=== PATIENT | female | born 1940 | race Caucasian/White ===

== ENCOUNTER 2016-10-18 06:04 | Day surgery (SDC) | payer MEDICARE ==
[~2016-10-18] VITALS: Ht 172.7 cm; Wt 90.9 kg
[~2016-10-18 06:04] MED LIST: FURO1TAB60 PO; LACTCAP8 PO; LEVO50TA4 PO; LIPI20TA PO; LORA-373 PO; MAGN1TAB14 PO; MULT400T PO; POTA-163 PO; PRIL40CA PO; TOPR50TA PO; TRAM50TA PO; VITA1000 PO; XARE20TA PO
[2016-10-18 06:41] VITALS: BP 124/86; PULSE 60; RESP 20; TEMP 97.9; O2SAT 94
[2016-10-18] MEDS ORDERED: ceFAZolin 2 GM PREMIX 50 ML - implanted port/tunneled catheter insertion IV SCH (06:45)
[2016-10-18] MEDS ORDERED: POVIDONE IODINE 5% (ANTISEPSIS KIT) 4 APPLICATIONS EACH NARE SCH (06:45)
[2016-10-18] MEDS ORDERED: CHLORHEXIDINE GLUCONATE 2 % 1 PACK (2 CLOTHS) TOPICAL SCH (06:45)
[2016-10-18] MEDS ORDERED: SODIUM CHLORIDE 0.9% 1000 ML IV SCH (06:45)
[2016-10-18] MEDS ORDERED: VANCOMYCIN 1000 MG/NS 250 ML - implanted port/tunneled catheter IV SCH ×2 (06:45)
[2016-10-18] MEDS ORDERED: LIDOCAINE 1%/EPINEPHrine 1:100,000 SOLN 20 ML VIAL ONE (07:50)
[2016-10-18] MEDS ORDERED: MIDAZOLAM HCL 5 MG/5 ML VIAL ONE (07:55)
[2016-10-18] MEDS ORDERED: fentaNYL CITRATE 250 MCG/5 ML AMP ONE (07:55)
[2016-10-18 09:00] VITALS: BP 162/67; PULSE 61; RESP 18; TEMP 97.5; O2SAT 92
[2016-10-18 09:15] VITALS: BP 163/60; PULSE 60; RESP 19; O2SAT 91
[2016-10-18 09:45] VITALS: BP 123/62; PULSE 57; RESP 18; O2SAT 92
--- NOTE | 2016-10-18 09:58 | PD.RAD ---
Post Procedure Progress Note Pre Procedure Diagnosis: (1) Adenocarcinoma Post Procedure Diagnosis: (1) Adenocarcinoma Procedure Date: Oct 18, 2016 Supervising Radiologist: Daren Castellanos Proceduralist/Assist: Sharmila Das RT(R), RT Ivanna(R)() Anesthesia: Local, Conscious Sedation Plan of Activity Patient to Unit: ROPU Patient Condition: Good See PACS Report for procedural detail/treatment Central Venous Access Device Procedure 1 Right Internal Jugular Infusaport Placement single lumen Hebrew: 8 Daren Castellanos MD Oct 18, 2016 09:58
[2016-10-18 10:15] VITALS: BP 113/6; PULSE 62; RESP 18; O2SAT 93
[2016-10-18] MEDS ORDERED: fentaNYL CITRATE 250 MCG/5 ML AMP IV PUSH ONE (10:29)
[2016-10-18] MEDS ORDERED: MIDAZOLAM HCL 5 MG/5 ML VIAL IVP ONE (10:29)
[2016-10-18 10:45] VITALS: BP 127/67; PULSE 68; RESP 19; O2SAT 96
--- NOTE | 2016-10-18 13:59 | RADRPT ---
EXAM DATE/TIME: 10/18/2016 07:52 [facility] COMPARISON: No previous studies available for comparison. 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 MEDICAL HISTORY : Papillary serous adenocarcinoma HTN Heart disease Atrial fibrillation Pacemaker Thyroid disease Osteoporosis Osteoarthritis Hx of blood clots Hx of cataracts Hx brain aneurysm Hemorrhoids Diverticulitis SURGICAL HISTORY : Laperoscopic lysis of adhesions with particial omentectomy and biopsy Appendectomy Hysterectomy Cholecystectomy Brain aneurysm coiling Right lumpectomy and biopsy Cardiac catheterization with ablation in 2011 & 2012 Pacemaker placement Colonoscopy 2015 Lt partial knee replacement RT total knee replacement Cataract removal ENCOUNTER: Initial ACUITY: 1 month PAIN SCORE: 0/10 FLUORO TIME: 0.4 minutes SEDATION TIME: 30 minutes ACCESS: Right internal jugular vein SEDATION: 1.) 2 mg midazolam (Versed) IV 2.) 150 mcg fentanyl (Sublimaze) IV Prophylactic antibiotics were administered with appropriate pre-procedure timing. Vancomycin within 2 hours of procedure, Ancef (or alternative) within 1 hour of procedure. DEVICE: 1. 8 Iraqi single lumen Vgerim-f-zmur PROCEDURE : 1. Continuous pulse oximetry and EKG monitoring. 2. Intravenous conscious sedation. 3. Ultrasound guidance for venous access. 4. Fluoroscopic guided implantable central venous port placement. The patient was placed supine. The neck was prepped in sterile fashion. Full sterile technique was u sed, including cap, mask, sterile gloves and gown, and a large sterile sheet. Hand hygiene and 2% ch lorhexidine Betadine was utilized per protocol for cutaneous antisepsis with appropriate dry time for site. The skin and subcutaneous tissues were infiltrated with local anesthetic solution. Under direct ultrasound guidance, central venous access was accomplished in the targeted vessel. The ultrasound images depicting access guidance were stored and saved to PACS for permanent record. A s ubcutaneous pocket was created using blunt dissection. The port was introduced to the pocket. The c atheter tubing was fed through a subcutaneous tunnel to the venotomy site. The catheter tubing was c ut to a suitable length and then was introduced through a valved Peel-Away sheath and positioned with catheter tubing tip at the cavo-atrial junction level. The pocket incision was closed with subcutic ular Vicryl suture. Steri-Strips were applied. The port was flushed and locked with heparin solutio n per protocol. Sterile dressing was applied to the site. The patient tolerated the procedure well. Conscious sedation was performed with the prescribed dosages and duration as above. The patient diana ated the procedure well and there were no complications. EKG and oximetry remained stable throughout the procedure. The patient was sent to post anesthesia recovery in stable condition. CONCLUSION: Uncomplicated ultrasound and fluoroscopic guided implanted central venous port catheter placement as described in detail above. An 8 Iraqi Power port was placed. Daren Castellanos MD on October 18, 2016 at 13:57 Board Certified Radiologist. This report was verified electronically.
== END 2016-10-18 11:15 | disposition home or self-care (01) ==
LOC: HRIP 06:04 → HROP 06:04
PROVIDERS: ATTEND Obstetrics & Gynecology Gynecologic Oncology
DX: C56.9 Malignant neoplasm of unspecified ovary (principal)
CPT/HCPCS: 36561; 76937; 77001; 99152; 99153; C1788; J0690; J1642; J2250; J3010; J3370; J7030; J7050

== ENCOUNTER 2016-11-23 12:37 | Inpatient (IN) | payer MEDICARE, OTHER ==
[~2016-11-23] VITALS: Ht 175.3 cm; Wt 90.0 kg
[2016-11-23 12:39] VITALS: BP 188/101; PULSE 94; RESP 16; TEMP 97.9; O2SAT 95
[2016-11-23] MEDS ORDERED: ONDANSETRON HCL 4 MG/2 ML VIAL IV PUSH ONE (17:00)
[2016-11-23] MEDS ORDERED: SODIUM CHLOR 0.9% 1000 ML INJ 1,000 ML IV ONE (17:00)
[2016-11-23] MEDS ORDERED: SODIUM CHLORIDE 0.9% FLUSH 5 ML FLUSH IVF PRN (17:00)
[2016-11-23 17:01] VITALS: BP 151/67; PULSE 88; RESP 16; O2SAT 96
[2016-11-23] MEDS ORDERED: D 50CAP PO (17:35)
[2016-11-23] MEDS ORDERED: DIPH1TAB36 PO (17:35)
--- NOTE | 2016-11-23 18:13 | PD ---
HPI Chief Complaint: Cardiac Complaint Time Seen by Provider: 16:57 Travel History International Travel<30 days: No Contact w/Intl Traveler<30days: No Traveled to known affect area: No History of Present Illness HPI 76-year-old female with history of breast cancer status post treatment, ovarian cancer currently on chemotherapy treatment with Dr. Fletcher, has not been eating and drinking very well after chemotherapy which she states occurs normally, has had some episodes of vomiting, and now is feeling lightheaded, feels like she is going to pass out, for the last few days. She denies any fevers, chest pains , diarrhea, or any other symptoms. She had called the primary care physician and oncology office and was told to come in because they think that she may be dehydrated. Modifying Factors: None Associated Signs & Symptoms: Near syncope, lightheadedness, poor by mouth intake , vomiting Risk Factors: On chemotherapy PFSH Past Medical History Hx Anticoagulant Therapy: Yes (XARELTO) Arthritis: Yes Asthma: No Atrial Fibrillation: Yes Blood Disorders: No Anxiety: No Depression: No Heart Rhythm Problems: Yes (A-FIB) Cancer: Yes (RIGHT BREAST) Cardiac Catheterization: Yes (12/19) Cardiovascular Problems: Yes (A-FIB) High Cholesterol: Yes Chemotherapy: Yes (11/16/16) Chest Pain: Yes (intermittent pain free now) Congestive Heart Failure: No COPD: No Cerebrovascular Accident: No Diabetes: No Endocrine: Yes Gastrointestinal Disorders: Yes (DIVERTICULITIS) GERD: Yes Genitourinary: No Headaches: No Hepatitis: No Hiatal Hernia: Yes Hypertension: Yes Immune Disorder: No Implanted Vascular Access Dvce: Yes Musculoskeletal: Yes Neurologic: Yes (brain aneurysm) Psychiatric: No Reproductive: No Respiratory: No Immunizations Current: Yes Migraines: No Radiation Therapy: Yes Seizures: No Sleep Apnea: No Thyroid Disease: Yes Menopausal: Yes Past Surgical History Abdominal Aneurysm Repair: Yes Abdominal Surgery: Yes (CHOLY, APPY) AICD: No Appendectomy: Yes Arteriovenous Shunt: No Body Medical Devices: PACEMAKER, R TOTAL KNEE, L PARTIAL KNEE, LEFT FOOT PIN, COIL LEFT BRAIN Cardiac Surgery: Yes (ablation in 09/2012 [facility] [place] ALSO SEP 2013, PACER) Cholecystectomy: Yes Ear Surgery: No Endocrine Surgery: No Eye Surgery: Yes (cataracts bilateral/2010 ) Genitourinary Surgery: Yes Gynecologic Surgery: Yes (partial HYST) Hysterectomy: Yes (PARTIAL) Insulin Pump: No Joint Replacement: Yes (PT STATES R & L KNEE AND L FOOT WITH PINS) Mastectomy: Yes (RIGHT) Neurologic Surgery: Yes (BRAIN SURGERY ON Nov) Oral Surgery: No Pacemaker: Yes ([employer]) Thoracic Surgery: No Other Surgery: Yes (RT. BREAST LUMPECTOMY IN 1996) Social History Alcohol Use: Yes (small glass of wine at bedtime) Tobacco Use: No Substance Use: No Allergies-Medications (Allergen,Severity, Reaction): Coded Allergies: Azithromycin (Verified Allergy, Severe, 11/23/16) Neosporin (Verified Allergy, Severe, 11/23/16) Polysporin (Verified Allergy, Mild, RASH, 11/23/16) Adhesives (Verified Adverse Reaction, Mild, 11/23/16) Reported Meds & Prescriptions Reported Meds & Active Scripts Active Reported Tylenol Pm Extra Strength (Diphenhydramine-Acetaminophen) 25-500 Mg Tab 2 Tab PO HS D 5000 (Cholecalciferol) 5,000 Unit Cap 5,000 Units PO DAILY Lorazepam 0.5 Mg Tab 0.5 Mg PO HS PRN Toprol XL (Metoprolol Succinate) 50 Mg Tab 50 Mg PO AC DINNER Lipitor (Atorvastatin Calcium) 20 Mg Tab 20 Mg PO HS Xarelto (Rivaroxaban) 20 Mg Tab 20 Mg PO AC DINNER Tramadol (Tramadol HCl) 50 Mg Tab 100 Mg PO BID Multaq (Dronedarone) 400 Mg Tab 400 Mg PO BID Potassium Chloride ER (Potassium Chloride) 20 Meq Tab 20 Meq PO DAILY Magnesium 400 Mg Tab 400 Mg PO AC DINNER Levothyroxine (Levothyroxine Sodium) 50 Mcg Tab 50 Mcg PO DAILY Lasix (Furosemide) 40 Mg Tab 40 Mg PO DAILY Review of Systems Except as stated in HPI: all other systems reviewed are Neg Physical Exam Narrative GENERAL: Well-nourished, well-developed elderly white female patient in no acute distress. Awake, alert, oriented 3. SKIN: Warm and dry. HEAD: Normocephalic. EYES: No scleral icterus. No injection or drainage. NECK: Supple, trachea midline. CARDIOVASCULAR: Regular rate and rhythm without murmurs, gallops, or rubs. RESPIRATORY: Breath sounds equal bilaterally. No accessory muscle use. GASTROINTESTINAL: Abdomen soft, non-tender, nondistended. MUSCULOSKELETAL: No cyanosis, or edema. BACK: Nontender without obvious deformity. No CVA tenderness. Data Data Last Documented VS Vital Signs Date Time Temp Pulse Resp B/P Pulse Ox O2 Delivery O2 Flow Rate FiO2 11/23/16 18:39 86 16 177/79 98 Room Air 11/23/16 12:39 97.9 Orders Electrocardiogram (11/23/16 ) Electrocardiogram (11/23/16 16:52) Complete Blood Count With Diff (11/23/16 16:52) Comprehensive Metabolic Panel (11/23/16 16:52) Magnesium (Mg) (11/23/16 16:52) Ckmb (Isoenzyme) Profile (11/23/16 16:52) Troponin I (11/23/16 16:52) Act Partial Throm Time (Ptt) (11/23/16 16:52) Prothrombin Time / Inr (Pt) (11/23/16 16:52) Urinalysis - C+S If Indicated (11/23/16 16:52) Chest, Single Ap (11/23/16 16:52) Ecg Monitoring (11/23/16 16:52) Iv Access Insert/Monitor (11/23/16 16:52) Oximetry (11/23/16 16:52) Sodium Chloride 0.9% Flush (Ns Flush) (11/23/16 17:00) Sodium Chlor 0.9% 1000 Ml Inj (Ns 1000 M (11/23/16 17:00) Ondansetron Inj (Zofran Inj) (11/23/16 17:00) Labs Laboratory Tests Test 11/23/16 11/23/16 17:45 18:30 Prothrombin Time 13.1 SEC Prothromb Time International 1.2 RATIO Ratio Activated Partial 25.4 SEC Thromboplast Time Urine Color YELLOW Urine Turbidity HAZY Urine pH 5.5 Urine Specific [place] 1.021 Urine Protein 30 mg/dL Urine Glucose (UA) NEG mg/dL Urine Ketones NEG mg/dL Urine Occult Blood SMALL Urine Nitrite NEG Urine Bilirubin NEG Urine Urobilinogen LESS THAN 2.0 MG/DL Urine Leukocyte Esterase LARGE Urine RBC 7 /hpf Urine WBC /hpf Urine Bacteria MANY /hpf Urine Mucus MANY /lpf Microscopic Urinalysis Comment CULTURE INDICATED MDM Medical Decision Making Medical Screen Exam Complete: Yes Emergency Medical Condition: Yes Medical Record Reviewed: Yes Interpretation(s) EKG shows sinus rhythm at a rate of [address] depressions in V2 and V3. No acute ST elevations. Differential Diagnosis Lightheadedness, poor by mouth intake, near syncopedehydration versus metabolic issues versus dysrhythmias Narrative Course Patient was given IV fluids and Zofran in the ER. Lab work ordered for further evaluation. EKG did not show any significant dysrhythmias. Physician Communication Physician Communication Case is signed out to Dr. Mustafa at 7 PM pending workup. Disposition based on workup. Diagnosis Primary Impression: Near syncope Condition: Stable Jasper Vallecillo MD Nov 23, 2016 18:13
--- NOTE | 2016-11-23 18:23 | RADRPT ---
EXAM DATE/TIME: 11/23/2016 17:46 [facility] COMPARISON: CT ABDOMEN & PELVIS W CONTRAST, December 13, 2015, 1:56. CHEST SINGLE AP, April 06, 2015, 14:43. INDICATIONS : General weakness after chemo treatments today MEDICAL HISTORY : A-fib, ovarian cancer SURGICAL HISTORY : Pacemaker. Kmiyk-i-eobv placement ENCOUNTER: Initial ACUITY: 1 day PAIN SCORE: 0/10 LOCATION: Bilateral chest FINDINGS: A single view of the chest demonstrates the lungs to be symmetrically aerated without evidence of mas s, infiltrate or effusion. There is a bi-lead pacemaker in place from the left subclavian approach a nd a CT compatible Lglhhh-d-Wega in place from the right internal jugular approach with the tip overl gurjit the SVC. The cardiomediastinal contours are unremarkable. Osseous structures are intact. CONCLUSION: No acute disease. Nickolas Joseph MD on November 23, 2016 at 18:20 Board Certified Radiologist. This report was verified electronically.
[2016-11-23 18:39] VITALS: BP 177/79; PULSE 86; RESP 16; O2SAT 98
[2016-11-23 18:40] LABS: AUTOMATED NEUTROPHIL # 5.1 TH/MM3 (1.8-7.7); BASOPHIL % 0.4 % (0.0-2.0); EOSINOPHIL # 0.6 TH/MM3 (0-0.4); EOSINOPHIL % 7.6 % (0.0-4.0); HEMATOCRIT 32.6 % (35.0-46.0); LYMPH % 13.3 % (9.0-44.0); MEAN CELL VOLUME 86.4 FL (80.0-100.0); MEAN CORPUSCULAR HEMOGLOBIN 27.9 PG (27.0-34.0); MEAN CORPUSCULAR HGB CONC 32.3 % (32.0-36.0); MONO % 11.3 % (0.0-8.0); NEUT % 67.4 % (16.0-70.0); PLATELET COUNT 75 TH/MM3 (150-450); RED BLOOD COUNT 3.77 MIL/MM3 (4.00-5.30); RED CELL DISTRIBUTION WIDTH 17.3 % (11.6-17.2); WHITE BLOOD COUNT 7.6 TH/MM3 (4.0-11.0)
[2016-11-23 18:47] LABS: APTT (PATIENT) 25.4 SEC (24.3-30.1); INTERNATIONAL NORMALIZED RATIO 1.2 RATIO; PROTHROMBIN TIME - PATIENT 13.1 SEC (9.8-11.6)
[2016-11-23 18:54] LABS: BACTERIA, URINE MANY /hpf; BLOOD, URINE SMALL (NEG); COMMENT (UR) CULTURE INDICATED; CULTURE IF INDICATED CULTURE INDICATED; GLUCOSE,URINE NEG (NEG); KETONE, URINE NEG (NEG); MUCUS URINE MANY /lpf (OCC); NITRITE,URINE NEG (NEG); PH, URINE 5.5 (5.0-8.5); URINE COLOR YELLOW (YELLW/STRAW)
[2016-11-23] MEDS ORDERED: PIPERACIL-TAZO 4.5 GM PREMIX 100 ML IV STA (18:57)
[2016-11-23 18:59] LABS: ALKALINE PHOSPHATASE 89 U/L (45-117); ALT (GPT) 28 U/L (10-53); ANION GAP 9 MEQ/L (5-15); AST (GOT) 36 U/L (15-37); BICARBONATE 28.5 MEQ/L (21.0-32.0); BLOOD UREA NITROGEN 24 MG/DL (7-18); CHLORIDE 100 MEQ/L (98-107); CREATINE KINASE 134 U/L (26-192); GLOMERULAR FILTRATION RATE 45 ML/MIN (>89); MAGNESIUM 1.3 MG/DL (1.5-2.5); POTASSIUM 4.5 MEQ/L (3.5-5.1); SODIUM (NA) 137 MEQ/L (136-145); TOTAL BILIRUBIN ADULT 0.8 MG/DL (0.2-1.0)
[2016-11-23 19:00] LABS: HEMO FLAGS AUTO DIFF
[2016-11-23 19:12] LABS: CKMB 0.5 NG/ML (0.5-3.6)
[2016-11-23 19:15] VITALS: BP 135/63; PULSE 80; RESP 18; O2SAT 95
[2016-11-23 19:32] LABS: BANDS 21 % (0-6); BASOPHILS 1 % (0-2); EOSINOPHILS 5 % (0-4); NEUTROPHIL # MANUAL DIFF 5.9 TH/MM3 (1.8-7.7); POLYS (SEG NEUTROPHILS) 57 % (16-70); WBC DIFF SAMPLE 100
[2016-11-23 20:06] LABS: OVALOCYTES 1+ (NORMAL); PLATELET ESTIMATE SMEAR LOW (NORMAL); PLATELET MORPHOLOGY ENLARGED (NORMAL); SCAN/DIFF FINAL DIFF MANUAL
[2016-11-23] MEDS ORDERED: traMADol HCL 50 MG TAB PO ONE (21:15)
[2016-11-23 21:38] VITALS: BP 165/74; PULSE 95; RESP 18; O2SAT 95
--- NOTE | 2016-11-23 21:49 | PD ---
Physical Exam Narrative Received sign out from previous team to follow up labs and reevaluate. Please see previous provider's note for further history. 76yo F with PMH of breast CA s/p treatment and ovarian cancer on chemotherapy ( follows with Dr. Fletcher) here with generalized weakness for about 5 days. Her last chemotherapy session was last Monday. Labs reviewed, no leukocytosis and pt is not neutropenic with WBC at 7.6. However, pt does have bandemia at 21% . H/H at baseline. BUN/creatinine elevated at 24/1.17. Pt given NS IVF. Lactic acid is elevated at 3.4. Magnesium low at 1.3. Replaced with IV magnesium sulfate 1gm. Troponin negative. UA positive for leukocyte. Pt given zosyn. I discussed the case with pt's oncologist Dr. Fletcher and he agrees with admission. Vancomycin added. Discussed with Dr. Aguillon and accepted for urosepsis. Data Data Last Documented VS Vital Signs Date Time Temp Pulse Resp B/P Pulse Ox O2 Delivery O2 Flow Rate FiO2 11/23/16 21:38 95 18 165/74 95 Room Air 11/23/16 12:39 97.9 Orders Electrocardiogram (11/23/16 ) Electrocardiogram (11/23/16 16:52) Complete Blood Count With Diff (11/23/16 16:52) Comprehensive Metabolic Panel (11/23/16 16:52) Magnesium (Mg) (11/23/16 16:52) Ckmb (Isoenzyme) Profile (11/23/16 16:52) Troponin I (11/23/16 16:52) Act Partial Throm Time (Ptt) (11/23/16 16:52) Prothrombin Time / Inr (Pt) (11/23/16 16:52) Urinalysis - C+S If Indicated (11/23/16 16:52) Chest, Single Ap (11/23/16 16:52) Ecg Monitoring (11/23/16 16:52) Iv Access Insert/Monitor (11/23/16 16:52) Oximetry (11/23/16 16:52) Sodium Chloride 0.9% Flush (Ns Flush) (11/23/16 17:00) Sodium Chlor 0.9% 1000 Ml Inj (Ns 1000 M (11/23/16 17:00) Ondansetron Inj (Zofran Inj) (11/23/16 17:00) Urine Culture (11/23/16 18:30) Lactic Acid Sepsis Protocol (11/23/16 18:57) Blood Culture (11/23/16 18:57) Piperacil-Tazo 4.5 Gm Premix (Zosyn 4.5 (11/23/16 18:57) CKMB (11/23/16 17:45) CKMB% (11/23/16 17:45) Tramadol (Ultram) (11/23/16 21:15) Magnesium Sulfate 1 Gm Premix (Magnesium (11/23/16 22:00) Vancomycin Consult Pharmacy (Vancomycin (11/23/16 22:00) Admit Order (Ed Use Only) (11/23/16 21:52) Vancomycin Inj (Vancomycin Inj) (11/23/16 22:00) Sodium Chlor 0.9% 1000 Ml Inj (Ns 1000 M (11/23/16 22:00) Lactic Acid (11/23/16 22:00) Lactic Acid (11/24/16 06:00) Labs Laboratory Tests Test 11/23/16 11/23/16 11/23/16 17:45 18:30 20:19 White Blood Count 7.6 TH/MM3 Red Blood Count 3.77 MIL/MM3 Hemoglobin 10.5 GM/DL Hematocrit 32.6 % Mean Corpuscular Volume 86.4 FL Mean Corpuscular Hemoglobin 27.9 PG Mean Corpuscular Hemoglobin 32.3 % Concent Red Cell Distribution Width 17.3 % Platelet Count 75 TH/MM3 Mean Platelet Volume 11.2 FL Neutrophils (%) (Auto) 67.4 % Lymphocytes (%) (Auto) 13.3 % Monocytes (%) (Auto) 11.3 % Eosinophils (%) (Auto) 7.6 % Basophils (%) (Auto) 0.4 % Neutrophils # (Auto) 5.1 TH/MM3 Lymphocytes # (Auto) 1.0 TH/MM3 Monocytes # (Auto) 0.9 TH/MM3 Eosinophils # (Auto) 0.6 TH/MM3 Basophils # (Auto) 0.0 TH/MM3 CBC Comment AUTO DIFF Differential Total Cells 100 Counted Neutrophils % (Manual) 57 % Band Neutrophils % 21 % Lymphocytes % 9 % Monocytes % 7 % Eosinophils % 5 % Basophils % 1 % Neutrophils # (Manual) 5.9 TH/MM3 Differential Comment FINAL DIFF MANUAL Platelet Estimate LOW Platelet Morphology Comment ENLARGED Ovalocytes 1+ Prothrombin Time 13.1 SEC Prothromb Time International 1.2 RATIO Ratio Activated Partial 25.4 SEC Thromboplast Time Sodium Level 137 MEQ/L Potassium Level 4.5 MEQ/L Chloride Level 100 MEQ/L Carbon Dioxide Level 28.5 MEQ/L Anion Gap 9 MEQ/L Blood Urea Nitrogen 24 MG/DL Creatinine 1.17 MG/DL Estimat Glomerular Filtration 45 ML/MIN Rate Random Glucose 83 MG/DL Calcium Level 9.0 MG/DL Magnesium Level 1.3 MG/DL Total Bilirubin 0.8 MG/DL Aspartate Amino Transf 36 U/L (AST/SGOT) Alanine Aminotransferase 28 U/L (ALT/SGPT) Alkaline Phosphatase 89 U/L Total Creatine Kinase 134 U/L Creatine Kinase MB 0.5 NG/ML Troponin I LESS THAN 0.02 NG/ML Total Protein 7.0 GM/DL Albumin 3.4 GM/DL Urine Color YELLOW Urine Turbidity HAZY Urine pH 5.5 Urine Specific [place] 1.021 Urine Protein 30 mg/dL Urine Glucose (UA) NEG mg/dL Urine Ketones NEG mg/dL Urine Occult Blood SMALL Urine Nitrite NEG Urine Bilirubin NEG Urine Urobilinogen LESS THAN 2.0 MG/DL Urine Leukocyte Esterase LARGE Urine RBC 7 /hpf Urine WBC /hpf Urine Bacteria MANY /hpf Urine Mucus MANY /lpf Microscopic Urinalysis Comment CULTURE INDICATED Lactic Acid Level 3.4 mmol/L MDM Supervised Visit with FELECIA: No Diagnosis Primary Impression: Sepsis Qualified Code: A41.9 - Sepsis, due to unspecified organism Admitting Information Admitting Physician Requests: Admit Condition: Stable Jolynn Mustafa DO Nov 23, 2016 21:49
[2016-11-23] MEDS: SODIUM CHLOR 0.9% 1000 ML INJ 1,000 ML IV SCH (21:53)
--- NOTE | 2016-11-23 21:57 | HHI.HP ---
[facility] Admission Diagnosis Urosepsis Diagnoses: (1) Sepsis Diagnosis: Principal (2) UTI (urinary tract infection) Diagnosis: Principal (3) JOSI (acute kidney injury) Diagnosis: Principal (4) A-fib Diagnosis: Principal (5) Ovarian ca Diagnosis: Principal Travel History International Travel<30 Days: No Contact w/Intl Traveler <30 Da: No Traveled to Known Affected Are: No History of Present Illness This is a 76-year-old female with a PMH of Breast CA, Ovarian CA on Chemotherapy , A-fib on Xarelto and HTN who presented to the ER w/ complaints of generalized weakness, dizziness and decreased PO intake x3 days w/ associated nausea/ vomiting x2. Denies fever, chills, diarrhea or sick contacts. Follows w/ Dr. Fletcher as outpatient, called office and referred to ER for further evaluation. On arrival, BP 188/101, HR 94, O2 sat 95% on RA, Afebrile. BP currently 148/61 , HR 80. Creatinine 1.17, previously 1.04 on 09/21/16. Lactic Acid 3.4. INR 1.2. U/a positive for UTI. S/p Blood Cultures in ER and IV Zosyn. Review of Systems Except as stated in HPI: all other systems reviewed are Neg ROS: 14 point review of systems otherwise negative. Past Family Social History Past Medical History PMH: Breast CA, Ovarian CA on Chemotherapy, A-fib on Xarelto and HTN Past Surgical History PAST SURGICAL HISTORY: Cholecystectomy, Appendectomy, Pacemaker, Total Knee Replacement, Cardiac Ablation, Hysterectomy, Bilateral Cataracts, Breast Lumpectomy, Right Mastectomy, Brain Surgery Allergies: Coded Allergies: Azithromycin (Verified Allergy, Severe, 11/23/16) Neosporin (Verified Allergy, Severe, 11/23/16) Polysporin (Verified Allergy, Mild, RASH, 11/23/16) Adhesives (Verified Adverse Reaction, Mild, 11/23/16) Family History PAST FAMILY HISTORY: Reviewed. No h/o DM or CAD Social History PAST SOCIAL HISTORY: Occasional alcohol. Negative for tobacco or drugs. Physical Exam Vital Signs Vital Signs Date Time Temp Pulse Resp B/P Pulse Ox O2 Delivery O2 Flow Rate FiO2 11/23/16 21:38 95 18 165/74 95 Room Air 11/23/16 19:15 80 18 135/63 95 Room Air 11/23/16 18:39 86 16 177/79 98 Room Air 11/23/16 17:01 88 16 151/67 96 Room Air 11/23/16 12:39 97.9 94 16 188/101 95 Room Air Physical Exam PE: GENERAL: Elderly white female in no acute distress. HEENT: PERRLA, EOMI. No scleral icterus or conjunctival pallor. No lid lag or facial droop. CARDIOVASCULAR: Regular rate and rhythm. No obvious murmurs to auscultation. No chest tenderness to palpation. RESPIRATORY: No obvious rhonchi or wheezing. Clear to auscultation. Breath sounds equal bilaterally. GASTROINTESTINAL: Abdomen soft, non-tender, nondistended. BS normal. MUSCULOSKELETAL: Extremities without clubbing, cyanosis, or edema. No obvious deformities. NEUROLOGICAL: Awake, alert and oriented x4. No focal neurologic deficits. Moving both upper and lower extremities spontaneously. Laboratory Laboratory Tests Test 11/23/16 11/23/16 11/23/16 17:45 18:30 20:19 White Blood Count 7.6 Red Blood Count 3.77 Hemoglobin 10.5 Hematocrit 32.6 Mean Corpuscular Volume 86.4 Mean Corpuscular Hemoglobin 27.9 Mean Corpuscular Hemoglobin 32.3 Concent Red Cell Distribution Width 17.3 Platelet Count 75 Mean Platelet Volume 11.2 Neutrophils (%) (Auto) 67.4 Lymphocytes (%) (Auto) 13.3 Monocytes (%) (Auto) 11.3 Eosinophils (%) (Auto) 7.6 Basophils (%) (Auto) 0.4 Neutrophils # (Auto) 5.1 Lymphocytes # (Auto) 1.0 Monocytes # (Auto) 0.9 Eosinophils # (Auto) 0.6 Basophils # (Auto) 0.0 CBC Comment AUTO DIFF Differential Total Cells 100 Counted Neutrophils % (Manual) 57 Band Neutrophils % 21 Lymphocytes % 9 Monocytes % 7 Eosinophils % 5 Basophils % 1 Neutrophils # (Manual) 5.9 Differential Comment FINAL DIFF MANUAL Platelet Estimate LOW Platelet Morphology Comment ENLARGED Ovalocytes 1+ Prothrombin Time 13.1 Prothromb Time International 1.2 Ratio Activated Partial 25.4 Thromboplast Time Sodium Level 137 Potassium Level 4.5 Chloride Level 100 Carbon Dioxide Level 28.5 Anion Gap 9 Blood Urea Nitrogen 24 Creatinine 1.17 Estimat Glomerular Filtration 45 Rate Random Glucose 83 Calcium Level 9.0 Magnesium Level 1.3 Total Bilirubin 0.8 Aspartate Amino Transf 36 (AST/SGOT) Alanine Aminotransferase 28 (ALT/SGPT) Alkaline Phosphatase 89 Total Creatine Kinase 134 Creatine Kinase MB 0.5 Troponin I LESS THAN 0.02 Total Protein 7.0 Albumin 3.4 Urine Color YELLOW Urine Turbidity HAZY Urine pH 5.5 Urine Specific [place] 1.021 Urine Protein 30 Urine Glucose (UA) NEG Urine Ketones NEG Urine Occult Blood SMALL Urine Nitrite NEG Urine Bilirubin NEG Urine Urobilinogen LESS THAN 2.0 Urine Leukocyte Esterase LARGE Urine RBC 7 Urine WBC Urine Bacteria MANY Urine Mucus MANY Microscopic Urinalysis Comment CULTURE INDICATED Lactic Acid Level 3.4 Date/Time Procedure Status Source Growth 11/23/16 20:19 Aerobic Blood Culture Received Blood Peripheral Pending 11/23/16 20:19 Anaerobic Blood Culture Received Blood Peripheral Pending 11/23/16 18:30 Urine Culture Worksheet Urine Clean Catch Pending Result Diagram: 11/23/16 1745 11/23/16 174 Assessment and Plan Problem List: (1) Sepsis ICD Code: A41.9 Status: Acute (2) UTI (urinary tract infection) ICD Code: N39.0 Status: Acute (3) JOSI (acute kidney injury) ICD Code: N17.9 Status: Resolved (4) Ovarian ca ICD Code: C56.9 Status: Acute (5) A-fib ICD Code: I48.91 Status: Acute Assessment and Plan A/P: 1. Sepsis: HR 95, WBC 7.6, Bands 21, Lactic Acid 3.4, Source-UTI. S/p Blood/ Urine cultures in ER, Zosyn IV. Follow up cultures, continue w/ IV Abx, add IV Vanc as pt Immunocompromised. IVF for hydration, repeat Lactic Acid. 2. UTI: U/a w/ UTI. Continue IV Abx as above, IVF, repeat labs in am. 3. JOSI: Creatinine 1.17, previously 1.04 on 09/21/16, secondary to dehydration from UTI/Sepsis. IVF, repeat labs in am. 4. A-fib: Chronic. On Xarelto. Resume home Multaq and Metoprolol. 5. Ovarian CA: on Chemotherapy, following w/ Dr. Fletcher. Will consult for further recommendations. 6. DVT Prophylaxis: On Xarelto. 7. Social work for d/c planning as needed. 8. Case discussed w/ ER physician at length. Physician Certification 2 Midnight Certification Type: Admission for Inpatient Services Order for Inpatient Services The services are ordered in accordance with Medicare regulations or non- Medicare payer requirements, as applicable. In the case of services not specified as inpatient-only, they are appropriately provided as inpatient services in accordance with the 2-midnight benchmark. Estimated LOS (days): 2 days is the estimated time the patient will need to remain in the hospital, assuming treatment plan goals are met and no additional complications. Post-Hospital Plan: Not yet determined Problem Qualifiers (1) Sepsis: Qualified Code: A41.9 - Sepsis, due to unspecified organism Gabby Saravia MD Nov 23, 2016 21:57
[2016-11-23] MEDS ORDERED: ACETAMINOPHEN/HYDROcodone 325 MG/5 MG TAB PO PRN (22:00)
[2016-11-23] MEDS ORDERED: ACETAMINOPHEN 325 MG TAB PO PRN (22:00)
[2016-11-23] MEDS: SODIUM CHLOR 0.9% 1000 ML INJ 1,000 ML IV ONE (22:00)
[2016-11-23] MEDS ORDERED: Vancomycin Consult Pharmacy 1 EA OTHER SCH (22:00)
[2016-11-23] MEDS ORDERED: VANCOMYCIN INJ 1,350 MG in SODIUM CHLORID 0.9% 500 ML INJ 500 ML IV ONE (22:00)
[2016-11-23] MEDS ORDERED: BISACODYL 10 MG SUPP PR PRN (22:00)
[2016-11-23] MEDS ORDERED: SODIUM CHLORIDE 0.9% FLUSH 5 ML FLUSH FLUSH PRN (22:00)
[2016-11-23] MEDS ORDERED: ONDANSETRON HCL 4 MG/2 ML VIAL IVP PRN (22:00)
[2016-11-23] MEDS ORDERED: MAGNESIUM SULFATE 1 GM PREMIX 100 ML IV ONE (22:00)
[2016-11-23 22:28] LABS: LACTIC ACID GHOST NOT REPORTABLE
[2016-11-23 23:56] VITALS: BP 148/61; PULSE 80; RESP 18; O2SAT 96
[2016-11-24] VITALS (8 sets, daily range): BP systolic 95–164; BP diastolic 61–87; PULSE 74–105; RESP 16–20; TEMP 95.2–97.6; O2SAT 95–98
[2016-11-24] MEDS: PIPERACIL-TAZO 3.375 GM PREMIX 50 ML IV SCH ×4 (02:25→17:45)
[2016-11-24 04:05] LABS: AUTOMATED NEUTROPHIL # 2.6 TH/MM3 (1.8-7.7); EOSINOPHIL # 0.1 TH/MM3 (0-0.4); EOSINOPHIL % 2.9 % (0.0-4.0); HEMATOCRIT 34.1 % (35.0-46.0); HEMO FLAGS DIFF FINAL; LYMPH % 31.5 % (9.0-44.0); LYMPHOCYTE # 1.6 TH/MM3 (1.0-4.8); MEAN CELL VOLUME 85.5 FL (80.0-100.0); MEAN CORPUSCULAR HEMOGLOBIN 29.4 PG (27.0-34.0); MEAN CORPUSCULAR HGB CONC 34.3 % (32.0-36.0); MONO % 12.3 % (0.0-8.0); NEUT % 52.3 % (16.0-70.0); PLATELET COUNT 233 TH/MM3 (150-450); RED BLOOD COUNT 3.99 MIL/MM3 (4.00-5.30); RED CELL DISTRIBUTION WIDTH 14.5 % (11.6-17.2)
[2016-11-24 04:32] LABS: ALKALINE PHOSPHATASE 74 U/L (45-117); ALT (GPT) 24 U/L (10-53); ANION GAP 8 MEQ/L (5-15); AST (GOT) 16 U/L (15-37); BICARBONATE 25.8 MEQ/L (21.0-32.0); BLOOD UREA NITROGEN 9 MG/DL (7-18); CHLORIDE 100 MEQ/L (98-107); GLOMERULAR FILTRATION RATE 81 ML/MIN (>89); MAGNESIUM 1.9 MG/DL (1.5-2.5); POTASSIUM 3.5 MEQ/L (3.5-5.1); SODIUM (NA) 134 MEQ/L (136-145); TOTAL BILIRUBIN ADULT 0.5 MG/DL (0.2-1.0)
--- NOTE | 2016-11-24 07:42 | HHI.PR ---
Subjective Remarks f/u; generalized weakness overall feeling better. afebrile. denies pain. d/w the RN and no acute issues over night. Objective Vitals Vital Signs Date Time Temp Pulse Resp B/P Pulse Ox O2 Delivery O2 Flow Rate FiO2 11/24/16 04:30 74 18 134/61 96 Room Air 11/24/16 01:28 74 18 164/71 95 Room Air 11/23/16 23:56 80 18 148/61 96 Room Air 11/23/16 21:38 95 18 165/74 95 Room Air 11/23/16 19:15 80 18 135/63 95 Room Air 11/23/16 18:39 86 16 177/79 98 Room Air 11/23/16 17:01 88 16 151/67 96 Room Air 11/23/16 12:39 97.9 94 16 188/101 95 Room Air Result Diagram: 11/24/16 0349 11/24/16 0349 Imaging Last Impressions Chest X-Ray 11/23/161651 Signed Impressions: Service Date/Time: Wednesday, November 23, 2016 17:46 - CONCLUSION: No acute disease. Nickolas Joseph MD Objective Remarks GENERAL: This is a well-nourished, well-developed patient, in no apparent distress. CARDIOVASCULAR: Regular rate and irregular rhythm without murmurs, gallops, or rubs. RESPIRATORY: Clear to auscultation. Breath sounds equal bilaterally. No wheezes , rales, or rhonchi. GASTROINTESTINAL: Abdomen soft, non-tender, nondistended. Normal, active bowel sounds MUSCULOSKELETAL: Extremities without clubbing, cyanosis, or edema. NEURO: Alert & Oriented x4 to person, place, time, situation. Moves all ext x4 Procedures none Medications and IVs Current Medications IV Flush 2 ml 2 ml UNSCH PRN IVF FLUSH AFTER USING IV ACCESS; Start 11/23/16 at 17:00 Sodium Chloride (NS 1000 ml Inj) 1,000 ml @ 999 mls/hr BOLUS ONCE IV Last administered on 11/23/16 17:06; Start 11/23/16 at 17:00; Stop 11/23/16 at 18:00 ; Status DC Ondansetron HCl 4 mg 4 mg ONCE ONCE IV PUSH Last administered on 11/23/16 17: 07; Start 11/23/16 at 17:00; Stop 11/23/16 at 17:01; Status DC Piperacillin Sod/ Tazobactam Sod (Zosyn 4.5 Gm Premix) 100 ml @ 200 mls/hr ONCE STAT IV Last administered on 11/23/16 20:21; Start 11/23/16 at 18:57; Stop 11/23/16 at 19:26; Status DC Tramadol HCl 100 mg 100 mg ONCE ONCE PO Last administered on 11/23/16 21:12; Start 11/23/16 at 21:15; Stop 11/23/16 at 21:16; Status DC Magnesium Sulfate/ Dextrose 100 ml @ 100 mls/hr ONCE ONCE IV Last administered on 11/23/16 22:05; Start 11/23/16 at 22:00; Stop 11/23/16 at 22:59 ; Status DC Pharmacy Profile Note 0 ml @ 0 mls/hr UNSCH OTHER ; Start 11/23/16 at 22:00 Vancomycin HCl 1350 mg/Sodium Chloride 513.5 ml @ 250 mls/hr ONCE ONCE IV Last administered on 11/23/16 22:18; Start 11/23/16 at 22:00; Stop 11/24/16 at 00:03; Status DC Sodium Chloride 1,000 ml @ 999 mls/hr BOLUS ONCE IV Last administered on 11/23 22:00; Start 11/23/16 at 22:00; Stop 11/23/16 at 23:00; Status DC Piperacillin Sod/ Tazobactam Sod 50 ml @ 100 mls/hr Q6H IV Last administered on 11/24/16 07:28; Start 11/24/16 at 01:00 Sodium Chloride (NS 1000 ml Inj) 1,000 ml @ 100 mls/hr Q10H IV Last administered on 11/23/16 21:53; Start 11/23/16 at 21:53 IV Flush (NS Flush) 2 ml UNSCH PRN FLUSH FLUSH AFTER USING IV ACCESS; Start at 22:00 IV Flush (NS Flush) 2 ml BID FLUSH ; Start 11/24/16 at 09:00 Ondansetron HCl (Zofran Inj) 4 mg Q6H PRN IVP NAUSEA OR VOMITING; Start at 22:00 Bisacodyl (Dulcolax Supp) 10 mg DAILY PRN [place] CONSTIPATION; Start 11/23/16 at 22 :00 Acetaminophen (Tylenol) 650 mg Q6H PRN PO FEVER/PAIN SCALE 1 TO 2; Start at 22:00 Acetaminophen/ Hydrocodone Bitart ([place] 5-325 Mg) 1 tab Q4H PRN PO PAIN SCALE 3 TO 5; Start 11/23/16 at 22:00 Hydromorphone HCl (Dilaudid Pf Inj) 0.5 mg Q3H PRN IV Pain 6-10; Start at 22:00 Atorvastatin Calcium (Lipitor) 20 mg HS PO ; Start 11/24/16 at 21:00 Dronedarone (Multaq) 400 mg BID PO ; Start 11/24/16 at 09:00 Furosemide (Lasix) 40 mg DAILY PO ; Start 11/24/16 at 09:00 Lorazepam (Ativan) 0.5 mg HS PRN PO ANXIETY AND/OR INSOMNIA; Start 11/23/16 at 22:00 Metoprolol Succinate (Toprol Xl) 50 mg AC DINNER PO ; Start 11/24/16 at 16:00 Rivaroxaban (Xarelto) 20 mg AC DINNER PO ; Start 11/24/16 at 16:00 A/P Assessment and Plan A/P 1. Sepsis due to UTI: continue IV antibiotics- will deescalate soon when the result of cultures available.continue IV fluid. 2. JOSI: Creatinine 1.17, previously 1.04 on 09/21/16, secondary to dehydration from UTI/Sepsis. improved on IV fluid. 3. A-fib: Chronic. On Xarelto. Resumed home Multaq and Metoprolol. 4. Ovarian CA: on Chemotherapy, following w/ Dr. Fletcher. consulted for further recommendations. 5. DVT Prophylaxis: On Xarelto. Rochelle Cassidy MD Nov 24, 2016 07:42
--- NOTE | 2016-11-24 08:53 | EKG ---
Date Performed: 11/23/2016 Time Performed: 13:56:25 PTAGE: 76 years EKG: Sinus rhythm MODERATE ST DEPRESSION ABNORMAL ECG PREVIOUS TRACING : 12/15/2015 04.04 DOCTOR: Valdemar Dodson Interpretating Date/Time 11/24/2016 08:49:25
[2016-11-24] MEDS: SODIUM CHLORIDE 0.9% FLUSH 5 ML FLUSH FLUSH SCH ×2 (09:00→21:09)
[2016-11-24] MEDS: FUROSEMIDE 40 MG TAB PO SCH (09:00)
[2016-11-24] MEDS: SODIUM CHLOR 0.9% 1000 ML INJ 1,000 ML IV SCH ×2 (09:01→21:09)
[2016-11-24] MEDS: DRONEDARONE 400 MG TAB PO SCH ×2 (09:06→21:09)
--- NOTE | 2016-11-24 11:02 | PD.CONS ---
History of Present Illness Service SUPERINTENDENT MARINE/ ONC Consult Requested By Dr. 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 She was feeling very weak and tired, she related this to the Neulasta injection. She states that after using the On Body Neulasta she had a lot of pain and fatigue. She was not able to eat or drink much and she was scheduled for IV fluids on . She came into the ER with c/o generalized weakness, dizziness and poor intake. Testing obtained in ER shown a UTI and JOSI. She was admitted for further evaluation. Review of Systems Constitutional: COMPLAINS OF: Fatigue, Dizziness, Change in appetite Except as stated in HPI: all other systems reviewed are Neg Past Family Social History Allergies: Coded Allergies: Azithromycin (Verified Allergy, Severe, 11/23/16) Neosporin (Verified Allergy, Severe, 11/23/16) Polysporin (Verified Allergy, Mild, RASH, 11/23/16) Adhesives (Verified Adverse Reaction, Mild, 11/23/16) Past Medical History breat ca papillary serous cancer of unknown origin afib HTN Past Surgical History judi appy pacemaker total knee replacement cardiac ablation hysterectomy cataracts lumpectomy right mastectomy brain surgery Reported Medications per EMR Active Ordered Medications Current Medications IV Flush 2 ml 2 ml UNSCH PRN IVF FLUSH AFTER USING IV ACCESS; Start 11/23/16 at 17:00 Sodium Chloride (NS 1000 ml Inj) 1,000 ml @ 999 mls/hr BOLUS ONCE IV Last administered on 11/23/16 17:06; Start 11/23/16 at 17:00; Stop 11/23/16 at 18:00 ; Status DC Ondansetron HCl 4 mg 4 mg ONCE ONCE IV PUSH Last administered on 11/23/16 17: 07; Start 11/23/16 at 17:00; Stop 11/23/16 at 17:01; Status DC Piperacillin Sod/ Tazobactam Sod (Zosyn 4.5 Gm Premix) 100 ml @ 200 mls/hr ONCE STAT IV Last administered on 11/23/16 20:21; Start 11/23/16 at 18:57; Stop 11/23/16 at 19:26; Status DC Tramadol HCl 100 mg 100 mg ONCE ONCE PO Last administered on 11/23/16 21:12; Start 11/23/16 at 21:15; Stop 11/23/16 at 21:16; Status DC Magnesium Sulfate/ Dextrose 100 ml @ 100 mls/hr ONCE ONCE IV Last administered on 11/23/16 22:05; Start 11/23/16 at 22:00; Stop 11/23/16 at 22:59 ; Status DC Pharmacy Profile Note 0 ml @ 0 mls/hr UNSCH OTHER ; Start 11/23/16 at 22:00 Vancomycin HCl 1350 mg/Sodium Chloride 513.5 ml @ 250 mls/hr ONCE ONCE IV Last administered on 11/23/16 22:18; Start 11/23/16 at 22:00; Stop 11/24/16 at 00:03; Status DC Sodium Chloride 1,000 ml @ 999 mls/hr BOLUS ONCE IV Last administered on 11/23 22:00; Start 11/23/16 at 22:00; Stop 11/23/16 at 23:00; Status DC Piperacillin Sod/ Tazobactam Sod 50 ml @ 100 mls/hr Q6H IV Last administered on 11/24/16 07:28; Start 11/24/16 at 01:00 Sodium Chloride (NS 1000 ml Inj) 1,000 ml @ 75 mls/hr [id number] IV Last administered on 11/24/16 09:01; Start 11/23/16 at 21:53 IV Flush (NS Flush) 2 ml UNSCH PRN FLUSH FLUSH AFTER USING IV ACCESS; Start at 22:00 IV Flush (NS Flush) 2 ml BID FLUSH ; Start 11/24/16 at 09:00 Ondansetron HCl (Zofran Inj) 4 mg Q6H PRN IVP NAUSEA OR VOMITING; Start at 22:00 Bisacodyl (Dulcolax Supp) 10 mg DAILY PRN [place] CONSTIPATION; Start 11/23/16 at 22 :00 Acetaminophen (Tylenol) 650 mg Q6H PRN PO FEVER/PAIN SCALE 1 TO 2; Start at 22:00 Acetaminophen/ Hydrocodone Bitart ([place] 5-325 Mg) 1 tab Q4H PRN PO PAIN SCALE 3 TO 5; Start 11/23/16 at 22:00 Hydromorphone HCl (Dilaudid Pf Inj) 0.5 mg Q3H PRN IV Pain 6-10; Start at 22:00 Atorvastatin Calcium (Lipitor) 20 mg HS PO ; Start 11/24/16 at 21:00 Dronedarone (Multaq) 400 mg BID PO Last administered on 11/24/16t 09:06; Start 11/24/16 at 09:00 Furosemide (Lasix) 40 mg DAILY PO ; Start 11/24/16 at 09:00 Lorazepam (Ativan) 0.5 mg HS PRN PO ANXIETY AND/OR INSOMNIA; Start 11/23/16 at 22:00 Metoprolol Succinate (Toprol Xl) 50 mg AC DINNER PO ; Start 11/24/16 at 16:00 Rivaroxaban 20 mg 20 mg AC DINNER PO ; Start 11/24/16 at 16:00 Vancomycin HCl/ Sodium Chloride (Vancomycin Inj/ NS 500 ml Inj) 515 ml @ 250 mls/hr Q12H IV ; Start 11/24/16 at 10:00 Miscellaneous Information SPECIFIC LAB TO BE DRAWN:VANCOMYCIN TROUGH DATE TO... ONCE ONCE XX ; Start 11/25/16 at 09:45; Stop 11/25/16 at 09:46 Social History denies tobacco Physical Exam Vital Signs Vital Signs Date Time Temp Pulse Resp B/P Pulse Ox O2 Delivery O2 Flow Rate FiO2 11/24/16 09:00 97.6 105 16 137/70 98 11/24/16 07:49 82 18 153/67 96 Room Air 11/24/16 04:30 74 18 134/61 96 Room Air 11/24/16 01:28 74 18 164/71 95 Room Air 11/23/16 23:56 80 18 148/61 96 Room Air 11/23/16 21:38 95 18 165/74 95 Room Air 11/23/16 19:15 80 18 135/63 95 Room Air 11/23/16 18:39 86 16 177/79 98 Room Air 11/23/16 17:01 88 16 151/67 96 Room Air 11/23/16 12:39 97.9 94 16 188/101 95 Room Air Physical Exam GENERAL: This is a well-nourished, well-developed patient, in no apparent distress. SKIN: No rashes. HEAD: Atraumatic. Normocephalic. EYES: Pupils equal round and reactive. Extraocular motions intact. CARDIOVASCULAR: Regular rate and rhythm without murmurs, gallops, or rubs. RESPIRATORY: Clear to auscultation. Breath sounds equal bilaterally. MUSCULOSKELETAL: Extremities without clubbing, cyanosis, or edema. NEUROLOGICAL: Awake and alert. Laboratory Laboratory Tests Test 11/23/16 11/23/16 11/23/16 11/23/16 17:45 18:30 20:19 22:05 White Blood Count 7.6 Red Blood Count 3.77 Hemoglobin 10.5 Hematocrit 32.6 Mean Corpuscular Volume 86.4 Mean Corpuscular Hemoglobin 27.9 Mean Corpuscular Hemoglobin 32.3 Concent Red Cell Distribution Width 17.3 Platelet Count 75 Mean Platelet Volume 11.2 Neutrophils (%) (Auto) 67.4 Lymphocytes (%) (Auto) 13.3 Monocytes (%) (Auto) 11.3 Eosinophils (%) (Auto) 7.6 Basophils (%) (Auto) 0.4 Neutrophils # (Auto) 5.1 Lymphocytes # (Auto) 1.0 Monocytes # (Auto) 0.9 Eosinophils # (Auto) 0.6 Basophils # (Auto) 0.0 CBC Comment AUTO DIFF Differential Total Cells 100 Counted Neutrophils % (Manual) 57 Band Neutrophils % 21 Lymphocytes % 9 Monocytes % 7 Eosinophils % 5 Basophils % 1 Neutrophils # (Manual) 5.9 Differential Comment FINAL DIFF MANUAL Platelet Estimate LOW Platelet Morphology Comment ENLARGED Ovalocytes 1+ Prothrombin Time 13.1 Prothromb Time International 1.2 Ratio Activated Partial 25.4 Thromboplast Time Sodium Level 137 Potassium Level 4.5 Chloride Level 100 Carbon Dioxide Level 28.5 Anion Gap 9 Blood Urea Nitrogen 24 Creatinine 1.17 Estimat Glomerular Filtration 45 Rate Random Glucose 83 Calcium Level 9.0 Magnesium Level 1.3 Total Bilirubin 0.8 Aspartate Amino Transf 36 (AST/SGOT) Alanine Aminotransferase 28 (ALT/SGPT) Alkaline Phosphatase 89 Total Creatine Kinase 134 Creatine Kinase MB 0.5 Troponin I LESS THAN 0.02 Total Protein 7.0 Albumin 3.4 Urine Color YELLOW Urine Turbidity HAZY Urine pH 5.5 Urine Specific [place] 1.021 Urine Protein 30 Urine Glucose (UA) NEG Urine Ketones NEG Urine Occult Blood SMALL Urine Nitrite NEG Urine Bilirubin NEG Urine Urobilinogen LESS THAN 2.0 Urine Leukocyte Esterase LARGE Urine RBC 7 Urine WBC Urine Bacteria MANY Urine Mucus MANY Microscopic Urinalysis Comment CULTURE INDICATED Lactic Acid Level 3.4 4.0 Test 11/24/16 03:49 White Blood Count 5.0 Red Blood Count 3.99 Hemoglobin 11.7 Hematocrit 34.1 Mean Corpuscular Volume 85.5 Mean Corpuscular Hemoglobin 29.4 Mean Corpuscular Hemoglobin 34.3 Concent Red Cell Distribution Width 14.5 Platelet Count 233 Mean Platelet Volume 7.4 Neutrophils (%) (Auto) 52.3 Lymphocytes (%) (Auto) 31.5 Monocytes (%) (Auto) 12.3 Eosinophils (%) (Auto) 2.9 Basophils (%) (Auto) 1.0 Neutrophils # (Auto) 2.6 Lymphocytes # (Auto) 1.6 Monocytes # (Auto) 0.6 Eosinophils # (Auto) 0.1 Basophils # (Auto) 0.0 CBC Comment DIFF FINAL Differential Comment Sodium Level 134 Potassium Level 3.5 Chloride Level 100 Carbon Dioxide Level 25.8 Anion Gap 8 Blood Urea Nitrogen 9 Creatinine 0.70 Estimat Glomerular Filtration 81 Rate Random Glucose 102 Lactic Acid Level 0.8 Calcium Level 8.4 Magnesium Level 1.9 Total Bilirubin 0.5 Aspartate Amino Transf 16 (AST/SGOT) Alanine Aminotransferase 24 (ALT/SGPT) Alkaline Phosphatase 74 Total Protein 6.5 Albumin 3.1 Date/Time Procedure Status Source Growth 11/23/16 20:19 Aerobic Blood Culture Received Blood Peripheral Pending 11/23/16 20:19 Anaerobic Blood Culture Received Blood Peripheral Pending 11/23/16 18:30 Urine Culture Worksheet Urine Clean Catch Pending Result Diagram: 11/24/16 0349 11/24/16 0349 Imaging Last Impressions Chest X-Ray 11/23/16 1652 Signed Impressions: Service Date/Time: Wednesday, November 23, 2016 17:46 - CONCLUSION: No acute disease. Nickolas Joseph MD Assessment and Plan Problem List: (1) JOSI (acute kidney injury) Status: Resolved Plan: IVF creat is now normal (2) Ovarian ca Status: Acute Plan: pt will continue with IV chemo as scheduled as out patient, I discussed with her that after her next IV chemo that she would scheduled for IV fluids as outpt and we will try to have that scheduled on same day as Neulasta inj. no further recommendations per tower equipment repairer/onc (3) UTI (urinary tract infection) Status: Acute Plan: IV ABX per EMR, cultures both urine and blood pending IVF and supportive care Hospitalist following and we appreciate their assistance. Discussed Condition With RN Dr. Fletcher and he is in agreement with plan of care any further orders will follow. Problem Qualifiers (1) UTI (urinary tract infection): Lino Miller Nov 24, 2016 11:02
[2016-11-24] MEDS: VANCOMYCIN INJ 1,500 MG in SODIUM CHLORID 0.9% 500 ML INJ 500 ML IV SCH ×2 (11:47→21:09)
[2016-11-24] MEDS: POTASSIUM CHLORIDE 20 MEQ CONTROLLED RELEASE TAB PO SCH (13:41)
[2016-11-24] MEDS: METOPROLOL SUCCINATE 50 MG EXTENDED RELEASE TAB PO SCH (16:57)
[2016-11-24] MEDS: MAGNESIUM OXIDE 400 MG TAB PO SCH (16:57)
[2016-11-24] MEDS: RIVAROXABAN 20 MG TAB PO SCH (17:45)
[2016-11-24] MEDS: ATORVASTATIN 20 MG TAB PO SCH (21:08)
[2016-11-24] MEDS: HYDROmorphone HCL PF 1 MG/ML VIAL IV PRN (21:08)
[2016-11-24] MEDS: LORazepam 0.5 MG TAB PO PRN (23:14)
[2016-11-25] VITALS (7 sets, daily range): BP systolic 110–152; BP diastolic 58–89; PULSE 74–108; RESP 16–20; TEMP 95.6–97.4; O2SAT 95–98
[2016-11-25] MEDS: PIPERACIL-TAZO 3.375 GM PREMIX 50 ML IV SCH ×5 (01:20→22:50)
[2016-11-25] MEDS: LEVOTHYROXINE SODIUM 50 MCG TAB PO SCH (05:35)
[2016-11-25] MEDS: FUROSEMIDE 40 MG TAB PO SCH (07:37)
[2016-11-25] MEDS: DRONEDARONE 400 MG TAB PO SCH ×2 (07:37→20:21)
[2016-11-25] MEDS: POTASSIUM CHLORIDE 20 MEQ CONTROLLED RELEASE TAB PO SCH (07:37)
[2016-11-25] MEDS: SODIUM CHLORIDE 0.9% FLUSH 5 ML FLUSH FLUSH SCH ×2 (07:38→20:21)
--- NOTE | 2016-11-25 07:49 | MB ---
cc: BENITO CROCKETT LARS S. MD MOLPUS,MARY SPENCE MD, M.D. DATE OF CONSULTATION 11/25/[address] Cassidy REASON FOR CONSULTATION Patient known to us with a history of ovarian cancer. REASON FOR ADMISSION Urinary tract infection, dehydration, failure to thrive. HISTORY This patient is seen and findings are reviewed. She is evaluated by me in conjunction with our nurse practitioner (Lino Miller). I agree with her findings, assessment, plan of care. 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 She was counseled, seen by us and initiated and started on her first line of Taxol, carboplatin chemotherapy. She was has been feeling poorly with some muscle aches, fatigue, weakness, presented to the emergency room where signs and symptoms of urinary tract infection, dehydration and just generalized feeling poorly were observed. She is admitted now for management of these findings. OBJECTIVE White count yesterday 5, absolute neutrophil count of 2.5, so she is not neutropenic. She had a platelet elaina of 75 on the improved to 233 by the following day. H&H 11.7 and 34.1. Electrolytes, initially her creatinine was slightly elevated at 1.17 normalized to 0.7 with IV fluids and oral fluids. Chest x-ray showed no acute disease. Urine culture positive for gram-negative rods. PAST MEDICAL HISTORY, PAST SURGICAL HISTORY, FAMILY HISTORY, MEDICATIONS, REVIEW OF SYSTEMS All reviewed and are as documented in the chart. I have nothing additional to add in this regard. Given recent exam and office followup, exam was not repeated today. DISCUSSION In discussion with her, I am pleased to see that she is feeling better. I suspect an underlying urinary tract infection was the main culprit for her feeling acutely poorly with some underlying effects from chemotherapy and the Neulasta injection that has contributed to her feeling poorly over a number of days. Again reviewed are the expected and anticipated potential side effects from chemotherapy and Neulasta injection. I am pleased that she did not have a profound ELAINA from her chemotherapy. She is not neutropenic and I expect she will recover with the ongoing treatment, IV fluid, oral fluid intake and antibiotics. From a oncology standpoint, we have no additional recommendations. We would not change any recommendations regarding her treatment dose or Neulasta stem cell support. It is to early in the course of therapy to determine efficacy and in the absence of recurrent significant problems that would preclude treatment, we would have continue as an outpatient for ongoing oncology treatment as previously outlined with Taxol and carboplatin. The overall plan is to consider at least three or four cycles of Taxol, carboplatin and then consider reevaluation from a surgical standpoint for cytoreductive surgery followed by additional chemotherapy and this is discussed and again reviewed with her. Thank for the consultation. Thank you for the care. MD DAISY Samayoa/TERRENCE /7:16 AM /7:33 AM
--- NOTE | 2016-11-25 08:29 | HHI.PR ---
Subjective Remarks in no acute distress. but she says that ' she's not feeling good today'. she's complaining of on and off palpitations. afebrile. d/w the RN. Objective Vitals Vital Signs Date Time Temp Pulse Resp B/P Pulse Ox O2 Delivery O2 Flow Rate FiO2 11/25/16 04:00 97.4 98 18 136/89 96 11/25/16 00:00 97.3 100 18 120/63 97 11/24/16 23:13 16 11/24/16 21:19 97 11/24/16 20:00 96.9 86 18 143/87 97 11/24/16 16:00 97.4 104 20 125/67 95 11/24/16 12:00 97.0 94 20 128/69 98 11/24/16 09:00 97.6 105 16 137/70 98 I/O 11/24/16 11/24/16 11/24/16 11/25/16 11/25/16 11/25/16 07:00 15:00 23:00 07:00 15:00 23:00 Intake Total 1080 ml 3487 ml 480 ml Balance 1080 ml 3487 ml 480 ml Intake Oral 1080 ml 960 ml 480 ml IV Total 2527 ml # Voids 3 2 2 # Bowel Movements 2 0 0 Result Diagram: 11/24/16 0349 11/24/16348 Imaging Last Impressions Chest X-Ray 11/23/161651 Signed Impressions: Service Date/Time: Wednesday, November 23, 2016 17:46 - CONCLUSION: No acute disease. Nickolas Joseph MD Objective Remarks GENERAL: This is a well-nourished, well-developed patient, in no apparent distress. CARDIOVASCULAR: Regular rate and irregular rhythm without murmurs, gallops, or rubs. RESPIRATORY: Clear to auscultation. Breath sounds equal bilaterally. No wheezes , rales, or rhonchi. GASTROINTESTINAL: Abdomen soft, non-tender, nondistended. Normal, active bowel sounds MUSCULOSKELETAL: Extremities without clubbing, cyanosis, or edema. NEURO: Alert & Oriented x4 to person, place, time, situation. Moves all ext x4 Procedures none Medications and IVs Current Medications IV Flush 2 ml 2 ml UNSCH PRN IVF FLUSH AFTER USING IV ACCESS; Start 11/23/16 at 17:00 Sodium Chloride (NS 1000 ml Inj) 1,000 ml @ 999 mls/hr BOLUS ONCE IV Last administered on 11/23/16 17:06; Start 11/23/16 at 17:00; Stop 11/23/16 at 18:00 ; Status DC Ondansetron HCl 4 mg 4 mg ONCE ONCE IV PUSH Last administered on 11/23/16 17: 07; Start 11/23/16 at 17:00; Stop 11/23/16 at 17:01; Status DC Piperacillin Sod/ Tazobactam Sod (Zosyn 4.5 Gm Premix) 100 ml @ 200 mls/hr ONCE STAT IV Last administered on 11/23/16 20:21; Start 11/23/16 at 18:57; Stop 11/23/16 at 19:26; Status DC Tramadol HCl 100 mg 100 mg ONCE ONCE PO Last administered on 11/23/16 21:12; Start 11/23/16 at 21:15; Stop 11/23/16 at 21:16; Status DC Magnesium Sulfate/ Dextrose 100 ml @ 100 mls/hr ONCE ONCE IV Last administered on 11/23/16 22:05; Start 11/23/16 at 22:00; Stop 11/23/16 at 22:59 ; Status DC Pharmacy Profile Note 0 ml @ 0 mls/hr UNSCH OTHER ; Start 11/23/16 at 22:00 Vancomycin HCl 1350 mg/Sodium Chloride 513.5 ml @ 250 mls/hr ONCE ONCE IV Last administered on 11/23/16 22:18; Start 11/23/16 at 22:00; Stop 11/24/16 at 00:03; Status DC Sodium Chloride 1,000 ml @ 999 mls/hr BOLUS ONCE IV Last administered on 11/23 22:00; Start 11/23/16 at 22:00; Stop 11/23/16 at 23:00; Status DC Piperacillin Sod/ Tazobactam Sod 50 ml @ 100 mls/hr Q6H IV Last administered on 11/24/16 07:28; Start 11/24/16 at 01:00; Stop 11/24/16 at 10:34; Status DC Sodium Chloride (NS 1000 ml Inj) 1,000 ml @ 75 mls/hr [id number] IV Last administered on 11/24/16 09:01; Start 11/23/16 at 21:53 IV Flush (NS Flush) 2 ml UNSCH PRN FLUSH FLUSH AFTER USING IV ACCESS; Start at 22:00 IV Flush (NS Flush) 2 ml BID FLUSH Last administered on 11/24/16 21:09; Start 11/24/16 at 09:00 Ondansetron HCl (Zofran Inj) 4 mg Q6H PRN IVP NAUSEA OR VOMITING; Start at 22:00 Bisacodyl (Dulcolax Supp) 10 mg DAILY PRN [place] CONSTIPATION; Start 11/23/16 at 22 :00 Acetaminophen (Tylenol) 650 mg Q6H PRN PO FEVER/PAIN SCALE 1 TO 2; Start at 22:00 Acetaminophen/ Hydrocodone Bitart ([place] 5-325 Mg) 1 tab Q4H PRN PO PAIN SCALE 3 TO 5; Start 11/23/16 at 22:00 Hydromorphone HCl (Dilaudid Pf Inj) 0.5 mg Q3H PRN IV Pain 6-10 Last administered on 11/24/16 21:08; Start 11/23/16 at 22:00 Atorvastatin Calcium (Lipitor) 20 mg HS PO Last administered on 11/24/16 21:08 ; Start 11/24/16 at 21:00 Dronedarone (Multaq) 400 mg BID PO Last administered on 11/25/16 07:37; Start 11/24/16 at 09:00 Furosemide (Lasix) 40 mg DAILY PO Last administered on 11/25/16 07:37; Start 11/24/16 at 09:00 Lorazepam (Ativan) 0.5 mg HS PRN PO ANXIETY AND/OR INSOMNIA Last administered on 11/24/16 23:14; Start 11/23/16 at 22:00 Metoprolol Succinate (Toprol Xl) 50 mg AC DINNER PO Last administered on 16:57; Start 11/24/16 at 16:00 Rivaroxaban 20 mg 20 mg AC DINNER PO Last administered on 11/24/16 17:45; Start 11/24/16 at 16:00 Vancomycin HCl/ Sodium Chloride (Vancomycin Inj/ NS 500 ml Inj) 515 ml @ 250 mls/hr Q12H IV Last administered on 11/24/16 21:09; Start 11/24/16 at 10:00 Miscellaneous Information SPECIFIC LAB TO BE DRAWN:VANCOMYCIN TROUGH DATE TO... ONCE ONCE XX ; Start 11/25/16 at 09:45; Stop 11/25/16 at 09:46 Piperacillin Sod/ Tazobactam Sod (Zosyn 3.375 Gm Premix) 50 ml @ 100 mls/hr Q6H IV Last administered on 11/25/16 05:36; Start 11/24/16 at 12:00 Levothyroxine Sodium (Synthroid) 50 mcg DAILY@06 PO Last administered on 05:35; Start 11/25/16 at 06:00 Potassium Chloride (KCl) 20 meq DAILY PO Last administered on 11/25/16 07:37; Start 11/24/16 at 13:00 Magnesium Oxide (Mag-Ox) 400 mg AC DINNER PO Last administered on 11/24/16 16 :57; Start 11/24/16 at 16:00 A/P Assessment and Plan A/P 1. Sepsis due to UTI: continue IV antibiotics; will dc Vanco and continue Zosyn; will adjust the antibiotics soon when when the result of cultures available. 2. JOSI: improved on IV fluid. 3. A-fib - mildly tachycardic with palpitations: On Xarelto. Resumed home Multaq and Metoprolol. will consult cardiology ( ) per patient's request. 4. Ovarian CA: on Chemotherapy Dr. Fletcher. consult appreciated- f/u as outpatient. 5. DVT Prophylaxis: On Xarelto. Discharge Planning possible dc home in am if stable. Rochelle Cassidy MD Nov 25, 2016 08:29
[2016-11-25] MEDS ORDERED: PHARMACY ORDERED LAB XX ONE (09:45)
[2016-11-25] MEDS: METOPROLOL SUCCINATE 50 MG EXTENDED RELEASE TAB PO SCH (16:25)
[2016-11-25] MEDS: RIVAROXABAN 20 MG TAB PO SCH (16:25)
[2016-11-25] MEDS: MAGNESIUM OXIDE 400 MG TAB PO SCH (16:25)
--- NOTE | 2016-11-25 19:06 | MB ---
cc: TRENT RUBIO MD DATE OF CONSULTATION 11/25/16 HISTORY OF PRESENT ILLNESS Ms. Mccurdy is a 76 year old white female who was admitted with urosepsis on 11/23. She has history of atrial fibrillation and has had episodes of paroxysmal atrial fibrillation with increased ventricular response. She also was hypertensive. She has not had any chest pain or shortness of breath. She has had generalized weakness, also nausea and vomiting. She was treated for urinary tract infection and is now improving. She still has occasional episodes of atrial fibrillation. PAST MEDICAL HISTORY 1. Paroxysmal atrial fibrillation 2. Breast cancer, ovarian cancer on chemotherapy 3. Cholecystectomy 4. Appendectomy 5. Pacemaker placement. 6. Atrial fibrillation ablation 7. Total knee replacement 8. Hysterectomy 9. Bilateral cataract surgery. 10. Left lumpectomy 12. Brain surgery ALLERGIES ERYTHROMYCIN NEOSPORIN POLYSPORIN ADHESIVES MEDICATIONS 1. Levothyroxine 2. Atorvastatin 3. Metoprolol succinate 50 mg a day 4. Xarelto 20 mg a day 5. Losartan 6. Potassium chloride 7. Piperacillin 8. Multaq 400 mg twice a day 9. Furosemide SOCIAL HISTORY She does not smoke. She is . FAMILY HISTORY Negative for heart disease. REVIEW OF SYSTEMS Otherwise negative. PHYSICAL EXAMINATION VITAL SIGNS: Blood pressure 126/66, pulse 89 and regular. HEENT: Negative 2+ carotid upstrokes, no bruits. LUNGS: Clear. HEART: Regular with no murmurs, rubs or gallops ABDOMEN: Soft, no bruits. EXTREMITIES: Without edema, 2+ distal pulses. NEUROLOGIC: Grossly nonfocal. CARDIOLOGY STUDIES EKG was reviewed and showed normal sinus rhythm with normal intervals, nonspecific ST changes. Telemetry shows atrial fibrillation with increased ventricular response and intermittent ventricular pacing. LABORATORY DATA Hemoglobin 11.7, potassium 3.5, creatinine 0.7, AST and ALT normal. Troponin less than 0.02. DIAGNOSES 1. Paroxysmal atrial fibrillation with increased ventricular response 2. Urosepsis. 3. Ovarian cancer DISPOSITION Ms. Mccurdy will continue her current medical program including antiarrhythmic therapy with Multaq and also therapy with metoprolol. She will continue anticoagulation with Xarelto. She has had occasional episodes of atrial fibrillation with increased ventricular response, but her vitals have been relatively stable. At this time, she can be discharged home from cardiac standpoint. I will schedule her for outpatient followup in our office shortly after discharge. MD PRABHAKAR Chow /6:35 PM /6:45 PM [email or web address]
[2016-11-25] MEDS: ATORVASTATIN 20 MG TAB PO SCH (20:21)
[2016-11-25] MEDS: HYDROmorphone HCL PF 1 MG/ML VIAL IV PRN (20:23)
[2016-11-25] MEDS: LORazepam 0.5 MG TAB PO PRN (22:50)
[2016-11-26] VITALS: BP 115/57; PULSE 68; RESP 18; TEMP 97.2; O2SAT 96
[2016-11-26 04:00] VITALS: BP 118/63; PULSE 62; RESP 15; TEMP 96; O2SAT 95
[2016-11-26] MEDS: PIPERACIL-TAZO 3.375 GM PREMIX 50 ML IV SCH ×2 (05:42→11:37)
[2016-11-26] MEDS: LEVOTHYROXINE SODIUM 50 MCG TAB PO SCH (05:42)
[2016-11-26 08:00] VITALS: BP 142/75; PULSE 82; RESP 16; TEMP 97.4; O2SAT 96
[2016-11-26] MEDS: POTASSIUM CHLORIDE 20 MEQ CONTROLLED RELEASE TAB PO SCH (08:57)
[2016-11-26] MEDS: DRONEDARONE 400 MG TAB PO SCH (08:57)
[2016-11-26] MEDS: SODIUM CHLORIDE 0.9% FLUSH 5 ML FLUSH FLUSH SCH (08:57)
[2016-11-26] MEDS: FUROSEMIDE 40 MG TAB PO SCH (08:57)
--- NOTE | 2016-11-26 09:58 | HHI.PR ---
Subjective Remarks overall doing fine. no new complaints. wants to go home today. Objective Vitals Vital Signs Date Time Temp Pulse Resp B/P Pulse Ox O2 Delivery O2 Flow Rate FiO2 11/26/16 08:00 97.4 82 16 142/75 96 11/26/16 04:00 96.0 62 15 118/63 95 11/26/16 00:00 97.2 68 18 115/57 96 11/25/16 20:00 96.8 82 19 142/60 98 11/25/16 20:00 74 11/25/16 16:00 97.0 89 16 126/66 96 11/25/16 12:00 96.4 98 20 110/58 95 I/O 11/25/16 11/25/16 11/25/16 11/26/16 11/26/16 11/26/16 07:00 15:00 23:00 07:00 15:00 23:00 Intake Total 480 ml 240 ml 480 ml 480 ml Balance 480 ml 240 ml 480 ml 480 ml Intake Oral 480 ml 240 ml 480 ml 480 ml # Voids 2 7 2 1 1 # Bowel Movements 0 1 Result Diagram: 11/24/16 0349 11/24/16 0349 Imaging Last Impressions Chest X-Ray 11/23/16 165 Signed Impressions: Service Date/Time: Wednesday, November 23, 2016 17:46 - CONCLUSION: No acute disease. Nickolas Joseph MD Objective Remarks GENERAL: This is a well-nourished, well-developed patient, in no apparent distress. CARDIOVASCULAR: Regular rate and irregular rhythm without murmurs, gallops, or rubs. RESPIRATORY: Clear to auscultation. Breath sounds equal bilaterally. No wheezes , rales, or rhonchi. GASTROINTESTINAL: Abdomen soft, non-tender, nondistended. Normal, active bowel sounds MUSCULOSKELETAL: Extremities without clubbing, cyanosis, or edema. NEURO: Alert & Oriented x4 to person, place, time, situation. Moves all ext x4 Procedures none Medications and IVs Current Medications IV Flush 2 ml 2 ml UNSCH PRN IVF FLUSH AFTER USING IV ACCESS; Start 11/23/16 at 17:00 Sodium Chloride (NS 1000 ml Inj) 1,000 ml @ 999 mls/hr BOLUS ONCE IV Last administered on 11/23/16t 17:06; Start 11/23/16 at 17:00; Stop 11/23/16 at 18:00 ; Status DC Ondansetron HCl 4 mg 4 mg ONCE ONCE IV PUSH Last administered on 11/23/16 17: 07; Start 11/23/16 at 17:00; Stop 11/23/16 at 17:01; Status DC Piperacillin Sod/ Tazobactam Sod (Zosyn 4.5 Gm Premix) 100 ml @ 200 mls/hr ONCE STAT IV Last administered on 11/23/16 20:21; Start 11/23/16 at 18:57; Stop 11/23/16 at 19:26; Status DC Tramadol HCl 100 mg 100 mg ONCE ONCE PO Last administered on 11/23/16 21:12; Start 11/23/16 at 21:15; Stop 11/23/16 at 21:16; Status DC Magnesium Sulfate/ Dextrose 100 ml @ 100 mls/hr ONCE ONCE IV Last administered on 11/23/16 22:05; Start 11/23/16 at 22:00; Stop 11/23/16 at 22:59 ; Status DC Pharmacy Profile Note 0 ml @ 0 mls/hr UNSCH OTHER ; Start 11/23/16 at 22:00; Stop 11/25/16 at 08:30; Status DC Vancomycin HCl 1350 mg/Sodium Chloride 513.5 ml @ 250 mls/hr ONCE ONCE IV Last administered on 11/23/16 22:18; Start 11/23/16 at 22:00; Stop 11/24/16 at 00:03; Status DC Sodium Chloride 1,000 ml @ 999 mls/hr BOLUS ONCE IV Last administered on 11/23 22:00; Start 11/23/16 at 22:00; Stop 11/23/16 at 23:00; Status DC Piperacillin Sod/ Tazobactam Sod 50 ml @ 100 mls/hr Q6H IV Last administered on 11/24/16 07:28; Start 11/24/16 at 01:00; Stop 11/24/16 at 10:34; Status DC Sodium Chloride (NS 1000 ml Inj) 1,000 ml @ 75 mls/hr [id number] IV Last administered on 11/24/16 09:01; Start 11/23/16 at 21:53; Status Hold IV Flush (NS Flush) 2 ml UNSCH PRN FLUSH FLUSH AFTER USING IV ACCESS; Start at 22:00 IV Flush (NS Flush) 2 ml BID FLUSH Last administered on 11/26/16 08:57; Start 11/24/16 at 09:00 Ondansetron HCl (Zofran Inj) 4 mg Q6H PRN IVP NAUSEA OR VOMITING Last administered on 11/25/16 14:03; Start 11/23/16 at 22:00 Bisacodyl (Dulcolax Supp) 10 mg DAILY PRN [place] CONSTIPATION; Start 11/23/16 at 22 :00 Acetaminophen (Tylenol) 650 mg Q6H PRN PO FEVER/PAIN SCALE 1 TO 2; Start at 22:00 Acetaminophen/ Hydrocodone Bitart (Gordon 5-325 Mg) 1 tab Q4H PRN PO PAIN SCALE 3 TO 5; Start 11/23/16 at 22:00 Hydromorphone HCl (Dilaudid Pf Inj) 0.5 mg Q3H PRN IV Pain 6-10 Last administered on 11/25/16 20:23; Start 11/23/16 at 22:00 Atorvastatin Calcium (Lipitor) 20 mg HS PO Last administered on 11/25/16 20:21 ; Start 11/24/16 at 21:00 Dronedarone (Multaq) 400 mg BID PO Last administered on 11/26/16 08:57; Start 11/24/16 at 09:00 Furosemide (Lasix) 40 mg DAILY PO Last administered on 11/26/16 08:57; Start 11/24/16 at 09:00 Lorazepam (Ativan) 0.5 mg HS PRN PO ANXIETY AND/OR INSOMNIA Last administered on 11/25/16 22:50; Start 11/23/16 at 22:00 Metoprolol Succinate (Toprol Xl) 50 mg AC DINNER PO Last administered on 16:25; Start 11/24/16 at 16:00 Rivaroxaban 20 mg 20 mg AC DINNER PO Last administered on 11/25/16 16:25; Start 11/24/16 at 16:00 Vancomycin HCl/ Sodium Chloride (Vancomycin Inj/ NS 500 ml Inj) 515 ml @ 250 mls/hr Q12H IV Last administered on 11/24/16 21:09; Start 11/24/16 at 10:00; Stop 11/25/16 at 08:30; Status DC Miscellaneous Information SPECIFIC LAB TO BE DRAWN:VANCOMYCIN TROUGH DATE TO... ONCE ONCE XX ; Start 11/25/16 at 09:45; Stop 11/25/16 at 09:46; Status DC Piperacillin Sod/ Tazobactam Sod (Zosyn 3.375 Gm Premix) 50 ml @ 100 mls/hr Q6H IV Last administered on 11/26/16 05:42; Start 11/24/16 at 12:00 Levothyroxine Sodium (Synthroid) 50 mcg DAILY@06 PO Last administered on 05:42; Start 11/25/16 at 06:00 Potassium Chloride (KCl) 20 meq DAILY PO Last administered on 11/26/16 08:57; Start 11/24/16 at 13:00 Magnesium Oxide (Mag-Ox) 400 mg AC DINNER PO Last administered on 11/25/16 16 :25; Start 11/24/16 at 16:00 A/P Assessment and Plan A/P 1. Sepsis due to UTI with klebsiella: switch to po Abx. 2. JOSI: improved on IV fluid. 3. A-fib - mildly tachycardic with palpitations: On Xarelto. Resumed home Multaq and Metoprolol. cardiology consult appreciated and cleared for discharge with outpatient f/u. 4. Ovarian CA: on Chemotherapy Dr. Fletcher. consult appreciated- f/u as outpatient. 5. DVT Prophylaxis: On Xarelto. Discharge Planning dc home today with f/u by pcp, [facility] oncology and cardiology. see med list. d/w the patient. Rochelle Cassidy MD Nov 26, 2016 09:58
[2016-11-26] MEDS ORDERED: CIPR250T52 PO (10:00)
--- NOTE | 2016-11-26 10:01 | HHI.DCPOC ---
Discharge Care Plan Diagnosis: (1) Sepsis Additional Problems urine infection. Goals to Promote Your Health * To prevent worsening of your condition and complications * To maintain your health at the optimal level Directions to Meet Your Goals Take your medications as prescribed Follow your dietary instruction Follow activity as directed Keep your appointments as scheduled Take your immunizations and boosters as scheduled If your symptoms worsen call your PCP, if no PCP go to Urgent Care Center or Emergency Room Smoking is Dangerous to Your Health. Avoid second hand smoke Call the 24-hour hour crisis hotline for domestic abuse at Rochelle Cassidy MD Nov 26, 2016 10:01
--- NOTE | 2016-11-26 10:02 | HHI.DS ---
Discharge Summary Admission Date Nov 23, 2016 at 21:54 Discharge Date: Nov 26, 2016 Admitting Diagnosis Urosepsis (1) Sepsis ICD Code: A41.9 Diagnosis: Principal (2) UTI (urinary tract infection) ICD Code: N39.0 Diagnosis: Principal (3) JOSI (acute kidney injury) ICD Code: N17.9 Diagnosis: Principal (4) Ovarian ca ICD Code: C56.9 Diagnosis: Secondary (5) A-fib ICD Code: I48.91 Diagnosis: Secondary Procedures none Brief History - From Admission This is a 76-year-old female with a PMH of Breast CA, Ovarian CA on Chemotherapy , A-fib on Xarelto and HTN who presented to the ER w/ complaints of generalized weakness, dizziness and decreased PO intake x3 days w/ associated nausea/ vomiting x2. Denies fever, chills, diarrhea or sick contacts. Follows w/ Dr. Fltecher as outpatient, called office and referred to ER for further evaluation. On arrival, BP 188/101, HR 94, O2 sat 95% on RA, Afebrile. BP currently 148/61 , HR 80. Creatinine 1.17, previously 1.04 on 09/21/16. Lactic Acid 3.4. INR 1.2. U/a positive for UTI. S/p Blood Cultures in ER and IV Zosyn. CBC/BMP: 11/24/16 0349 11/24/16 0349 Significant Findings Laboratory Tests Test 11/23/16 11/23/16 11/23/16 11/23/16 17:45 18:30 20:19 22:05 Prothrombin Time 13.1 SEC (9.8-11.6) Blood Urea Nitrogen 24 MG/DL (7-18) Creatinine 1.17 MG/DL (0.50-1.00) Estimat Glomerular Filtration 45 ML/MIN (>89) Rate Magnesium Level 1.3 MG/DL (1.5-2.5) Troponin I LESS THAN 0.02 NG/ML (0.02-0.05) Red Blood Count 3.77 MIL/MM3 (4.00-5.30) Hemoglobin 10.5 GM/DL (11.6-15.3) Hematocrit 32.6 % (35.0-46.0) Red Cell Distribution Width 17.3 % (11.6-17.2) Platelet Count 75 TH/MM3 (150-450) Mean Platelet Volume 11.2 FL (7.0-11.0) Monocytes (%) (Auto) 11.3 % (0.0-8.0) Eosinophils (%) (Auto) 7.6 % (0.0-4.0) Eosinophils # (Auto) 0.6 TH/MM3 (0-0.4) Band Neutrophils % 21 % (0-6) Eosinophils % 5 % (0-4) Platelet Estimate LOW (NORMAL) Platelet Morphology Comment ENLARGED (NORMAL) Ovalocytes 1+ (NORMAL) Urine Turbidity HAZY (CLEAR) Urine Protein 30 mg/dL (NEG-TRACE) Urine Occult Blood SMALL (NEG) Urine Leukocyte Esterase LARGE (NEG) Urine RBC 7 /hpf (0-3) Urine Bacteria MANY /hpf (NONE) Urine Mucus MANY /lpf (OCC) Lactic Acid Level 3.4 mmol/L 4.0 mmol/L (0.4-2.0) (0.4-2.0) Test 11/24/16 03:49 Red Blood Count 3.99 MIL/MM3 (4.00-5.30) Hematocrit 34.1 % (35.0-46.0) Monocytes (%) (Auto) 12.3 % (0.0-8.0) Sodium Level 134 MEQ/L (136-145) Estimat Glomerular Filtration 81 ML/MIN (>89) Rate Calcium Level 8.4 MG/DL (8.5-10.1) Albumin 3.1 GM/DL (3.4-5.0) Imaging Last Impressions Chest X-Ray 11/23/16 1652 Signed Impressions: Service Date/Time: Wednesday, November 23, 2016 17:46 - CONCLUSION: No acute disease. Nickolas Joseph MD PE at Discharge GENERAL: This is a well-nourished, well-developed patient, in no apparent distress. CARDIOVASCULAR: Regular rate and irregular rhythm without murmurs, gallops, or rubs. RESPIRATORY: Clear to auscultation. Breath sounds equal bilaterally. No wheezes , rales, or rhonchi. GASTROINTESTINAL: Abdomen soft, non-tender, nondistended. Normal, active bowel sounds MUSCULOSKELETAL: Extremities without clubbing, cyanosis, or edema. NEURO: Alert & Oriented x4 to person, place, time, situation. Moves all ext x4 Hospital Course 1. Sepsis due to UTI with klebsiella: switch to po Abx. 2. JOSI: improved on IV fluid. 3. A-fib - mildly tachycardic with palpitations: On Xarelto. Resumed home Multaq and Metoprolol. cardiology consult appreciated and cleared for discharge with outpatient f/u. 4. Ovarian CA: on Chemotherapy Dr. Fletcher. consult appreciated- f/u as outpatient. 5. DVT Prophylaxis: On Xarelto. Pt Condition on Discharge: Good Discharge Disposition: Discharge Home Discharge Time: <= 30 minutes Discharge Instructions DIET: Follow Instructions for: Heart Healthy Diet Activities you can perform: Regular-No Restrictions Follow up Referrals: Cardiology Oncology PCP Follow-up New Medications: Ciprofloxacin (Cipro) 250 Mg Tab 250 MG PO BID Infection Days 5 Ref 0 TAB Continued Medications: Atorvastatin (Lipitor) 20 Mg Tab 20 MG PO HS Cholesterol Management #30 Ref 0 TAB Cholecalciferol (D 5000) 5,000 Unit Cap 5000 UNITS PO DAILY Diphenhydramine-Acetaminophen (Tylenol Pm Extra Strength) 25-500 Mg Tab 2 TAB PO HS Dronedarone (Multaq) 400 Mg Tab 400 MG PO BID Regulate Heart Beat Ref 0 TAB Furosemide (Lasix) 40 Mg Tab 40 MG PO DAILY #30 Ref 0 TAB Levothyroxine (Levothyroxine) 50 Mcg Tab 50 MCG PO DAILY Thyroid #30 Ref 0 TAB Lorazepam (Lorazepam) 0.5 Mg Tab 0.5 MG PO HS PRN ANXIETY AND/OR INSOMNIA Ref 0 TAB Magnesium (Magnesium) 400 Mg Tab 400 MG PO AC DINNER Nutritional Supplement Ref 0 TAB Metoprolol Succinate ER 24 HR (Toprol XL) 50 Mg Tab 50 MG PO AC DINNER #30 Ref 0 TAB Potassium Chloride ER (Potassium Chloride ER) 20 Meq Tab 20 MEQ PO DAILY Electrolyte Replacement #30 Ref 0 TAB Rivaroxaban (Xarelto) 20 Mg Tab 20 MG PO AC DINNER Blood Clot Prevention Ref 0 TAB Tramadol (Tramadol) 50 Mg Tab 100 MG PO BID Pain Management Ref 0 TAB Rochelle Cassidy MD Nov 26, 2016 10:02
[2016-11-26] MEDS: HYDROmorphone HCL PF 1 MG/ML VIAL IV PRN (11:32)
[2016-11-26 12:00] VITALS: BP 138/68; PULSE 80; RESP 16; TEMP 98.3; O2SAT 97
== END 2016-11-26 14:22 | disposition home or self-care (01) | DRG 872 ==
LOC: NEPC 12:37 → NEDA 21:54 → NEDH 11-24 04:03 → HOCA 11-24 08:26
PROVIDERS: ADMIT Internal Medicine; ATTEND Internal Medicine
DX: A41.9 Sepsis, unspecified organism (principal); N39.0 Urinary tract infection, site not specified; N17.9 Acute kidney failure, unspecified; C80.0 Disseminated malignant neoplasm, unspecified; I48.0 Paroxysmal atrial fibrillation; R55 Syncope and collapse; C56.9 Malignant neoplasm of unspecified ovary; R62.7 Adult failure to thrive; I10 Essential (primary) hypertension; E86.0 Dehydration; I48.2 Chronic atrial fibrillation; E78.00 Pure hypercholesterolemia, unspecified; Z85.3 Personal history of malignant neoplasm of breast; M19.90 Unspecified osteoarthritis, unspecified site; Z79.02 Long term (current) use of antithrombotics/antiplatelets; K21.9 Gastro-esophageal reflux disease without esophagitis; K44.9 Diaphragmatic hernia without obstruction or gangrene; Z95.0 Presence of cardiac pacemaker; Z96.652 Presence of left artificial knee joint; Z88.1 Allergy status to other antibiotic agents; Z88.3 Allergy status to other anti-infective agents; B96.1 Klebsiella pneumoniae [K. pneumoniae] as the cause of diseases classified elsewhere
CPT/HCPCS: 71010; 80053; 81001; 82550; 82552; 83605; 83735; 84484; 85007; 85025; 85027; 85610; 85730; 87040; 87077; 87086; 87186; 93005; 96361; 96365; 96375; J1170; J2405; J2543; J3370; J3475; J7030; J7040

== ENCOUNTER 2017-01-09 11:44 | Observation (INO) | payer MEDICARE, OTHER ==
[~2017-01-09] VITALS: Ht 175.3 cm; Wt 88.0 kg
[~2017-01-09 11:44] MED LIST changes: +CIPR250T52 PO; +D 50CAP PO; +DIPH1TAB36 PO; -LACTCAP8 PO; -PRIL40CA PO; -VITA1000 PO
[2017-01-09 11:46] VITALS: BP 124/65; PULSE 75; RESP 24; TEMP 97.3; O2SAT 97
--- NOTE | 2017-01-09 12:02 | PD ---
Physical Exam Date Seen by Provider: Jan 09, 2017 Time Seen by Provider: 11:56 Narrative 76 YO WF CHEMO LAST WED [place].H/O OVARIAN CA WITH METS TO THE OMENTUM. CP DIZZY LIKE PASSING OUT. EXTREMELY WEAK AND FATIGUED. FEELING DEHYDRATED. NO F/C. NO SOB. NO ABD PAIN. PT OF DR PETERSON VSS PT AWAITING BED PLACEMENT. Data Data Last Documented VS Vital Signs Date Time Temp Pulse Resp B/P Pulse Ox O2 Delivery O2 Flow Rate FiO2 01/09/17 11:46 97.3 75 24 124/65 97 Room Air [facility] Medical Record Reviewed: Yes Supervised Visit with FELECIA: Yes Trever Bañuelos Jan 09, 2017 12:02
[2017-01-09] MEDS ORDERED: SPIR25TA PO (13:53)
[2017-01-09 14:03] VITALS: BP 132/69; PULSE 62; RESP 20; O2SAT 95
--- NOTE | 2017-01-09 14:12 | PD ---
HPI Chief Complaint: Chest Pain Time Seen by Provider: 13:42 Travel History International Travel<30 days: No Contact w/Intl Traveler<30days: No Traveled to known affect area: No History of Present Illness HPI The patient was seen and examined in the presence of the nurse. This patient complains of feeling dizzy and lightheaded. Been progressive for the last 5 days. No true syncope but she had a presyncopal episode. She is worried about being dehydrated. Last Monday she received chemotherapy and has worsened since then. 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 She denies significant headache. She is on Xarelto. She did have chest pain today. She had center and right sided chest heaviness and pain. Has history of cardiac stent. Not short of breath. No fever. No alleviating factors. Symptoms severity is moderate. PFSH Past Medical History Hx Anticoagulant Therapy: Yes (XARELTO) Arthritis: Yes Asthma: No Atrial Fibrillation: Yes Blood Disorders: No Anxiety: No Depression: No Heart Rhythm Problems: Yes (A-FIB) Cancer: Yes (RIGHT BREAST/ovarian) Cardiac Catheterization: Yes (12/19) Cardiovascular Problems: Yes (A-FIB) High Cholesterol: Yes Chemotherapy: Yes (11/16/16) Chest Pain: Yes (intermittent pain free now) Congestive Heart Failure: No COPD: No Cerebrovascular Accident: No Diabetes: No Endocrine: Yes Gastrointestinal Disorders: Yes (DIVERTICULITIS) GERD: Yes Genitourinary: No Headaches: No Hepatitis: No Hiatal Hernia: Yes Hypertension: Yes Immune Disorder: No Implanted Vascular Access Dvce: Yes Musculoskeletal: Yes Neurologic: Yes (brain aneurysm) Psychiatric: No Reproductive: No Respiratory: No Immunizations Current: Yes Migraines: No Radiation Therapy: Yes Seizures: No Sleep Apnea: No Thyroid Disease: Yes Menopausal: Yes Past Surgical History Abdominal Aneurysm Repair: Yes Abdominal Surgery: Yes (CHOLY, APPY) AICD: No Appendectomy: Yes Arteriovenous Shunt: No Body Medical Devices: PACEMAKER, R TOTAL KNEE, L PARTIAL KNEE, LEFT FOOT PIN, COIL LEFT BRAIN Cardiac Surgery: Yes (ablation in 09/2012 [facility] [place] [place]SO SEP 2013, PACER) Cholecystectomy: Yes Ear Surgery: No Endocrine Surgery: No Eye Surgery: Yes (cataracts bilateral/2010 ) Genitourinary Surgery: Yes Gynecologic Surgery: Yes (partial HYST) Hysterectomy: Yes (PARTIAL) Insulin Pump: No Joint Replacement: Yes (PT STATES R & L KNEE AND L FOOT WITH PINS) Mastectomy: Yes (RIGHT) Neurologic Surgery: Yes (BRAIN SURGERY ON Nov) Oral Surgery: No Pacemaker: Yes ([employer]) Thoracic Surgery: No Other Surgery: Yes (RT. BREAST LUMPECTOMY IN 1996) Social History Alcohol Use: Yes (small glass of wine at bedtime) Tobacco Use: No Substance Use: No Allergies-Medications (Allergen,Severity, Reaction): Coded Allergies: Azithromycin (Verified Allergy, Severe, 01/09/17) Neosporin (Verified Allergy, Severe, 01/09/17) Polysporin (Verified Allergy, Mild, RASH, 01/09/17) Adhesives (Verified Adverse Reaction, Mild, 01/09/17) Reported Meds & Prescriptions Reported Meds & Active Scripts Active Reported Spironolactone 25 Mg Tab 12.5 Mg PO DAILY Tylenol Pm Extra Strength (Diphenhydramine-Acetaminophen) 25-500 Mg Tab 2 Tab PO HS D 5000 (Cholecalciferol) 5,000 Unit Cap 5,000 Units PO DAILY Lorazepam 0.5 Mg Tab 0.5 Mg PO HS PRN Toprol XL (Metoprolol Succinate) 50 Mg Tab 50 Mg PO AC DINNER Lipitor (Atorvastatin Calcium) 20 Mg Tab 20 Mg PO HS Xarelto (Rivaroxaban) 20 Mg Tab 20 Mg PO AC DINNER Tramadol (Tramadol HCl) 50 Mg Tab 100 Mg PO BID Multaq (Dronedarone) 400 Mg Tab 400 Mg PO BID Potassium Chloride ER (Potassium Chloride) 20 Meq Tab 20 Meq PO DAILY Magnesium 400 Mg Tab 400 Mg PO AC DINNER Levothyroxine (Levothyroxine Sodium) 50 Mcg Tab 50 Mcg PO DAILY Lasix (Furosemide) 40 Mg Tab 40 Mg PO DAILY Review of Systems General / Constitutional: No: Fever Eyes: No: Visual changes HENT: Positive: Lightheadedness, No: Headaches Cardiovascular: Positive: Chest Pain or Discomfort Respiratory: No: Shortness of Breath Gastrointestinal: Positive: Nausea, Vomiting, Constipation, No: Abdominal Pain Genitourinary: No: Dysuria Musculoskeletal: No: Pain Skin: No Rash Neurologic: Positive: Dizziness, No: Weakness Psychiatric: No: Depression Endocrine: No: Polydipsia Hematologic/Lymphatic: No: Easy Bruising Physical Exam Narrative GENERAL: Well-nourished, well-developed patient who is dizzy and lightheaded. SKIN: Focused skin assessment reveals no rash and nodules. Skin is Warm and dry. HEAD: Atraumatic. Normocephalic. EYES: Pupils equal and round. No scleral icterus. No injection or drainage. ENT: No nasal bleeding or discharge. Mucous membranes pink and moist. NECK: Trachea midline. No JVD. CARDIOVASCULAR: Regular rate and rhythm. No murmur appreciated. RESPIRATORY: No accessory muscle use. Clear to auscultation. Breath sounds equal bilaterally. GASTROINTESTINAL: Abdomen soft, non-tender, nondistended. Hepatic and splenic margins not palpable. MUSCULOSKELETAL: No obvious deformities. No clubbing. No cyanosis. No edema. NEUROLOGICAL: Awake and alert. No obvious cranial nerve deficits. Motor grossly within normal limits. Normal speech. PSYCHIATRIC: Appropriate mood and affect; insight and judgment normal. Data Data Last Documented VS Vital Signs Date Time Temp Pulse Resp B/P Pulse Ox O2 Delivery O2 Flow Rate FiO2 01/09/17 14:03 62 20 132/69 95 Room Air 01/09/17 11:46 97.3 Orders Electrocardiogram (01/09/17 14:05) Basic Metabolic Panel (Bmp) (01/09/17 14:05) Ckmb (Isoenzyme) Profile (01/09/17 14:05) Complete Blood Count With Diff (01/09/17 14:05) Magnesium (Mg) (01/09/17 14:05) Prothrombin Time / Inr (Pt) (01/09/17 14:05) Act Partial Throm Time (Ptt) (01/09/17 14:05) Troponin I (01/09/17 14:05) Chest, Single Ap (01/09/17 14:05) Ecg Monitoring (01/09/17 14:05) Iv Access Insert/Monitor (01/09/17 14:05) Oximetry (01/09/17 14:05) Sodium Chloride 0.9% Flush (Ns Flush) (01/09/17 14:15) Sodium Chlor 0.9% 1000 Ml Inj (Ns 1000 M (01/09/17 14:15) Ondansetron Inj (Zofran Inj) (01/09/17 14:15) Labs Laboratory Tests Test 01/09/17 14:30 White Blood Count 6.8 TH/MM3 Red Blood Count 4.06 MIL/MM3 Hemoglobin 12.4 GM/DL Hematocrit 37.2 % Mean Corpuscular Volume 91.5 FL Mean Corpuscular Hemoglobin 30.6 PG Mean Corpuscular Hemoglobin 33.5 % Concent Red Cell Distribution Width 18.4 % Platelet Count 185 TH/MM3 Mean Platelet Volume 8.8 FL Neutrophils (%) (Auto) 75.5 % Lymphocytes (%) (Auto) 14.4 % Monocytes (%) (Auto) 8.2 % Eosinophils (%) (Auto) 1.3 % Basophils (%) (Auto) 0.6 % Neutrophils # (Auto) 5.1 TH/MM3 Lymphocytes # (Auto) 1.0 TH/MM3 Monocytes # (Auto) 0.6 TH/MM3 Eosinophils # (Auto) 0.1 TH/MM3 Basophils # (Auto) 0.0 TH/MM3 CBC Comment DIFF FINAL Differential Comment Sodium Level 135 MEQ/L Potassium Level 3.6 MEQ/L Chloride Level 96 MEQ/L Carbon Dioxide Level 28.7 MEQ/L Anion Gap 10 MEQ/L Blood Urea Nitrogen 28 MG/DL Creatinine 1.18 MG/DL Estimat Glomerular Filtration 44 ML/MIN Rate Random Glucose 108 MG/DL Calcium Level 9.3 MG/DL Magnesium Level 1.6 MG/DL Total Creatine Kinase 34 U/L Troponin I 0.02 NG/ML MDM Medical Decision Making Medical Screen Exam Complete: Yes Emergency Medical Condition: Yes Medical Record Reviewed: Yes Differential Diagnosis Differential diagnosis includes [place], angina, pericarditis, pleurisy, GERD, anxiety. Also dehydration, chemotherapy side effect Narrative Course I have reviewed the patient's electronic medical record. IV placed I reviewed the EKG shows paced rhythm at [address] elevation I reviewed the chest x-ray shows compensated cardiomegaly Extended cardiac monitoring shows paced rhythm without ectopy CBC is normal Metabolic profile shows minor azotemia CK is normal Troponin is normal Coagulation studies are pending but will be reviewed. She is anticoagulated I gave her IV Zofran 1 L normal saline IV bolus This patient with history of coronary artery disease and a stent who has not had stress testing for at least 2 years presents with some chest pain complaints. She also is dizzy and lightheaded and worried about dehydration and vomiting after chemotherapy. I placed a call to the hospitalist for 23 hour observation on telemetry to rule out cardiac cause of her symptoms. I have hydrated her here. Diagnosis Primary Impression: Chest pain in adult Additional Impressions: Coronary artery disease due to calcified coronary lesion Chemotherapy adverse reaction Qualified Code: T45.1X5A - Chemotherapy adverse reaction, initial encounter Dizziness Admitting Information Admitting Physician Requests: Observation Ambrosio Ramon MD Jan 09, 2017 14:12
[2017-01-09] MEDS ORDERED: SODIUM CHLORIDE 0.9% FLUSH 10 ML FLUSH IVF PRN (14:15)
[2017-01-09] MEDS ORDERED: ONDANSETRON HCL 4 MG/2 ML VIAL IV ONE (14:15)
[2017-01-09] MEDS ORDERED: SODIUM CHLOR 0.9% 1000 ML INJ 1,000 ML IV ONE (14:15)
[2017-01-09 15:03] LABS: AUTOMATED NEUTROPHIL # 5.1 TH/MM3 (1.8-7.7); BASOPHIL % 0.6 % (0.0-2.0); EOSINOPHIL # 0.1 TH/MM3 (0-0.4); EOSINOPHIL % 1.3 % (0.0-4.0); HEMATOCRIT 37.2 % (35.0-46.0); HEMO FLAGS DIFF FINAL; LYMPH % 14.4 % (9.0-44.0); MEAN CELL VOLUME 91.5 FL (80.0-100.0); MEAN CORPUSCULAR HEMOGLOBIN 30.6 PG (27.0-34.0); MEAN CORPUSCULAR HGB CONC 33.5 % (32.0-36.0); MONO % 8.2 % (0.0-8.0); NEUT % 75.5 % (16.0-70.0); PLATELET COUNT 185 TH/MM3 (150-450); RED BLOOD COUNT 4.06 MIL/MM3 (4.00-5.30); RED CELL DISTRIBUTION WIDTH 18.4 % (11.6-17.2); WHITE BLOOD COUNT 6.8 TH/MM3 (4.0-11.0)
[2017-01-09 15:21] LABS: BICARBONATE 28.7 MEQ/L (21.0-32.0); MAGNESIUM 1.6 MG/DL (1.5-2.5); POTASSIUM 3.6 MEQ/L (3.5-5.1)
--- NOTE | 2017-01-09 15:52 | RADRPT ---
EXAM DATE/TIME: 01/09/2017 14:30 [facility] COMPARISON: CHEST SINGLE AP, November 23, 2016, 17:46. INDICATIONS : Patient states shortness of breath. MEDICAL HISTORY : Ovarian cancer SURGICAL HISTORY : Pacemaker. ENCOUNTER: Initial ACUITY: 1 day PAIN SCORE: 0/10 LOCATION: Bilateral chest FINDINGS: [id number] is in good position. Pacer is implanted in the left chest. The heart is enlarged. Pulmonary vascularity is normal. There is no alveolar consolidation, pleural effusion or pneumothorax. CONCLUSION: Mild compensated cardiomegaly. Franck June MD FACR on January 09, 2017 at 15:38 Board Certified Radiologist. This report was verified electronically.
[2017-01-09] MEDS ORDERED: ASPIRIN 325 MG TAB PO ONE (17:15)
[2017-01-09 17:17] LABS: APTT (PATIENT) 24.4 SEC (24.3-30.1); INTERNATIONAL NORMALIZED RATIO 1.1 RATIO; PROTHROMBIN TIME - PATIENT 11.7 SEC (9.8-11.6)
[2017-01-09] MEDS ORDERED: ACETAMINOPHEN 325 MG TAB PO PRN (17:45)
[2017-01-09] MEDS ORDERED: ONDANSETRON HCL 4 MG/2 ML VIAL IVP PRN (17:45)
[2017-01-09] MEDS ORDERED: SODIUM CHLORIDE 0.9% FLUSH 10 ML FLUSH IV FLUSH PRN (17:45)
[2017-01-09] MEDS ORDERED: NALOXONE HCL 0.4 MG/ML AMP IV PRN (17:45)
--- NOTE | 2017-01-09 17:58 | HHI.HP ---
HPI [facility] Primary Care Physician Cesario Barriga Admission Diagnosis chest pain,CAD,dizzy,chemo adverse effect Diagnoses: Travel History International Travel<30 Days: No Contact w/Intl Traveler <30 Da: No Traveled to Known Affected Are: No Past Family Social History Allergies: Coded Allergies: Azithromycin (Verified Allergy, Severe, 01/09/17) Neosporin (Verified Allergy, Severe, 01/09/17) Polysporin (Verified Allergy, Mild, RASH, 01/09/17) Adhesives (Verified Adverse Reaction, Mild, 01/09/17) Physical Exam Vital Signs Vital Signs Date Time Temp Pulse Resp B/P Pulse Ox O2 Delivery O2 Flow Rate FiO2 01/09/17 14:03 62 20 132/69 95 Room Air 01/09/17 11:46 97.3 75 24 124/65 97 Room Air Laboratory Laboratory Tests Test 01/09/17 01/09/17 14:30 16:20 White Blood Count 6.8 Red Blood Count 4.06 Hemoglobin 12.4 Hematocrit 37.2 Mean Corpuscular Volume 91.5 Mean Corpuscular Hemoglobin 30.6 Mean Corpuscular Hemoglobin 33.5 Concent Red Cell Distribution Width 18.4 Platelet Count 185 Mean Platelet Volume 8.8 Neutrophils (%) (Auto) 75.5 Lymphocytes (%) (Auto) 14.4 Monocytes (%) (Auto) 8.2 Eosinophils (%) (Auto) 1.3 Basophils (%) (Auto) 0.6 Neutrophils # (Auto) 5.1 Lymphocytes # (Auto) 1.0 Monocytes # (Auto) 0.6 Eosinophils # (Auto) 0.1 Basophils # (Auto) 0.0 CBC Comment DIFF FINAL Differential Comment Sodium Level 135 Potassium Level 3.6 Chloride Level 96 Carbon Dioxide Level 28.7 Anion Gap 10 Blood Urea Nitrogen 28 Creatinine 1.18 Estimat Glomerular Filtration 44 Rate Random Glucose 108 Calcium Level 9.3 Magnesium Level 1.6 Total Creatine Kinase 34 Troponin I 0.02 Prothrombin Time 11.7 Prothromb Time International 1.1 Ratio Activated Partial 24.4 Thromboplast Time Result Diagram: 01/09/17 1430 01/09/17 1430 Assessment and Plan Assessment and Plan dictated, [id number] Faith Martinez Jan 09, 2017 17:58
[2017-01-09 18:24] VITALS: BP 164/70; PULSE 61; RESP 16; TEMP 98.1; O2SAT 95
[2017-01-09] MEDS ORDERED: ENOXAPARIN SODIUM 40 MG/0.4 ML SYRINGE SQ SCH (20:00)
[2017-01-09 20:06] VITALS: BP 117/59; PULSE 65; RESP 20; TEMP 98; O2SAT 96
[2017-01-09] MEDS ORDERED: SODIUM CHLORIDE 0.9% FLUSH 10 ML FLUSH IV FLUSH SCH (21:00)
--- NOTE | 2017-01-10 08:22 | MH ---
cc: ROSEMARIE SULTANA MD DATE OF ADMISSION 01/09/2017 DATE OF 1940 CHIEF COMPLAINT Chest pain, dizziness, constipation. HISTORY OF PRESENT ILLNESS This is a very pleasant 76-year-old white female who is suffering from metastatic ovarian cancer. She had her chemo treatment last Monday and has been dealing with symptoms of dizziness which is non syncopal and non vertigo type in nature, decreased appetite, decreased p.o. intake and constipation. The patient has been struggling to take [id number] medications for her constipation. Currently she is four days without a bowel movement and approximately 4 days before that without one. She has taken multiple doses of Milk of Magnesia, prune juice, Dulcolax in which she had a very minimal amount of BM this a.m. but otherwise not responding. The patient is a known heart disease patient. Noted a right-sided chest pain that radiated into the left side this a.m. approximately at 10:30. She stated that the pain was moderate intensity but only lasted for a few minutes. The patient has seen her track welder every three months religiously and has had at least two stress tests within the past couple years. She also has a pacemaker and is evaluated very thoroughly from track welder standpoint. The patient states that she is not that concerned with chest pain. She is concerned with the symptoms of dizziness and constipation because of her quality of life and how this makes her feel. The patient denies any shortness of breath. Denies any nausea except for what is related to the chemotherapy since last Monday which was 5 days ago. She denies any headaches. The patient is on Xarelto. Takes all of her medications as she is supposed to. The patient describes the dizziness when she stands as fairly intense but has had no near-syncopal episodes. PAST MEDICAL HISTORY Medical history includes: 1. Arthritis. 2. Atrial fibrillation. 3. Right breast and ovarian cancer, currently being treated for the ovarian cancer. 4. Diverticulitis. 5. Gastroesophageal reflux disease. 6. Hiatal hernia. 7. Hypertension. 8. Brain aneurysm. 9. Thyroid disease. PAST SURGICAL HISTORY 1. Cholecystectomy. 2. Appendectomy. 3. Right total knee. 4. Right partial knee surgery. 5. Left foot pin. 6. Brain surgery. 7. Pacemaker with AICD. 8. Ablation in September 2012. 9. Cataracts bilateral. 10. Mastectomy on the right. 11. Right breast lumpectomy in 1996. ALLERGIES ADHESIVES, AZITHROMYCIN, NEOMYCIN, POLYSPORIN. SOCIAL HISTORY The patient is , currently lives at home with her . No tobacco. No illicit drugs. Does drink a small glass of wine at bedtime. MEDICATIONS 1. Spironolactone. The most recent medication that has been put on her by her track welder for blood pressure control. 2. Tylenol PM. 3. Lorazepam. 4. Toprol. 5. Lipitor. 6. Xarelto. 7. Tramadol. 8. Multaq. 9. Potassium. 10. Magnesium. 11. Levothyroxine. 12. Lasix. FAMILY HISTORY Not applicable. REVIEW OF SYSTEMS A 12-point review was done. Positives include was has been mentioned in the HPI such as her dizziness, chest pain x1, constipation. She does note some seasonal allergies with sinus drainage. Otherwise no problems with voiding or dysuria. Other systems negative or unremarkable for now. PHYSICAL EXAMINATION VITAL SIGNS: Temperature is 97.3, pulse 75, respirations 20-24, blood pressure 124/65 and 132/69, O2 sat 95-97% on room air. GENERAL: This is a well-nourished white female looks to be her stated age resting in the bed. She does have a mask on for her protection status post her chemo last Monday. She is alert, oriented, and a fairly good historian. HEENT: Atraumatic, normocephalic. Mucous membranes are slightly dry but pink. No scleral icterus. XAVI. NECK: Supple. CARDIOVASCULAR: Heart sounds S1-S2. No murmurs, rubs or gallops. She has no edema. Pulses are intact. LUNGS: Essentially clear anteriorly and posteriorly with no wheezes, rales or rhonchi. Her volumes are appropriate. Mild exertional dyspnea but none noted at rest. ABDOMEN: Flat, soft, nontender, nondistended. MUSCULOSKELETAL: She moves her extremities with purpose. She can overcome resistance and follows commands. NEUROLOGIC: Awake, alert, oriented. A good historian. Speech is clear. PSYCHOLOGIC: Mild anxiety. Normal and appropriate mood and judgment. LABORATORY DATA Diagnostic data, WBC count 6.8, RBC 4.06, hemoglobin 12.4, hematocrit 37.2, platelet count 185. Abnormals noted are neutrophils auto is 75.5, monocyte auto at 8.2. PT/INR 1.1. Chemistry sodium 135, potassium 3.6, chloride 96, carbon dioxide 28.7, anion gap 10, BUN 28, creatinine 1.18, GFR 44, random glucose 108. Calcium normal at 9.3. Magnesium 1.6. Troponin 0.02. IMAGING Chest x-ray mild compensated cardiomegaly. ASSESSMENT 1. Chest pain, atypical. History of cardiovascular disease. We will rule out myocardial infarction. 2. Metastatic ovarian cancer. The patient currently receiving chemotherapy treatments. 3. Dizziness with near syncopal episodes. No loss of consciousness. 4. Acute kidney injury. 5. Hyponatremia. PLAN The plan is to place the patient in the hospital for observation. Vital signs will be q.4h and more often as warranted. The patient will be on a home decorator. Be placed on a heart healthy diet. Gentle hydration with monitoring of any signs or symptoms of shortness of breath or congestive heart failure. DVT prophylaxis with Lovenox. Aspirin has been given x1 in the ER. The patient has IV access. She has received Zofran x1 in the emergency room. We will reconcile her medications. Will also check orthostatic vital signs for her dizziness. To my knowledge the patient is full code, full aggressive care and we will follow. Dictated by: GARCÍA Peoples MD YURY Martin/MAURI /5:49 PM /8:20 AM
--- NOTE | 2017-01-10 10:41 | EKG ---
Date Performed: 01/09/2017 Time Performed: 14:16:23 PTAGE: 76 years EKG: ELECTRONIC ATRIAL PACEMAKER MINIMAL ST DEPRESSION ABNORMAL RHYTHM ECG Compared to prior tra cing no significant change PREVIOUS TRACING : 11/23/2016 13.56 DOCTOR: Rosalinda Arteaga Interpretating Date/Time 01/10/2017 10:35:16
== END 2017-01-10 00:51 | disposition left against medical advice (07) ==
LOC: NEPA 11:44 → NEDA 16:37 → NEPGCP 18:31 → NEDA 22:35
PROVIDERS: ADMIT Specialist; ATTEND Specialist
DX: R07.89 Other chest pain (principal); C56.9 Malignant neoplasm of unspecified ovary; C78.6 Secondary malignant neoplasm of retroperitoneum and peritoneum; I48.91 Unspecified atrial fibrillation; I25.84 Coronary atherosclerosis due to calcified coronary lesion; E78.00 Pure hypercholesterolemia, unspecified; K59.00 Constipation, unspecified; K21.9 Gastro-esophageal reflux disease without esophagitis; I10 Essential (primary) hypertension; N17.9 Acute kidney failure, unspecified; E87.1 Hypo-osmolality and hyponatremia; E07.9 Disorder of thyroid, unspecified; Z85.3 Personal history of malignant neoplasm of breast; Z90.11 Acquired absence of right breast and nipple; Z95.0 Presence of cardiac pacemaker; Z96.653 Presence of artificial knee joint, bilateral; Z88.1 Allergy status to other antibiotic agents; Z88.8 Allergy status to other drugs, medicaments and biological substances; Z79.01 Long term (current) use of anticoagulants; Z95.5 Presence of coronary angioplasty implant and graft
CPT/HCPCS: 71010; 80048; 82550; 83735; 84484; 85025; 85610; 85730; 93005; 96361; 96374; 99285; G0378; J1642; J2405; J7030

== ENCOUNTER 2017-07-11 08:59 | Day surgery (SDC) | payer MEDICARE ==
[~2017-07-11] VITALS: Ht 175.3 cm; Wt 90.9 kg
[~2017-07-11 08:59] MED LIST changes: -CIPR250T52 PO; +SPIR25TA PO
[2017-07-11 09:16] VITALS: BP 129/52; PULSE 60; RESP 20; TEMP 98.1; O2SAT 94
[2017-07-11] MEDS ORDERED: SODIUM CHLOR 0.9% 1000 ML IV SCH (10:00)
[2017-07-11 10:16] LABS: AUTOMATED NEUTROPHIL # 2.8 TH/MM3 (1.8-7.7); BASOPHIL % 0.7 % (0.0-2.0); EOSINOPHIL # 0.1 TH/MM3 (0-0.4); EOSINOPHIL % 2.8 % (0.0-4.0); HEMATOCRIT 32.7 % (35.0-46.0); HEMO FLAGS DIFF FINAL; LYMPH % 23.5 % (9.0-44.0); LYMPHOCYTE # 1.1 TH/MM3 (1.0-4.8); MEAN CORPUSCULAR HEMOGLOBIN 31.7 PG (27.0-34.0); MEAN CORPUSCULAR HGB CONC 33.7 % (32.0-36.0); MONO % 11.4 % (0.0-8.0); NEUT % 61.6 % (16.0-70.0); PLATELET COUNT 228 TH/MM3 (150-450); RED BLOOD COUNT 3.48 MIL/MM3 (4.00-5.30); RED CELL DISTRIBUTION WIDTH 13.1 % (11.6-17.2); WHITE BLOOD COUNT 4.5 TH/MM3 (4.0-11.0)
[2017-07-11 10:22] LABS: APTT (PATIENT) 21.9 SEC (24.3-30.1); PROTHROMBIN TIME - PATIENT 10.9 SEC (9.8-11.6)
[2017-07-11] MEDS ORDERED: LIDOCAINE HCL 1% 20 ML VIAL ONE (10:40)
[2017-07-11] MEDS ORDERED: MIDAZOLAM HCL 2 MG/2 ML VIAL ONE (11:00)
[2017-07-11 11:30] VITALS: BP 121/62; PULSE 60; RESP 20; TEMP 97.5; O2SAT 96
--- NOTE | 2017-07-11 11:38 | PD.RAD ---
Post CT Procedure Prog Note Pre Procedure Diagnosis: (1) Ovarian ca Post Procedure Diagnosis: (1) Ovarian ca Procedure Date: Jul 11, 2017 Supervising Radiologist: Alan Washington Anesthesia: Conscious Sedation Plan of Activity Patient to Unit: ROPU Patient Condition: Good See PACS Report for procedural detail/treatment Biopsy Imaging Guidance: CT Biopsy Procedure: Abdominal Mass Specimen: Core Biopsy Alan Washington MD Jul 11, 2017 11:38
[2017-07-11 11:45] VITALS: BP 120/66; PULSE 58; RESP 20; O2SAT 92
[2017-07-11 12:15] VITALS: BP 113/55; PULSE 83; RESP 20; O2SAT 96
[2017-07-11 12:45] VITALS: BP 128/59; PULSE 62; RESP 20; O2SAT 94
--- NOTE | 2017-07-11 13:28 | RADRPT ---
EXAM DATE/TIME: 07/11/2017 11:02 [facility] COMPARISON: CT NEEDLE BIOPSY ABDOMEN, August 26, 2016, 10:11. INDICATIONS : Omental mass. SEDATION TIME: 15 minutes BIOPSY SITE: Left MEDICATION(S): 1.) 2 mg midazolam (Versed) IV 2.) 100 mcg fentanyl (Sublimaze) DEVICE(S): 1.) 18 gauge Temno core biopsy needle MEDICAL HISTORY : Carcinoma, breast. Carcinoma, ovarian. SURGICAL HISTORY : Appendectomy. Cholecystectomy. Hysterectomy. ENCOUNTER: Initial ACUITY: 1 day PAIN SCORE: 0/10 LOCATION: Left lower quadrant A total of three core specimen(s) were obtained and sent to the laboratory for pathologic evaluation. PROCEDURE: 1. CT guided soft tissue, left biopsy. 2. Conscious sedation with continuous EKG and oximetry monitoring. 3. EKG and oximetry remained stable throughout the procedure. Prior to the procedure informed consent was obtained. Any appropriate prior imaging studies were rev iewed. Using automated exposure control and adjustment of the mA and/or kV according to patient size, radiat ion dose was kept as low as reasonably achievable to obtain optimal diagnostic quality images. DICOM format image data is available electronically for review and comparison. The site was prepped in a sterile fashion. Full sterile technique was used, including cap, mask, hayde rile gloves and gown and a large sterile sheet. Hand hygiene and 2% chlorhexidine and/or betadine/al cohol prep was utilized per protocol for cutaneous antisepsis. The skin and subcutaneous tissues wer e infiltrated with local anesthetic solution. With CT guidance the previously identified target was localized. Biopsy was performed using the presc ribed needle as above. Adequate hemostasis was obtained with compression at the puncture site. Follow-up CT scan reveals no hemorrhage. The patient tolerated the procedure well and there were no complications. The patient was returned to the Radiology Outpatient Unit in stable condition. CONCLUSION: Uncomplicated CT guided biopsy. Alan Washington MD on July 11, 2017 at 13:27 Board Certified Radiologist. This report was verified electronically.
[2017-07-11 13:30] VITALS: BP 122/56; PULSE 65; RESP 20; O2SAT 96
== END 2017-07-11 13:30 | disposition home or self-care (01) ==
LOC: HRAD 08:59 → HRIP 09:02 → HRAD 13:30
PROVIDERS: ATTEND Obstetrics & Gynecology Gynecologic Oncology
DX: R19.09 Other intra-abdominal and pelvic swelling, mass and lump (principal); C56.9 Malignant neoplasm of unspecified ovary; Z85.3 Personal history of malignant neoplasm of breast; Z01.812 Encounter for preprocedural laboratory examination
CPT/HCPCS: 49180; 77012; 85025; 85610; 85730; 88305; 99152; J1642; J2250; J3010

== ENCOUNTER 2017-09-07 13:27 | Emergency (ER) | payer MEDICARE ==
[~2017-09-07 13:27] MED LIST changes: -DIPH1TAB36 PO; -LORA-373 PO; +LORA0.5T PO; -MAGN1TAB14 PO; +MAGN400T3 PO; -SPIR25TA PO
[2017-09-07 13:29] VITALS: BP 143/75; PULSE 60; RESP 14; TEMP 98.7; O2SAT 98
--- NOTE | 2017-09-07 13:59 | PD ---
HPI Chief Complaint: Injury Time Seen by Provider: 13:44 Travel History International Travel<30 days: No Contact w/Intl Traveler<30days: No Traveled to known affect area: No History of Present Illness HPI 77 year old patient presenting with a chief complaint of fall. She states that earlier today she was entering her kitchen while carrying a platter and she caught her foot on a step and fell forward. She did hit her head but did not lose consciousness. She believes that she caught the brunt of her fall with her hands on the ulnar aspect. She is complaining of pain in her right hand, nose and anterior chest wall. She states that the chest and nose are just a little sore but her right hand is quite painful. She had no chest pain, palpitations, blackouts. No history of diabetes or hypoglycemia. PFSH Past Medical History Hx Anticoagulant Therapy: Yes (XARELTO) Arthritis: Yes Asthma: No Atrial Fibrillation: Yes Blood Disorders: No Anxiety: No Depression: No Heart Rhythm Problems: Yes (A-fib) Cancer: Yes (Ovarian cancer) Cardiac Catheterization: Yes (12/19) Cardiovascular Problems: Yes (A-fib, pacemaker) High Cholesterol: Yes (Currently takes medication for cholesterol) Chemotherapy: Yes Chest Pain: Yes (patient experienced chest pain on admission, denies pain now) Congestive Heart Failure: No COPD: No Cerebrovascular Accident: No Diabetes: No Endocrine: Yes Gastrointestinal Disorders: Yes (DIVERTICULITIS) GERD: Yes Genitourinary: No Headaches: No Hepatitis: No Hiatal Hernia: Yes Hypertension: Yes Immune Disorder: No Implanted Vascular Access Dvce: Yes Musculoskeletal: No Neurologic: Yes (Brain aneurysm, that didnt erupt) Psychiatric: No Reproductive: No Respiratory: No Immunizations Current: Yes Migraines: No Radiation Therapy: Yes (previously for breast cancer but not currently) Seizures: No Sleep Apnea: No Thyroid Disease: Yes (Take medication for thyroid) Menopausal: Yes Past Surgical History Abdominal Aneurysm Repair: Yes Abdominal Surgery: Yes (CHOLY, APPY) AICD: No Appendectomy: Yes Arteriovenous Shunt: No Body Medical Devices: PACEMAKER, R TOTAL KNEE, L PARTIAL KNEE, LEFT FOOT PIN, COIL LEFT BRAIN Cardiac Surgery: Yes (ablation in 09/2012 [facility] [place] ALSO SEP 2013, PACER) Cholecystectomy: Yes Ear Surgery: No Endocrine Surgery: No Eye Surgery: Yes (cataracts bilateral/2010 ) Genitourinary Surgery: Yes Gynecologic Surgery: Yes (partial HYST) Hysterectomy: Yes (PARTIAL) Insulin Pump: No Joint Replacement: Yes (PT STATES R & L KNEE AND L FOOT WITH PINS) Mastectomy: Yes (RIGHT) Neurologic Surgery: Yes (BRAIN SURGERY ON Nov) Oral Surgery: No Pacemaker: Yes ([employer]) Thoracic Surgery: No Other Surgery: Yes (RT. BREAST LUMPECTOMY IN 1996) Social History Alcohol Use: Yes (small glass of wine at bedtime) Tobacco Use: No Substance Use: No Allergies-Medications (Allergen,Severity, Reaction): Coded Allergies: azithromycin (Unverified Allergy, Severe, 09/08/17) gramicidin D (Unverified Allergy, Severe, 09/08/17) neomycin (Unverified Allergy, Severe, 09/08/17) bacitracin (Unverified Allergy, Mild, RASH, 09/08/17) polymyxin B (Unverified Allergy, Mild, RASH, 09/08/17) adhesive (Unverified Adverse Reaction, Mild, 09/08/17) Reported Meds & Prescriptions Reported Meds & Active Scripts Active Reported Prevacid (Lansoprazole) 30 Mg Capdr 30 Mg PO DAILY D 5000 (Cholecalciferol) 5,000 Unit Cap 5,000 Units PO DAILY Lorazepam 0.5 Mg Tab 0.5 Mg PO HS PRN Toprol XL (Metoprolol Succinate) 50 Mg Tab 50 Mg PO AC DINNER Lipitor (Atorvastatin Calcium) 20 Mg Tab 20 Mg PO HS Xarelto (Rivaroxaban) 20 Mg Tab 20 Mg PO AC DINNER Tramadol (Tramadol HCl) 50 Mg Tab 100 Mg PO BID Multaq (Dronedarone) 400 Mg Tab 400 Mg PO BID Potassium Chloride ER (Potassium Chloride) 20 Meq Tab 20 Meq PO DAILY Magnesium 400 Mg Tab 400 Mg PO AC DINNER Levothyroxine (Levothyroxine Sodium) 50 Mcg Tab 50 Mcg PO DAILY Lasix (Furosemide) 40 Mg Tab 40 Mg PO DAILY Review of Systems Except as stated in HPI: all other systems reviewed are Neg Eyes: No: Diploplia, Blurred Vision HENT: No: Headaches, Vertigo, Lightheadedness Cardiovascular: Positive: Irregular Rhythm, No: Chest Pain or Discomfort, Palpitations Respiratory: No: Shortness of Breath Gastrointestinal: No: Nausea, Vomiting, Diarrhea Musculoskeletal: Positive: Pain (chest wall, R hand, Nose) Skin: Positive Other (5mm laceration on the bridge of the nose) Neurologic: No: Weakness, Dizziness, Syncope, Focal Abnormalities Physical Exam Narrative GENERAL: patient is sitting in bed, no acute distress SKIN: Warm and dry. HEAD: Atraumatic. Normocephalic. EYES: Pupils equal and round. No scleral icterus. No injection or drainage. ENT: No nasal bleeding or discharge. Mucous membranes pink and moist. NECK: Trachea midline. No JVD. CARDIOVASCULAR: irregularly irregular, no murmurs RESPIRATORY: No accessory muscle use. Clear to auscultation. Breath sounds equal bilaterally. GASTROINTESTINAL: Abdomen soft, non-tender, nondistended. Hepatic and splenic margins not palpable. MUSCULOSKELETAL: Extremities without clubbing, cyanosis, or edema. ecchymosis over the right 4th and 5th metacarpals. ROM is full with some pain at end ranges. Bruising and 5mm laceration over the bridge of the nose. NEUROLOGICAL: Awake and alert. No obvious cranial nerve deficits. Motor grossly within normal limits. Five out of 5 muscle strength in the arms and legs. Normal speech. PSYCHIATRIC: Appropriate mood and affect; insight and judgment normal. Data Data Last Documented VS Vital Signs Date Time Temp Pulse Resp B/P (MAP) Pulse Ox O2 Delivery O2 Flow Rate FiO2 09/07/17 16:57 09/07/17 13:29 98.7 [address] Brain W/O Iv Contrast(Rout) (09/07/17 ) Ct Facial Bones W/O Iv Cont (09/07/17 ) Ct Cerv Spine W/O Contrast (09/07/17 ) Hand, Complete ([id number]) (09/07/17 ) Ed Discharge Order (09/07/17 15:36) Splinting (09/07/17 ) Sling Cradle Arm (09/07/17 ) Fiberglass Splint Forearm Adul (09/07/17 ) [facility] Medical Decision Making Medical Screen Exam Complete: Yes Emergency Medical Condition: Yes Differential Diagnosis Ground level fall, Right hand fracture, Right distal radius fracture unlikely, Facial abrasions Narrative Course CT head, R hand X-Ray Last [address] 09/07/17 0000 Signed Impressions: Service Date/Time: , September 07, 2017 14:23 - CONCLUSION: 1. Soft tissue swelling over the nasal bone region no acute fracture or malalignment. 2. Chronic sinusitis in the right maxillary sinus. Saji Velazquez MD Head CT 09/07/17 Signed Impressions: Service Date/Time: August 14:20 - CONCLUSION: 1. No acute hemorrhage or mass effect. 2. Post surgical changes with aneurysm clip in left suprasellar region. 3. Chronic sinusitis in the right maxillary sinus. Saji Velazquez MD Hand X-Ray 09/07/17 Signed Impressions: Service Date/Time: August 14:06 - CONCLUSION: 1. Minimally distracted fracture through the base of the fifth metacarpal. 2. Osteopenia and osteoarthritic change. Saji Velazquez MD Cervical Spine CT 09/07/17 Signed Impressions: Service Date/Time: August 14:22 - CONCLUSION: 1. No fracture or dislocation. 2. Degenerative changes. 3. Carotid artery calcifications. Joe Pop Jr., MD Patient roomed emergency department, x-ray findings as above, placed in the ulnar gutter splint, discussed follow-up discussed symptomatic management and discussed return to ED criteria. She stable for discharge. Diagnosis Primary Impression: Fracture of fifth metacarpal bone Qualified Codes: S62.346A - Nondisplaced fracture of base of fifth metacarpal bone, right hand, initial encounter for closed fracture Additional Impressions: Facial contusion Fall Referrals: Tad Costello Jr., MD Disposition: 01 DISCHARGE HOME Condition: Stable Sean Coburn MD Sep 07, 2017 13:59
--- NOTE | 2017-09-07 14:16 | RADRPT ---
EXAM DATE/TIME: 09/07/2017 14:06 [facility] COMPARISON: No previous studies available for comparison. INDICATIONS : Right hand pain, fell MEDICAL HISTORY : Ovarian cancer SURGICAL HISTORY : Pacemaker. ENCOUNTER: Initial ACUITY: 1 day PAIN SCORE: 9/10 LOCATION: Right Hand FINDINGS: AP, lateral and oblique views of the right hand were obtained and demonstrate a transverse fracture t hrough the base of the fifth metatarsal with slight distraction of several millimeters. There is diff use osteopenia with no malalignment. Degenerative joint changes are noted greatest involving the firs t metacarpal carpal joint with joint space loss, sclerosis and hypertrophic change. Chondrocalcinosis is noted in the triangular fibrocartilage region. CONCLUSION: 1. Minimally distracted fracture through the base of the fifth metacarpal. 2. Osteopenia and osteoarthritic change. Saji Velazquez MD on September 07, 2017 at 14:11 Board Certified Radiologist. This report was verified electronically.
--- NOTE | 2017-09-07 14:41 | RADRPT ---
EXAM DATE/TIME: 09/07/2017 14:20 [facility] COMPARISON: CT BRAIN W/O CONTRAST, April 06, 2015, 14:50. INDICATIONS : Head pain due to fall today. RADIATION DOSE: 56.35 CTDIvol (mGy) MEDICAL HISTORY : Hypertension. Cardiovascular disease SURGICAL HISTORY : Appendectomy. Cholecystectomy. Pacemaker. Brain sx for aneurysm. ENCOUNTER: Initial ACUITY: 1 day PAIN SCALE: 10/10 LOCATION: Bilateral cranial TECHNIQUE: Multiple contiguous axial images were obtained of the head. Using automated exposure control and adj ustment of the mA and/or kV according to patient size, radiation dose was kept as low as reasonably a chievable to obtain optimal diagnostic quality images. DICOM format image data is available electro nically for review and comparison. FINDINGS: CEREBRUM: The ventricles are normal for age. No evidence of midline shift, mass lesion, hemorrhage or acute in farction. There is an aneurysm clip in left suprasellar region. No extra-axial fluid collections are seen. POSTERIOR FOSSA: The cerebellum and brainstem are intact. The 4th ventricle is midline. The cerebellopontine angle i s unremarkable. EXTRACRANIAL: The visualized portion of the orbits is intact. The right maxillary sinus is nearly completely opacif ied with sclerotic margins consistent with chronic sinusitis. SKULL: The calvaria is intact. No evidence of skull fracture. CONCLUSION: 1. No acute hemorrhage or mass effect. 2. Post surgical changes with aneurysm clip in left suprasellar region. 3. Chronic sinusitis in the right maxillary sinus. Saji Velazquez MD on September 07, 2017 at 14:38 Board Certified Radiologist. This report was verified electronically.
--- NOTE | 2017-09-07 14:51 | RADRPT ---
EXAM DATE/TIME: 09/07/2017 14:23 [facility] COMPARISON: No previous studies available for comparison. INDICATIONS : Facial bruising and swelling due to fall. RADIATION DOSE: 26.35 CTDIvol (mGy) MEDICAL HISTORY : Cardiovascular disease. Hypertension. Ovarian cancer. SURGICAL HISTORY : Appendectomy. Cholecystectomy.Pacemaker.Brain sx for aneurysm. ENCOUNTER: Initial ACUITY: 1 day PAIN SCORE: 10/10 LOCATION: Bilateral nasel bridge. TECHNIQUE: Volumetric scanning of the facial bones was performed. Using automated exposure control and adjustme nt of the mA and/or kV according to patient size, radiation dose was kept as low as reasonably achiev able to obtain optimal diagnostic quality images. DICOM format image data is available electronicPlaytika y for review and comparison. FINDINGS: ORBITS: The orbital and infraorbital osseous structures are intact. The retroconal structures have a normal configuration. No radiopaque foreign bodies are seen. NASAL BONE: The nasal bone and maxillary spine are intact ZYGOMATIC ARCHES: Symmetric without evidence of fracture. SINUSES: The maxillary, ethmoid and frontal sinuses are intact. There is evidence of chronic sinusitis in the right maxillary sinus with near-complete opacification and sclerosis. No air-fluid levels seen. NASAL CAVITY: The nasal septum is intact and midline. The lacrimal ducts are intact. SOFT TISSUES: No radiopaque foreign bodies seen. No soft-tissue swelling is seen. INTRACRANIAL: No intracranial air seen. CRIBIFORM PLATE: Grossly intact. CONCLUSION: 1. Soft tissue swelling over the nasal bone region no acute fracture or malalignment. 2. Chronic sinusitis in the right maxillary sinus. Saji Velazquez MD on September 07, 2017 at 14:47 Board Certified Radiologist. This report was verified electronically.
--- NOTE | 2017-09-07 15:20 | RADRPT ---
EXAM DATE/TIME: 09/07/2017 14:22 [facility] COMPARISON: No previous studies available for comparison. INDICATIONS : Neck pain due to fall. RADIATION DOSE: 20.44 CTDIvol (mGy) MEDICAL HISTORY : Hypertension. Cardiovascular disease Ovarian cancer. SURGICAL HISTORY : Appendectomy. Cholecystectomy.Pacemaker.Brain sx for aneurysm. ENCOUNTER: Initial ACUITY: 1 day PAIN SCALE: 10/10 LOCATION: Bilateral neck region. TECHNIQUE: Volumetric scanning of the cervical spine was performed. Multiplanar reconstructions in the sagittal, coronal and oblique axial planes were performed. Using automated exposure control and adjustment o f the mA and/or kV according to patient size, radiation dose was kept as low as reasonably achievable to obtain optimal diagnostic quality images. DICOM format image data is available electronically f or review and comparison. FINDINGS: VERTEBRAE: Normal vertebral body height. ALIGNMENT: No evidence of subluxation. Artifact from prior intracranial coil embolization. Left-sided pacing device noted. Calcified plaque throughout the carotid arteries bilaterally. Bilateral apical pleural/parenchymal scarring. C2-C3: The bony spinal canal is normal in size. No evidence of disc bulge or herniation. The neural forami na are bilaterally patent. C3-C4: There is a mild broad-based disc bulge eccentric to the left. No abutment of the cord or central chuck l stenosis. Lateral recesses and neural foramen are patent. C4-C5: There is a broad-based disc osteophyte complex slightly eccentric to the left. No abutment of the cor d or central canal stenosis. Bony uncovertebral hypertrophy more pronounced on the left. There is mil d narrowing of the left lateral recess and neural foramen. The right lateral recess and neural forame n are patent. C5-C6: There is a broad-based disc osteophyte complex. This flattens the ventral portion of the cord. Bilate ral neural foraminal narrowing and lateral recess narrowing due to a combination of bony uncovertebra l hypertrophy and the disc osteophyte. C6-C7: Broad-based disc osteophyte complex. No abutment of the cord or central canal stenosis. Neural forami na are patent bilaterally. C7-T1: The bony spinal canal is normal in size. No evidence of disc bulge or herniation. The neural forami na are bilaterally patent. CONCLUSION: 1. No fracture or dislocation. 2. Degenerative changes. 3. Carotid artery calcifications. Joe Pop Jr., MD on September 07, 2017 at 15:13 Board Certified Radiologist. This report was verified electronically.
[2017-09-08] MEDS ORDERED: PREV30CA36 PO (14:33)
== END 2017-09-07 17:06 | disposition home or self-care (01) ==
LOC: NEPC 13:27
DX: S62.346A Nondisplaced fracture of base of fifth metacarpal bone, right hand, initial encounter for closed fracture (principal); S00.33XA Contusion of nose, initial encounter; R07.9 Chest pain, unspecified; J32.0 Chronic maxillary sinusitis; I10 Essential (primary) hypertension; E07.9 Disorder of thyroid, unspecified; E78.00 Pure hypercholesterolemia, unspecified; W01.0XXA Fall on same level from slipping, tripping and stumbling without subsequent striking against object, initial encounter; Y92.000 Kitchen of unspecified non-institutional (private) residence as the place of occurrence of the external cause; Z79.01 Long term (current) use of anticoagulants; Z87.39 Personal history of other diseases of the musculoskeletal system and connective tissue; Z86.79 Personal history of other diseases of the circulatory system; Z85.43 Personal history of malignant neoplasm of ovary; Z87.19 Personal history of other diseases of the digestive system; Z86.69 Personal history of other diseases of the nervous system and sense organs
CPT/HCPCS: 70450; 70486; 72125; 73130; 99285

== ENCOUNTER 2017-09-08 12:31 | Emergency (ER) | payer MEDICARE ==
[~2017-09-08] VITALS: Ht 175.3 cm; Wt 90.5 kg
[2017-09-08 12:32] VITALS: BP 155/69; PULSE 61; RESP 16; TEMP 98.6; O2SAT 98
--- NOTE | 2017-09-08 14:15 | RADRPT ---
EXAM DATE/TIME: 09/08/2017 13:26 [facility] COMPARISON: HAND RIGHT COMPLETE ([id number]), September 07, 2017, 14:06. INDICATIONS : Pain from fall 09/07/17. MEDICAL HISTORY : None. SURGICAL HISTORY : None. ENCOUNTER: Initial ACUITY: 2 days PAIN SCORE: 5/10 LOCATION: Right lateral foot. FINDINGS: Examination of the foot demonstrates a severe fracture of the talus. There is near rocker-bottom defo rmity of the foot. There is compression of the superior surface of the calcaneus as well. There are d egenerative changes within the ankle. CONCLUSION: Fracture of the talus with erosion into the calcaneus which appears chronic. 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 This should be correlated with patient's clinical history. There are degenerative changes within the ankle as well Jules June MD on September 08, 2017 at 14:10 Board Certified Radiologist. This report was verified electronically.
[2017-09-08] MEDS ORDERED: PREV30CA36 PO (14:33)
--- NOTE | 2017-09-08 14:37 | PD ---
HPI Chief Complaint: Injury Time Seen by Provider: 14:29 Travel History International Travel<30 days: No Contact w/Intl Traveler<30days: No Traveled to known affect area: No History of Present Illness HPI Patient comes in complaining of continued right foot and sternal chest pain after trip and fall yesterday. Patient states she tripped over a dog gate falling forward landing face down. Patient describes pain as achy like in nature is worse with palpation and walking. Patient been taking her tramadol for pain that helped some. Denies any radiation of pain. Patient reports she was seen here yesterday for the fall was evaluated, but did not have referred her chest x-ray. Patient denies any shortness of breath, nausea, vomiting, fevers, numbness tingling anywhere, abdominal pain, or other concerns. PFSH Past Medical History Hx Anticoagulant Therapy: Yes (XARELTO) Arthritis: Yes Asthma: No Atrial Fibrillation: Yes Blood Disorders: No Anxiety: No Depression: No Heart Rhythm Problems: Yes (A-fib) Cancer: Yes (Ovarian cancer) Cardiac Catheterization: Yes Cardiovascular Problems: Yes (A-fib, pacemaker) High Cholesterol: Yes (Currently takes medication for cholesterol) Chemotherapy: Yes Chest Pain: Yes (patient experienced chest pain on admission, denies pain now) Congestive Heart Failure: No COPD: No Cerebrovascular Accident: No Diabetes: No Diminished Hearing: No Endocrine: Yes Gastrointestinal Disorders: Yes (Frequent constipation) GERD: Yes Genitourinary: No Headaches: No Hepatitis: No Hiatal Hernia: Yes Hypertension: Yes Immune Disorder: No Implanted Vascular Access Dvce: Yes Musculoskeletal: No Neurologic: Yes (Brain aneurysm, that didnt erupt) Psychiatric: No Reproductive: No Respiratory: No Immunizations Current: Yes Migraines: No Radiation Therapy: Yes (previously for breast cancer but not currently) Seizures: No Sleep Apnea: No Thyroid Disease: Yes (Take medication for thyroid) Menopausal: Yes Past Surgical History Abdominal Aneurysm Repair: Yes Abdominal Surgery: Yes (CHOLY, APPY) AICD: No Appendectomy: Yes Arteriovenous Shunt: No Body Medical Devices: PACEMAKER, R TOTAL KNEE, L PARTIAL KNEE, LEFT FOOT PIN, COIL LEFT BRAIN Cardiac Surgery: Yes (ablation in 09/2012 [facility]SO SEP 2013, PACER) Cholecystectomy: Yes Ear Surgery: No Endocrine Surgery: No Eye Surgery: Yes (cataracts bilateral/2010 ) Genitourinary Surgery: Yes Gynecologic Surgery: Yes (partial HYST) Hysterectomy: Yes (PARTIAL) Insulin Pump: No Joint Replacement: Yes (PT STATES R & L KNEE AND L FOOT WITH PINS) Mastectomy: Yes (RIGHT) Neurologic Surgery: Yes (BRAIN SURGERY ON Nov- STENT AND COILS) Oral Surgery: No Pacemaker: Yes ([employer]) Thoracic Surgery: No Social History Alcohol Use: Yes (small glass of wine at bedtime) Tobacco Use: No Substance Use: No Allergies-Medications (Allergen,Severity, Reaction): Coded Allergies: azithromycin (Unverified Allergy, Severe, 09/08/17) gramicidin D (Unverified Allergy, Severe, 09/08/17) neomycin (Unverified Allergy, Severe, 09/08/17) bacitracin (Unverified Allergy, Mild, RASH, 09/08/17) polymyxin B (Unverified Allergy, Mild, RASH, 09/08/17) adhesive (Unverified Adverse Reaction, Mild, 09/08/17) Reported Meds & Prescriptions Reported Meds & Active Scripts Active Reported Prevacid (Lansoprazole) 30 Mg Capdr 30 Mg PO DAILY D 5000 (Cholecalciferol) 5,000 Unit Cap 5,000 Units PO DAILY Lorazepam 0.5 Mg Tab 0.5 Mg PO HS PRN Toprol XL (Metoprolol Succinate) 50 Mg Tab 50 Mg PO AC DINNER Lipitor (Atorvastatin Calcium) 20 Mg Tab 20 Mg PO HS Xarelto (Rivaroxaban) 20 Mg Tab 20 Mg PO AC DINNER Tramadol (Tramadol HCl) 50 Mg Tab 100 Mg PO BID Multaq (Dronedarone) 400 Mg Tab 400 Mg PO BID Potassium Chloride ER (Potassium Chloride) 20 Meq Tab 20 Meq PO DAILY Magnesium 400 Mg Tab 400 Mg PO AC DINNER Levothyroxine (Levothyroxine Sodium) 50 Mcg Tab 50 Mcg PO DAILY Lasix (Furosemide) 40 Mg Tab 40 Mg PO DAILY Review of Systems Except as stated in HPI: all other systems reviewed are Neg Physical Exam Narrative GENERAL: Well-developed, overly nourished, in no acute distress, and non-ill appearing. SKIN: Contusion noted dorsal aspect right foot over the first metatarsal distally is tender to palpation. There is no crepitus. HEAD: Atraumatic. Normocephalic. EYES: Pupils equal and round. EOMI. No scleral icterus. No injection or drainage. ENT: No nasal bleeding or discharge. Mucous membranes pink and moist. NECK: Trachea midline. Supple. No nuclear rigidity. CARDIOVASCULAR: Regular rate and rhythm. No murmur appreciated. RESPIRATORY: No accessory muscle use. No respiratory distress. Clear to auscultation. Breath sounds equal bilaterally. Patient reports tenderness palpation over sternum there is no crepitus. MUSCULOSKELETAL: No obvious deformities. No clubbing. No cyanosis. No edema. Full range of motion with the exception right upper extremity has a splint in place. NEUROLOGICAL: Awake and alert. No obvious cranial nerve deficits. Motor grossly within normal limits. Normal speech. PSYCHIATRIC: Appropriate mood and affect; insight and judgment normal. Data Data Last Documented VS Vital Signs Date Time Temp Pulse Resp B/P (MAP) Pulse Ox O2 Delivery O2 Flow Rate FiO2 09/08/17 16:10 09/08/17 12:32 98.6 61 16 98 Room Air Orders Orders Foot, Complete ([id number]) (09/08/17 ) Chest, Pa & Lat (09/08/17 ) Resp Incentive Spirometry (09/08/17 ) Ed Discharge Order (09/08/17 15:37) MDM Medical Decision Making Medical Screen Exam Complete: Yes Emergency Medical Condition: Yes Differential Diagnosis Fracture, strain, contusion, dislocation, pneumothorax, other Narrative Course Patient in no obvious distress upon re-evaluation. All pertinent Radiology result(s) discussed with patient/family. Discussed patient with Dr. Israel prior to discharge, who is in agreement with plan of care and disposition. Any questions/concerns in reference to patient diagnosis/condition discussed and clarified prior to patient's discharge. Reinforced sheer importance of close follow up with patient's primary physician or primary care clinic and school crossing guard. Instructed patient to return to ED immediately, if symptoms return/ worsen. Patient showed understanding of above instructions. Further instructions and recommendations were detailed in discharge paperwork. Patient ambulated without difficulty out of ED at discharge. Diagnosis Primary Impression: Contusion of right foot, initial encounter Additional Impressions: Chest wall contusion Qualified Codes: S20.219A - Contusion of unspecified front wall of thorax, initial encounter Charcot's joint of left foot Referrals: Luis Felipe Luna DPM Patient Instructions: Contusion in Adults (ED), General Instructions Additional Instructions: Follow-up with your primary care physician and/or school crossing guard next week for reevaluation. Take all medication as previously prescribed. Apply ice to affected area 20 minutes per hour as needed for pain. Use incentive spirometer 10 times per hour as instructed to decrease chances of pneumonia. Elevate affected areas to decrease pain and swelling. Return to the emergency department if symptoms get worse. Disposition: 01 DISCHARGE HOME Condition: Stable Perfecto Huber Sep 08, 2017 14:37
--- NOTE | 2017-09-08 15:21 | RADRPT ---
EXAM DATE/TIME: 09/08/2017 14:42 [facility] COMPARISON: CHEST PA & LAT, October 05, 2014, 11:25. INDICATIONS : Midline chest pain. MEDICAL HISTORY : None. SURGICAL HISTORY : Pacemaker. ENCOUNTER: Initial ACUITY: 2 days PAIN SCORE: 4/10 LOCATION: Chest, midline. FINDINGS: PA and lateral views of the chest demonstrate the lungs to be symmetrically aerated without evidence of mass, infiltrate or effusion. The heart is mildly enlarged. No pulmonary vascular engorgement. Pow er port overlies the right chest. Pacing device overlies the left chest. Osseous structures are intac t. CONCLUSION: Mild cardiomegaly without acute cardiopulmonary disease. Joe Pop Jr., MD on September 08, 2017 at 15:18 Board Certified Radiologist. This report was verified electronically.
== END 2017-09-08 16:11 | disposition home or self-care (01) ==
LOC: NEPD 12:31
DX: S90.31XA Contusion of right foot, initial encounter (principal); S20.219A Contusion of unspecified front wall of thorax, initial encounter; I48.91 Unspecified atrial fibrillation; E78.00 Pure hypercholesterolemia, unspecified; K21.9 Gastro-esophageal reflux disease without esophagitis; I10 Essential (primary) hypertension; E07.9 Disorder of thyroid, unspecified; W01.0XXA Fall on same level from slipping, tripping and stumbling without subsequent striking against object, initial encounter; Z79.899 Other long term (current) drug therapy
CPT/HCPCS: 71020; 73630; 94150; 99284

== ENCOUNTER 2017-09-14 15:04 | Emergency (ER) | payer MEDICARE ==
[~2017-09-14] VITALS: Ht 175.3 cm; Wt 89.0 kg
[~2017-09-14 15:04] MED LIST changes: +PREV30CA36 PO
[2017-09-14 15:07] VITALS: BP 129/60; PULSE 60; RESP 16; TEMP 97.6; O2SAT 96
--- NOTE | 2017-09-14 15:29 | PD ---
HPI Chief Complaint: Respiratory Distress Time Seen by Provider: 15:17 Travel History International Travel<30 days: No Contact w/Intl Traveler<30days: No Traveled to known affect area: No History of Present Illness HPI 77-year-old female presents to the ED for evaluation of 10/10 sternal and right- sided chest pain. Onset 4 days ago after the patient fell, striking her chest in the process. She was evaluated here in the ED, chest x-ray revealed no bony injury. She states that she's been taking tramadol, last dose around 10 AM with some improvement of the pain. However, she states today the pain has been uncontrollable. She states that she feels short of breath, secondary to expansion of the chest wall when trying to inhale deeply. She denies palpitations of the heart, cough. She states that this pain is the same in quality, only changed in intensity from her previous pain. She is seeking pain management. PFSH Past Medical History Hx Anticoagulant Therapy: Yes (XARELTO) Arthritis: Yes Asthma: No Atrial Fibrillation: Yes Blood Disorders: No Anxiety: No Depression: No Heart Rhythm Problems: Yes (A-fib) Cancer: Yes (Ovarian cancer) Cardiac Catheterization: Yes Cardiovascular Problems: Yes (A-fib, pacemaker) High Cholesterol: Yes (Currently takes medication for cholesterol) Chemotherapy: Yes Chest Pain: Yes (patient experienced chest pain on admission, denies pain now) Congestive Heart Failure: No COPD: No Cerebrovascular Accident: No Diabetes: No Diminished Hearing: No Endocrine: Yes Gastrointestinal Disorders: Yes (Frequent constipation) GERD: Yes Genitourinary: No Headaches: No Hepatitis: No Hiatal Hernia: Yes Hypertension: Yes Immune Disorder: No Implanted Vascular Access Dvce: Yes Musculoskeletal: No Neurologic: Yes (Brain aneurysm, that didnt erupt) Psychiatric: No Reproductive: No Respiratory: No Immunizations Current: Yes Migraines: No Radiation Therapy: Yes (previously for breast cancer but not currently) Seizures: No Sleep Apnea: No Thyroid Disease: Yes (Take medication for thyroid) Menopausal: Yes Past Surgical History Abdominal Aneurysm Repair: Yes Abdominal Surgery: Yes (CHOLY, APPY) AICD: No Appendectomy: Yes Arteriovenous Shunt: No Body Medical Devices: PACEMAKER, R TOTAL KNEE, L PARTIAL KNEE, LEFT FOOT PIN, COIL LEFT BRAIN Cardiac Surgery: Yes (ablation in 09/2012 [facility] [place] ALSO SEP 2013, PACER) Cholecystectomy: Yes Ear Surgery: No Endocrine Surgery: No Eye Surgery: Yes (cataracts bilateral/2010 ) Genitourinary Surgery: Yes Gynecologic Surgery: Yes (partial HYST) Hysterectomy: Yes (PARTIAL) Insulin Pump: No Joint Replacement: Yes (PT STATES R & L KNEE AND L FOOT WITH PINS) Mastectomy: Yes (RIGHT) Neurologic Surgery: Yes (BRAIN SURGERY ON Nov- STENT AND COILS) Oral Surgery: No Pacemaker: Yes ([employer]) Thoracic Surgery: No Social History Alcohol Use: Yes (small glass of wine at bedtime) Tobacco Use: No Substance Use: No Allergies-Medications (Allergen,Severity, Reaction): Coded Allergies: azithromycin (Verified Allergy, Severe, 09/14/17) gramicidin D (Verified Allergy, Severe, 09/14/17) neomycin (Verified Allergy, Severe, 09/14/17) bacitracin (Verified Allergy, Mild, RASH, 09/14/17) polymyxin B (Verified Allergy, Mild, RASH, 09/14/17) adhesive (Verified Adverse Reaction, Mild, 09/14/17) Reported Meds & Prescriptions Reported Meds & Active Scripts Active Hydrocodone-Acetaminophen 5-325 mg Tab 1-2 Tab PO Q4-6H PRN Reported Prevacid (Lansoprazole) 30 Mg Capdr 30 Mg PO DAILY D 5000 (Cholecalciferol) 5,000 Unit Cap 5,000 Units PO DAILY Lorazepam 0.5 Mg Tab 0.5 Mg PO HS PRN Toprol XL (Metoprolol Succinate) 50 Mg Tab 50 Mg PO AC DINNER Lipitor (Atorvastatin Calcium) 20 Mg Tab 20 Mg PO HS Xarelto (Rivaroxaban) 20 Mg Tab 20 Mg PO AC DINNER Tramadol (Tramadol HCl) 50 Mg Tab 100 Mg PO BID Multaq (Dronedarone) 400 Mg Tab 400 Mg PO BID Potassium Chloride ER (Potassium Chloride) 20 Meq Tab 20 Meq PO DAILY Magnesium 400 Mg Tab 400 Mg PO AC DINNER Levothyroxine (Levothyroxine Sodium) 50 Mcg Tab 50 Mcg PO DAILY Lasix (Furosemide) 40 Mg Tab 40 Mg PO DAILY Review of Systems Except as stated in HPI: all other systems reviewed are Neg Physical Exam Narrative GENERAL: Thin, chronically ill-appearing white female in no acute distress. SKIN: Focused skin assessment warm/dry. Ecchymosis below both eyes. HEAD: Normocephalic. EYES: No scleral icterus. No injection or drainage. NECK: Supple, trachea midline. No JVD or lymphadenopathy. CARDIOVASCULAR: Regular rate and rhythm without murmurs, gallops, or rubs. CHEST: Tender edema and deformity over the mid sternum. No ecchymosis noted. No crepitus noted. RESPIRATORY: Breath sounds clear and equal bilaterally. No accessory muscle use. GASTROINTESTINAL: Abdomen soft, non-tender, nondistended. MUSCULOSKELETAL: No cyanosis, or edema. BACK: Nontender without obvious deformity. No CVA tenderness. Data Data Last Documented VS Vital Signs Date Time Temp Pulse Resp B/P (MAP) Pulse Ox O2 Delivery O2 Flow Rate FiO2 09/14/17 17:32 62 18 135/67 (89) 98 Room Air 09/14/17 15:07 97.6 Orders Orders Morphine Inj (Morphine Inj) (09/14/17 15:30) Sodium Chloride 0.9% Flush (Ns Flush) (09/14/17 15:30) Morphine Inj (Morphine Inj) (09/14/17 16:45) Chest, Pa & Lat (09/14/17 16:38) Ct Thorax/ Chest Wo Iv Contras (09/14/17 17:02) Morphine Inj (Morphine Inj) (09/14/17 19:15) Heparin Central Flush (Heparin Central F (09/14/17 19:15) Ed Discharge Order (09/14/17 19:11) MDM Medical Decision Making Medical Screen Exam Complete: Yes Emergency Medical Condition: Yes Differential Diagnosis Chest wall contusion versus costochondritis versus chest pain versus sternal fracture versus other Narrative Course 77-year-old female presents to the ED for evaluation of 07/18 sternal and right- sided chest pain. Onset 4 days ago after the patient fell, striking her chest in the process. She was evaluated here in the ED, chest x-ray revealed no bony injury. She states that she's been taking tramadol, last dose around 10 AM with some improvement of the pain. However, she states today the pain has been uncontrollable. She states that she feels short of breath, secondary to expansion of the chest wall when trying to inhale deeply. She denies palpitations of the heart, cough. She states that this pain is the same in quality, only changed in intensity from her previous pain. She is seeking pain management. Vitals reviewed. On exam she does have edema, tenderness and deformity in the mid sternal area. Breath sounds are clear and equal bilaterally. She was administered 4 mg IV through her [id number]. Chest x- ray reveals fracture of the sternum. I discussed this finding with the patient and recommended a CT to rule out further injury. She was administered a second dose of [address] of the chest reveals no acute intrathoracic trauma. This is sternal fracture. Patient was administered a final dose of 4 mg morphine through her port and heparin flush was administered. She is prescribed Lortab 5 mg when necessary every 4-6 hours. She was provided a copy of her chest x-ray result. She was provided with detailed sternal precautions. She is instructed to follow-up with her primary care provider. She indicated understanding of the instructions. She is stable and discharged home. Diagnosis Primary Impression: Sternal fracture Qualified Codes: S22.22XA - Fracture of body of sternum, initial encounter for closed fracture Referrals: Primary Care Physician Patient Instructions: General Instructions, Sternal Precautions (GEN) Additional Instructions: Rest, hydrate. Return to normal, gentle activities as tolerated. Follow-up with the primary care provider this week as discussed. Return to the ED for any urgent or emergent medical condition. Med/Other Pt SpecificInfo: Prescription(s) given Scripts Hydrocodone-Acetaminophen (Hydrocodone-Acetaminophen) 5-325 mg Tab 1-2 TAB PO Q4-6H Y for PAIN, #15 TAB 0 Refills Prov: Jasper Vallecillo MD 09/14/17 Disposition: 01 DISCHARGE HOME Condition: Stable Sivan Mackenzie Sep 14, 2017 15:29
[2017-09-14] MEDS ORDERED: MORPHINE SULFATE 4 MG/ML INJ IV PUSH ONE ×3 (15:30→19:15)
[2017-09-14] MEDS ORDERED: SODIUM CHLORIDE 0.9% FLUSH 10 ML FLUSH IV FLUSH ONE (15:30)
--- NOTE | 2017-09-14 17:06 | RADRPT ---
EXAM DATE/TIME: 09/14/2017 16:52 This report includes an Addendum and supersedes previous reports for this exam. [facility] COMPARISON: CHEST PA & LAT, September 08, 2017, 14:42. INDICATIONS : Chest pain and shortness of breath after fall last week. MEDICAL HISTORY : Carcinoma, breast. Carcinoma, ovarian. SURGICAL HISTORY : Pacemaker. Infusaport. ENCOUNTER: Initial ACUITY: 1 week PAIN SCORE: 10/10 LOCATION: Right chest FINDINGS: Underinflated AP and lateral views of the chest demonstrate cardiac silhouette size at the upper limi ts for normal, stable from the prior study. Right chest wall [id number] and left chest wall cardia c pacing device remain present. Lungs are underinflated with atelectasis at the lung bases. No effusi on, consolidation, or pneumothorax is identified. Bones demonstrate no acute finding. CONCLUSION: Underinflated examination. No acute finding is identified. Nickolas Jerome MD on September 14, 2017 at 17:04 Board Certified Radiologist. This report was verified electronically. ADDENDUM: I was telephoned by the clinician caring for this patient. She has recently fallen and reports focal sternal pain with deformity in this region. Upon further view of the lateral projection, best seen on image 2/3, there is a sternal fracture with approximately 3 mm of displacement. Nickolas Jerome MD on September 14, 2017 at 17:28 Board Certified Radiologist. This report was verified electronically.
[2017-09-14 17:32] VITALS: BP 135/67; PULSE 62; RESP 18; O2SAT 98
--- NOTE | 2017-09-14 18:25 | RADRPT ---
EXAM DATE/TIME: 09/14/2017 17:56 [facility] COMPARISON: CHEST PA & LAT, September 14, 2017, 16:52. INDICATIONS : Trauma, patient fell, short of breath. RADIATION DOSE: 5.98 CTDIvol (mGy) MEDICAL HISTORY : Cardiovascular disease. Carcinoma, breast. ovarian cancer SURGICAL HISTORY : Hysterectomy. Pacemaker. ENCOUNTER: Initial ACUITY: 1 week PAIN SCALE: 8/10 LOCATION: Bilateral chest TECHNIQUE: Volumetric scanning of the chest was performed. Using automated exposure control and adjustment of t he mA and/or kV according to patient size, radiation dose was kept as low as reasonably achievable to obtain optimal diagnostic quality images. DICOM format image data is available electronically for r eview and comparison. Follow-up recommendations for detected pulmonary nodules are based at a minimum on nodule size and pa tient risk factors according to Fleischner Society Guidelines. FINDINGS: Bibasilar bronchiectasis is noted. Scarring is noted within the right apex. There is no pneumothorax. The heart is enlarged. Coronary artery calcifications are noted. Pretracheal mediastinal calcified g ranulomas lymph nodes are noted. No mediastinal hematoma is noted. No pulmonary infiltrate or vascula r congestion is noted. Right-sided Dcnlam-r-Jezu has its tip in the superior vena cava. Left subclavi an dual lead pacemaker has its tips in the right atrium and right ventricle. Degenerative changes and scoliosis of the thoracic spine are noted. CONCLUSION: 1. No acute intrathoracic trauma. 2. Bibasilar bronchiectasis. 3. Scarring within the right apex. 4. Cardiomegaly and coronary artery calcifications. 5. Degenerative changes and scoliosis of the thoracic spine. Sean Mckeon MD on September 14, 2017 at 18:18 Board Certified Radiologist. This report was verified electronically.
[2017-09-14] MEDS ORDERED: HYDR-3516 PO (19:08)
[2017-09-14 21:00] VITALS: BP 126/58
== END 2017-09-14 21:02 | disposition home or self-care (01) ==
LOC: NEPC 15:04
DX: S22.22XA Fracture of body of sternum, initial encounter for closed fracture (principal); R06.02 Shortness of breath; K21.9 Gastro-esophageal reflux disease without esophagitis; I10 Essential (primary) hypertension; E07.9 Disorder of thyroid, unspecified; I48.91 Unspecified atrial fibrillation; E78.00 Pure hypercholesterolemia, unspecified; M19.90 Unspecified osteoarthritis, unspecified site; W19.XXXA Unspecified fall, initial encounter; W22.8XXA Striking against or struck by other objects, initial encounter; Z79.01 Long term (current) use of anticoagulants; Z72.89 Other problems related to lifestyle
CPT/HCPCS: 71020; 71250; 96374; 96376; 99284; J1642; J2270

== ENCOUNTER 2017-11-21 15:41 | Emergency (ER) | payer MEDICARE, OTHER ==
[~2017-11-21] VITALS: Ht 175.3 cm; Wt 90.0 kg
[~2017-11-21 15:41] MED LIST changes: +HYDR-3516 PO
[2017-11-21 15:43] VITALS: BP 123/62; PULSE 66; RESP 16; TEMP 98.1; O2SAT 95
--- NOTE | 2017-11-21 16:25 | PD ---
HPI . Constipation Chief Complaint: Abdominal Pain Time Seen by Provider: 16:01 Travel History International Travel<30 days: No Contact w/Intl Traveler<30days: No Traveled to known affect area: No History of Present Illness HPI This patient presents with a chief complaint of constipation. Onset 4 days ago. She states that she has tried several different thab-[id number] medications without relief of her constipation. She is on chemotherapy. She states that her oncologist sent her here for evaluation of possible obstruction. She reports minimal abdominal pain. She does report poor appetite. No bloating. No vomiting. PFSH Past Medical History Hx Anticoagulant Therapy: Yes (XARELTO) Arthritis: Yes Asthma: No Atrial Fibrillation: Yes Blood Disorders: No Anxiety: No Depression: No Heart Rhythm Problems: Yes (A-fib) Cancer: Yes (Ovarian cancer) Cardiac Catheterization: Yes Cardiovascular Problems: Yes High Cholesterol: Yes (Currently takes medication for cholesterol) Chemotherapy: Yes Chest Pain: Yes (patient experienced chest pain on admission, denies pain now) Congestive Heart Failure: No COPD: No Cerebrovascular Accident: No Diabetes: No Diminished Hearing: No Endocrine: Yes Gastrointestinal Disorders: Yes (Frequent constipation) GERD: Yes Genitourinary: No Headaches: No Hepatitis: No Hiatal Hernia: Yes Hypertension: Yes Immune Disorder: No Implanted Vascular Access Dvce: Yes Musculoskeletal: No Neurologic: Yes (Brain aneurysm, that didnt erupt) Psychiatric: No Reproductive: No Respiratory: No Immunizations Current: Yes Migraines: No Radiation Therapy: Yes (previously for breast cancer but not currently) Seizures: No Sleep Apnea: No Thyroid Disease: Yes (Take medication for thyroid) Menopausal: Yes Past Surgical History Abdominal Aneurysm Repair: Yes Abdominal Surgery: Yes (CHOLKuldeep, APPKuldeep) AICD: No Appendectomy: Yes Arteriovenous Shunt: No Body Medical Devices: PACEMAKER, R TOTAL KNEE, L PARTIAL KNEE, LEFT FOOT PIN, COIL LEFT BRAIN Cardiac Surgery: Yes (ablation in 09/2012 [facility] [place] [place] SEP 2013, [facility]) Cholecystectomy: Yes Ear Surgery: No Endocrine Surgery: No Eye Surgery: Yes (cataracts bilateral/2010 ) Genitourinary Surgery: Yes Gynecologic Surgery: Yes (partial HYST) Hysterectomy: Yes (PARTIAL) Insulin Pump: No Joint Replacement: Yes (PT STATES R & L KNEE AND L FOOT WITH PINS) Mastectomy: Yes (RIGHT) Neurologic Surgery: Yes (BRAIN SURGERY ON Nov- STENT AND COILS) Oral Surgery: No Pacemaker: Yes ([employer]) Thoracic Surgery: No Social History Alcohol Use: Yes (small glass of wine at bedtime) Tobacco Use: No Substance Use: No Allergies-Medications (Allergen,Severity, Reaction): Coded Allergies: azithromycin (Verified Allergy, Severe, 09/14/17) gramicidin D (Verified Allergy, Severe, 09/14/17) neomycin (Verified Allergy, Severe, 09/14/17) bacitracin (Verified Allergy, Mild, RASH, 09/14/17) polymyxin B (Verified Allergy, Mild, RASH, 09/14/17) adhesive (Verified Adverse Reaction, Mild, 09/14/17) Reported Meds & Prescriptions Reported Meds & Active Scripts Active Hydrocodone-Acetaminophen 5-325 mg Tab 1-2 Tab PO Q4-6H PRN Reported Prevacid (Lansoprazole) 30 Mg Capdr 30 Mg PO DAILY D 5000 (Cholecalciferol) 5,000 Unit Cap 5,000 Units PO DAILY Lorazepam 0.5 Mg Tab 0.5 Mg PO HS PRN Toprol XL (Metoprolol Succinate) 50 Mg Tab 50 Mg PO AC DINNER Lipitor (Atorvastatin Calcium) 20 Mg Tab 20 Mg PO HS Xarelto (Rivaroxaban) 20 Mg Tab 20 Mg PO AC DINNER Tramadol (Tramadol HCl) 50 Mg Tab 100 Mg PO BID Multaq (Dronedarone) 400 Mg Tab 400 Mg PO BID Potassium Chloride ER (Potassium Chloride) 20 Meq Tab 20 Meq PO DAILY Magnesium 400 Mg Tab 400 Mg PO AC DINNER Levothyroxine (Levothyroxine Sodium) 50 Mcg Tab 50 Mcg PO DAILY Lasix (Furosemide) 40 Mg Tab 40 Mg PO DAILY Review of Systems Except as stated in HPI: all other systems reviewed are Neg General / Constitutional: No: Fever, Chills Gastrointestinal: Positive: Abdominal Pain, Constipation, No: Nausea, Vomiting , Diarrhea Genitourinary: No: Urgency, Frequency, Dysuria Physical Exam Narrative GENERAL: This patient ambulates to the room with no apparent distress. SKIN: warm/dry. Normal color and turgor. HEAD: Normocephalic. Atraumatic. EYES: Pupils equal and round. No scleral icterus. No injection or drainage. ENT: No nasal bleeding or discharge. Mucous membranes pink and moist. NECK: Trachea midline. Full range of motion without pain.. CARDIOVASCULAR: Regular rate and rhythm. RESPIRATORY: No accessory muscle use. Clear to auscultation. Breath sounds equal bilaterally. GASTROINTESTINAL: Abdomen soft. Nontender. Bowel sounds present. Nondistended. RECTAL: No impacted stool in the rectal vault. MUSCULOSKELETAL: No obvious deformities. NEUROLOGICAL: Awake and alert. No obvious cranial nerve deficits. Motor grossly within normal limits. Normal speech. PSYCHIATRIC: Appropriate mood and affect; insight and judgment normal. Data Data Last Documented VS Vital Signs Date Time Temp Pulse Resp B/P (MAP) Pulse Ox O2 Delivery O2 Flow Rate FiO2 11/21/17 15:43 98.1 66 16 123/62 (82) 95 Room Air Orders Orders Abdomen, Flat & Upright (11/21/17 16:20) Complete Blood Count With Diff (11/21/17 16:56) Comprehensive Metabolic Panel (11/21/17 16:56) Lactic Acid (11/21/17 16:56) Urinalysis - C+S If Indicated (11/21/17 16:56) Ct Abd/Pel W Iv Contrast(Rout) (11/21/17 16:56) Iv Access Insert/Monitor (11/21/17 16:56) Ecg Monitoring (11/21/17 16:56) Oximetry (11/21/17 16:56) Morphine Inj (Morphine Inj) (11/21/17 17:00) Ondansetron Inj (Zofran Inj) (11/21/17 17:00) Sodium Chloride 0.9% Flush (Ns Flush) (11/21/17 17:00) MDM Medical Decision Making Medical Screen Exam Complete: Yes Emergency Medical Condition: Yes Differential Diagnosis Differential diagnosis of constipation includes medication effect, irritable bowel syndrome, inadequate fiber, bowel obstruction Narrative Course This patient presents with a chief complaint of constipation. Flat and upright of the abdomen have been ordered to look for obstruction. She really has a benign exam and I do not suspect obstruction. AAS>>. Gas-distended loops of small bowel in a nonspecific pattern but could relate to an early obstruction. No free air. I have subsequently ordered a CT of her abdomen well as routine abdominal labs. Her care is being turned over to Dr. Woodruff pending these results. Condition: Stable Reshma Dean MD Nov 21, 2017 16:25
--- NOTE | 2017-11-21 16:50 | RADRPT ---
EXAM DATE/TIME: 11/21/2017 16:31 [facility] COMPARISON: No previous studies available for comparison. INDICATIONS : Possible obstruction. Last bowel movement five days ago. MEDICAL HISTORY : Cardiovascular disease. Carcinoma, breast. Ovarian cancer. SURGICAL HISTORY : Hysterectomy. Pacemaker. ENCOUNTER: Initial ACUITY: 4 - 6 days PAIN SCORE: 5/10 LOCATION: abdomen. FINDINGS: Supine and upright views of the abdomen show gas distended loops of small bowel within the left abdom en. Gas filled loops of nondilated colon noted. Gas is stool seen to the level of the rectal vault. T iny colonic air-fluid levels noted on the upright view. No pneumoperitoneum. No organomegaly. No abno rmal calcifications. Old trauma involving the left pelvis. Lung bases are clear. CONCLUSION: 1. Gas-distended loops of small bowel in a nonspecific pattern but could relate to an early obstructi on. No free air. Joe Pop Jr., MD on November 21, 2017 at 16:47 Board Certified Radiologist. This report was verified electronically.
[2017-11-21] MEDS ORDERED: SODIUM CHLORIDE 0.9% FLUSH 10 ML FLUSH IV FLUSH PRN (17:00)
[2017-11-21] MEDS ORDERED: ONDANSETRON HCL 4 MG/2 ML VIAL IVP ONE (17:00)
[2017-11-21] MEDS ORDERED: MORPHINE SULFATE 4 MG/ML INJ IV PUSH ONE (17:00)
[2017-11-21 17:15] VITALS: PULSE 65; RESP 14
[2017-11-21 18:20] LABS: AUTOMATED NEUTROPHIL # 1.6 TH/MM3 (1.8-7.7); BASOPHIL % 0.5 % (0.0-2.0); EOSINOPHIL # 0.1 TH/MM3 (0-0.4); EOSINOPHIL % 3.5 % (0.0-4.0); HEMOGLOBIN 9.5 GM/DL (11.6-15.3); LYMPH % 20.6 % (9.0-44.0); LYMPHOCYTE # 0.4 TH/MM3 (1.0-4.8); MEAN CELL VOLUME 92.1 FL (80.0-100.0); MEAN CORPUSCULAR HEMOGLOBIN 32.3 PG (27.0-34.0); MEAN CORPUSCULAR HGB CONC 35.1 % (32.0-36.0); MEAN PLATELET VOLUME 8.4 FL (7.0-11.0); MONO % 1.5 % (0.0-8.0); NEUT % 73.9 % (16.0-70.0); PLATELET COUNT 297 TH/MM3 (150-450); RED BLOOD COUNT 2.93 MIL/MM3 (4.00-5.30); RED CELL DISTRIBUTION WIDTH 15.7 % (11.6-17.2); WHITE BLOOD COUNT 2.1 TH/MM3 (4.0-11.0)
[2017-11-21 18:25] LABS: BACTERIA, URINE MANY /hpf; BILIRUBIN, URINE NEG (NEG); BLOOD, URINE NEG (NEG); GLUCOSE,URINE NEG (NEG); KETONE, URINE NEG (NEG); MUCUS URINE FEW /lpf (OCC); NITRITE,URINE POS (NEG); PH, URINE 5.5 (5.0-8.5); SQUAMOUS EPITHELIAL CELL URINE 3 /hpf (0-5); URINE COLOR YELLOW (YELLW/STRAW); URINE LEUKOCYTE ESTERASE SMALL (NEG)
[2017-11-21 18:36] LABS: ALT (GPT) 35 U/L (10-53)
[2017-11-21 18:38] LABS: ALKALINE PHOSPHATASE 100 U/L (45-117); TOTAL BILIRUBIN ADULT 0.9 MG/DL (0.2-1.0); TOTAL PROTEIN 6.7 GM/DL (6.4-8.2)
[2017-11-21 18:49] LABS: ALBUMIN 2.9 GM/DL (3.4-5.0); AST (GOT) 44 U/L (15-37); BICARBONATE 30.8 MEQ/L (21.0-32.0); BLOOD UREA NITROGEN 25 MG/DL (7-18); CALCIUM 8.6 MG/DL (8.5-10.1); CHLORIDE 96 MEQ/L (98-107); CREATININE 1.21 MG/DL (0.50-1.00); GLOMERULAR FILTRATION RATE 43 ML/MIN (>89); GLUCOSE,RANDOM 78 MG/DL (74-106); SODIUM (NA) 133 MEQ/L (136-145)
[2017-11-21] MEDS ORDERED: SODIUM CHLOR 0.9% 1000 ML INJ 1,000 ML IV SCH (18:57)
[2017-11-21] MEDS ORDERED: cefTRIAXone INJ 1,000 MG in SODIUM CHLORIDE 0.9% INJ 100 ML IV ONE (19:00)
[2017-11-21] MEDS ORDERED: MORPHINE SULFATE 2 MG/ML INJ IV PUSH ONE (19:00)
[2017-11-21] MEDS ORDERED: LOSA25TA PO (19:21)
[2017-11-21] MEDS ORDERED: IOHEXOL 350 MG/ML 10 ML VIAL (for RAD DIAG) IVCONTRAST ONE (19:57)
--- NOTE | 2017-11-21 20:14 | RADRPT ---
EXAM DATE/TIME: 11/21/2017 19:49 [facility] COMPARISON: No previous studies available for comparison. INDICATIONS : Abdominal pain, constipation. Evaluate for obstruction. IV CONTRAST: 100 cc Omnipaque 350 (iohexol) IV ORAL CONTRAST: No oral contrast ingested. RADIATION DOSE: 7.70 CTDIvol (mGy) MEDICAL HISTORY : Cardiovascular disease. Ovarian cancer. SURGICAL HISTORY : Hysterectomy. Cholecystectomy.Mastectomy, right. ENCOUNTER: Initial ACUITY: 4 - 6 days PAIN SCALE: 4/10 LOCATION: Abdomen. TECHNIQUE: Volumetric scanning of the abdomen and pelvis was performed. Using automated exposure control and ad justment of the mA and/or kV according to patient size, radiation dose was kept as low as reasonably achievable to obtain optimal diagnostic quality images. DICOM format image data is available electro nically for review and comparison. FINDINGS: There is reportedly a history of ovarian cancer. There is a 5.8 cm left-sided adnexal mass. There is extensive soft tissue thickening of the omentum measuring up to 3 cm in diameter suspicious for intra peritoneal metastatic disease. Lung bases demonstrate bronchiectasis bilaterally similar to 2016. There is also some distal airway d isease without consolidation. Pacer leads in right atrium and right ventricle. Mild fatty liver. Spleen, adrenals and pancreas unremarkable. No acute renal abnormalities. CONCLUSION: 1. 5.8 cm left-sided adnexal mass with extensive omental soft tissue disease likely represent periton eal spread of tumor in patient with reported ovarian cancer. Other small nodules are identified withi n the peritoneal cavity at scattered locations. 2. No evidence for metastatic disease to the liver. 3. Bronchiectasis at the lung bases. Trever El MD on November 21, 2017 at 20:04 Board Certified Radiologist. This report was verified electronically.
[2017-11-21] MEDS ORDERED: MACR100C2 PO (20:36)
[2017-11-21] MEDS ORDERED: LACT10SO PO (20:36)
--- NOTE | 2017-11-21 20:37 | PD ---
Data Data Last Documented VS Vital Signs Date Time Temp Pulse Resp B/P (MAP) Pulse Ox O2 Delivery O2 Flow Rate FiO2 11/21/17 17:15 65 14 Room Air 11/21/17 15:43 98.1 95 Orders Orders Abdomen, Flat & Upright (11/21/17 16:20) Complete Blood Count With Diff (11/21/17 16:56) Comprehensive Metabolic Panel (11/21/17 16:56) Lactic Acid (11/21/17 16:56) Urinalysis - C+S If Indicated (11/21/17 16:56) Ct Abd/Pel W Iv Contrast(Rout) (11/21/17 16:56) Iv Access Insert/Monitor (11/21/17 16:56) Ecg Monitoring (11/21/17 16:56) Oximetry (11/21/17 16:56) Morphine Inj (Morphine Inj) (11/21/17 17:00) Ondansetron Inj (Zofran Inj) (11/21/17 17:00) Sodium Chloride 0.9% Flush (Ns Flush) (11/21/17 17:00) Urine Culture (11/21/17 17:45) Morphine Inj (Morphine Inj) (11/21/17 19:00) Ceftriaxone Inj (Rocephin Inj) (11/21/17 19:00) Sodium Chlor 0.9% 1000 Ml Inj (Ns 1000 M (11/21/17 18:57) Iohexol 350 Inj (Omnipaque 350 Inj) (11/21/17 19:57) Labs Laboratory Tests Test 11/21/17 17:45 White Blood Count 2.1 TH/MM3 Red Blood Count 2.93 MIL/MM3 Hemoglobin 9.5 GM/DL Hematocrit 27.0 % Mean Corpuscular Volume 92.1 FL Mean Corpuscular Hemoglobin 32.3 PG Mean Corpuscular Hemoglobin Concent 35.1 % Red Cell Distribution Width 15.7 % Platelet Count 297 TH/MM3 Mean Platelet Volume 8.4 FL Neutrophils (%) (Auto) 73.9 % Lymphocytes (%) (Auto) 20.6 % Monocytes (%) (Auto) 1.5 % Eosinophils (%) (Auto) 3.5 % Basophils (%) (Auto) 0.5 % Neutrophils # (Auto) 1.6 TH/MM3 Lymphocytes # (Auto) 0.4 TH/MM3 Monocytes # (Auto) 0.0 TH/MM3 Eosinophils # (Auto) 0.1 TH/MM3 Basophils # (Auto) 0.0 TH/MM3 CBC Comment DIFF FINAL Differential Comment Urine Color YELLOW Urine Turbidity CLEAR Urine pH 5.5 Urine Specific [place] 1.011 Urine Protein NEG mg/dL Urine Glucose (UA) NEG mg/dL Urine Ketones NEG mg/dL Urine Occult Blood NEG Urine Nitrite POS Urine Bilirubin NEG Urine Urobilinogen LESS THAN 2.0 MG/DL Urine Leukocyte Esterase SMALL Urine RBC 1 /hpf Urine WBC 4 /hpf Urine Squamous Epithelial Cells 3 /hpf Urine Bacteria MANY /hpf Urine Mucus FEW /lpf Microscopic Urinalysis Comment CULTURE INDICATED Blood Urea Nitrogen 25 MG/DL Creatinine 1.21 MG/DL Random Glucose 78 MG/DL Total Protein 6.7 GM/DL Albumin 2.9 GM/DL Calcium Level 8.6 MG/DL Alkaline Phosphatase 100 U/L Aspartate Amino Transf (AST/SGOT) 44 U/L Alanine Aminotransferase (ALT/SGPT) 35 U/L Total Bilirubin 0.9 MG/DL Sodium Level 133 MEQ/L Potassium Level 3.8 MEQ/L Chloride Level 96 MEQ/L Carbon Dioxide Level 30.8 MEQ/L Anion Gap 6 MEQ/L Estimat Glomerular Filtration Rate 43 ML/MIN Lactic Acid Level 1.0 mmol/L MDM Supervised Visit with FELECIA: No Narrative Course The patient was initially evaluated by the previous provider and signed out to me at the beginning of my shift pending labs, CT abdomen pelvis, and disposition. See her note for further details. Briefly this is a 77-year-old female with history of an ovarian mass that is being treated by [facility]/ON[facility] Dr. Fletcher. Patient last received a dose of chemotherapy 1 week ago. She presents today because she has not had a bowel movement in 3 days. She states that she had a tiny bowel movement this morning. She was complaining of abdominal discomfort. Abdominal x-ray shows gas distended loops of small bowel in a nonspecific pattern but could be related to an early obstruction. No free air. CBC: WBC 2.1, hemoglobin 9.5, hematocrit 27, platelets 297, neutrophils 73.9%. CMP is remarkable for sodium 133, chloride 96, BUN 25, creatinine 1.21, GFR 43. Lactic acid is 1.0. UA is suggestive of UTI. CT abdomen pelvis: CONCLUSION: 1. 5.8 cm left-sided adnexal mass with extensive omental soft tissue disease likely represent peritoneal spread of tumor in patient with reported ovarian cancer. Other small nodules are identified within the peritoneal cavity at scattered locations. 2. No evidence for metastatic disease to the liver. 3. Bronchiectasis at the lung bases. Patient was made aware of all findings. She was provided pain medication and antiemetics and feels comfortable and improved. She is already aware that there is localized spread of her adnexal mass, and states that she is aware of bronchiectasis seen on CT. She has been passing flatus in the emergency department. She has not been vomiting at all. Clinically she is not obstructed , and there are no signs of obstruction seen on the CT abdomen pelvis. She does have a UTI and was provided a dose of IV Rocephin and will be discharged home with a prescription for Macrobid. She states that she has tried several different laxatives and stool softeners. I will give her a prescription for lactulose to see if this would help her to have a bowel movement. Patient states that she feels well enough to be discharged home and will follow up with her physicians this week. She was advised when to return to the emergency department. She verbalizes understanding and agreement with plan. Diagnosis Primary Impression: UTI (urinary tract infection) Qualified Codes: N39.0 - Urinary tract infection, site not specified; R31.9 - Hematuria, unspecified Additional Impression: Abdominal pain Qualified Codes: R10.30 - Lower abdominal pain, unspecified Referrals: Yamileth Fletchre MD 3 days Primary Care Physician 3 days Additional Instruction: Follow-up with your physicians this week. Return to the emergency department for worsening symptoms or any other concerns. Scripts Lactulose Liq (Lactulose Liq) 10 Gm/15 Ml Soln 30 ML PO Q6H Y for CONSTIPATION for 5 Days, #600 ML 0 Refills Prov: Jacob Woodruff MD 11/21/17 Nitrofurantoin Monohydrate Macrocrystals (Macrobid) 100 Mg Cap 100 MG PO BID for Infection for 7 Days, #14 CAP 0 Refills Prov: Jacob Woodruff MD 11/21/17 Disposition: 01 DISCHARGE HOME Condition: Stable Jacob Woodruff MD Nov 21, 2017 20:36
== END 2017-11-21 21:17 | disposition home or self-care (01) ==
LOC: NEPD 15:41
DX: N39.0 Urinary tract infection, site not specified (principal); B96.89 Other specified bacterial agents as the cause of diseases classified elsewhere; R31.9 Hematuria, unspecified; R10.30 Lower abdominal pain, unspecified; I48.91 Unspecified atrial fibrillation; E78.00 Pure hypercholesterolemia, unspecified; I10 Essential (primary) hypertension; Z85.43 Personal history of malignant neoplasm of ovary; Z95.0 Presence of cardiac pacemaker; Z79.01 Long term (current) use of anticoagulants; Z88.1 Allergy status to other antibiotic agents; Z88.8 Allergy status to other drugs, medicaments and biological substances; Z91.048 Other nonmedicinal substance allergy status
CPT/HCPCS: 74019; 74177; 80053; 81001; 83605; 85025; 87077; 87086; 87186; 96365; 96375; 96376; 99285; J0696; J2270; J2405; J7030; Q9967

== ENCOUNTER 2017-12-19 15:18 | Emergency (ER) | payer MEDICARE, OTHER ==
[~2017-12-19 15:18] MED LIST changes: -HYDR-3516 PO; +LACT10SO PO; +LOSA25TA PO; +MACR100C2 PO
[2017-12-19 15:38] VITALS: BP 128/57; PULSE 74; RESP 18; TEMP 97.7; O2SAT 96
[2017-12-19] MEDS ORDERED: XARE15TA PO (15:59)
[2017-12-19] MEDS ORDERED: LACTCAP8 PO (15:59)
--- NOTE | 2017-12-19 16:16 | PD ---
HPI Chief Complaint: Medical Clearance Time Seen by Provider: 15:58 Travel History International Travel<30 days: No Contact w/Intl Traveler<30days: No Traveled to known affect area: No History of Present Illness HPI 77-year-old female with a history of ovarian cancer presents emergency department the request of her atmospheric chemist-oncologist for evaluation of abdominal pain and since last . Says her abdominal pain feels like hunger pangs located in the mid abdomen, not resolved with food. Nothing worsens her pain. Pain is mild-moderate and diffuse but concentrated in the upper abdomen. In addition, she has felt nauseous without vomiting since then. Says she has Zofran at home but this has not controlled her nausea. Says that she has had a couple of loose stools and occasional "stool pellets" but feels that she is not completely evacuated her stool. Denies fever, chills, chest pain, shortness of breath. She has also had a 'film' on her tongue for which she is being treat with 2 mouth rinses. Says this may be causing her nausea. Patient says that she was here approximately 1 month ago very similar symptoms and had a follow up CT Abd/pelvis after discharge. Since then she says her CA125 level has increased and this concerned Dr. Fletcher. Her surgical history is significant for a cholecystectomy and appendectomy. PFSH Past Medical History Hx Anticoagulant Therapy: Yes (XARELTO) Arthritis: Yes Asthma: No Atrial Fibrillation: Yes Blood Disorders: No Anxiety: No Depression: No Heart Rhythm Problems: Yes (A-fib) Cancer: Yes (Ovarian cancer;breast cancer) Cardiac Catheterization: Yes Cardiovascular Problems: Yes High Cholesterol: Yes (Currently takes medication for cholesterol) Chemotherapy: Yes Chest Pain: Yes (patient experienced chest pain on admission, denies pain now) Congestive Heart Failure: No COPD: No Cerebrovascular Accident: No Diabetes: No Diminished Hearing: No Endocrine: Yes Gastrointestinal Disorders: Yes (Frequent constipation) GERD: Yes Genitourinary: No Headaches: No Hepatitis: No Hiatal Hernia: Yes Hypertension: Yes Immune Disorder: No Implanted Vascular Access Dvce: Yes Musculoskeletal: No Neurologic: Yes (Brain aneurysm, that didnt erupt) Psychiatric: No Reproductive: No Respiratory: No Immunizations Current: Yes Migraines: No Radiation Therapy: Yes (previously for breast cancer but not currently) Seizures: No Sleep Apnea: No Thyroid Disease: Yes (Take medication for thyroid) Tetanus Vaccination: < 5 Years Influenza Vaccination: Yes Menopausal: Yes Past Surgical History Abdominal Aneurysm Repair: Yes Abdominal Surgery: Yes (CHOLY, APPY) AICD: No Appendectomy: Yes Arteriovenous Shunt: No Body Medical Devices: PACEMAKER, R TOTAL KNEE, L PARTIAL KNEE, LEFT FOOT PIN, COIL LEFT BRAIN Cardiac Surgery: Yes (ablation in 09/2012 [facility] [place] ALSO SEP 2013, PACER) Cholecystectomy: Yes Ear Surgery: No Endocrine Surgery: No Eye Surgery: Yes (cataracts bilateral/2010 ) Genitourinary Surgery: Yes Gynecologic Surgery: Yes (partial HYST) Hysterectomy: Yes (PARTIAL) Insulin Pump: No Joint Replacement: Yes (PT STATES R & L KNEE AND L FOOT WITH PINS) Mastectomy: Yes (RIGHT) Neurologic Surgery: Yes (BRAIN SURGERY ON Nov- STENT AND COILS) Oral Surgery: No Pacemaker: Yes ([employer]) Thoracic Surgery: No Social History Alcohol Use: Yes (small glass of wine at bedtime) Tobacco Use: No Substance Use: No Allergies-Medications (Allergen,Severity, Reaction): Coded Allergies: azithromycin (Verified Allergy, Severe, 12/19/17) gramicidin D (Verified Allergy, Severe, 12/19/17) neomycin (Verified Allergy, Severe, 12/19/17) bacitracin (Verified Allergy, Mild, RASH, 12/19/17) polymyxin B (Verified Allergy, Mild, RASH, 12/19/17) adhesive (Verified Adverse Reaction, Mild, 12/19/17) Reported Meds & Prescriptions Reported Meds & Active Scripts Active Magnesium Citrate Liq (Magnesium Citrate) 300 Ml Liq 300 Ml PO DIRECTED 1 Days Reglan (Metoclopramide HCl) 10 Mg Tab 10 Mg PO QID 10 Days Lactulose Liq (Lactulose) 10 Gm/15 Ml Soln 30 Ml PO Q6H PRN 5 Days Reported Xarelto (Rivaroxaban) 15 Mg Tab 15 Mg PO DAILY Probiotic (Lactobacillus Acidophilus) Unknown Strength Cap Unknown Dose PO DAILY Losartan (Losartan Potassium) 25 Mg Tab 25 Mg PO DAILY Prevacid (Lansoprazole) 30 Mg Capdr 30 Mg PO DAILY D 5000 (Cholecalciferol) 5,000 Unit Cap 5,000 Units PO DAILY Lorazepam 0.5 Mg Tab 0.5 Mg PO HS PRN Toprol XL (Metoprolol Succinate) 50 Mg Tab 50 Mg PO AC DINNER Lipitor (Atorvastatin Calcium) 20 Mg Tab 20 Mg PO HS Tramadol (Tramadol HCl) 50 Mg Tab 100 Mg PO BID Multaq (Dronedarone) 400 Mg Tab 400 Mg PO BID Potassium Chloride ER (Potassium Chloride) 20 Meq Tab 20 Meq PO DAILY Magnesium 400 Mg Tab 400 Mg PO AC DINNER Levothyroxine (Levothyroxine Sodium) 50 Mcg Tab 50 Mcg PO DAILY Lasix (Furosemide) 40 Mg Tab 40 Mg PO DAILY Review of Systems Except as stated in HPI: all other systems reviewed are Neg Physical Exam Narrative GENERAL: Developed, well-nourished in no apparent distress SKIN: Focused skin assessment warm/dry. HEAD: Atraumatic. Normocephalic. EYES: Pupils equal and round. No scleral icterus. No injection or drainage. ENT: No nasal bleeding or discharge. Mucous membranes pink and moist. NECK: Trachea midline. No JVD. CARDIOVASCULAR: Regular rate and rhythm. No murmur appreciated. RESPIRATORY: No accessory muscle use. Clear to auscultation. Breath sounds equal bilaterally. GASTROINTESTINAL: Abdomen soft, nondistended. Tender palpation of her abdomen without organomegaly. higher pitched bowel sounds in RUQ, tympany throughout. No CVA tenderness MUSCULOSKELETAL: No obvious deformities. No clubbing. No cyanosis. No edema. NEUROLOGICAL: Awake and alert. No obvious cranial nerve deficits. Motor grossly within normal limits. Normal speech. PSYCHIATRIC: Appropriate mood and affect; insight and judgment normal. Data Data Last Documented VS Vital Signs Date Time Temp Pulse Resp B/P (MAP) Pulse Ox O2 Delivery O2 Flow Rate FiO2 12/19/17 15:38 97.7 74 18 128/57 (80) 96 Orders Orders Complete Blood Count With Diff (12/19/17 16:09) Comprehensive Metabolic Panel (12/19/17 16:09) Lipase (12/19/17 16:09) Prothrombin Time / Inr (Pt) (12/19/17 16:09) Act Partial Throm Time (Ptt) (12/19/17 16:09) Ct Abd/Pel W Iv Contrast(Rout) (12/19/17 16:09) Ondansetron Inj (Zofran Inj) (12/19/17 16:30) Urinalysis - C+S If Indicated (12/19/17 16:25) Iodixanol 320 Inj (Eps) (Visipaque 320 I (12/19/17 17:25) Heparin Central Flush (Heparin Central F (12/19/17 17:25) Metoclopramide Inj (Reglan Inj) (12/19/17 18:00) Ed Discharge Order (12/19/17 18:13) Labs Laboratory Tests Test 12/19/17 16:10 12/19/17 16:32 White Blood Count 4.2 TH/MM3 Red Blood Count 3.01 MIL/MM3 Hemoglobin 10.2 GM/DL Hematocrit 28.9 % Mean Corpuscular Volume 96.2 FL Mean Corpuscular Hemoglobin 34.0 PG Mean Corpuscular Hemoglobin Concent 35.4 % Red Cell Distribution Width 17.4 % Platelet Count 330 TH/MM3 Mean Platelet Volume 8.3 FL Neutrophils (%) (Auto) 81.2 % Lymphocytes (%) (Auto) 14.5 % Monocytes (%) (Auto) 1.1 % Eosinophils (%) (Auto) 2.6 % Basophils (%) (Auto) 0.6 % Neutrophils # (Auto) 3.4 TH/MM3 Lymphocytes # (Auto) 0.6 TH/MM3 Monocytes # (Auto) 0.0 TH/MM3 Eosinophils # (Auto) 0.1 TH/MM3 Basophils # (Auto) 0.0 TH/MM3 CBC Comment DIFF FINAL Differential Comment Prothrombin Time 11.2 SEC Prothromb Time International Ratio 1.1 RATIO Activated Partial Thromboplast Time 23.1 SEC Blood Urea Nitrogen 23 MG/DL Creatinine 1.30 MG/DL Random Glucose 93 MG/DL Total Protein 7.1 GM/DL Albumin 3.3 GM/DL Calcium Level 8.6 MG/DL Alkaline Phosphatase 118 U/L Aspartate Amino Transf (AST/SGOT) 58 U/L Alanine Aminotransferase (ALT/SGPT) 84 U/L Total Bilirubin 0.8 MG/DL Sodium Level 136 MEQ/L Potassium Level 3.9 MEQ/L Chloride Level 98 MEQ/L Carbon Dioxide Level 29.9 MEQ/L Anion Gap 8 MEQ/L Estimat Glomerular Filtration Rate 40 ML/MIN Lipase 227 U/L Urine Color YELLOW Urine Turbidity CLEAR Urine pH 6.0 Urine Specific [place] 1.011 Urine Protein NEG mg/dL Urine Glucose (UA) NEG mg/dL Urine Ketones NEG mg/dL Urine Occult Blood NEG Urine Nitrite NEG Urine Bilirubin NEG Urine Urobilinogen LESS THAN 2.0 MG/DL Urine Leukocyte Esterase NEG Urine WBC 1 /hpf Urine Squamous Epithelial Cells 1 /hpf Urine Transitional Epithelial Cells <1 /hpf Urine Bacteria RARE /hpf Urine Hyaline Casts 7 /lpf Microscopic Urinalysis Comment CULT NOT INDICATED MDM Medical Decision Making Medical Screen Exam Complete: Yes Emergency Medical Condition: Yes Differential Diagnosis Small bowel obstruction, ileus, gastritis, carcinomatosis, ovarian cancer Narrative Course 77-year-old female with a history of ovarian cancer presents emergency department the request of her atmospheric chemist-oncologist for evaluation of abdominal pain and since last . Says her abdominal pain feels like hunger pangs located in the mid abdomen, not resolved with food. Nothing worsens her pain. Pain is mild-moderate and diffuse but concentrated in the upper abdomen. In addition, she has felt nauseous without vomiting since then. Says she has Zofran at home but this has not controlled her nausea. Says that she has had a couple of loose stools and occasional "stool pellets" but feels that she is not completely evacuated her stool. Denies fever, chills, chest pain, shortness of breath. She has also had a 'film' on her tongue for which she is being treat with 2 mouth rinses. Says this may be causing her nausea. Patient says that she was here approximately 1 month ago very similar symptoms and had a follow up CT Abd/pelvis after discharge. Since then she says her CA125 level has increased and this concerned Dr. Fletcher. Her surgical history is significant for a cholecystectomy and appendectomy. Vital signs stable. Physical exam findings demonstrate 89 female well-developed and well-nourished no apparent distress, resting comfortably in bed. Abdominal exam normoactive bowel sounds with some tingling of the right upper quadrant area, diffusely TTP. No CVA tenderness. No stool in rectal vault for disimpaction. Zofran 4 mg administered with good relief of nausea. Reglan 10mg administered for abdominal pain and nausea. 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 I explained the possible diagnosis and causes of her abdominal tenderness and fullness and states that she would follow-up with Dr. Fletcher as we discussed. Pt will go home with reglan and mag citrate for her constipation. Encouraged to continue using medications at home. Return to the emergency department worsening or persistent symptoms. Diagnosis Primary Impression: Constipation Qualified Codes: K59.00 - Constipation, unspecified Additional Impression: Abdominal pain Qualified Codes: R10.84 - Generalized abdominal pain Referrals: Primary Care Physician Additional Instructions: Follow up with Dr. John as discussed. Take all medications as prescribed. Scripts Magnesium Citrate Liq (Magnesium Citrate Liq) 300 Ml Liq 300 ML PO DIRECTED for 1 Day, #1 BOTTLE 0 Refills Prov: Miriam Preston 12/19/17 Metoclopramide (Reglan) 10 Mg Tab 10 MG PO QID for Pain Management for 10 Days, #120 TAB 0 Refills Prov: Miriam Preston 12/19/17 Disposition: 01 DISCHARGE HOME Condition: Stable Miriam Preston Dec 19, 2017 16:16
[2017-12-19 16:28] LABS: AUTOMATED NEUTROPHIL # 3.4 TH/MM3 (1.8-7.7); BASOPHIL % 0.6 % (0.0-2.0); EOSINOPHIL # 0.1 TH/MM3 (0-0.4); EOSINOPHIL % 2.6 % (0.0-4.0); HEMATOCRIT 28.9 % (35.0-46.0); HEMOGLOBIN 10.2 GM/DL (11.6-15.3); LYMPH % 14.5 % (9.0-44.0); LYMPHOCYTE # 0.6 TH/MM3 (1.0-4.8); MEAN CELL VOLUME 96.2 FL (80.0-100.0); MEAN CORPUSCULAR HGB CONC 35.4 % (32.0-36.0); MEAN PLATELET VOLUME 8.3 FL (7.0-11.0); MONO % 1.1 % (0.0-8.0); NEUT % 81.2 % (16.0-70.0); PLATELET COUNT 330 TH/MM3 (150-450); RED BLOOD COUNT 3.01 MIL/MM3 (4.00-5.30); RED CELL DISTRIBUTION WIDTH 17.4 % (11.6-17.2); WHITE BLOOD COUNT 4.2 TH/MM3 (4.0-11.0)
[2017-12-19] MEDS ORDERED: ONDANSETRON HCL 4 MG/2 ML VIAL IV PUSH ONE (16:30)
[2017-12-19 16:39] LABS: INTERNATIONAL NORMALIZED RATIO 1.1 RATIO; PROTHROMBIN TIME - PATIENT 11.2 SEC (9.8-11.6)
[2017-12-19 16:44] LABS: ALBUMIN 3.3 GM/DL (3.4-5.0); ALT (GPT) 84 U/L (10-53); AST (GOT) 58 U/L (15-37); BICARBONATE 29.9 MEQ/L (21.0-32.0); BLOOD UREA NITROGEN 23 MG/DL (7-18); CALCIUM 8.6 MG/DL (8.5-10.1); CHLORIDE 98 MEQ/L (98-107); GLOMERULAR FILTRATION RATE 40 ML/MIN (>89); GLUCOSE,RANDOM 93 MG/DL (74-106); SODIUM (NA) 136 MEQ/L (136-145)
[2017-12-19 16:46] LABS: ALKALINE PHOSPHATASE 118 U/L (45-117); TOTAL BILIRUBIN ADULT 0.8 MG/DL (0.2-1.0); TOTAL PROTEIN 7.1 GM/DL (6.4-8.2)
[2017-12-19 17:21] LABS: BACTERIA, URINE RARE /hpf; BILIRUBIN, URINE NEG (NEG); BLOOD, URINE NEG (NEG); GLUCOSE,URINE NEG (NEG); HYALINE CAST, URINE 7 /lpf (RARE); KETONE, URINE NEG (NEG); NITRITE,URINE NEG (NEG); SQUAMOUS EPITHELIAL CELL URINE 1 /hpf (0-5); TRANSITIONAL EPI CELLS, URINE <1 /hpf; URINE COLOR YELLOW (YELLW/STRAW); URINE LEUKOCYTE ESTERASE NEG (NEG)
[2017-12-19] MEDS ORDERED: IODIXANOL 320 MG/ML 50 ML VIAL (for EPS) IVCONTRAST ONE (17:25)
--- NOTE | 2017-12-19 17:42 | RADRPT ---
EXAM DATE/TIME: 12/19/2017 17:11 [facility] COMPARISON: CT ABDOMEN & PELVIS W CONTRAST, November 21, 2017, 19:49. INDICATIONS : Diffuse abdominal pain. Evaluate for small bowel obstruction vs ileus. IV CONTRAST: 50 cc Visipaque (iodixanol) IV ORAL CONTRAST: No oral contrast ingested. RADIATION DOSE: 11.47 CTDIvol (mGy) MEDICAL HISTORY : Carcinoma, breast. Aneurysm, intracranial. Cardiovascular diseaseHypertension. Ovarian cancer. SURGICAL HISTORY : Abdominal aortic aneurysm repair. Mastectomy, right.Pacemaker.Cholecystectomy. Hysterectomy. ENCOUNTER: Initial ACUITY: 4 - 6 days PAIN SCALE: 5/10 LOCATION: Diffuse abdomen. TECHNIQUE: Volumetric scanning of the abdomen and pelvis was performed. Using automated exposure control and ad justment of the mA and/or kV according to patient size, radiation dose was kept as low as reasonably achievable to obtain optimal diagnostic quality images. DICOM format image data is available electro nically for review and comparison. FINDINGS: Imaging through the lung bases demonstrate COPD change and tubular bronchiectasis. There is a 6 mm no dule in the medial aspect of the left lower lobe. The appearance of the liver, spleen, pancreas, adrenal glands and kidneys is within normal limits. The abdominal aorta is normal in caliber. There is no retroperitoneal lymphadenopathy. Imaging through the abdomen demonstrates diffuse omental caking suggesting peritoneal carcinomatosis. Imaging through the pelvis demonstrates a 4.6 x 5.1 cm solid mass in the left adnexa. There is no henrique e fluid within the pelvis. No iliac or inguinal adenopathy is present. The visualized bony structures demonstrate degenerative changes but are otherwise intact. CONCLUSION: 1. No findings to indicate bowel obstruction identified. 2. A 6 mm nodule in the left lower lobe concerning for malignancy. 3. 5.1 x 4.7 cm mass in the left adnexal region. 4. Diffuse omental caking most consistent with peritoneal carcinomatosis. 5. Changes appear similar when compared to previous dated 11/21/17. Jules June MD on December 19, 2017 at 17:37 Board Certified Radiologist. This report was verified electronically.
[2017-12-19] MEDS ORDERED: METOCLOPRAMIDE HCL 10 MG/2 ML VIAL IV PUSH ONE (18:00)
[2017-12-19] MEDS ORDERED: REGL10TA5 PO (18:01)
[2017-12-19] MEDS ORDERED: MAGNSOL2 PO (18:01)
== END 2017-12-19 19:33 | disposition home or self-care (01) ==
LOC: NEPC 15:18
DX: K59.00 Constipation, unspecified (principal); R10.84 Generalized abdominal pain; E07.9 Disorder of thyroid, unspecified; E78.00 Pure hypercholesterolemia, unspecified; I10 Essential (primary) hypertension; I48.91 Unspecified atrial fibrillation; Z85.43 Personal history of malignant neoplasm of ovary; Z79.01 Long term (current) use of anticoagulants
CPT/HCPCS: 74177; 80053; 81001; 83690; 85025; 85610; 85730; 96374; 96375; 99284; J1642; J2405; J2765; Q9967

== ENCOUNTER 2018-01-04 10:59 | Emergency (ER) | payer MEDICARE, OTHER ==
[~2018-01-04] VITALS: Ht 175.3 cm; Wt 87.0 kg
[~2018-01-04 10:59] MED LIST changes: +LACTCAP8 PO; -MACR100C2 PO; +MAGNSOL2 PO; +REGL10TA5 PO; +XARE15TA PO; -XARE20TA PO
[2018-01-04 11:09] VITALS: BP 98/50; PULSE 61; RESP 19; TEMP 97.6; O2SAT 97
[2018-01-04 11:29] VITALS: BP 125/58; PULSE 88; RESP 22; O2SAT 98
[2018-01-04] MEDS ORDERED: SODIUM CHLOR 0.9% 1000 ML INJ 1,000 ML IV ONE ×2 (11:45→14:30)
[2018-01-04] MEDS ORDERED: MORPHINE SULFATE 2 MG/ML INJ IV PUSH ONE (11:45)
[2018-01-04] MEDS ORDERED: ONDANSETRON HCL 4 MG/2 ML VIAL IV PUSH ONE (11:45)
[2018-01-04] MEDS ORDERED: SIME1CAP14 PO (11:49)
[2018-01-04] MEDS ORDERED: GAS-CAP3 PO (11:49)
[2018-01-04] MEDS ORDERED: OMEP40CA2 PO (11:49)
[2018-01-04] MEDS ORDERED: TYLENOL PM PO (11:49)
[2018-01-04] MEDS ORDERED: ZOLO25TA PO (11:49)
--- NOTE | 2018-01-04 11:49 | PD ---
HPI Chief Complaint: Abdominal Pain Time Seen by Provider: 11:23 Travel History International Travel<30 days: No Contact w/Intl Traveler<30days: No Traveled to known affect area: No History of Present Illness HPI 77-year-old female that presents to the ED for evaluation of abdominal pain and likely blockage. Per patient she has a history of significant tumor to her abdomen. Per patient she has an ovarian mass that is possibly growing. Per patient she follows with Dr. Fletcher as well as a colorectal surgeon. Per patient she is getting chemo every other week and she does have chemo last week. Per patient since the past 2 days she has been having no gas or bowel movement. Per patient she usually has difficulty with bowels and gets constipated secondary to the mass putting pressure on her intestines but this is the first time she has not been able to do anything even gas. Per patient she feels very bloated and she has tried to even keep fluids down but she cannot keep them down because he does not seem to calm down. Per patient her oncologist want her to come here to get evaluated for further eval. Per patient her colorectal surgeon wanted to have her to have surgery but Dr. Fletcher wanted her to wait until she got some chemo to reduce the size of the tumor. She states that currently her pain is 7 out of 10 at its bloating. She denies any bleeding of any kind. She does take blood thinners. History of A. fib. No other medical issues. PFSH Past Medical History Hx Anticoagulant Therapy: Yes (XARELTO) Arthritis: Yes Asthma: No Atrial Fibrillation: Yes Blood Disorders: No Anxiety: No Depression: No Heart Rhythm Problems: Yes (A-fib) Cancer: Yes (Ovarian cancer;breast cancer) Cardiac Catheterization: Yes Cardiovascular Problems: Yes High Cholesterol: Yes (Currently takes medication for cholesterol) Chemotherapy: Yes Chest Pain: Yes (patient experienced chest pain on admission, denies pain now) Congestive Heart Failure: No COPD: No Cerebrovascular Accident: No Diabetes: No Diminished Hearing: No Endocrine: Yes Gastrointestinal Disorders: Yes (Frequent constipation) GERD: Yes Genitourinary: No Headaches: No Hepatitis: No Hiatal Hernia: Yes Hypertension: Yes Immune Disorder: No Implanted Vascular Access Dvce: Yes Musculoskeletal: No Neurologic: Yes (Brain aneurysm, that didnt erupt) Psychiatric: No Reproductive: No Respiratory: No Immunizations Current: Yes Migraines: No Radiation Therapy: Yes (previously for breast cancer but not currently) Seizures: No Sleep Apnea: No Thyroid Disease: Yes (Take medication for thyroid) ?: Not Menopausal: Yes Past Surgical History Abdominal Aneurysm Repair: Yes Abdominal Surgery: Yes (CHOLY, APPY) AICD: No Appendectomy: Yes Arteriovenous Shunt: No Body Medical Devices: PACEMAKER, R TOTAL KNEE, L PARTIAL KNEE, LEFT FOOT PIN, COIL LEFT BRAIN Cardiac Surgery: Yes (ablation in 09/2012 [facility] [place] [place] SEP 2013, PACER) Cholecystectomy: Yes Ear Surgery: No Endocrine Surgery: No Eye Surgery: Yes (cataracts bilateral/2010 ) Genitourinary Surgery: Yes Gynecologic Surgery: Yes (partial HYST) Hysterectomy: Yes (PARTIAL) Insulin Pump: No Joint Replacement: Yes (PT STATES R & L KNEE AND L FOOT WITH PINS) Mastectomy: Yes (RIGHT) Neurologic Surgery: Yes (BRAIN SURGERY ON Nov- STENT AND COILS) Oral Surgery: No Pacemaker: Yes ([employer]) Thoracic Surgery: No Social History Alcohol Use: No (QUIT) Tobacco Use: No (QUIT) Substance Use: No Allergies-Medications (Allergen,Severity, Reaction): Coded Allergies: azithromycin (Verified Allergy, Severe, 01/04/18) gramicidin D (Verified Allergy, Severe, 01/04/18) neomycin (Verified Allergy, Severe, 01/04/18) bacitracin (Verified Allergy, Mild, RASH, 01/04/18) polymyxin B (Verified Allergy, Mild, RASH, 01/04/18) adhesive (Verified Adverse Reaction, Mild, 01/04/18) Reported Meds & Prescriptions Reported Meds & Active Scripts Active Colace (Docusate Sodium) 100 Mg Capsule 100 Mg PO BID Magnesium Citrate Liq (Magnesium Citrate) 300 Ml Liq 300 Ml PO DIRECTED 1 Days Reglan (Metoclopramide HCl) 10 Mg Tab 10 Mg PO QID 10 Days Reported [Tylenol Pm] 2 Tab PO HS Zoloft (Sertraline HCl) 25 Mg Tab Unknown Dose PO DAILY Gas-X Ultra Strength (Simethicone) 180 Mg Cap 180 Mg PO TID PRN Phazyme Maximum Strength (Simethicone) 250 Mg Cap 250 Mg PO BID PRN Omeprazole 40 Mg Cap 40 Mg PO DAILY Xarelto (Rivaroxaban) 15 Mg Tab 15 Mg PO DAILY Probiotic (Lactobacillus Acidophilus) Unknown Strength Cap Unknown Dose PO DAILY Losartan (Losartan Potassium) 25 Mg Tab 25 Mg PO DAILY D 5000 (Cholecalciferol) 5,000 Unit Cap 5,000 Units PO DAILY Lorazepam 0.5 Mg Tab 0.5 Mg PO HS PRN Toprol XL (Metoprolol Succinate) 50 Mg Tab 50 Mg PO AC DINNER Lipitor (Atorvastatin Calcium) 20 Mg Tab 20 Mg PO HS Tramadol (Tramadol HCl) 50 Mg Tab 100 Mg PO TID Multaq (Dronedarone) 400 Mg Tab 400 Mg PO BID Potassium Chloride ER (Potassium Chloride) 20 Meq Tab 20 Meq PO DAILY Magnesium 400 Mg Tab 400 Mg PO AC DINNER Levothyroxine (Levothyroxine Sodium) 50 Mcg Tab 50 Mcg PO DAILY Lasix (Furosemide) 40 Mg Tab 40 Mg PO DAILY Review of Systems Except as stated in HPI: all other systems reviewed are Neg Physical Exam Narrative GENERAL: SKIN: Warm and dry. HEAD: Atraumatic. Normocephalic. EYES: Pupils equal and round. No scleral icterus. No injection or drainage. ENT: No nasal bleeding or discharge. Mucous membranes pink and moist. Tongue is midline. No Uvula deviation. NECK: Trachea midline. No JVD. CARDIOVASCULAR: Regular rate and rhythm. No murmurs, S3, S4. RESPIRATORY: No accessory muscle use. Clear to auscultation. Breath sounds equal bilaterally. GASTROINTESTINAL: Abdomen soft, tender with touch especially on the lower and upper abdomen, distended. Hepatic and splenic margins not palpable. MUSCULOSKELETAL: Extremities without clubbing, cyanosis, or edema. No obvious deformities. Full range of motion of the upper and lower extremities bilaterally. 2+ pulses bilaterally. NEUROLOGICAL: Awake and alert. No obvious cranial nerve deficits. Motor grossly within normal limits. Five out of 5 muscle strength in the arms and legs. Normal speech. PSYCHIATRIC: Appropriate mood and affect; insight and judgment normal. Data Data Last Documented VS Vital Signs Date Time Temp Pulse Resp B/P (MAP) Pulse Ox O2 Delivery O2 Flow Rate FiO2 01/04/18 11:29 88 22 125/58 (80) 98 01/04/18 11:09 97.6 Orders Orders Complete Blood Count With Diff (01/04/18 11:23) Comprehensive Metabolic Panel (01/04/18 11:23) Prothrombin Time / Inr (Pt) (01/04/18 11:23) Act Partial Throm Time (Ptt) (01/04/18 11:23) Lipase (01/04/18 11:23) Urinalysis - C+S If Indicated (01/04/18 11:23) Magnesium (Mg) (01/04/18 11:23) Thyroid Stimulating Hormone (01/04/18 11:23) Iv Access Insert/Monitor (01/04/18 11:23) Ecg Monitoring (01/04/18 11:23) Oximetry (01/04/18 11:23) Electrocardiogram (01/04/18 ) Morphine Inj (Morphine Inj) (01/04/18 11:45) Ondansetron Inj (Zofran Inj) (01/04/18 11:45) Sodium Chlor 0.9% 1000 Ml Inj (Ns 1000 M (01/04/18 11:45) Abdomen, Flat & Upright (01/04/18 ) Ct Abd/Pel W/O Iv Contrast (01/04/18 ) Palonosetron Inj (Aloxi Inj) (01/04/18 14:30) Sodium Chlor 0.9% 1000 Ml Inj (Ns 1000 M (01/04/18 14:30) Ed Discharge Order (01/04/18 14:41) Labs Laboratory Tests Test 01/04/18 11:38 01/04/18 12:45 White Blood Count 5.1 TH/MM3 Red Blood Count 3.54 MIL/MM3 Hemoglobin 11.4 GM/DL Hematocrit 33.9 % Mean Corpuscular Volume 95.8 FL Mean Corpuscular Hemoglobin 32.2 PG Mean Corpuscular Hemoglobin Concent 33.6 % Red Cell Distribution Width 17.4 % Platelet Count 165 TH/MM3 Mean Platelet Volume 8.4 FL Neutrophils (%) (Auto) 74.2 % Lymphocytes (%) (Auto) 11.1 % Monocytes (%) (Auto) 11.8 % Eosinophils (%) (Auto) 2.6 % Basophils (%) (Auto) 0.3 % Neutrophils # (Auto) 3.8 TH/MM3 Lymphocytes # (Auto) 0.6 TH/MM3 Monocytes # (Auto) 0.6 TH/MM3 Eosinophils # (Auto) 0.1 TH/MM3 Basophils # (Auto) 0.0 TH/MM3 CBC Comment DIFF FINAL Differential Comment Prothrombin Time 11.4 SEC Prothromb Time International Ratio 1.1 RATIO Activated Partial Thromboplast Time 22.4 SEC Blood Urea Nitrogen 23 MG/DL Creatinine 1.44 MG/DL Random Glucose 102 MG/DL Total Protein 7.0 GM/DL Albumin 3.2 GM/DL Calcium Level 8.8 MG/DL Magnesium Level 2.2 MG/DL Alkaline Phosphatase 110 U/L Aspartate Amino Transf (AST/SGOT) 41 U/L Alanine Aminotransferase (ALT/SGPT) 79 U/L Total Bilirubin 0.7 MG/DL Sodium Level 136 MEQ/L Potassium Level 3.9 MEQ/L Chloride Level 96 MEQ/L Carbon Dioxide Level 30.4 MEQ/L Anion Gap 10 MEQ/L Estimat Glomerular Filtration Rate 35 ML/MIN Lipase 224 U/L Thyroid Stimulating Hormone 3rd Gen 0.905 uIU/ML Urine Color LIGHT-YELLOW Urine Turbidity CLEAR Urine pH 7.5 Urine Specific [place] 1.005 Urine Protein NEG mg/dL Urine Glucose (UA) NEG mg/dL Urine Ketones NEG mg/dL Urine Occult Blood NEG Urine Nitrite NEG Urine Bilirubin NEG Urine Urobilinogen LESS THAN 2.0 MG/DL Urine Leukocyte Esterase NEG Microscopic Urinalysis Comment CULT NOT INDICATED MDM Medical Decision Making Medical Screen Exam Complete: Yes Emergency Medical Condition: Yes Medical Record Reviewed: Yes Interpretation(s) CBC & BMP Diagram 01/04/18 11:38 Total Protein 7.0, Albumin 3.2 L, Calcium Level 8.8, Magnesium Level 2.2, Alkaline Phosphatase 110, Aspartate Amino Transf (AST/SGOT) 41 H, Alanine Aminotransferase (ALT/SGPT) 79 H, Total Bilirubin 0.7 Last Impressions Abdomen/Pelvis CT 01/04/18 0000 Signed Impressions: Service Date/Time: December 13:28 - CONCLUSION: 1. Stable CT scan of the abdomen and pelvis compared to the prior study. 2. No evidence of any GI obstruction. 3. 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 4. Large left adnexal mass no significant change. Marquise Alberto MD Abdomen X-Ray 01/04/18 0000 Signed Impressions: Service Date/Time: December 12:18 - CONCLUSION: 1. No acute bowel obstruction, ileus or perforation. 2. Mild degenerative changes and scoliosis of the thoracolumbar spine. Sean Mckeon MD lipase WNL UA negative Differential Diagnosis Bowel obstruction versus dehydration versus cancer pain versus perforation versus sepsis versus UTI versus perforation Narrative Course 77-year-old female that presents to the ED for evaluation of bowel obstruction. Patient was properly examined and was found to have signs and symptoms very concerning and consistent with what appears to be bowel obstruction. Labs and imaging were ordered. Patient will start IV fluids and pain medications. Labs and imaging showed no sign of acute disease. More specifically no sign of obstruction. I perform a digital exam on her and found no sign of impaction. She does have some loose stools but I was able to get out but other than that no signs of bleeding. No signs of masses. Case was discussed with my attending who evaluated the patient with me and agrees with plan. Dr. Fletcher was contacted who recommended that the patient be started on palonosetron IV 0.25 mg as well as 1 more dose of fluids and for the patient to start Colace in addition to all the other medications patient already takes. This was discussed with the patient and family for an agreement with plan. Patient understands reasons to come back. Follow-up with PCP. See ED worsening symptoms. Diagnosis Primary Impression: Constipation Qualified Codes: K59.01 - Slow transit constipation Additional Impression: Nausea Patient Instructions: General Instructions Additional Instructions: Take medications as prescribed. Follow-up with Dr. Fletcher. See ED if worsening symptoms. Med/Other Pt SpecificInfo: Prescription(s) given Scripts Docusate Sodium (Colace) 100 Mg Capsule 100 MG PO BID for Prevent Constipation, #60 CAP 0 Refills Prov: Jasper Vallecillo MD 01/04/18 Disposition: 01 DISCHARGE HOME Condition: Stable Humza Garcia Jan 04, 2018 11:49
[2018-01-04 12:08] LABS: AUTOMATED NEUTROPHIL # 3.8 TH/MM3 (1.8-7.7); BASOPHIL % 0.3 % (0.0-2.0); EOSINOPHIL # 0.1 TH/MM3 (0-0.4); EOSINOPHIL % 2.6 % (0.0-4.0); HEMATOCRIT 33.9 % (35.0-46.0); HEMOGLOBIN 11.4 GM/DL (11.6-15.3); LYMPH % 11.1 % (9.0-44.0); LYMPHOCYTE # 0.6 TH/MM3 (1.0-4.8); MEAN CELL VOLUME 95.8 FL (80.0-100.0); MEAN CORPUSCULAR HEMOGLOBIN 32.2 PG (27.0-34.0); MEAN CORPUSCULAR HGB CONC 33.6 % (32.0-36.0); MEAN PLATELET VOLUME 8.4 FL (7.0-11.0); MONO % 11.8 % (0.0-8.0); MONOCYTE # 0.6 TH/MM3 (0-0.9); NEUT % 74.2 % (16.0-70.0); PLATELET COUNT 165 TH/MM3 (150-450); RED BLOOD COUNT 3.54 MIL/MM3 (4.00-5.30); RED CELL DISTRIBUTION WIDTH 17.4 % (11.6-17.2); WHITE BLOOD COUNT 5.1 TH/MM3 (4.0-11.0)
[2018-01-04 12:11] LABS: INTERNATIONAL NORMALIZED RATIO 1.1 RATIO; PROTHROMBIN TIME - PATIENT 11.4 SEC (9.8-11.6)
--- NOTE | 2018-01-04 12:43 | RADRPT ---
EXAM DATE/TIME: 01/04/2018 12:18 [facility] COMPARISON: ABDOMEN FLAT & UPRIGHT, November 21, 2017, 16:31. INDICATIONS : Evaluate for obstruction MEDICAL HISTORY : Hypertension. Carcinoma, breast. Aneurysm, intracranial. Cardiovascular diseaseHypertension. [place]v [place] cancer SURGICAL HISTORY : Abdominal aortic aneurysm repair. Mastectomy, right.Pacemaker.Cholecystectomy, Hysterectomy. ENCOUNTER: Initial ACUITY: 1 day PAIN SCORE: 4/10 LOCATION: Abdomen FINDINGS: Supine and upright views of the abdomen were performed. The abdominal bowel gas pattern is normal. No air fluid levels are seen. No abnormal masses, calcifications, or organomegaly is seen. The visu alized lower lungs are clear. No evidence of free intraperitoneal gas. Mild degenerative changes and scoliosis of the thoracolumbar spine are noted. CONCLUSION: 1. No acute bowel obstruction, ileus or perforation. 2. Mild degenerative changes and scoliosis of the thoracolumbar spine. Sean Mckeon MD on January 04, 2018 at 12:40 Board Certified Radiologist. This report was verified electronically.
[2018-01-04 12:45] LABS: ALBUMIN 3.2 GM/DL (3.4-5.0); ALKALINE PHOSPHATASE 110 U/L (45-117); ALT (GPT) 79 U/L (10-53); AST (GOT) 41 U/L (15-37); BICARBONATE 30.4 MEQ/L (21.0-32.0); BLOOD UREA NITROGEN 23 MG/DL (7-18); CALCIUM 8.8 MG/DL (8.5-10.1); CHLORIDE 96 MEQ/L (98-107); CREATININE 1.44 MG/DL (0.50-1.00); GLOMERULAR FILTRATION RATE 35 ML/MIN (>89); GLUCOSE,RANDOM 102 MG/DL (74-106); MAGNESIUM 2.2 MG/DL (1.5-2.5); SODIUM (NA) 136 MEQ/L (136-145); TOTAL BILIRUBIN ADULT 0.7 MG/DL (0.2-1.0)
[2018-01-04 13:26] LABS: BILIRUBIN, URINE NEG (NEG); BLOOD, URINE NEG (NEG); GLUCOSE,URINE NEG (NEG); KETONE, URINE NEG (NEG); NITRITE,URINE NEG (NEG); PH, URINE 7.5 (5.0-8.5); URINE COLOR LIGHT-YELLOW (YELLW/STRAW); URINE LEUKOCYTE ESTERASE NEG (NEG)
--- NOTE | 2018-01-04 13:53 | RADRPT ---
EXAM DATE/TIME: 01/04/2018 13:28 [facility] COMPARISON: CT ABDOMEN & PELVIS W CONTRAST, December 19, 2017, 17:11. INDICATIONS : Abdomen pain,obstruction ORAL CONTRAST: No oral contrast ingested. RADIATION DOSE: 1045 CTDIvol (mGy) MEDICAL HISTORY : Cardiovascular disease. Hypertension. Carcinoma, breast.Carcinoma ovarian SURGICAL HISTORY : Appendectomy. Cholecystectomy.Hysterectomy. ENCOUNTER: Initial ACUITY: 2 days PAIN SCALE: 7/10 LOCATION: Abdomen TECHNIQUE: Volumetric scanning of the abdomen and pelvis was performed. Using automated exposure control and ad justment of the mA and/or kV according to patient size, radiation dose was kept as low as reasonably achievable to obtain optimal diagnostic quality images. DICOM format image data is available electro nically for review and comparison. The lack of IV contrast limits the diagnosis for certain organ pa thology. FINDINGS: LOWER LUNGS: Stable 6 mm pulmonary nodule left lung base. Stable chronic changes in the right middle lobe. LIVER: Homogeneous density without lesion. There is no dilation of the biliary tree. No gallbladder.. SPLEEN: Normal size without lesion. PANCREAS: Within normal limits. KIDNEYS: Normal in size and shape. There is no mass, stone, or hydronephrosis. ADRENAL GLANDS: Within normal limits. VASCULAR: There is no aortic aneurysm. BOWEL/MESENTERY: The stomach, small bowel, and colon demonstrate no acute abnormality. There is no free intraperitone al air or fluid. No evidence of bowel obstruction. However there continues to be evidence of diffuse omental caking along the anterior peritoneal wall characteristic of carcinomatosis. This is unchanged compared to the prior study. No free fluid is seen. ABDOMINAL WALL: Within normal limits. RETROPERITONEUM: There is no lymphadenopathy. BLADDER: No wall thickening or mass. REPRODUCTIVE: Stable large left adnexal mass measuring 4.8 x 5.2 cm. INGUINAL: There is no lymphadenopathy or hernia. MUSCULOSKELETAL: Within normal limits for patient age. No significant changes compared to the prior examination. CONCLUSION: 1. Stable CT scan of the abdomen and pelvis compared to the prior study. 2. No evidence of any GI obstruction. 3. 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 4. Large left adnexal mass no significant change. Marquise Alberto MD on January 04, 2018 at 13:47 Board Certified Radiologist. This report was verified electronically.
--- NOTE | 2018-01-04 14:27 | PD ---
Physical Exam Date Seen by Provider: Jan 04, 2018 Time Seen by Provider: 12:30 Narrative I, Dr. Vallecillo, have reviewed the advance practice practitioner's documentation and am in agreement, met with the patient face to face, made the diagnosis, and the medical decision making was done by me. *My assessment and Findings: Patient seen and evaluated with PA, please see PA note for further details. Patient is here with nausea, vomiting, poor p.o. intake, abdominal bloating, and constipation. Abdomen is soft, mildly distended , but fairly nontender to palpation. Laboratory Tests Test 01/04/18 11:38 01/04/18 12:45 Red Blood Count 3.54 MIL/MM3 (4.00-5.30) Hemoglobin 11.4 GM/DL (11.6-15.3) Hematocrit 33.9 % (35.0-46.0) Red Cell Distribution Width 17.4 % (11.6-17.2) Neutrophils (%) (Auto) 74.2 % (16.0-70.0) Monocytes (%) (Auto) 11.8 % (0.0-8.0) Lymphocytes # (Auto) 0.6 TH/MM3 (1.0-4.8) Activated Partial Thromboplast Time 22.4 SEC (24.3-30.1) Blood Urea Nitrogen 23 MG/DL (7-18) Creatinine 1.44 MG/DL (0.50-1.00) Albumin 3.2 GM/DL (3.4-5.0) Aspartate Amino Transf (AST/SGOT) 41 U/L (15-37) Alanine Aminotransferase (ALT/SGPT) 79 U/L (10-53) Chloride Level 96 MEQ/L (98-107) Estimat Glomerular Filtration Rate 35 ML/MIN (>89) Last 24 hours Impressions Abdomen/Pelvis CT 01/04/18 0000 Signed Impressions: Service Date/Time: December 13:28 - CONCLUSION: 1. Stable CT scan of the abdomen and pelvis compared to the prior study. 2. No evidence of any GI obstruction. 3. 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 4. Large left adnexal mass no significant change. Marquise Alberto MD Abdomen X-Ray 01/04/18 0000 Signed Impressions: Service Date/Time: December 12:18 - CONCLUSION: 1. No acute bowel obstruction, ileus or perforation. 2. Mild degenerative changes and scoliosis of the thoracolumbar spine. Sean Mckeon MD Patient did not have any further vomiting episodes in the ER. Rectal exam reveals brown stool with no large stool bolus. CAT scan and x-ray did not show any signs of acute obstruction. At this point, case was discussed with Dr. Fletcher who had additional suggestions for nausea medication. She was given IV fluids in the ER as well. She has an appointment with him tomorrow and my plan would be to release her with follow-up. Return for worsening in symptoms as necessary. The plan has been discussed with her and she states understanding. Data Data Last Documented VS Vital Signs Date Time Temp Pulse Resp B/P (MAP) Pulse Ox O2 Delivery O2 Flow Rate FiO2 01/04/18 11:29 88 22 125/58 (80) 98 01/04/18 11:09 97.6 Orders Orders Complete Blood Count With Diff (01/04/18 11:23) Comprehensive Metabolic Panel (01/04/18 11:23) Prothrombin Time / Inr (Pt) (01/04/18 11:23) Act Partial Throm Time (Ptt) (01/04/18 11:23) Lipase (01/04/18 11:23) Urinalysis - C+S If Indicated (01/04/18 11:23) Magnesium (Mg) (01/04/18 11:23) Thyroid Stimulating Hormone (01/04/18 11:23) Iv Access Insert/Monitor (01/04/18 11:23) Ecg Monitoring (01/04/18 11:23) Oximetry (01/04/18 11:23) Electrocardiogram (01/04/18 ) Morphine Inj (Morphine Inj) (01/04/18 11:45) Ondansetron Inj (Zofran Inj) (01/04/18 11:45) Sodium Chlor 0.9% 1000 Ml Inj (Ns 1000 M (01/04/18 11:45) Abdomen, Flat & Upright (01/04/18 ) Ct Abd/Pel W/O Iv Contrast (01/04/18 ) Palonosetron Inj (Aloxi Inj) (01/04/18 14:30) Ns (Bolus) Inj (01/04/18 14:30) Labs Laboratory Tests Test 01/04/18 11:38 01/04/18 12:45 White Blood Count 5.1 TH/MM3 Red Blood Count 3.54 MIL/MM3 Hemoglobin 11.4 GM/DL Hematocrit 33.9 % Mean Corpuscular Volume 95.8 FL Mean Corpuscular Hemoglobin 32.2 PG Mean Corpuscular Hemoglobin Concent 33.6 % Red Cell Distribution Width 17.4 % Platelet Count 165 TH/MM3 Mean Platelet Volume 8.4 FL Neutrophils (%) (Auto) 74.2 % Lymphocytes (%) (Auto) 11.1 % Monocytes (%) (Auto) 11.8 % Eosinophils (%) (Auto) 2.6 % Basophils (%) (Auto) 0.3 % Neutrophils # (Auto) 3.8 TH/MM3 Lymphocytes # (Auto) 0.6 TH/MM3 Monocytes # (Auto) 0.6 TH/MM3 Eosinophils # (Auto) 0.1 TH/MM3 Basophils # (Auto) 0.0 TH/MM3 CBC Comment DIFF FINAL Differential Comment Prothrombin Time 11.4 SEC Prothromb Time International Ratio 1.1 RATIO Activated Partial Thromboplast Time 22.4 SEC Blood Urea Nitrogen 23 MG/DL Creatinine 1.44 MG/DL Random Glucose 102 MG/DL Total Protein 7.0 GM/DL Albumin 3.2 GM/DL Calcium Level 8.8 MG/DL Magnesium Level 2.2 MG/DL Alkaline Phosphatase 110 U/L Aspartate Amino Transf (AST/SGOT) 41 U/L Alanine Aminotransferase (ALT/SGPT) 79 U/L Total Bilirubin 0.7 MG/DL Sodium Level 136 MEQ/L Potassium Level 3.9 MEQ/L Chloride Level 96 MEQ/L Carbon Dioxide Level 30.4 MEQ/L Anion Gap 10 MEQ/L Estimat Glomerular Filtration Rate 35 ML/MIN Lipase 224 U/L Thyroid Stimulating Hormone 3rd Gen 0.905 uIU/ML Urine Color LIGHT-YELLOW Urine Turbidity CLEAR Urine pH 7.5 Urine Specific [place] 1.005 Urine Protein NEG mg/dL Urine Glucose (UA) NEG mg/dL Urine Ketones NEG mg/dL Urine Occult Blood NEG Urine Nitrite NEG Urine Bilirubin NEG Urine Urobilinogen LESS THAN 2.0 MG/DL Urine Leukocyte Esterase NEG Microscopic Urinalysis Comment CULT NOT INDICATED MDM Medical Record Reviewed: Yes Supervised Visit with FELECIA: Yes Diagnosis Primary Impression: Constipation Disposition: DISCHARGE HOME Condition: Stable Jasper Vallecillo MD Jan 04, 2018 14:27
[2018-01-04] MEDS ORDERED: PALONOSETRON 0.25 MG/5 ML IV PUSH ONE (14:30)
[2018-01-04] MEDS ORDERED: COLA100C5 PO (14:44)
--- NOTE | 2018-01-05 11:27 | EKG ---
Date Performed: 01/04/2018 Time Performed: 11:29:13 PTAGE: 77 years EKG: ELECTRONIC ATRIAL PACEMAKER ST DEVIATION AND MODERATE T-WAVE ABNORMALITY, CONSIDER ANTERIOR ISCHEMIA ABNORMAL ECG PREVIOUS TRACING : 01/09/2017 14.16 Since the previous tracing, no significant change noted DOCTOR: Alan Euceda Interpretating Date/Time 01/05/2018 11:25:24
[2018-01-05] MEDS ORDERED: DIPH25TA31 PO (13:04)
== END 2018-01-04 16:10 | disposition home or self-care (01) ==
LOC: NEPC 10:59
DX: K59.01 Slow transit constipation (principal); C78.6 Secondary malignant neoplasm of retroperitoneum and peritoneum; R94.31 Abnormal electrocardiogram [ECG] [EKG]; I48.91 Unspecified atrial fibrillation; I10 Essential (primary) hypertension; K21.9 Gastro-esophageal reflux disease without esophagitis; E07.9 Disorder of thyroid, unspecified; Z85.3 Personal history of malignant neoplasm of breast; Z87.891 Personal history of nicotine dependence
CPT/HCPCS: 74019; 74176; 80053; 81001; 83690; 83735; 84443; 85025; 85610; 85730; 93005; 96361; 96374; 96375; 99285; J2270; J2405; J2469; J7030

== ENCOUNTER 2018-01-22 05:43 | Inpatient (IN) | payer MEDICARE ==
[~2018-01-22] VITALS: Ht 175.3 cm; Wt 85.2 kg
[~2018-01-22 05:43] MED LIST changes: +COLA100C5 PO; +DIPH25TA31 PO; -FURO1TAB60 PO; +FURO20TA PO; +GAS-CAP3 PO; -LACT10SO PO; +OMEP40CA2 PO; -PREV30CA36 PO; +SIME1CAP14 PO; +ZOLO25TA PO
[2018-01-22] MEDS ORDERED: LACTATED RINGER'S 1000 ML IV PRN (06:15)
[2018-01-22] MEDS ORDERED: ceFAZolin 2 GM/NS PREMIX 100 ML IV SCH (06:15)
[2018-01-22] MEDS ORDERED: HEPARIN SODIUM - SQ 10,000 UNITS/ML VIAL SQ PRN (06:15)
[2018-01-22] MEDS ORDERED: METOPROLOL TARTRATE 25 MG TAB PO PRN (06:15)
[2018-01-22] MEDS ORDERED: CHLORHEXIDINE GLUCONATE 2 % 1 PACK (2 CLOTHS) TOPICAL PRN (06:15)
[2018-01-22] MEDS ORDERED: POVIDONE IODINE 5% (ANTISEPSIS KIT) 4 APPLICATIONS EACH NARE PRN (06:15)
[2018-01-22] MEDS ORDERED: SODIUM CHLORIDE FLUSH PRN IV FLUSH (06:15)
[2018-01-22] MEDS ORDERED: SODIUM CHLORID 0.9% 500 ML IV PRN (06:15)
[2018-01-22] MEDS ORDERED: SODIUM CHLORIDE FLUSH BID IV FLUSH SCH (09:00)
[2018-01-22] MEDS ORDERED: DO NOT ADM ANY ANTICOAGULANT DRUGS PRN (09:36)
[2018-01-22] MEDS ORDERED: MORPHINE SULFATE 4 MG/ML INJ ONE (09:42)
[2018-01-22] MEDS ORDERED: SODIUM CHLORIDE 0.9% FLUSH 10 ML FLUSH IV FLUSH PRN (09:45)
[2018-01-22] MEDS ORDERED: NALOXONE HCL 0.4 MG/ML AMP IV PUSH PRN (09:45)
[2018-01-22] MEDS ORDERED: oxyCODONE/ACETAMINOPHEN 5 MG/325 MG TAB PO PRN ×2 (09:45)
[2018-01-22] MEDS ORDERED: *ONDANSETRON 4 MG VIAL PERIprocedural Use ONLY ONE (09:46)
[2018-01-22] MEDS: D5-1/2 NS + KCL 20 MEQ INJ 1,000 ML IV SCH ×2 (09:50→19:58)
[2018-01-22] MEDS ORDERED: *morphine SULFATE 4 MG/ML PERIprocedure ONLY ONE (10:11)
[2018-01-22] MEDS ORDERED: *PROMETHAZINE 25 MG/ML VIAL PERIprocedural use ONLY ONE (10:30)
[2018-01-22] MEDS: MORPHINE SULFATE 30 MG/30 ML PCA IV SCH (10:46)
[2018-01-22] MEDS ORDERED: SODIUM CHLORID 0.9% 500 ML INJ 500 ML IV ONE (12:00)
[2018-01-22] MEDS ORDERED: DEXAMETHASONE SOD PHOS 4 MG/ML VIAL IV ONE (12:00)
[2018-01-22] MEDS ORDERED: ePHEDrine/NS 25 MG/5 ML SYRINGE IV ONE (12:00)
[2018-01-22] MEDS ORDERED: ROCURONIUM INJ 50 MG/5 ML SYRINGE IV PUSH ONE (12:00)
[2018-01-22] MEDS ORDERED: NORMOSOL R INJ 1,000 ML IV ONE (12:00)
[2018-01-22] MEDS ORDERED: NEOSTIGMINE 5 MG/5 ML SYRINGE IV PUSH ONE (12:00)
[2018-01-22] MEDS ORDERED: GLYCOPYRROLATE 1 MG/5 ML SYRINGE IV PUSH ONE (12:00)
[2018-01-22] MEDS ORDERED: LIDOCAINE HCL 1% PF 5 ML SYRINGE OTHER ONE (12:00)
[2018-01-22] MEDS ORDERED: PROPOFOL 200 MG/20 ML AMP IV ONE (12:00)
[2018-01-22] MEDS ORDERED: ONDANSETRON HCL 4 MG/2 ML VIAL IV ONE (12:00)
[2018-01-22] MEDS ORDERED: KETOROLAC TROMETHAMINE 30 MG/ML (IVP) VIAL IV PUSH ONE (12:00)
[2018-01-22] MEDS ORDERED: PILL SPLITTER OTHER PRN (12:30)
[2018-01-22] MEDS: METOCLOPRAMIDE HCL 10 MG TAB PO SCH ×3 (13:00→20:33)
[2018-01-22 13:39] VITALS: BP 115/60; PULSE 59; RESP 18; TEMP 98.4; O2SAT 100
[2018-01-22] MEDS: PCA - TOTAL MG MORPHINE DELIVERED PER SHIFT SCH ×2 (14:00→22:00)
[2018-01-22] MEDS ORDERED: POTASSIUM CHLOR 20 MEQ PREMIX 100 ML IV PRN ×2 (14:30)
[2018-01-22] MEDS ORDERED: POTASSIUM PHOSPHATE INJ 30 MMOL in SODIUM CHLOR 0.9% 250 ML INJ 250 ML IV PRN (14:30)
[2018-01-22] MEDS ORDERED: POTASSIUM PHOSPHATE MONOBASIC 500 MG TAB PO/TUBE PRN (14:30)
[2018-01-22] MEDS ORDERED: POTASSIUM CHLOR 40 MEQ PREMIX 100 ML IV PRN ×2 (14:30)
[2018-01-22] MEDS ORDERED: POTASSIUM PHOSPHATE MONOBASIC 500 MG TAB PO PRN (14:30)
[2018-01-22] MEDS ORDERED: MAGNESIUM SULFATE INJ 4 GM in SODIUM CHLORIDE 0.9% INJ 92 ML IV PRN (14:30)
[2018-01-22] MEDS ORDERED: SODIUM PHOSPHATE INJ 30 MMOL in SODIUM CHLOR 0.9% 250 ML INJ 240 ML IV PRN (14:30)
[2018-01-22] MEDS ORDERED: MAGNESIUM SULFATE INJ 2 GM in SODIUM CHLORIDE 0.9% INJ 96 ML IV PRN (14:30)
[2018-01-22] MEDS ORDERED: MAGNESIUM OXIDE 400 MG TAB PO PRN (14:30)
[2018-01-22] MEDS ORDERED: POTASSIUM CHLORIDE 25 MEQ EFFERVESCENT TAB PO PRN (14:30)
--- NOTE | 2018-01-22 15:01 | PD.CONS ---
[facility] Service Critical Care Medicine Consult Requested By Dr. Fletcher Reason for Consult Management of medical comorbidities Primary Care Physician Cesario Smith History of Present Illness This is a 77-year-old female with a history of stage III ovarian cancer who today underwent laparotomy with planned staging and possible debulking. She was found to have widely metastatic disease as well as carcinomatosis and the operation was aborted. She was extubated in the case and brought to PACU in stable condition. She arrives to the intensive care unit for close monitoring. She denies pain, nausea, vomiting, headache. states she "feels pretty good." ROS otherwise negative. Review of Systems Eyes: DENIES: Blurred vision, Eye pain Respiratory: DENIES: Cough, Shortness of breath Cardiovascular: DENIES: Chest pain Gastrointestinal: DENIES: Abdominal pain, Nausea, Vomiting Neurologic: DENIES: Headache Past Family Social History Allergies: Coded Allergies: azithromycin (Verified Allergy, Severe, 01/22/18) gramicidin D (Verified Allergy, Severe, 01/22/18) neomycin (Verified Allergy, Severe, 01/22/18) bacitracin (Verified Allergy, Mild, RASH, 01/22/18) polymyxin B (Verified Allergy, Mild, RASH, 01/22/18) adhesive (Verified Adverse Reaction, Mild, 01/22/18) Past Medical History Arthritis Recent history of DVTs Cataracts Heart disease Hemorrhoids Hypertension Irregular heartbeat Osteoarthritis Osteoporosis Pacemaker Pneumonia Thyroid disease Past Surgical History Appendectomy Bilateral knee surgeries Cerebral aneurysm securement Breast biopsy Cataract removal Cholecystectomy Hysterectomy Left knee surgery Lumpectomy Pacemaker placement Total right knee arthroplasty Screen left foot Colonoscopy 2016 Diagnostic laparoscopy and lysis of adhesions in 2016 Reported Medications Colace (Docusate Sodium) 100 Mg Capsule 100 Mg PO BID Magnesium Citrate Liq (Magnesium Citrate) 300 Ml Liq 300 Ml PO DIRECTED 1 Days Reglan (Metoclopramide HCl) 10 Mg Tab 10 Mg PO QID 10 Days Furosemide 20 Mg Tab 20 Mg PO DAILY Acetaminophen Pm Caplet (Acetaminophen/Diphenhydramine) 500 Mg-25 Mg Tablet 2 Tab PO HS Zoloft (Sertraline HCl) 25 Mg Tab Unknown Dose PO DAILY Phazyme Maximum Strength (Simethicone) 250 Mg Cap 250 Mg PO BID PRN Omeprazole 40 Mg Cap 40 Mg PO DAILY Xarelto (Rivaroxaban) 15 Mg Tab 15 Mg PO DAILY Probiotic (Lactobacillus Acidophilus) Unknown Strength Cap Unknown Dose PO DAILY Losartan (Losartan Potassium) 25 Mg Tab 25 Mg PO HS D 5000 (Cholecalciferol) 5,000 Unit Cap 5,000 Units PO DAILY Lorazepam 0.5 Mg Tab 0.5 Mg PO HS PRN Toprol XL (Metoprolol Succinate) 50 Mg Tab 50 Mg PO AC DINNER Lipitor (Atorvastatin Calcium) 20 Mg Tab 20 Mg PO HS Tramadol (Tramadol HCl) 50 Mg Tab 100 Mg PO TID Multaq (Dronedarone) 400 Mg Tab 400 Mg PO BID Potassium Chloride ER (Potassium Chloride) 20 Meq Tab 20 Meq PO DAILY Magnesium 400 Mg Tab 400 Mg PO AC DINNER Levothyroxine (Levothyroxine Sodium) 50 Mcg Tab 50 Mcg PO DAILY Active Ordered Medications See MAR Family History Reviewed the chart and found to be noncontributory to her acute illness Social History Never smoker. Positive EtOH. Physical Exam Vital Signs Vital Signs Date Time Temp Pulse Resp B/P (MAP) Pulse Ox O2 Delivery O2 Flow Rate FiO2 01/22/18 13:50 16 01/22/18 13:39 98.4 59 18 115/60 (78) 100 01/22/18 13:30 97.6 59 14 113/55 (74) 99 Nasal Cannula 2 01/22/18 13:00 59 13 109/54 (72) 98 Nasal Cannula 2 01/22/18 12:00 59 13 121/57 (78) 99 Nasal Cannula 2 01/22/18 11:00 60 16 135/63 (87) 100 Nasal Cannula 2 01/22/18 10:46 15 01/22/18 10:45 59 13 140/63 (88) 100 Nasal Cannula 2 01/22/18 10:30 59 14 148/70 (96) 100 Nasal Cannula 2 01/22/18 10:15 59 15 129/62 (84) 100 Nasal Cannula 2 01/22/18 10:00 59 18 124/59 (80) 100 Nasal Cannula 2 01/22/18 09:45 61 21 126/57 (80) 100 Nasal Cannula 2 01/22/18 09:35 97.5 60 20 129/62 (84) 99 Nasal Cannula 4 01/22/18 06:55 97.7 59 16 105/55 (72) 93 Physical Exam GENERAL: elderly female, lying in bed, no acute distress. HEENT: Normocephalic. Atraumatic. Pupils equal, round, reactive, conjugate. Mucous membranes are moist NECK: Trachea is midline. There is no JVD. CHEST: nc o2. unlabored. equal chest rise. no accessory muscle use CARDIOVASCULAR: normal rate, irregularly irregular rhythm. afib by tele. ABDOMEN: Soft, nontender, nondistended. No guarding. lower midline abdominal incision with a dressing which is clean, dry and intact. MUSCULOSKELETAL: Pulses 2+. No peripheral edema. NEUROLOGICAL: RASS 0. CAM -. moves all extremities. follows commands. no focal deficits. Assessment and Plan Assessment and Plan Assessment: 77-year-old female postop day 0 status post laparotomy with diagnostic biopsy, aborted for widespread disease and perineal carcinomatosis. Remain in ICU. Pain control per surgery team. High risk for decompensation given age and multiple comorbidities. Plan: Metastatic Ovarian Cancer - management per Dr. Fletcher. Coronary artery disease - continue home beta aga - continue home statin Hypertension - continue home Losartan - continue home Lasix Atrial fibrillation - hold home dronedarone: would have low threshold to restart this tomorrow. - management of anticoagulation per Dr. Fletcher - currently rate controlled. - continue home beta aga Hyperlipidemia - restart home statin Insomnia - continue prn home ativan - continue home zoloft, at the patient's request. GERD - continue home ppi Hypothyroidism - continue home synthroid Dispo: admit to ICU for close monitoring. Critical care medicine will follow along with you while patient remains in ICU. Jae Reddy MD Jan 22, 2018 15:01
[2018-01-22] MEDS: KETOROLAC TROMETHAMINE 30 MG/ML (IVP) VIAL IVP SCH ×2 (15:19→20:34)
--- NOTE | 2018-01-22 15:52 | PD.ONC.PN ---
Subjective Subjective Remarks post op note: patient is resting without pain states she feels well without complaints Objective Data Date Time Temp Pulse Resp B/P (MAP) Pulse Ox O2 Delivery O2 Flow Rate FiO2 01/22/18 14:00 24 01/22/18 13:50 16 01/22/18 13:39 98.4 59 18 115/60 (78) 100 01/22/18 13:30 97.6 59 14 113/55 (74) 99 Nasal Cannula 2 01/22/18 13:00 59 13 109/54 (72) 98 Nasal Cannula 2 01/22/18 12:00 59 13 121/57 (78) 99 Nasal Cannula 2 01/22/18 11:00 60 16 135/63 (87) 100 Nasal Cannula 2 01/22/18 10:46 15 01/22/18 10:45 59 13 140/63 (88) 100 Nasal Cannula 2 01/22/18 10:30 59 14 148/70 (96) 100 Nasal Cannula 2 01/22/18 10:15 59 15 129/62 (84) 100 Nasal Cannula 2 01/22/18 10:00 59 18 124/59 (80) 100 Nasal Cannula 2 01/22/18 09:45 61 21 126/57 (80) 100 Nasal Cannula 2 01/22/18 09:35 97.5 60 20 129/62 (84) 99 Nasal Cannula 4 01/22/18 06:55 97.7 59 16 105/55 (72) 93 01/22/18 01/22/18 01/22/18 07:00 15:00 23:00 Intake Total 1330 ml Output Total 275 ml Balance 1055 ml Administered Medications Medications (Trade) Dose Ordered Sig/Eveline Route PRN Reason Start Time Stop Time Status Last Admin Dose Admin Heparin Sodium (Porcine) (Heparin Inj) 5,000 units LEAD SOFTWARE QA ENGINEER PRN SQ GIVE PRE-OP LEAD SOFTWARE QA ENGINEER TO OR 01/22/18 06:15 01/22/18 22:00 01/22/18 06:55 Cefazolin/Sodium Chloride 100 ml @ 200 mls/hr LEAD SOFTWARE QA ENGINEER IV 01/22/18 06:15 01/25/18 06:14 01/22/18 07:15 Lactated Ringer's 1,000 ml @ 30 mls/hr Q24H PRN IV SEE LABEL COMMENTS 01/22/18 06:15 01/25/18 06:14 01/22/18 06:50 Povidone Iodine (Betadine 5% Antisepsis Kit) 1 applic LEAD SOFTWARE QA ENGINEER PRN EACH NARE SEE LABEL COMMENTS 01/22/18 06:15 01/25/18 06:14 01/22/18 07:00 Chlorhexidine Gluconate (Chlorhexidine 2% Cloth) 3 pack LEAD SOFTWARE QA ENGINEER PRN TOPICAL SEE LABEL COMMENTS 01/22/18 06:15 01/25/18 06:14 01/22/18 06:30 Potassium Chloride/Dextrose/ Sod Cl 1,000 ml @ 100 mls/hr Q10H IV 01/22/18 12:30 01/22/18 09:50 Ketorolac Tromethamine (Toradol Inj) 15 mg Q6H IVP 01/22/18 15:00 01/25/18 09:01 01/22/18 15:19 Morphine Sulfate (Morphine 1 Mg/ ml COLLAR STITCHER) 30 mg UNSCH IV 01/22/18 09:45 01/22/18 10:46 COLLAR STITCHER Dosage Infused (Pha) 1 Q8HR .XX 01/22/18 14:00 01/22/18 14:00 Objective Remarks GENERAL: Well-nourished, well-developed patient. SKIN: Warm and dry. HEAD: Normocephalic. EYES: No scleral icterus. No injection or drainage. CARDIOVASCULAR: Regular rate and rhythm without murmurs. RESPIRATORY: Breath sounds equal bilaterally. No accessory muscle use. GASTROINTESTINAL: dressing is clean, dry and intact EXTREMITIES: teds and scds MUSCULOSKELETAL: Adequate muscle tone. NEUROLOGICAL: No obvious focal deficit. Awake, alert, and oriented x3. PSYCHIATRIC: Appropriate mood and affect; insight and judgment normal. Assessment/Plan Problem List: (1) Ovarian ca ICD Codes: C56.9 - Malignant neoplasm of unspecified ovary Status: Acute Plan: post op orders in EMR COLLAR STITCHER for pain full liquid diet OOB to chair PRN D/C uyko on POD #2 anticipate discharge in the next 48 hours Lino Miller Jan 22, 2018 15:52
[2018-01-22 16:02] VITALS: O2SAT 99
[2018-01-22 16:31] LABS: HEMATOCRIT 31.8 % (35.0-46.0); HEMOGLOBIN 10.6 GM/DL (11.6-15.3); MEAN CELL VOLUME 96.3 FL (80.0-100.0); MEAN CORPUSCULAR HGB CONC 33.2 % (32.0-36.0); MEAN PLATELET VOLUME 8.6 FL (7.0-11.0); PLATELET COUNT 233 TH/MM3 (150-450); RED BLOOD COUNT 3.31 MIL/MM3 (4.00-5.30); RED CELL DISTRIBUTION WIDTH 16.7 % (11.6-17.2); WHITE BLOOD COUNT 7.7 TH/MM3 (4.0-11.0)
[2018-01-22 16:54] LABS: CALCIUM 8.5 MG/DL (8.5-10.1); CREATININE 1.13 MG/DL (0.50-1.00)
[2018-01-22 17:39] VITALS: BP 108/53; PULSE 60; RESP 24; TEMP 98; O2SAT 97
[2018-01-22] MEDS: ONDANSETRON HCL 4 MG/2 ML VIAL IVP PRN (19:58)
[2018-01-22 20:00] VITALS: BP 99/48; PULSE 60; RESP 19; TEMP 98; O2SAT 97
[2018-01-22] MEDS: SERTRALINE HCL 50 MG TAB PO SCH (20:32)
[2018-01-22] MEDS: LOSARTAN 25 MG TAB PO SCH (20:32)
[2018-01-22] MEDS: ATORVASTATIN 20 MG TAB PO SCH (20:33)
[2018-01-22] MEDS: DOCUSATE SODIUM 100 MG CAP PO SCH (20:33)
[2018-01-22] MEDS: SODIUM CHLORIDE 0.9% FLUSH 10 ML FLUSH IV FLUSH SCH (20:34)
[2018-01-22 22:00] VITALS: PULSE 58
[2018-01-22 22:03] VITALS: O2SAT 96
[2018-01-23] VITALS (12 sets, daily range): BP systolic 102–133; BP diastolic 53–61; PULSE 59–68; RESP 9–22; TEMP 98.1–98.9; O2SAT 93–99
[2018-01-23] MEDS: LORazepam 0.5 MG TAB PO PRN ×2 (00:39→22:07)
[2018-01-23] MEDS: KETOROLAC TROMETHAMINE 30 MG/ML (IVP) VIAL IVP SCH ×4 (03:00→22:07)
[2018-01-23 05:34] LABS: AUTOMATED NEUTROPHIL # 7.2 TH/MM3 (1.8-7.7); BASOPHIL % 0.3 % (0.0-2.0); EOSINOPHIL % 0.2 % (0.0-4.0); HEMATOCRIT 29.9 % (35.0-46.0); HEMOGLOBIN 9.8 GM/DL (11.6-15.3); LYMPH % 8.9 % (9.0-44.0); LYMPHOCYTE # 0.8 TH/MM3 (1.0-4.8); MEAN CELL VOLUME 94.7 FL (80.0-100.0); MEAN CORPUSCULAR HEMOGLOBIN 31.1 PG (27.0-34.0); MEAN CORPUSCULAR HGB CONC 32.8 % (32.0-36.0); MEAN PLATELET VOLUME 8.4 FL (7.0-11.0); MONO % 12.9 % (0.0-8.0); MONOCYTE # 1.2 TH/MM3 (0-0.9); NEUT % 77.7 % (16.0-70.0); PLATELET COUNT 216 TH/MM3 (150-450); RED BLOOD COUNT 3.16 MIL/MM3 (4.00-5.30); RED CELL DISTRIBUTION WIDTH 16.8 % (11.6-17.2); WHITE BLOOD COUNT 9.2 TH/MM3 (4.0-11.0)
[2018-01-23 05:55] LABS: BICARBONATE 26.2 MEQ/L (21.0-32.0); CALCIUM 8.3 MG/DL (8.5-10.1); CREATININE 1.11 MG/DL (0.50-1.00)
[2018-01-23] MEDS: PCA - TOTAL MG MORPHINE DELIVERED PER SHIFT SCH ×3 (06:00→22:00)
[2018-01-23] MEDS: LEVOTHYROXINE SODIUM 50 MCG TAB PO SCH (06:03)
[2018-01-23] MEDS: D5-1/2 NS + KCL 20 MEQ INJ 1,000 ML IV SCH (06:03)
[2018-01-23] MEDS: DOCUSATE SODIUM 100 MG CAP PO SCH ×2 (08:04→22:07)
[2018-01-23] MEDS: FUROSEMIDE 20 MG TAB PO SCH (08:04)
[2018-01-23] MEDS: PANTOPRAZOLE SOD 40 MG DELAYED RELEASE TAB PO SCH (08:04)
[2018-01-23] MEDS: METOCLOPRAMIDE HCL 10 MG TAB PO SCH ×4 (08:04→22:08)
[2018-01-23] MEDS: SODIUM CHLORIDE 0.9% FLUSH 10 ML FLUSH IV FLUSH SCH ×2 (08:04→21:00)
--- NOTE | 2018-01-23 08:34 | HHI.PR ---
Subjective . no new c/o except didnt sleep well. Adequate pain control Objective . afeb, 60, 102-121/ 60, 96 % i/0 4200/ 1400 hgb 9.8 lungs cta with basilar rales, rrr soft, clean dry Assessment/Plan . pod # 1 stable d/w Nemani oob, spirometry, consider restart of anticoagulation in 24 hours sub-Q heparin in the interim is reasonable. Findings at surgery discussed. Q&A. She understands Yamileth Fletcher MD Jan 23, 2018 08:34
[2018-01-23] MEDS ORDERED: SERTRALINE HCL 50 MG TAB PO SCH (09:00)
--- NOTE | 2018-01-23 10:27 | HHI.CCPN ---
Subjective Remarks/Hospital Course 01/22: This is a 77-year-old female with a history of stage III ovarian cancer who today underwent laparotomy with planned staging and possible debulking. She was found to have widely metastatic disease as well as carcinomatosis and the operation was aborted. She was extubated in the case and brought to PACU in stable condition. She arrives to the intensive care unit for close monitoring. She denies pain, nausea, vomiting, headache. states she "feels pretty good." ROS otherwise negative. 01/23: Resting comfortably in bed. Denies any shortness of breath. Has some soreness in her abdomen. Objective Vital Signs Date Time Temp Pulse Resp B/P (MAP) Pulse Ox O2 Delivery O2 Flow Rate FiO2 01/23/18 08:00 98.5 59 16 121/57 (78) 93 01/23/18 07:00 Room Air 01/22/18 22:03 2.00 Intake and Output 01/23/18 01/23/18 01/23/18 07:59 15:59 23:59 Intake Total 1491 ml Output Total 800 ml Balance 691 ml Result Diagram: 01/23/18 0503 01/23/18 0503 Objective Remarks GENERAL: elderly female, lying in bed, no acute distress. HEENT: Normocephalic. Atraumatic. Pupils equal, round, reactive, conjugate. Mucous membranes are moist NECK: Trachea is midline. There is no JVD. CHEST: nc o2. unlabored. equal chest rise. no accessory muscle use CARDIOVASCULAR: normal rate, irregularly irregular rhythm. afib by tele. ABDOMEN: Soft, nontender, nondistended. No guarding. lower midline abdominal incision with a dressing which is clean, dry and intact. MUSCULOSKELETAL: Pulses 2+. No peripheral edema. NEUROLOGICAL: RASS 0. CAM -. moves all extremities. follows commands. no focal deficits. A/P Assessment and Plan Assessment: 77-year-old female postop day 1 status post laparotomy with diagnostic biopsy, aborted for widespread disease and peritoneal carcinomatosis. Pain control per surgery team. Plan: Metastatic Ovarian Cancer - management per Dr. Fletcher. Coronary artery disease - continue home beta aga - continue home statin Hypertension - continue home Losartan - continue home Lasix Atrial fibrillation -Restart dronedarone. - management of anticoagulation per Dr. Molpus-okay with starting DVT prophylaxis today with possible full anticoagulation starting tomorrow. On Xarelto at home. - currently rate controlled. - continue home beta aga Hyperlipidemia - restart home statin Insomnia - continue prn home ativan - continue home zoloft, at the patient's request. GERD - continue home ppi Hypothyroidism - continue home synthroid DVT prophylaxis with Lovenox 40 mg subcutaneous daily ordered for 01/23. Possible transfer out of ICU tomorrow. Will consult hospitalist service for continuing medical management. Critical care will be signing off tomorrow. Discussed with Dr. Fletcher. Kev Keyes MD Jan 23, 2018 10:27
[2018-01-23] MEDS: ENOXAPARIN SODIUM 40 MG/0.4 ML SYRINGE SQ SCH (12:26)
[2018-01-23] MEDS: ONDANSETRON HCL 4 MG/2 ML VIAL IVP PRN ×2 (12:26→18:58)
[2018-01-23] MEDS: SIMETHICONE 125 MG CHEWABLE TAB PO PRN (14:44)
[2018-01-23] MEDS: METOPROLOL SUCCINATE 50 MG EXTENDED RELEASE TAB PO SCH (16:00)
[2018-01-23] MEDS: MORPHINE SULFATE 30 MG/30 ML PCA IV SCH (16:19)
[2018-01-23] MEDS: DRONEDARONE 400 MG TAB PO SCH (18:05)
[2018-01-23] MEDS: LOSARTAN 25 MG TAB PO SCH (21:00)
[2018-01-23] MEDS: SERTRALINE HCL 50 MG TAB PO SCH (22:07)
[2018-01-23] MEDS: ATORVASTATIN 20 MG TAB PO SCH (22:07)
[2018-01-24] VITALS (15 sets, daily range): BP systolic 89–140; BP diastolic 47–64; PULSE 61–87; RESP 14–22; TEMP 96–99.1; O2SAT 92–98
[2018-01-24] MEDS: KETOROLAC TROMETHAMINE 30 MG/ML (IVP) VIAL IVP SCH ×4 (03:38→21:26)
[2018-01-24] MEDS: PCA - TOTAL MG MORPHINE DELIVERED PER SHIFT SCH ×3 (06:00→22:00)
[2018-01-24] MEDS: LEVOTHYROXINE SODIUM 50 MCG TAB PO SCH (06:06)
--- NOTE | 2018-01-24 08:18 | PD.ONC.PN ---
Subjective Subjective Remarks firer locomotive/onc progress note POD #2 patient states having more back pain abdominal pain controlled using TITLE VEHICLE SERVICE ATTENDANT a couple times an hour was OOB to chair yesterday IS at bedside and using heart healthy diet denies nausea and vomiting Hospitalist consulted and pt will be transferred to floor today D/C yuko today Objective Data Date Time Temp Pulse Resp B/P (MAP) Pulse Ox O2 Delivery O2 Flow Rate FiO2 01/24/18 06:00 61 01/24/18 06:00 18 01/24/18 04:00 61 01/24/18 04:00 98.9 73 18 92/49 (63) 94 01/24/18 02:00 62 01/24/18 00:00 98.6 62 14 89/47 (61) 98 01/24/18 00:00 62 01/23/18 22:00 64 01/23/18 20:00 68 01/23/18 20:00 100 Room Air 01/23/18 20:00 98.9 68 20 119/58 (78) 97 01/23/18 18:00 61 01/23/18 16:40 21 01/23/18 16:19 9 01/23/18 16:00 98.2 68 22 107/53 (71) 97 01/23/18 16:00 64 01/23/18 14:00 63 01/23/18 14:00 17 01/23/18 12:00 98.1 64 20 133/61 (85) 96 01/23/18 12:00 64 01/23/18 10:00 60 01/24/18 01/24/18 01/24/18 07:00 15:00 23:00 Intake Total 475 ml Output Total 500 ml Balance -25 ml Result Diagram: 01/23/18 0503 01/23/18 0503 Administered Medications Medications (Trade) Dose Ordered Sig/Eveline Route PRN Reason Start Time Stop Time Status Last Admin Dose Admin Cefazolin/Sodium Chloride 100 ml @ 200 mls/hr UPSETTING MACHINE OPERATOR IV 01/22/18 06:15 01/25/18 06:14 01/22/18 07:15 Povidone Iodine (Betadine 5% Antisepsis Kit) 1 applic UPSETTING MACHINE OPERATOR PRN EACH NARE SEE LABEL COMMENTS 01/22/18 06:15 01/25/18 06:14 01/22/18 07:00 Chlorhexidine Gluconate (Chlorhexidine 2% Cloth) 3 pack UPSETTING MACHINE OPERATOR PRN TOPICAL SEE LABEL COMMENTS 01/22/18 06:15 01/25/18 06:14 01/22/18 06:30 Atorvastatin Calcium (Lipitor) 20 mg HS PO 01/22/18 21:00 01/23/18 22:07 Docusate Sodium (Colace) 100 mg BID PO 01/22/18 21:00 01/23/18 22:07 Furosemide (Lasix) 20 mg DAILY PO 01/23/18 09:00 01/23/18 08:04 Levothyroxine Sodium (Synthroid) 50 mcg DAILY@0600 PO 01/23/18 06:00 01/24/18 06:06 Lorazepam (Ativan) 0.5 mg HS PRN PO ANXIETY AND/OR INSOMNIA 01/22/18 09:30 01/23/18 22:07 Losartan Potassium (Cozaar) 25 mg HS PO 01/22/18 21:00 01/22/18 20:32 Metoclopramide HCl (Reglan) 10 mg QID PO 01/22/18 13:00 01/23/18 22:08 Pantoprazole Sodium (Protonix) 40 mg DAILY PO 01/23/18 09:00 01/23/18 08:04 Simethicone (Phazyme Chew) 250 mg BID PRN PO GAS RETENTION 01/22/18 12:45 01/23/18 14:44 Sodium Chloride (NS Flush) 2 ml BID IV FLUSH 01/22/18 21:00 01/23/18 21:00 Ketorolac Tromethamine (Toradol Inj) 15 mg Q6H IVP 01/22/18 15:00 01/25/18 09:01 01/24/18 03:38 Ondansetron HCl (Zofran Inj) 4 mg Q6H PRN IVP NAUSEA OR VOMITING 01/22/18 09:45 01/23/18 18:58 Morphine Sulfate (Morphine 1 Mg/ ml TITLE VEHICLE SERVICE ATTENDANT) 30 mg UNSCH IV 01/22/18 09:45 01/23/18 16:19 TITLE VEHICLE SERVICE ATTENDANT Dosage Infused (Pha) 1 Q8HR .XX 01/22/18 14:00 01/24/18 06:00 Sertraline HCl (Zoloft) 25 mg HS PO 4/16/18 21:00 01/23/18 22:07 Dronedarone (Multaq) 400 mg BIDPC PO 01/23/18 18:00 01/23/18 18:05 Enoxaparin Sodium (Lovenox Inj) 40 mg Q24H SQ 01/23/18 12:00 01/23/18 12:26 Objective Remarks GENERAL: Well-nourished, well-developed patient. SKIN: Warm and dry. HEAD: Normocephalic. EYES: No scleral icterus. No injection or drainage. CARDIOVASCULAR: Regular rate and rhythm without murmurs. RESPIRATORY: Breath sounds equal bilaterally. No accessory muscle use. GASTROINTESTINAL: Abdomen dressing c/d/i EXTREMITIES: teds MUSCULOSKELETAL: Adequate muscle tone. NEUROLOGICAL: No obvious focal deficit. Awake, alert, and oriented x3. PSYCHIATRIC: Appropriate mood and affect; insight and judgment normal. Assessment/Plan Problem List: (1) Ovarian ca ICD Codes: C56.9 - Malignant neoplasm of unspecified ovary Status: Acute Plan: post op orders in EMR TITLE VEHICLE SERVICE ATTENDANT for pain full liquid diet OOB to chair PRN D/C huntley on POD #2 anticipate discharge in the next 48 hours 01/24/18 POD #2 patient to transfer to floor today, hospitalist consulted will continue TITLE VEHICLE SERVICE ATTENDANT for another day orders to D/C huntley today OOB to chair continue heart healthy diet continue IS Protonix Attending Statement Discussed with Dr. Fletcher and he is in agreement with plan. Lino Miller Jan 24, 2018 08:18
[2018-01-24] MEDS: FUROSEMIDE 20 MG TAB PO SCH (08:52)
[2018-01-24] MEDS: DOCUSATE SODIUM 100 MG CAP PO SCH ×2 (08:52→21:26)
[2018-01-24] MEDS: METOCLOPRAMIDE HCL 10 MG TAB PO SCH ×4 (08:52→21:26)
[2018-01-24] MEDS: PANTOPRAZOLE SOD 40 MG DELAYED RELEASE TAB PO SCH (08:52)
[2018-01-24] MEDS: SODIUM CHLORIDE 0.9% FLUSH 10 ML FLUSH IV FLUSH SCH ×2 (08:53→21:00)
[2018-01-24] MEDS: DRONEDARONE 400 MG TAB PO SCH ×2 (08:59→18:48)
--- NOTE | 2018-01-24 09:34 | MP ---
cc: Yamileth Fletcher MD, D. W MD Quadrat,Blaise Pantoja,Sam APODACA DATE OF OPERATION: 01/22/2018 DATE OF PROCEDURE: 01/22/2018 PREOPERATIVE DIAGNOSIS: Recurrent ovarian cancer. POSTOPERATIVE DIAGNOSIS: Recurrent ovarian cancer. PROCEDURE PERFORMED: 1. Exploratory laparotomy. 2. Lysis of adhesions. 3. Biopsies. SURGEON: Yamileth Fletcher MD RETAIL ANALYTICS MANAGER: [place] nurse first aid. ANESTHESIA: General endotracheal anesthesia. ESTIMATED BLOOD LOSS: 100 mL. INDICATIONS FOR PROCEDURE: This is a 77-year-old female who was diagnosed with intraperitoneal carcinomatosis during laparoscopic surgery a couple of years ago. 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 There was also pelvic mass thought to be of ovarian origin. She was treated with Taxol and carboplatin chemotherapy, had a complete response to therapy, and therefore did not undergo surgical resection at that time, taking into consideration also her underlying medical and cardiac history. She had recurrence of disease that initially was stabilized with chemotherapy and at best is stabilized with current chemotherapy clinically and her CA-125 suggesting that the cancer is no longer fully stabilized on current regimen. She is symptomatic. She and her have been counseled on numerous occasions extensively regarding pros and cons, risks and benefits of surgical evaluation. She understands the pertinent aspects of our discussion. She is seen in the preop holding area where she is with these findings are again discussed and she is anxious to move forward with surgical evaluation to see if any progress can be made from a surgical standpoint. SURGICAL FINDINGS: Upon exploration of the peritoneal cavity, there is some bloody ascites fluid, perhaps 200 or 300 mL. There were carcinomatous implants throughout all visceral and parietal surfaces in the pelvis. There is a shelf of a fixed tumor. The rectosigmoid colon has infiltrative tumor in the mesentery and seems to be infiltrative tumor on the bowel wall and the distal rectosigmoid is fixed in this shelf of pelvic tumor. In the abdominal wall just above the umbilicus, the omentum is replaced with tumor. This appears to be growing into the abdominal wall. It is certainly very densely adherent. There were several loops of small bowel that are adherent to the omentum and the anterior abdominal wall. The wall of the transverse colon seems retracted with the omental tumor suggesting tumor may well be invading into the wall of the transverse colon. Access proximal to this level was not gained due to fairly dense adhesions. There was no overt intestinal obstruction, but there are 2 main areas in the colon, the rectosigmoid as well as transverse colon, that are compromised and there are loops of small bowel that are compromised. In summary, it was felt that significant improvement from a tumor burden standpoint could not be made without a rectosigmoid resection and without a transverse colon resection. If she has not helped enough, I would be concerned about her ability to heal from anastomosis, especially multifocal anastomosis, it would likely result in diverting ostomy and there was still concern about subsequent proximal small-bowel obstruction multifocal tumor implants such that overall it was felt that attempted resection would result in morbidity that exceeded benefit and that response to systemic therapy would be required for any clinical improvement. Biopsies were taken, apart from the omentum and some peritoneal implants, to be sent for chemotherapy assay to try to get some clinical guidance regarding what treatments may be considered based on assay response of the tumor to treatment. Inspection confirmed that there were no remaining foreign objects in the peritoneal cavity, sites were hemostatic, Surgicel SNoW was placed across the omentum where the biopsies were taken. Preliminary counts were correct and attention was directed toward closing. The abdominal wall was closed with looped PDS in a running continuous modified Smead-Carvalho fashion starting at the apices and meeting in the midpoint where the sutures were tied. Subcutaneous tissue was irrigated, Lincoln fascia reapproximated with 2-0 Vicryl sutures, and the skin edges closed with 3-0 Vicryl running subcuticular closure. Steri-Strips and dry sterile dressing were placed over the incision. Final counts were correct. She was returned to dorsal supine position and was pending reversal of anesthesia when I left the operating room to precede her to the Postanesthesia Care Unit. MD MARK Waters/MIKAYLA , 09:01 AM , 09:33 AM
[2018-01-24 10:04] LABS: HEMATOCRIT 26.7 % (35.0-46.0); HEMOGLOBIN 9.1 GM/DL (11.6-15.3); MEAN CELL VOLUME 94.5 FL (80.0-100.0); MEAN CORPUSCULAR HEMOGLOBIN 32.2 PG (27.0-34.0); MEAN CORPUSCULAR HGB CONC 34.1 % (32.0-36.0); MEAN PLATELET VOLUME 8.3 FL (7.0-11.0); PLATELET COUNT 217 TH/MM3 (150-450); RED BLOOD COUNT 2.82 MIL/MM3 (4.00-5.30); RED CELL DISTRIBUTION WIDTH 17.4 % (11.6-17.2); WHITE BLOOD COUNT 9.3 TH/MM3 (4.0-11.0)
[2018-01-24] MEDS: ENOXAPARIN SODIUM 40 MG/0.4 ML SYRINGE SQ SCH (12:27)
[2018-01-24] MEDS: fentaNYL 25 MCG/HR PATCH T-DERMAL SCH (12:27)
[2018-01-24] MEDS: SIMETHICONE 125 MG CHEWABLE TAB PO SCH ×2 (14:55→22:00)
--- NOTE | 2018-01-24 15:05 | HHI.PR ---
Subjective Remarks Pain under control today. Patient appears to be doing well. She says she has some gas but less pain than when she was admitted. Objective Vital Signs Date Time Temp Pulse Resp B/P (MAP) Pulse Ox O2 Delivery O2 Flow Rate FiO2 01/24/18 12:00 98.7 66 19 97/55 (69) 92 01/24/18 12:00 66 01/24/18 10:00 73 01/24/18 08:00 61 01/24/18 08:00 99.1 61 17 118/58 (78) 96 01/24/18 07:15 96 Nasal Cannula 2.00 01/24/18 06:00 61 01/24/18 06:00 18 01/24/18 04:00 61 01/24/18 04:00 98.9 73 18 92/49 (63) 94 01/24/18 02:00 62 01/24/18 00:00 98.6 62 14 89/47 (61) 98 01/24/18 00:00 62 01/23/18 22:00 64 01/23/18 20:00 68 01/23/18 20:00 100 Room Air 01/23/18 20:00 98.9 68 20 119/58 (78) 97 01/23/18 18:00 61 01/23/18 16:40 21 01/23/18 16:19 9 01/23/18 16:00 98.2 68 22 107/53 (71) 97 01/23/18 16:00 64 I/O 01/23/18 01/23/18 01/23/18 01/24/18 01/24/18 01/24/18 07:00 15:00 23:00 07:00 15:00 23:00 Intake Total 1491 ml 790 ml 475 ml Output Total 800 ml 725 ml 500 ml Balance 691 ml 65 ml -25 ml Intake Oral 480 ml 540 ml 475 ml IV Total 1011 ml 250 ml Output Urine Total 800 ml 725 ml 500 ml # Bowel Movements 0 0 0 Result Diagram: 01/24/18 0950 01/23/18 0503 Objective Remarks GENERAL: NAD, A&Ox3 HEAD: Normocephalic. NECK: Supple, trachea midline. No lymphadenopathy. EYES: No scleral icterus. No injection or drainage. CARDIOVASCULAR: Regular rate and rhythm without murmurs, gallops, or rubs. RESPIRATORY: Breath sounds equal bilaterally. No accessory muscle use. GASTROINTESTINAL: Abdomen soft, non-tender, nondistended. MUSCULOSKELETAL: No cyanosis, or edema. SKIN: Warm and dry. NEURO: No focal neurological deficitis. A/P Assessment and Plan 77-year-old female admitted for laparotomy with discovery of diffuse metastatic disease related to ovarian cancer. Metastatic Ovarian Cancer Status post laparoscopic biopsy Dr. Fletcher following Continue pain control as needed Coronary artery disease Continue home beta aga Continue home statin Hypertension Continue home Losartan Continue home Lasix Atrial fibrillation Continue dronedarone. Xarelto Rate controlled Continue home beta aga Hyperlipidemia Continue home statin Insomnia Continue prn home ativan Continue home zoloft, at the patient's request. GERD Continue ppi Hypothyroidism Continue synthroid Discharge planning Out of ICU today Oncology and Surgical clearance needed Jules Ambrosio MD Jan 24, 2018 15:05
[2018-01-24] MEDS: METOPROLOL SUCCINATE 50 MG EXTENDED RELEASE TAB PO SCH (16:00)
[2018-01-24 16:50] LABS: BICARBONATE 28.6 MEQ/L (21.0-32.0); CALCIUM 8.3 MG/DL (8.5-10.1); CREATININE 1.12 MG/DL (0.50-1.00)
[2018-01-24] MEDS: LOSARTAN 25 MG TAB PO SCH (21:00)
[2018-01-24] MEDS: ONDANSETRON HCL 4 MG/2 ML VIAL IVP PRN (21:25)
[2018-01-24] MEDS: LORazepam 0.5 MG TAB PO PRN (21:25)
[2018-01-24] MEDS: SERTRALINE HCL 50 MG TAB PO SCH (21:26)
[2018-01-24] MEDS: ATORVASTATIN 20 MG TAB PO SCH (21:26)
[2018-01-25] VITALS (23 sets, daily range): BP systolic 140–159; BP diastolic 65–80; PULSE 58–100; RESP 18–20; TEMP 97.7–98.5; O2SAT 95–98
[2018-01-25] MEDS: KETOROLAC TROMETHAMINE 30 MG/ML (IVP) VIAL IVP SCH ×2 (02:42→09:32)
[2018-01-25] MEDS: ONDANSETRON HCL 4 MG/2 ML VIAL IVP PRN ×2 (02:42→11:49)
[2018-01-25] MEDS: LEVOTHYROXINE SODIUM 50 MCG TAB PO SCH (05:00)
[2018-01-25] MEDS: SIMETHICONE 125 MG CHEWABLE TAB PO SCH (05:00)
[2018-01-25] MEDS: PCA - TOTAL MG MORPHINE DELIVERED PER SHIFT SCH (05:28)
[2018-01-25 05:42] LABS: AUTOMATED NEUTROPHIL # 4.8 TH/MM3 (1.8-7.7); BASOPHIL % 0.3 % (0.0-2.0); EOSINOPHIL # 0.2 TH/MM3 (0-0.4); EOSINOPHIL % 2.9 % (0.0-4.0); HEMATOCRIT 26.7 % (35.0-46.0); HEMOGLOBIN 8.9 GM/DL (11.6-15.3); LYMPH % 10.9 % (9.0-44.0); LYMPHOCYTE # 0.7 TH/MM3 (1.0-4.8); MEAN CELL VOLUME 95.1 FL (80.0-100.0); MEAN CORPUSCULAR HEMOGLOBIN 31.7 PG (27.0-34.0); MEAN CORPUSCULAR HGB CONC 33.3 % (32.0-36.0); MEAN PLATELET VOLUME 8.3 FL (7.0-11.0); MONO % 13.5 % (0.0-8.0); MONOCYTE # 0.9 TH/MM3 (0-0.9); NEUT % 72.4 % (16.0-70.0); PLATELET COUNT 192 TH/MM3 (150-450); RED CELL DISTRIBUTION WIDTH 17.1 % (11.6-17.2); WHITE BLOOD COUNT 6.6 TH/MM3 (4.0-11.0)
[2018-01-25 06:16] LABS: ALBUMIN 2.2 GM/DL (3.4-5.0); AST (GOT) 28 U/L (15-37); BICARBONATE 27.8 MEQ/L (21.0-32.0); BLOOD UREA NITROGEN 19 MG/DL (7-18); CALCIUM 8.5 MG/DL (8.5-10.1); CHLORIDE 103 MEQ/L (98-107); CREATININE 1.32 MG/DL (0.50-1.00); GLOMERULAR FILTRATION RATE 39 ML/MIN (>89); GLUCOSE,RANDOM 108 MG/DL (74-106); SODIUM (NA) 139 MEQ/L (136-145)
[2018-01-25 06:17] LABS: ALT (GPT) 17 U/L (10-53)
[2018-01-25 06:19] LABS: ALKALINE PHOSPHATASE 101 U/L (45-117); TOTAL BILIRUBIN ADULT 0.6 MG/DL (0.2-1.0); TOTAL PROTEIN 5.7 GM/DL (6.4-8.2)
--- NOTE | 2018-01-25 08:33 | PD.ONC.PN ---
Subjective Subjective Remarks POD #3 patient states she had a bad night had + vomiting states she is starting to feel the constipated and bloated states the Gas X is not really helping normally using MOM at home, I reminded her that she has not had much to eat and she had a bowel prep prior to surgery..it may take several days to have a BM once she is eating regularly again. Will D/C CARCASS SPLITTER today not sure why huntley was not discontinued on POD #2 as orders written. will order D/C huntley today and clarify with her RN pt will get OOB to chair TID today Mrs. Mccurdy is interested in rehab so I will consult case management. Objective Data Date Time Temp Pulse Resp B/P (MAP) Pulse Ox O2 Delivery O2 Flow Rate FiO2 01/25/18 06:00 58 01/25/18 05:28 20 01/25/18 05:00 66 01/25/18 04:00 60 01/25/18 04:00 98.0 67 20 146/75 (98) 97 01/25/18 03:00 58 01/25/18 02:00 70 01/25/18 01:00 60 01/25/18 00:00 97.7 69 20 140/65 (90) 98 01/25/18 00:00 68 01/24/18 23:00 62 01/24/18 22:00 68 01/24/18 22:00 21 01/24/18 21:00 76 01/24/18 20:00 Nasal Cannula 2.00 01/24/18 20:00 79 01/24/18 20:00 98.0 87 22 140/64 (89) 97 01/24/18 17:30 96.0 66 18 125/60 (81) 93 01/24/18 16:20 67 01/24/18 16:00 98.5 67 19 98/51 (67) 98 01/24/18 14:00 66 01/24/18 14:00 21 01/24/18 12:00 98.7 66 19 97/55 (69) 92 01/24/18 12:00 66 01/24/18 10:00 73 Result Diagram: 01/25/18 0510 01/25/18 0510 Laboratory Results Laboratory Tests Test 01/24/18 09:50 01/24/18 15:50 01/25/18 05:10 White Blood Count 9.3 TH/MM3 6.6 TH/MM3 Red Blood Count 2.82 MIL/MM3 2.80 MIL/MM3 Hemoglobin 9.1 GM/DL 8.9 GM/DL Hematocrit 26.7 % 26.7 % Mean Corpuscular Volume 94.5 FL 95.1 FL Mean Corpuscular Hemoglobin 32.2 PG 31.7 PG Mean Corpuscular Hemoglobin Concent 34.1 % 33.3 % Red Cell Distribution Width 17.4 % 17.1 % Platelet Count 217 TH/MM3 192 TH/MM3 Mean Platelet Volume 8.3 FL 8.3 FL Blood Urea Nitrogen 18 MG/DL 19 MG/DL Creatinine 1.12 MG/DL 1.32 MG/DL Random Glucose 120 MG/DL 108 MG/DL Calcium Level 8.3 MG/DL 8.5 MG/DL Sodium Level 139 MEQ/L 139 MEQ/L Potassium Level 3.8 MEQ/L 4.1 MEQ/L Chloride Level 103 MEQ/L 103 MEQ/L Carbon Dioxide Level 28.6 MEQ/L 27.8 MEQ/L Anion Gap 7 MEQ/L 8 MEQ/L Estimat Glomerular Filtration Rate 47 ML/MIN 39 ML/MIN Neutrophils (%) (Auto) 72.4 % Lymphocytes (%) (Auto) 10.9 % Monocytes (%) (Auto) 13.5 % Eosinophils (%) (Auto) 2.9 % Basophils (%) (Auto) 0.3 % Neutrophils # (Auto) 4.8 TH/MM3 Lymphocytes # (Auto) 0.7 TH/MM3 Monocytes # (Auto) 0.9 TH/MM3 Eosinophils # (Auto) 0.2 TH/MM3 Basophils # (Auto) 0.0 TH/MM3 CBC Comment DIFF FINAL Differential Comment Total Protein 5.7 GM/DL Albumin 2.2 GM/DL Alkaline Phosphatase 101 U/L Aspartate Amino Transf (AST/SGOT) 28 U/L Alanine Aminotransferase (ALT/SGPT) 17 U/L Total Bilirubin 0.6 MG/DL Administered Medications Medications (Trade) Dose Ordered Sig/Eveline Route PRN Reason Start Time Stop Time Status Last Admin Dose Admin Atorvastatin Calcium (Lipitor) 20 mg HS PO 01/22/18 21:00 01/24/18 21:26 Docusate Sodium (Colace) 100 mg BID PO 01/22/18 21:00 01/24/18 21:26 Furosemide (Lasix) 20 mg DAILY PO 01/23/18 09:00 01/24/18 08:52 Levothyroxine Sodium (Synthroid) 50 mcg DAILY@0600 PO 01/23/18 06:00 01/25/18 05:00 Lorazepam (Ativan) 0.5 mg HS PRN PO ANXIETY AND/OR INSOMNIA 01/22/18 09:30 01/24/18 21:25 Losartan Potassium (Cozaar) 25 mg HS PO 01/22/18 21:00 01/24/18 21:00 Metoclopramide HCl (Reglan) 10 mg QID PO 01/22/18 13:00 01/24/18 21:26 Pantoprazole Sodium (Protonix) 40 mg DAILY PO 01/23/18 09:00 01/24/18 08:52 Simethicone (Phazyme Chew) 250 mg BID PRN PO GAS RETENTION 01/22/18 12:45 01/23/18 14:44 Sodium Chloride (NS Flush) 2 ml BID IV FLUSH 01/22/18 21:00 01/24/18 21:00 Ketorolac Tromethamine (Toradol Inj) 15 mg Q6H IVP 01/22/18 15:00 01/25/18 09:01 01/25/18 02:42 Ondansetron HCl (Zofran Inj) 4 mg Q6H PRN IVP NAUSEA OR VOMITING 01/22/18 09:45 01/25/18 02:42 Morphine Sulfate (Morphine 1 Mg/ ml [facility]) 30 mg UNSCH IV 01/22/18 09:45 01/23/18 16:19 [facility] Dosage Infused (Pha) 1 Q8HR .XX 01/22/18 14:00 01/25/18 05:28 Sertraline HCl (Zoloft) 25 mg HS PO 01/22/18 21:00 01/24/18 21:26 Dronedarone (Multaq) 400 mg BIDPC PO 01/23/18 18:00 01/24/18 18:48 Simethicone (Phazyme Chew) 125 mg Q8HR PO 01/24/18 14:00 01/24/18 14:55 Fentanyl (Duragesic 25 Mcg Patch.72 Hr) 1 patch Q3D T-DERMAL 01/24/18 10:00 01/24/18 12:27 Objective Remarks GENERAL: frail in NAD SKIN: Warm and dry. HEAD: Normocephalic. EYES: No scleral icterus. No injection or drainage. CARDIOVASCULAR: Regular rate and rhythm without murmurs. RESPIRATORY: Breath sounds equal bilaterally. No accessory muscle use. GASTROINTESTINAL: dressing C/D/I EXTREMITIES: teds and scds MUSCULOSKELETAL: Adequate muscle tone. NEUROLOGICAL: No obvious focal deficit. Awake, alert, and oriented x3. PSYCHIATRIC: Appropriate mood and affect; insight and judgment normal. Assessment/Plan Problem List: (1) Ovarian ca ICD Codes: C56.9 - Malignant neoplasm of unspecified ovary Status: Acute Plan: post op orders in EMR [facility]PLITTER for pain full liquid diet OOB to chair PRN D/C huntley on POD #2 anticipate discharge in the next 48 hours 01/24/18 POD #2 patient to transfer to floor today, hospitalist consulted will continue [facility]PL[facility] for another day orders to D/C huntley today OOB to chair continue heart healthy diet continue IS Protonix 01/25/18 POD #3 +vomiting last night consult case management for rehab placement D/C Huntley and [facility] SPLITTER today OOB to chair TID antiemetics for nausea/vomiting Pt's Xarelto has been restarted started Duragesic patch 25mcg (01/24/18) to help with pain control Lino Miller Jan 25, 2018 08:33
[2018-01-25] MEDS: DRONEDARONE 400 MG TAB PO SCH (09:00)
[2018-01-25] MEDS: FUROSEMIDE 20 MG TAB PO SCH (09:00)
[2018-01-25] MEDS: RIVAROXABAN 15 MG TAB PO SCH (09:00)
[2018-01-25] MEDS: SODIUM CHLORIDE 0.9% FLUSH 10 ML FLUSH IV FLUSH SCH ×2 (09:00→21:00)
[2018-01-25] MEDS: PANTOPRAZOLE SOD 40 MG DELAYED RELEASE TAB PO SCH (09:31)
[2018-01-25] MEDS: METOCLOPRAMIDE HCL 10 MG TAB PO SCH ×3 (09:40→21:00)
[2018-01-25] MEDS ORDERED: MAGNESIUM HYDROXIDE SUSP 30 ML CUP PO PRN (13:00)
[2018-01-25] MEDS: DEXT 5%-NACL 0.45% 1000 ML INJ 1,000 ML IV SCH (15:19)
[2018-01-25] MEDS: METOPROLOL SUCCINATE 50 MG EXTENDED RELEASE TAB PO SCH (16:00)
--- NOTE | 2018-01-25 17:16 | HHI.PR ---
Subjective Remarks Patient complains of nausea, vomiting and postop pain. She says any flatulence has been minimal. She has had no bowel movements. Objective Vitals Vital Signs Date Time Temp Pulse Resp B/P (MAP) Pulse Ox O2 Delivery O2 Flow Rate FiO2 01/25/18 12:28 97.8 79 18 153/70 (97) 97 01/25/18 12:15 73 01/25/18 08:30 73 01/25/18 08:30 97.7 75 18 159/71 (100) 98 01/25/18 07:15 Nasal Cannula 2.00 01/25/18 06:00 58 01/25/18 05:28 20 01/25/18 05:00 66 01/25/18 04:00 60 01/25/18 04:00 98.0 67 20 146/75 (98) 97 01/25/18 03:00 58 01/25/18 02:00 70 01/25/18 01:00 60 01/25/18 00:00 97.7 69 20 140/65 (90) 98 01/25/18 00:00 68 01/24/18 23:00 62 01/24/18 22:00 68 01/24/18 22:00 21 01/24/18 21:00 76 01/24/18 20:00 Nasal Cannula 2.00 01/24/18 20:00 79 01/24/18 20:00 98.0 87 22 140/64 (89) 97 01/24/18 17:30 96.0 66 18 125/60 (81) 93 I/O 01/24/18 01/24/18 01/24/18 01/25/18 01/25/18 01/25/18 06:59 14:59 22:59 06:59 14:59 22:59 Intake Total 475 ml 480 ml Output Total 500 ml 1050 ml Balance -25 ml -570 ml Intake Oral 475 ml 480 ml Output Urine Total 500 ml 750 ml Emesis 300 ml # Bowel Movements 0 0 Result Diagram: 01/25/18 0510 01/25/18 0510 Objective Remarks GENERAL: Weak, well-developed patient. SKIN: Warm and dry. HEAD: Normocephalic. EYES: No scleral icterus. No injection or drainage. NECK: Supple, trachea midline. No JVD or lymphadenopathy. CARDIOVASCULAR: Regular rate and rhythm without murmurs, gallops, or rubs. RESPIRATORY: Breath sounds equal bilaterally. No accessory muscle use. GASTROINTESTINAL: Abdomen gas-filled, bloated, post-op tender, nondistended. EXTREMITIES: No cyanosis, or edema. NEUROLOGICAL: Awake, alert, and oriented x 3. Non-focal. A/P Problem List: (1) Ovarian ca ICD Code: C56.9 - Malignant neoplasm of unspecified ovary Status: Acute Assessment and Plan Metastatic Ovarian Cancer s/p Omentectomy Continue pain control as needed Extensive metastasis of cancer found on bowel clarke Omentum removed Dr. Fletcher attending Nausea/Vomiting, Illeus Hypoactive bowel sounds, postop tenderness, minimal passage of gas Nausea not well controlled on Zofran, will change to IV Compazine as needed Continue gentle IVF hydration Coronary artery disease, Hyperlipidemia Continue home beta aga, statin Hypertension Continue home Losartan, lasix Atrial fibrillation Continue dronedarone., Xarelto, beta aga Rate controlled Insomnia Continue prn home ativan Continue home zoloft, at the patient's request. GERD Continue ppi Hypothyroidism Continue synthroid Discharge planning Not near to discharge yet Gene Ambrosio MD Jan 25, 2018 17:16
[2018-01-25] MEDS: PROCHLORPERAZINE INJ 10 MG/2 ML VIAL IV PUSH PRN (17:50)
[2018-01-25] MEDS: METOCLOPRAMIDE HCL 10 MG/2 ML VIAL IV PUSH PRN (19:48)
[2018-01-25] MEDS: LOSARTAN 25 MG TAB PO SCH (21:00)
[2018-01-25] MEDS: DOCUSATE SODIUM 100 MG CAP PO SCH (21:00)
[2018-01-25] MEDS: ATORVASTATIN 20 MG TAB PO SCH (21:00)
[2018-01-25] MEDS: SERTRALINE HCL 50 MG TAB PO SCH (21:00)
[2018-01-25] MEDS: PANTOPRAZOLE SODIUM 40 MG VIAL IV PUSH SCH (22:00)
[2018-01-26] VITALS (14 sets, daily range): BP systolic 149–165; BP diastolic 72–84; PULSE 66–106; RESP 18–22; TEMP 97.5–98.6; O2SAT 94–98
[2018-01-26] MEDS: DEXT 5%-NACL 0.45% 1000 ML INJ 1,000 ML IV SCH ×3 (02:28→23:12)
[2018-01-26] MEDS: LEVOTHYROXINE SODIUM 50 MCG TAB PO SCH (06:00)
[2018-01-26 06:51] LABS: MEAN CELL VOLUME 94.2 FL (80.0-100.0); MEAN CORPUSCULAR HEMOGLOBIN 31.6 PG (27.0-34.0); MEAN CORPUSCULAR HGB CONC 33.5 % (32.0-36.0); MEAN PLATELET VOLUME 8.3 FL (7.0-11.0); PLATELET COUNT 258 TH/MM3 (150-450); RED BLOOD COUNT 3.18 MIL/MM3 (4.00-5.30); RED CELL DISTRIBUTION WIDTH 16.8 % (11.6-17.2); WHITE BLOOD COUNT 7.8 TH/MM3 (4.0-11.0)
[2018-01-26 07:01] LABS: BICARBONATE 29.1 MEQ/L (21.0-32.0); CALCIUM 8.8 MG/DL (8.5-10.1); CREATININE 0.88 MG/DL (0.50-1.00)
[2018-01-26] MEDS: METOCLOPRAMIDE HCL 10 MG TAB PO SCH ×4 (07:59→21:36)
[2018-01-26] MEDS: PROCHLORPERAZINE INJ 10 MG/2 ML VIAL IV PUSH PRN ×3 (07:59→21:19)
[2018-01-26] MEDS: SODIUM CHLORIDE 0.9% FLUSH 10 ML FLUSH IV FLUSH SCH ×2 (07:59→21:00)
[2018-01-26] MEDS: METOCLOPRAMIDE HCL 10 MG/2 ML VIAL IV PUSH PRN ×2 (07:59→13:51)
--- NOTE | 2018-01-26 08:45 | HHI.PR ---
Subjective . She reports nausea with emesis, abdominal distention +/- flatus, poor tolerance of oral intake despite hob > 45 degrees, anti-emetics, ivfs, protonix she felt poorly enough to consider ngt Objective . afeb, vss gastic output 300 h/h 1030, bun/creat 15/0.88 nad, uncomfortable lungs cta, rales at bases, rrr abdomen distended, scant bs, incision clean and dry Assessment/Plan . pod# 4, she was seen yesterday afternoon and again today, also spoke with ileus with underlying carcinomatosis and compromised peristalsis cpm, supportive care, bowel rest, ivf, antiemetics, h2 blockers Q&A, difficult nature of overall situation again discussed grateful for care by intensivists and hospitalists teams Yamileth Fletcher MD Jan 26, 2018 08:45
[2018-01-26] MEDS: DRONEDARONE 400 MG TAB PO SCH ×2 (09:00→16:54)
[2018-01-26] MEDS: DOCUSATE SODIUM 100 MG CAP PO SCH ×2 (09:00→21:00)
[2018-01-26] MEDS: FUROSEMIDE 20 MG TAB PO SCH (09:00)
[2018-01-26] MEDS: RIVAROXABAN 15 MG TAB PO SCH (09:00)
[2018-01-26] MEDS: LORazepam 2 MG/ML VIAL IV PUSH PRN ×2 (13:51→21:20)
[2018-01-26] MEDS: METOPROLOL SUCCINATE 50 MG EXTENDED RELEASE TAB PO SCH (14:43)
--- NOTE | 2018-01-26 15:26 | HHI.PR ---
Addendum to Inpatient Note Addendum Reason: Additional Documentation Additional Information I spoke with Dr. Bryn Ambrosio at 3:15 pm today. As I am not personnel adviser this weekend for product manager/onc, and I am tentatively to be out of town, I asked for his continued assistance. Dr. Ambrosio is personnel adviser this weekend, and graciously agreed to cover in overseeing the care of Aster Mccurdy this weekend, along with his [facility] colleagues. I am most grateful, and I am always reachable by cell phone. I will try to get to the hospital at some point this weekend to check on her. Yamileth Fletcher MD Jan 26, 2018 15:26
--- NOTE | 2018-01-26 17:32 | HHI.PR ---
Subjective Remarks Patient states her pain is slightly better today. She had an episode of small scant diarrhea. Her abdomen is less bloated following NG tube placement. Her new complaint is that she has minimal urine output. Objective Vitals Vital Signs Date Time Temp Pulse Resp B/P (MAP) Pulse Ox O2 Delivery O2 Flow Rate FiO2 01/26/18 16:49 Room Air 01/26/18 16:00 97.5 76 18 152/80 (104) 94 01/26/18 15:00 105 01/26/18 13:55 95 Room Air 01/26/18 12:00 98.2 88 18 149/72 (97) 94 01/26/18 11:00 100 01/26/18 09:00 Nasal Cannula 2.00 01/26/18 08:00 97.5 98 18 165/84 (111) 96 01/26/18 07:00 66 01/26/18 04:00 97.5 95 20 153/79 (103) 97 01/26/18 04:00 89 01/26/18 00:00 98.6 89 22 160/80 (106) 98 01/26/18 00:00 94 01/25/18 20:00 98.5 90 20 143/80 (101) 95 01/25/18 20:00 Nasal Cannula 2.00 01/25/18 20:00 100 01/25/18 19:00 96 01/25/18 18:00 96 I/O 01/25/18 01/25/18 01/25/18 01/26/18 01/26/18 01/26/18 07:00 15:00 23:00 07:00 15:00 23:00 Intake Total 600 ml 250 ml Output Total 350 ml 300 ml 200 ml Balance 250 ml -50 ml -200 ml Intake Oral 600 ml 250 ml Output Urine Total 350 ml Gastric Drainage Total 300 ml Emesis 200 ml Bladder Scan Volume Amount 89 ml 75 ml 41 ml # Bowel Movements 0 Result Diagram: 01/26/1859901/26/18 06 Objective Remarks GENERAL: Weak, well-developed patient. SKIN: Warm and dry. HEAD: Normocephalic. EYES: No scleral icterus. No injection or drainage. NECK: Supple, trachea midline. No JVD or lymphadenopathy. CARDIOVASCULAR: Regular rate and rhythm without murmurs, gallops, or rubs. RESPIRATORY: Breath sounds equal bilaterally. No accessory muscle use. GASTROINTESTINAL: Abdomen gas-filled, bloated, post-op tender, nondistended. EXTREMITIES: No cyanosis, or edema. NEUROLOGICAL: Awake, alert, and oriented x 3. Non-focal. A/P Problem List: (1) Ovarian ca ICD Code: C56.9 - Malignant neoplasm of unspecified ovary Status: Acute Assessment and Plan Metastatic Ovarian Cancer s/p Omentectomy Extensive metastasis of cancer found on bowel clarke Omentum surgically removed Continue IV pain management Dr. Fletcher attending Nausea/Vomiting, Illeus Hypoactive bowel sounds, postop tenderness Abdomen is slightly softer today, small bowel movement Continue IV Compazine as needed Continue IV fluid hydration Low urine output Bladder scan ordered, will treat accordingly based on findings Consider losses involvement and NG tube Increase IV fluid rate Coronary artery disease, Hyperlipidemia Continue home beta aga, statin Hypertension Continue home Losartan, lasix Atrial fibrillation Continue dronedarone., Xarelto, beta aga Rate controlled Insomnia Continue prn home ativan Continue home zoloft, at the patient's request. GERD Continue ppi Hypothyroidism Continue synthroid DVT prophylaxis SCDs Discharge planning Not near to discharge yet Gene Ambrosio MD Jan 26, 2018 17:32
[2018-01-26] MEDS: MORPHINE SULFATE 2 MG/ML SYRINGE SQ PRN (21:19)
[2018-01-26] MEDS: PANTOPRAZOLE SODIUM 40 MG VIAL IV PUSH SCH (21:20)
[2018-01-26] MEDS: LOSARTAN 25 MG TAB PO SCH (21:40)
[2018-01-26] MEDS: ATORVASTATIN 20 MG TAB PO SCH (21:40)
[2018-01-26] MEDS: SERTRALINE HCL 50 MG TAB PO SCH (21:41)
[2018-01-27] VITALS (22 sets, daily range): BP systolic 113–154; BP diastolic 57–79; PULSE 70–132; RESP 16–18; TEMP 97.6–99.1; O2SAT 92–96
[2018-01-27] MEDS: MORPHINE SULFATE 2 MG/ML SYRINGE SQ PRN ×2 (03:25→09:43)
[2018-01-27] MEDS: PROCHLORPERAZINE INJ 10 MG/2 ML VIAL IV PUSH PRN ×4 (03:28→20:57)
[2018-01-27 06:01] LABS: HEMATOCRIT 27.2 % (35.0-46.0); HEMOGLOBIN 9.1 GM/DL (11.6-15.3); MEAN CELL VOLUME 93.2 FL (80.0-100.0); MEAN CORPUSCULAR HEMOGLOBIN 31.3 PG (27.0-34.0); MEAN CORPUSCULAR HGB CONC 33.6 % (32.0-36.0); MEAN PLATELET VOLUME 8.3 FL (7.0-11.0); PLATELET COUNT 238 TH/MM3 (150-450); RED BLOOD COUNT 2.92 MIL/MM3 (4.00-5.30); RED CELL DISTRIBUTION WIDTH 16.2 % (11.6-17.2); WHITE BLOOD COUNT 6.6 TH/MM3 (4.0-11.0)
[2018-01-27] MEDS: LEVOTHYROXINE SODIUM 50 MCG TAB PO SCH (06:04)
[2018-01-27 06:24] LABS: BICARBONATE 27.6 MEQ/L (21.0-32.0); CALCIUM 8.4 MG/DL (8.5-10.1); CREATININE 0.76 MG/DL (0.50-1.00)
[2018-01-27] MEDS: METOCLOPRAMIDE HCL 10 MG TAB PO SCH ×4 (09:43→21:01)
[2018-01-27] MEDS: DOCUSATE SODIUM 100 MG CAP PO SCH ×2 (09:43→21:01)
[2018-01-27] MEDS: fentaNYL 25 MCG/HR PATCH T-DERMAL SCH (09:44)
[2018-01-27] MEDS: RIVAROXABAN 15 MG TAB PO SCH (09:44)
[2018-01-27] MEDS: FUROSEMIDE 20 MG TAB PO SCH (09:44)
[2018-01-27] MEDS: DRONEDARONE 400 MG TAB PO SCH ×2 (09:44→17:39)
[2018-01-27] MEDS: REMOVE OLD DURAGESIC (FENTANYL) PATCH T-DERMAL SCH (09:45)
[2018-01-27] MEDS: SODIUM CHLORIDE 0.9% FLUSH 10 ML FLUSH IV FLUSH SCH ×2 (09:45→21:02)
[2018-01-27] MEDS: DEXT 5%-NACL 0.45% 1000 ML INJ 1,000 ML IV SCH ×3 (09:46→21:03)
[2018-01-27] MEDS: LORazepam 2 MG/ML VIAL IV PUSH PRN ×2 (11:48→21:08)
[2018-01-27] MEDS: METOPROLOL TARTRATE 5 MG/5 ML VIAL IV PUSH SCH ×3 (11:48→23:59)
--- NOTE | 2018-01-27 15:03 | HHI.PR ---
Subjective Remarks 77-year-old female with uterine cancer status post attempted omentectomy. She is recovering slowly postop with hypoactive bowel, potential ileus. She states it stays she feels a little better, notes that she has passed a little more gas this morning. Objective Vitals Vital Signs Date Time Temp Pulse Resp B/P (MAP) Pulse Ox O2 Delivery O2 Flow Rate FiO2 01/27/18 12:30 84 01/27/18 11:45 98.0 100 18 152/78 (102) 95 01/27/18 08:30 95 Room Air 01/27/18 08:30 97.6 96 18 144/67 (92) 93 01/27/18 08:17 118 01/27/18 06:54 90 01/27/18 05:00 82 01/27/18 04:06 86 01/27/18 04:00 98.5 95 18 130/62 (84) 95 01/27/18 03:30 16 01/27/18 03:00 88 01/27/18 02:00 90 01/27/18 01:00 92 01/27/18 00:11 98 01/27/18 00:00 99.1 97 16 151/71 (97) 96 01/26/18 23:00 98 01/26/18 22:00 100 01/26/18 21:12 98.1 106 19 152/80 (104) 97 01/26/18 21:12 Room Air 01/26/18 21:00 100 01/26/18 20:07 104 01/26/18 19:00 104 01/26/18 16:49 Room Air 01/26/18 16:00 97.5 76 18 152/80 (104) 94 01/26/18 15:00 105 I/O 01/26/18 01/26/18 01/26/18 01/27/18 01/27/18 01/27/18 07:00 15:00 23:00 07:00 15:00 23:00 Intake Total 250 ml 1000 ml 120 ml Output Total 300 ml 200 ml 525 ml 150 ml Balance -50 ml 800 ml -405 ml -150 ml Intake Oral 250 ml 120 ml IV Total 1000 ml Gastric Drainage Total 300 ml 525 ml 150 ml Emesis 200 ml Bladder Scan Volume Amount 75 ml 41 ml # Voids 3 1 # Bowel Movements 2 Result Diagram: 01/27/18 0544 01/27/18 0544 Objective Remarks GENERAL: Weak, well-developed patient. SKIN: Warm and dry. HEAD: Normocephalic. EYES: No scleral icterus. No injection or drainage. NECK: Supple, trachea midline. No JVD or lymphadenopathy. CARDIOVASCULAR: Regular rate and rhythm without murmurs, gallops, or rubs. RESPIRATORY: Breath sounds equal bilaterally. No accessory muscle use. GASTROINTESTINAL: Abdomen less bloated, hypoactive bowel sounds, post-op tenderness, nondistended. EXTREMITIES: No cyanosis, or edema. NEUROLOGICAL: Awake, alert, and oriented x 3. Non-focal. A/P Problem List: (1) Ovarian ca ICD Code: C56.9 - Malignant neoplasm of unspecified ovary Status: Acute Assessment and Plan Metastatic Ovarian Cancer s/p Omentectomy Extensive metastasis of cancer found on bowel clarke Omentum surgically removed Continue IV pain management Dr. Fletcher attending Recurrent asymptomatic ventricular tachycardia 3 runs of V. tach in the last 24 hours Patient is currently still n.p.o. and unable to take her amiodarone Lopressor added 1.25 mg every 6 hours Nausea/Vomiting, Illeus Hypoactive bowel sounds, postop tenderness Abdomen is slightly softer today, small bowel movement Continue IV Compazine as needed IV fluid hydration Low urine output Bladder scan ordered, will treat accordingly based on findings Consider losses involvement and NG tube Coronary artery disease, Hyperlipidemia Continue home beta aga, statin Hypertension Continue home Losartan, lasix Atrial fibrillation Continue dronedarone., Xarelto, beta aga Rate controlled Insomnia Continue prn home ativan Continue home zoloft, at the patient's request. GERD Continue ppi Hypothyroidism Continue synthroid DVT prophylaxis SCDs Discharge planning Not near to discharge yet Gene Ambrosio MD Jan 27, 2018 15:03
[2018-01-27] MEDS: MORPHINE SULFATE 2 MG/ML SYRINGE IV PRN ×2 (15:37→21:08)
[2018-01-27] MEDS: METOPROLOL SUCCINATE 50 MG EXTENDED RELEASE TAB PO SCH (17:39)
[2018-01-27] MEDS: PANTOPRAZOLE SODIUM 40 MG VIAL IV PUSH SCH (21:00)
[2018-01-27] MEDS: SERTRALINE HCL 50 MG TAB PO SCH (21:01)
[2018-01-27] MEDS: ATORVASTATIN 20 MG TAB PO SCH (21:02)
[2018-01-27] MEDS: LOSARTAN 25 MG TAB PO SCH (21:02)
[2018-01-28] VITALS (19 sets, daily range): BP systolic 96–142; BP diastolic 42–70; PULSE 60–115; RESP 12–18; TEMP 97.8–98.7; O2SAT 92–96
[2018-01-28] MEDS: PROCHLORPERAZINE INJ 10 MG/2 ML VIAL IV PUSH PRN ×3 (03:30→22:00)
[2018-01-28] MEDS: METOPROLOL TARTRATE 5 MG/5 ML VIAL IV PUSH SCH ×4 (04:00→22:02)
[2018-01-28 05:27] LABS: HEMATOCRIT 25.4 % (35.0-46.0); HEMOGLOBIN 8.7 GM/DL (11.6-15.3); MEAN CELL VOLUME 93.7 FL (80.0-100.0); MEAN CORPUSCULAR HEMOGLOBIN 31.9 PG (27.0-34.0); MEAN CORPUSCULAR HGB CONC 34.1 % (32.0-36.0); MEAN PLATELET VOLUME 8.5 FL (7.0-11.0); PLATELET COUNT 222 TH/MM3 (150-450); RED BLOOD COUNT 2.72 MIL/MM3 (4.00-5.30); RED CELL DISTRIBUTION WIDTH 16.8 % (11.6-17.2); WHITE BLOOD COUNT 7.5 TH/MM3 (4.0-11.0)
[2018-01-28] MEDS: LEVOTHYROXINE SODIUM 50 MCG TAB PO SCH (05:29)
[2018-01-28] MEDS: DEXT 5%-NACL 0.45% 1000 ML INJ 1,000 ML IV SCH (05:40)
[2018-01-28 05:56] LABS: BICARBONATE 27.9 MEQ/L (21.0-32.0); CALCIUM 7.6 MG/DL (8.5-10.1); CREATININE 0.79 MG/DL (0.50-1.00)
[2018-01-28] MEDS: DOCUSATE SODIUM 100 MG CAP PO SCH ×2 (09:36→20:39)
[2018-01-28] MEDS: SODIUM CHLORIDE 0.9% FLUSH 10 ML FLUSH IV FLUSH SCH ×2 (09:36→20:39)
[2018-01-28] MEDS: MORPHINE SULFATE 2 MG/ML SYRINGE IV PRN (09:36)
[2018-01-28] MEDS: DRONEDARONE 400 MG TAB PO SCH ×2 (09:37→18:21)
[2018-01-28] MEDS: FUROSEMIDE 20 MG TAB PO SCH (09:37)
[2018-01-28] MEDS: RIVAROXABAN 15 MG TAB PO SCH (09:37)
[2018-01-28] MEDS: METOCLOPRAMIDE HCL 10 MG TAB PO SCH ×4 (09:37→20:40)
[2018-01-28] MEDS: NS + KCL 20 MEQ INJ 1,000 ML IV SCH ×2 (12:38→20:39)
--- NOTE | 2018-01-28 15:42 | HHI.PR ---
Subjective Remarks Patient states she feels about the same with abdominal bloating and moderate postop pain. She does admit that she has passed more gas and had one small bowel movement this morning. Objective Vitals Vital Signs Date Time Temp Pulse Resp B/P (MAP) Pulse Ox O2 Delivery O2 Flow Rate FiO2 01/28/18 13:00 98.4 72 16 110/64 (79) 94 01/28/18 12:30 65 01/28/18 08:30 63 01/28/18 08:00 96 Room Air 01/28/18 08:00 98.0 66 16 125/62 (83) 96 01/28/18 06:04 65 01/28/18 05:00 64 01/28/18 04:00 65 01/28/18 04:00 66 01/28/18 04:00 98.7 70 12 96/42 (60) 92 01/28/18 03:00 64 01/28/18 02:00 64 01/28/18 01:00 66 01/28/18 00:08 69 16 114/55 (74) 93 01/28/18 00:00 68 01/28/18 00:00 70 01/27/18 23:56 98.3 74 16 113/57 (75) 93 01/27/18 23:00 70 01/27/18 22:00 74 01/27/18 22:00 74 01/27/18 21:00 94 01/27/18 20:00 92 Room Air 01/27/18 20:00 98.8 74 16 145/78 (100) 92 01/27/18 20:00 72 01/27/18 20:00 77 01/27/18 19:39 122 01/27/18 19:00 132 01/27/18 17:00 97 01/27/18 16:30 98.4 92 18 154/79 (104) 96 I/O 01/27/18 01/27/18 01/27/18 01/28/18 01/28/18 01/28/18 07:00 15:00 23:00 07:00 15:00 23:00 Intake Total 2334 ml 736 ml Output Total 150 ml 1750 ml 200 ml Balance -150 ml 584 ml -200 ml 736 ml Intake Oral 600 ml IV Total 1734 ml 736 ml Output Urine Total 1700 ml Gastric Drainage Total 150 ml 50 ml 200 ml # Voids 1 # Bowel Movements 1 Result Diagram: 01/28/1841901/28/18419 Objective Remarks GENERAL: Weak, well-developed patient. SKIN: Warm and dry. HEAD: Normocephalic. EYES: No scleral icterus. No injection or drainage. NECK: Supple, trachea midline. No JVD or lymphadenopathy. CARDIOVASCULAR: Regular rate and rhythm without murmurs, gallops, or rubs. RESPIRATORY: Breath sounds equal bilaterally. No accessory muscle use. GASTROINTESTINAL: Abdomen less bloated, hypoactive bowel sounds, post-op tenderness, nondistended. EXTREMITIES: No cyanosis, or edema. NEUROLOGICAL: Awake, alert, and oriented x 3. Non-focal. 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 Fletcher attending Nausea/Vomiting, Illeus Improving hypoactive bowel sounds, postop tenderness Abdomen remains soft, still slightly bloated, small bowel movement this morning Overall abdomen is improving, bowel sounds are more active, clamped NG to test if she is able to move her gastric fluids forward If she tolerates NG being clamped she may be tested on clear liquids, then slowly advance diet as tolerated over the next few days Continue IV Compazine as needed Continue IV fluid hydration Hypokalemia Replaced with IV fluids Recheck in a.m. Recurrent asymptomatic ventricular tachycardia No further episodes of ventricular tachycardia after starting Lopressor Patient is currently still n.p.o. and unable to take her amiodarone Lopressor added 1.25 mg every 6 hours Low urine output Bladder scan ordered, will treat accordingly based on findings Consider losses involvement and NG tube Coronary artery disease, Hyperlipidemia Continue home beta aga, statin Hypertension Continue home Losartan, lasix Atrial fibrillation Continue dronedarone., Xarelto, beta aga Rate controlled Insomnia Continue prn home ativan Continue home zoloft, at the patient's request. GERD Continue ppi Hypothyroidism Continue synthroid DVT prophylaxis SCDs Discharge planning Not near to discharge yet Gene Ambrosio MD Jan 28, 2018 15:42
[2018-01-28] MEDS: METOPROLOL SUCCINATE 50 MG EXTENDED RELEASE TAB PO SCH (15:49)
[2018-01-28] MEDS: LORazepam 2 MG/ML VIAL IV PUSH PRN (15:49)
[2018-01-28] MEDS: SERTRALINE HCL 50 MG TAB PO SCH (20:39)
[2018-01-28] MEDS: ATORVASTATIN 20 MG TAB PO SCH (20:39)
[2018-01-28] MEDS: LOSARTAN 25 MG TAB PO SCH (20:39)
[2018-01-28] MEDS: PANTOPRAZOLE SODIUM 40 MG VIAL IV PUSH SCH (20:40)
[2018-01-28] MEDS: LORazepam 0.5 MG TAB PO PRN (21:59)
[2018-01-29] VITALS (19 sets, daily range): BP systolic 124–176; BP diastolic 53–79; PULSE 60–75; RESP 16–20; TEMP 97.4–99.1; O2SAT 94–97
[2018-01-29] MEDS: METOPROLOL TARTRATE 5 MG/5 ML VIAL IV PUSH SCH ×5 (04:00→21:48)
[2018-01-29 04:38] LABS: HEMATOCRIT 26.6 % (35.0-46.0); HEMOGLOBIN 8.9 GM/DL (11.6-15.3); MEAN CELL VOLUME 92.8 FL (80.0-100.0); MEAN CORPUSCULAR HEMOGLOBIN 31.1 PG (27.0-34.0); MEAN CORPUSCULAR HGB CONC 33.5 % (32.0-36.0); MEAN PLATELET VOLUME 8.1 FL (7.0-11.0); PLATELET COUNT 264 TH/MM3 (150-450); RED BLOOD COUNT 2.86 MIL/MM3 (4.00-5.30); RED CELL DISTRIBUTION WIDTH 16.8 % (11.6-17.2); WHITE BLOOD COUNT 9.7 TH/MM3 (4.0-11.0)
[2018-01-29 05:08] LABS: CALCIUM 7.8 MG/DL (8.5-10.1)
[2018-01-29 05:10] LABS: BICARBONATE 24.7 MEQ/L (21.0-32.0); CREATININE 0.78 MG/DL (0.50-1.00)
[2018-01-29] MEDS: LEVOTHYROXINE SODIUM 50 MCG TAB PO SCH (05:43)
[2018-01-29] MEDS: NS + KCL 20 MEQ INJ 1,000 ML IV SCH (05:44)
--- NOTE | 2018-01-29 07:39 | PD.ONC.PN ---
Subjective Subjective Remarks POD #7 RN and patient reports only one episode of nausea since NG clamped yesterday...no vomiting. will start clear liquid diet, she has been taking small sips of water without vomiting. patient requesting regular diet when she can eat again, states the heart healthy diet she can not tolerate. pain controlled was OOB to chair yesterday for a couple of hours PT and RN to ambulate two to three times a day RN reports loose stool X 3 this morning, will test for c diff Objective Data Date Time Temp Pulse Resp B/P (MAP) Pulse Ox O2 Delivery O2 Flow Rate FiO2 01/29/18 05:46 66 16 135/58 (83) 95 01/29/18 05:23 66 01/29/18 05:00 62 01/29/18 04:08 97.9 69 17 125/53 (77) 96 01/29/18 04:00 70 01/29/18 04:00 68 01/29/18 04:00 68 01/29/18 03:00 60 01/29/18 02:00 70 01/29/18 01:00 62 01/29/18 00:07 97.6 66 17 124/56 (78) 94 01/29/18 00:00 62 01/29/18 00:00 71 01/28/18 23:00 60 01/28/18 22:00 64 01/28/18 21:00 68 01/28/18 20:28 98.2 75 16 142/70 (94) 93 01/28/18 20:28 93 Room Air 01/28/18 20:00 70 01/28/18 20:00 66 01/28/18 19:00 66 01/28/18 16:30 97.8 113 18 133/52 (79) 95 01/28/18 16:30 115 01/28/18 13:00 98.4 72 16 110/64 (79) 94 01/28/18 12:30 65 01/28/18 08:30 63 01/28/18 08:00 96 Room Air 01/28/18 08:00 98.0 66 16 125/62 (83) 96 01/29/18 01/29/18 01/29/18 07:00 15:00 23:00 Intake Total 1040 ml Output Total 100 ml Balance 940 ml Result Diagram: 01/29/18 0410 01/29/18 0410 Laboratory Results Laboratory Tests Test 01/29/18 04:10 White Blood Count 9.7 TH/MM3 Red Blood Count 2.86 MIL/MM3 Hemoglobin 8.9 GM/DL Hematocrit 26.6 % Mean Corpuscular Volume 92.8 FL Mean Corpuscular Hemoglobin 31.1 PG Mean Corpuscular Hemoglobin Concent 33.5 % Red Cell Distribution Width 16.8 % Platelet Count 264 TH/MM3 Mean Platelet Volume 8.1 FL Blood Urea Nitrogen 11 MG/DL Creatinine 0.78 MG/DL Random Glucose 82 MG/DL Calcium Level 7.8 MG/DL Sodium Level 141 MEQ/L Potassium Level 3.5 MEQ/L Chloride Level 105 MEQ/L Carbon Dioxide Level 24.7 MEQ/L Anion Gap 11 MEQ/L Estimat Glomerular Filtration Rate 71 ML/MIN Administered Medications Medications (Trade) Dose Ordered Sig/Eveline Route PRN Reason Start Time Stop Time Status Last Admin Dose Admin Atorvastatin Calcium (Lipitor) 20 mg HS PO 01/22/18 21:00 01/28/18 20:39 Docusate Sodium (Colace) 100 mg BID PO 01/22/18 21:00 01/28/18 20:39 Furosemide (Lasix) 20 mg DAILY PO 01/23/18 09:00 01/28/18 09:37 Levothyroxine Sodium (Synthroid) 50 mcg DAILY@0600 PO 01/23/18 06:00 01/29/18 05:43 Lorazepam (Ativan) 0.5 mg HS PRN PO ANXIETY AND/OR INSOMNIA 01/22/18 09:30 01/28/18 21:59 Losartan Potassium (Cozaar) 25 mg HS PO 01/22/18 21:00 01/28/18 20:39 Metoclopramide HCl (Reglan) 10 mg QID PO 01/22/18 13:00 01/28/18 20:40 Metoprolol Succinate (Toprol Xl) 50 mg AC DINNER PO 01/23/18 16:00 01/28/18 15:49 Simethicone (Phazyme Chew) 250 mg BID PRN PO GAS RETENTION 01/22/18 12:45 01/23/18 14:44 Sodium Chloride (NS Flush) 2 ml BID IV FLUSH 01/22/18 21:00 01/28/18 20:39 Ondansetron HCl (Zofran Inj) 4 mg Q6H PRN IVP NAUSEA OR VOMITING 01/22/18 09:45 Future Hold 01/25/18 11:49 Sertraline HCl (Zoloft) 25 mg HS PO 01/22/18 21:00 01/28/18 20:39 Dronedarone (Multaq) 400 mg BIDPC PO 01/23/18 18:00 01/28/18 18:21 Fentanyl (Duragesic 25 Mcg Patch.72 Hr) 1 patch Q3D T-DERMAL 01/24/18 10:00 01/27/18 09:44 Miscellaneous Information 1 Q3D T-DERMAL 01/27/18 10:00 01/27/18 09:45 Rivaroxaban (Xarelto) 15 mg DAILY PO 01/25/18 09:00 01/28/18 09:37 Metoclopramide HCl (Reglan Inj) 10 mg Q8HR PRN IV PUSH NAUSEA 01/25/18 13:00 01/26/18 13:51 Prochlorperazine Edisylate (Compazine Inj) 5 mg Q4H PRN IV PUSH nausea 01/25/18 17:00 01/28/18 22:00 Pantoprazole Sodium (Protonix Inj) 20 mg Q24H IV PUSH 01/25/18 22:00 01/28/18 20:40 Lorazepam (Ativan Inj) 0.5 mg Q6H PRN IV PUSH anxiety, nausea, insomnia 01/26/18 09:30 01/28/18 15:49 Metoprolol Tartrate (Lopressor Inj) 1.25 mg Q6H IV PUSH 01/27/18 10:00 01/29/18 05:43 Morphine Sulfate (Morphine Inj) 2 mg Q3H PRN IV SEE LABEL COMMENTS 01/27/18 13:00 01/28/18 09:36 Potassium Chloride/Sodium Chloride 1,000 ml @ 100 mls/hr Q10H IV 01/28/18 11:00 01/29/18 05:44 Objective Remarks GENERAL: frail SKIN: Warm and dry. HEAD: Normocephalic. EYES: No scleral icterus. No injection or drainage. CARDIOVASCULAR: Regular rate and rhythm without murmurs. RESPIRATORY: Breath sounds equal bilaterally. No accessory muscle use. GASTROINTESTINAL: Abdomen soft, non-tender, nondistended. + BS X3, NG tube clamped EXTREMITIES: teds MUSCULOSKELETAL: Adequate muscle tone. NEUROLOGICAL: No obvious focal deficit. Awake, alert, and oriented x3. PSYCHIATRIC: Appropriate mood and affect; insight and judgment normal. Assessment/Plan Problem List: (1) Ovarian ca ICD Codes: C56.9 - Malignant neoplasm of unspecified ovary Status: Acute Plan: post op orders in EMR BANK RUNNER for pain full liquid diet OOB to chair PRN D/C [facility] on POD #2 anticipate discharge in the next 48 hours 4 POD #2 patient to transfer to floor today, hospitalist consulted will continue BANK RUNNER for another day orders to D/C [facility] today OOB to chair continue heart healthy diet continue IS Protonix 01/25/18 POD #3 +vomiting last night consult case management for rehab placement D/C [facility] and BANK RUNNER today OOB to chair TID antiemetics for nausea/vomiting Pt's Xarelto has been restarted started Duragesic patch 25mcg (01/24/18) to help with pain control 01/29/18 POD #7 NG clamped since yesterday, denies vomiting only one episode of nausea will advance diet to clear liquids OOB to ambulate 2-3 times a day PT consulted pain controlled loose stool X 3 will send for c diff Medicine team following and we appreciate the assistance Attending Statement Discussed with RN Discussed with Dr. Fletcher and he is in agreement. Lino Miller Jan 29, 2018 07:39
[2018-01-29] MEDS: METOCLOPRAMIDE HCL 10 MG TAB PO SCH ×4 (08:55→21:00)
[2018-01-29] MEDS: FUROSEMIDE 20 MG TAB PO SCH (08:56)
[2018-01-29] MEDS: DRONEDARONE 400 MG TAB PO SCH ×2 (08:56→21:00)
[2018-01-29] MEDS: RIVAROXABAN 15 MG TAB PO SCH (08:56)
[2018-01-29] MEDS: SODIUM CHLORIDE 0.9% FLUSH 10 ML FLUSH IV FLUSH SCH ×2 (08:58→21:00)
[2018-01-29] MEDS: DOCUSATE SODIUM 100 MG CAP PO SCH ×2 (08:58→20:40)
[2018-01-29] MEDS: PROCHLORPERAZINE INJ 10 MG/2 ML VIAL IV PUSH PRN ×2 (11:42→17:49)
--- NOTE | 2018-01-29 11:42 | HHI.PR ---
Subjective Remarks Patient states that she feels nauseous but has not vomited. Denies cp/sob tolerating clears Had some loose stools as per RN abdominal pain controlled. Objective Vitals Vital Signs Date Time Temp Pulse Resp B/P (MAP) Pulse Ox O2 Delivery O2 Flow Rate FiO2 01/29/18 08:48 Room Air 01/29/18 08:48 97.5 63 18 133/64 (87) 96 01/29/18 05:46 66 16 135/58 (83) 95 01/29/18 05:23 66 01/29/18 05:00 62 01/29/18 04:08 97.9 69 17 125/53 (77) 96 01/29/18 04:00 70 01/29/18 04:00 68 01/29/18 04:00 68 01/29/18 03:00 60 01/29/18 02:00 70 01/29/18 01:00 62 01/29/18 00:07 97.6 66 17 124/56 (78) 94 01/29/18 00:00 62 01/29/18 00:00 71 01/28/18 23:00 60 01/28/18 22:00 64 01/28/18 21:00 68 01/28/18 20:28 98.2 75 16 142/70 (94) 93 01/28/18 20:28 93 Room Air 01/28/18 20:00 70 01/28/18 20:00 66 01/28/18 19:00 66 01/28/18 16:30 97.8 113 18 133/52 (79) 95 01/28/18 16:30 115 01/28/18 13:00 98.4 72 16 110/64 (79) 94 01/28/18 12:30 65 I/O 01/28/18 01/28/18 01/28/18 01/29/18 01/29/18 01/29/18 07:00 15:00 23:00 07:00 15:00 23:00 Intake Total 736 ml 720 ml 1040 ml 240 ml Output Total 200 ml 600 ml 100 ml 200 ml Balance -200 ml 736 ml 120 ml 940 ml 40 ml Intake Oral 720 ml 50 ml 240 ml IV Total 736 ml 990 ml Output Urine Total 450 ml 100 ml 200 ml Gastric Drainage Total 200 ml 150 ml # Bowel Movements 1 2 3 Result Diagram: 01/29/1840901/29/18409 Objective Remarks GENERAL: NAD SKIN: Warm and dry. HEAD: Normocephalic. EYES: No scleral icterus. No injection or drainage. NECK: Supple, trachea midline. No JVD or lymphadenopathy. CARDIOVASCULAR: Regular rate and rhythm without murmurs, gallops, or rubs. RESPIRATORY: Breath sounds equal bilaterally. No accessory muscle use. GASTROINTESTINAL: Abdomen with mild distension, hypoactive bowel sounds, post- op tenderness, nondistended. EXTREMITIES: No cyanosis, or edema. NEUROLOGICAL: Awake, alert, and oriented x 3. Non-focal. Procedures 1. Exploratory laparotomy. 2. Lysis of adhesions. 3. Biopsies. Medications and IVs Current Medications Medications (Trade) Dose Ordered Sig/Eveline Route Start Time Stop Time Status Last Admin (Lipitor) 20 mg HS PO 01/22/18 21:00 01/28/18 20:39 (Colace) 100 mg BID PO 01/22/18 21:00 01/28/18 20:39 (Lasix) 20 mg DAILY PO 01/23/18 09:00 01/29/18 08:56 (Synthroid) 50 mcg DAILY@0600 PO 01/23/18 06:00 01/29/18 05:43 (Ativan) 0.5 mg HS PRN PO 01/22/18 09:30 01/28/18 21:59 (Cozaar) 25 mg HS PO 01/22/18 21:00 01/28/18 20:39 (Reglan) 10 mg QID PO 01/22/18 13:00 01/29/18 08:55 (Toprol Xl) 50 mg AC DINNER PO 01/23/18 16:00 01/28/18 15:49 (Phazyme Chew) 250 mg BID PRN PO 01/22/18 12:45 01/23/18 14:44 (NS Flush) 2 ml UNSCH PRN IV FLUSH 01/22/18 09:45 (NS Flush) 2 ml BID IV FLUSH 01/22/18 21:00 01/28/18 20:39 (Percocet 5-325 Mg) 1 tab Q4H PRN PO 01/22/18 09:45 (Percocet 5-325 Mg) 2 tab Q4H PRN PO 01/22/18 09:45 (Zofran Inj) 4 mg Q6H PRN IVP 01/22/18 09:45 Future Hold 01/25/18 11:49 (Pill Splitter) 1 ea UNSCH PRN OTHER 01/22/18 12:30 (Zoloft) 25 mg HS PO 01/22/18 21:00 01/28/18 20:39 (Multaq) 400 mg BIDPC PO 01/23/18 18:00 01/29/18 08:56 (Duragesic 25 Mcg Patch.72 Hr) 1 patch Q3D T-DERMAL 01/24/18 10:00 01/27/18 09:44 Miscellaneous Information 1 Q3D T-DERMAL 01/27/18 10:00 01/27/18 09:45 (Xarelto) 15 mg DAILY PO 01/25/18 09:00 01/29/18 08:56 (Reglan Inj) 10 mg Q8HR PRN IV PUSH 01/25/18 13:00 01/26/18 13:51 (Milk Of Magndon Liq) 30 ml BID PRN PO 01/25/18 13:00 (Compazine Inj) 5 mg Q4H PRN IV PUSH 01/25/18 17:00 01/28/18 22:00 (Protonix Inj) 20 mg Q24H IV PUSH 01/25/18 22:00 01/28/18 20:40 (Ativan Inj) 0.5 mg Q6H PRN IV PUSH 01/26/18 09:30 01/28/18 15:49 (Lopressor Inj) 1.25 mg Q6H IV PUSH 01/27/18 10:00 01/29/18 05:43 (Morphine Inj) 2 mg Q3H PRN IV 01/27/18 13:00 01/28/18 09:36 Potassium Chloride/Sodium Chloride 1,000 ml @ 100 mls/hr Q10H IV 01/28/18 11:00 01/29/18 05:44 Urinary Catheter: No Vascular Central Line Catheter: No A/P Problem List: (1) Ovarian ca ICD Code: C56.9 - Malignant neoplasm of unspecified ovary Status: Acute (2) JOSI (acute kidney injury) ICD Code: N17.9 - Acute kidney failure, unspecified Status: Resolved (3) Ileus ICD Code: K56.7 - Ileus, unspecified Status: Acute (4) Nausea & vomiting ICD Code: R11.2 - Nausea with vomiting, unspecified Status: Acute (5) A-fib ICD Code: I48.91 - Unspecified atrial fibrillation Status: Chronic Assessment and Plan 1. Metastatic Ovarian Cancer s/p Omentectomy Extensive metastasis of cancer found on bowel clarke Continue pain control with oral Percocet and IV morphine for breakthrough pain. Follow-up DELIVERY DRIVER/SUPERVISOR oncology recommendations 01/29 the patient status post expiratory laparotomy, lysis of adhesions and biopsies on 01/22/18. Management as above. 2. Ileus/nausea and vomiting. Improving hypoactive bowel sounds, postop tenderness Abdomen remains soft, still slightly bloated, small bowel movement this morning Continue IV Compazine as needed Continue IV fluid hydration 01/29 and she clamped, patient nauseous but no vomiting. Diet advanced to clear liquids. OB to ambulate 2-3 times per day. PT consulted. Patient complaining of loose stools. Will send for C. difficile. 3. Hypokalemia 01/29 status post replacement with IV potassium chloride. Potassium within normal range at 3.5 however will give oral potassium to prevent recurrence of hypokalemia. 4. Recurrent asymptomatic ventricular tachycardia No further episodes of ventricular tachycardia after starting Lopressor Patient is currently still n.p.o. and unable to take her amiodarone Lopressor added 1.25 mg every 6 hours 01/29 will keep potassium more than 4.0 and will also check magnesium. 5. Low urine output Bladder scan ordered, will treat accordingly based on findings Consider losses involvement and NG tube 01/29 no urinary retention on bladder scan and creatinine within normal range. DC IV Fluids and encourage oral intake. Hold Lasix for now. Continue to monitor strict I's and O's. 6. CAD/hyperlipidemia. Continue home beta aga, statin 01/29 patient is chest pain-free. Continue beta-aga, statin. Xarelto on hold. 7. Hypertension Continue home Losartan, lasix 01/29 BP stable. Continue metoprolol, losartan. Hold Lasix. 8. Atrial fibrillation Continue dronedarone, Xarelto, beta aga Rate controlled 01/29 continue to monitor on telemetry. 9. Insomnia 01/29 insomnia resolved. Continue home Ativan as needed, continue Zoloft. 10. GERD Continue ppi 11. Hypothyroidism Continue synthroid 12. Diarrhea Check stool for C diff. 13. JOSI Creatinine elevated on admission, likely secondary to dehydration. Creatinine 1.13 which trended up to 1.32. Patient has a history of normal renal function. Likely secondary to prerenal azotemia and resolved after IV fluid administration. 01/29 DC IV fluids. Encourage oral intake. Continue to monitor BUN and creatinine, strict I's and O's and avoid nephrotoxins. 14. DVT prophylaxis SCDs, Xarelto Discharge Planning Continue to monitor in the oncology floor. Clearance pending C. difficile test , advancement and toleration of diet, DELIVERY DRIVER/SUPERVISOR/junk clearance. Problem Qualifiers (1) Nausea & vomiting: (2) A-fib: Qualified Codes: I48.2 - Chronic atrial fibrillation Neftali Hollis MD Jan 29, 2018 11:42
[2018-01-29] MEDS: LORazepam 2 MG/ML VIAL IV PUSH PRN ×2 (14:18→20:59)
[2018-01-29] MEDS ORDERED: POTASSIUM CHLORIDE 10 MEQ CONTROLLED RELEASE TAB PO ONE (14:45)
[2018-01-29] MEDS: METOPROLOL SUCCINATE 50 MG EXTENDED RELEASE TAB PO SCH (17:49)
--- NOTE | 2018-01-29 18:40 | MB ---
cc: Blaise Styles MD DATE: 01/29/2018 HISTORY OF PRESENT ILLNESS: Ms. Mccurdy is a 77-year-old white female with a history of ovarian cancer. She underwent laparotomy and was found to have widely metastatic disease and carcinomatosis on 01/22. She has had slow postoperative course, which was complicated by episodes of paroxysmal atrial fibrillation. She has not had any chest pain. She has mild shortness of breath. She also has had ankle edema. She is currently in sinus rhythm. PAST MEDICAL HISTORY: Positive for cardiomyopathy with mild left ventricular systolic dysfunction with ejection fraction of 45% by echocardiogram. History of paroxysmal atrial fibrillation. She had radiofrequency ablation in 2011. History of hypertension, anemia, syncope, sick sinus syndrome, status post Guidant dual chamber pacemaker placement, history of dyslipidemia, peripheral vascular disease with mild plaque of the carotid arteries, mild mitral regurgitation, history of significant tricuspid insufficiency, mild to moderate on the last echo but severe in the past, history of mild pulmonary hypertension, UTIs, ovarian cancer as above. PAST SURGICAL HISTORY: Positive for cardioversion, cardiac catheterization, which showed widely patent coronary arteries in 2012, atrial fibrillation ablation in 2011, Guidant pacemaker placement in 2011, right total knee arthroplasty, abdominal aortic aneurysm surgery in 2008, left ankle surgery, left knee surgery, breast cancer, cholecystectomy, dental extractions. MEDICATIONS: Currently include morphine, metoprolol, pantoprazole, Xarelto, fentanyl, Multaq, levothyroxine, atorvastatin, Colace, losartan, Zoloft, Reglan. ALLERGIES: POLYMYXIN B, NEOMYCIN, GRAMICIDIN, BACITRACIN, AZITHROMYCIN, AND ADHESIVE. SOCIAL HISTORY: The patient does not smoke. She drinks alcohol socially, infrequently. She is . FAMILY HISTORY: Positive for heart disease in both parents and multiple siblings. REVIEW OF SYSTEMS: Otherwise negative. PHYSICAL EXAMINATION: VITAL SIGNS: Blood pressure 134/62, pulse 63. LUNGS: Clear. HEART: Regular with no murmur or gallop. ABDOMEN: Soft, nontender. EXTREMITIES: Mild ankle edema, 2+ pulses. NEUROLOGIC: Grossly nonfocal. DIAGNOSTIC DATA: Telemetry was reviewed showed normal sinus rhythm. LABORATORY DATA: Hemoglobin 8.9. Potassium 3.5, creatinine 0.8, magnesium 1.2. DIAGNOSES: 1. Paroxysmal atrial fibrillation. 2. Ovarian cancer. 3. Postoperative ileus. 4. Nonsustained ventricular tachycardia. 5. Sick sinus syndrome, status post Guidant pacemaker placement. 6. Hypertension. 7. Anemia. 8. Cardiomyopathy with mild left ventricular systolic dysfunction. DISPOSITION: Ms. Mccurdy will be monitored on telemetry. I recommend to continue antiarrhythmic therapy with Multaq. We will continue monitoring on telemetry. I recommend to increase her activities. I recommend physical therapy. I will follow her for cardiology during her hospitalization. I will see her back for followup in our office after discharge. MD MARY Chow/CARLENE , 05:08 PM , 06:39 PM [email or web address]
[2018-01-29] MEDS: SIMETHICONE 125 MG CHEWABLE TAB PO PRN (19:42)
[2018-01-29] MEDS: PANTOPRAZOLE SODIUM 40 MG VIAL IV PUSH SCH (20:58)
[2018-01-29] MEDS: LOSARTAN 25 MG TAB PO SCH (20:59)
[2018-01-29] MEDS: SERTRALINE HCL 50 MG TAB PO SCH (20:59)
[2018-01-29] MEDS: ATORVASTATIN 20 MG TAB PO SCH (21:00)
[2018-01-29] MEDS: MORPHINE SULFATE 2 MG/ML SYRINGE IV PRN (21:13)
[2018-01-30] VITALS (15 sets, daily range): BP systolic 113–156; BP diastolic 55–73; PULSE 60–96; RESP 18–20; TEMP 97.7–98.4; O2SAT 95–96
[2018-01-30] MEDS: METOPROLOL TARTRATE 5 MG/5 ML VIAL IV PUSH SCH ×4 (04:03→22:35)
--- NOTE | 2018-01-30 06:47 | HHI.PR ---
Subjective . She is seen yesterday afternoon and again this morning. No new c/o. No n/v, (+) BMs, with good tolerance of NGT clamped & clear liquids Objective . afeb, vss a&o x 3, nad cta with basilar rales, rrr abd softer, no rebound or guarding, (+) bs, incision clean and dry Assessment/Plan . pod #8 ileus resolves underlying carcinomatous bowel unchanged no clinical evidence of obstruction Q&A with family members d/c ngt now, increase OOB activity/spirometry manager deli consult to consider short term rehab vs. home with home health & PT Yamileth Fletcher MD Jan 30, 2018 06:47
[2018-01-30] MEDS: LEVOTHYROXINE SODIUM 50 MCG TAB PO SCH (07:09)
[2018-01-30] MEDS: METOCLOPRAMIDE HCL 10 MG TAB PO SCH ×4 (08:46→20:36)
[2018-01-30] MEDS: DRONEDARONE 400 MG TAB PO SCH ×2 (08:46→17:49)
[2018-01-30] MEDS: RIVAROXABAN 15 MG TAB PO SCH (08:46)
[2018-01-30] MEDS: DOCUSATE SODIUM 100 MG CAP PO SCH ×2 (08:47→20:36)
[2018-01-30] MEDS: SODIUM CHLORIDE 0.9% FLUSH 10 ML FLUSH IV FLUSH SCH ×2 (08:48→20:36)
[2018-01-30] MEDS: REMOVE OLD DURAGESIC (FENTANYL) PATCH T-DERMAL SCH (10:00)
[2018-01-30] MEDS: fentaNYL 25 MCG/HR PATCH T-DERMAL SCH (10:03)
[2018-01-30] MEDS: LORazepam 2 MG/ML VIAL IV PUSH PRN ×2 (14:47→22:35)
--- NOTE | 2018-01-30 15:20 | HHI.PR ---
Subjective Remarks The patient states that she feels very nauseous, feels lousy. States she tried to eat but could not. The patient however denies vomiting. Patient is a febrile with a stable vital signs. Objective Vitals Vital Signs Date Time Temp Pulse Resp B/P (MAP) Pulse Ox O2 Delivery O2 Flow Rate FiO2 01/30/18 11:47 98.2 73 20 156/73 (100) 95 01/30/18 08:42 97.7 65 20 121/62 (81) 95 01/30/18 04:11 63 01/30/18 04:01 98.0 64 18 145/65 (91) 95 01/30/18 03:00 60 01/30/18 02:00 64 01/30/18 01:00 60 01/30/18 00:14 98.3 96 18 113/55 (74) 95 01/30/18 00:04 66 01/29/18 23:00 64 01/29/18 22:00 66 01/29/18 21:18 18 01/29/18 21:00 Room Air 01/29/18 21:00 68 01/29/18 20:15 66 01/29/18 20:00 97.8 75 19 174/79 (110) 95 01/29/18 19:00 74 01/29/18 17:43 99.1 70 18 176/75 (108) 97 I/O 01/29/18 01/29/18 01/29/18 01/30/18 01/30/18 01/30/18 07:00 15:00 23:00 07:00 15:00 23:00 Intake Total 1040 ml 480 ml 240 ml 250 ml Output Total 100 ml 200 ml 500 ml 400 ml Balance 940 ml 280 ml -260 ml -150 ml Intake Oral 50 ml 480 ml 240 ml 250 ml IV Total 990 ml Output Urine Total 100 ml 200 ml 500 ml 400 ml # Bowel Movements 2 4 3 1 Result Diagram: 01/29/1840901/29/18409 Objective Remarks GENERAL: NAD SKIN: Warm and dry. HEAD: Normocephalic. EYES: No scleral icterus. No injection or drainage. NECK: Supple, trachea midline. No JVD or lymphadenopathy. CARDIOVASCULAR: Regular rate and rhythm without murmurs, gallops, or rubs. RESPIRATORY: Breath sounds equal bilaterally. No accessory muscle use. GASTROINTESTINAL: Abdomen with mild distension, hypoactive bowel sounds, post- op tenderness, nondistended. EXTREMITIES: No cyanosis, or edema. NEUROLOGICAL: Awake, alert, and oriented x 3. Non-focal. Procedures 1. Exploratory laparotomy. 2. Lysis of adhesions. 3. Biopsies. Medications and IVs Current Medications Medications (Trade) Dose Ordered Sig/Eveline Route Start Time Stop Time Status Last Admin (Lipitor) 20 mg HS PO 01/22/18 21:00 01/29/18 21:00 (Colace) 100 mg BID PO 01/22/18 21:00 01/28/18 20:39 (Lasix) 20 mg DAILY PO 01/23/18 09:00 Future Hold 01/29/18 08:56 (Synthroid) 50 mcg DAILY@0600 PO 01/23/18 06:00 01/30/18 07:09 (Ativan) 0.5 mg HS PRN PO 01/22/18 09:30 01/28/18 21:59 (Cozaar) 25 mg HS PO 01/22/18 21:00 01/29/18 20:59 (Reglan) 10 mg QID PO 01/22/18 13:00 01/30/18 12:30 (Toprol Xl) 50 mg AC DINNER PO 01/23/18 16:00 01/29/18 17:49 (Phazyme Chew) 250 mg BID PRN PO 01/22/18 12:45 01/29/18 19:42 (NS Flush) 2 ml UNSCH PRN IV FLUSH 01/22/18 09:45 (NS Flush) 2 ml BID IV FLUSH 01/22/18 21:00 01/30/18 08:48 (Percocet 5-325 Mg) 1 tab Q4H PRN PO 01/22/18 09:45 (Percocet 5-325 Mg) 2 tab Q4H PRN PO 01/22/18 09:45 (Zofran Inj) 4 mg Q6H PRN IVP 01/22/18 09:45 Future Hold 01/25/18 11:49 (Pill Splitter) 1 ea UNSCH PRN OTHER 01/22/18 12:30 (Zoloft) 25 mg HS PO 01/22/18 21:00 01/29/18 20:59 (Multaq) 400 mg BIDPC PO 01/23/18 18:00 01/30/18 08:46 (Duragesic 25 Mcg Patch.72 Hr) 1 patch Q3D T-DERMAL 01/24/18 10:00 01/30/18 10:03 Miscellaneous Information 1 Q3D T-DERMAL 01/27/18 10:00 01/30/18 10:00 (Xarelto) 15 mg DAILY PO 01/25/18 09:00 01/30/18 08:46 (Reglan Inj) 10 mg Q8HR PRN IV PUSH 01/25/18 13:00 01/26/18 13:51 (Milk Of Magnesia Liq) 30 ml BID PRN PO 01/25/18 13:00 (Compazine Inj) 5 mg Q4H PRN IV PUSH 01/25/18 17:00 01/29/18 17:49 (Protonix Inj) 20 mg Q24H IV PUSH 01/25/18 22:00 01/29/18 20:58 (Ativan Inj) 0.5 mg Q6H PRN IV PUSH 01/26/18 09:30 01/30/18 14:47 (Lopressor Inj) 1.25 mg Q6H IV PUSH 01/27/18 10:00 01/30/18 10:03 (Morphine Inj) 2 mg Q3H PRN IV 01/27/18 13:00 01/29/18 21:13 A/P Problem List: (1) Ovarian ca ICD Code: C56.9 - Malignant neoplasm of unspecified ovary Status: Acute (2) JOSI (acute kidney injury) ICD Code: N17.9 - Acute kidney failure, unspecified Status: Resolved (3) Ileus ICD Code: K56.7 - Ileus, unspecified Status: Acute (4) Nausea & vomiting ICD Code: R11.2 - Nausea with vomiting, unspecified Status: Acute (5) A-fib ICD Code: I48.91 - Unspecified atrial fibrillation Status: Chronic Assessment and Plan 1. Metastatic Ovarian Cancer s/p Omentectomy Extensive metastasis of cancer found on bowel clarke Continue pain control with oral Percocet and IV morphine for breakthrough pain. Follow-up SENIOR FORMULATION SCIENTIST oncology recommendations 01/29 the patient status post expiratory laparotomy, lysis of adhesions and biopsies on 01/22/18. Management as above. 2. Ileus/nausea and vomiting. Improving hypoactive bowel sounds, postop tenderness Abdomen remains soft, still slightly bloated, small bowel movement this morning Continue IV Compazine as needed Continue IV fluid hydration 01/29 and she clamped, patient nauseous but no vomiting. Diet advanced to clear liquids. OB to ambulate 2-3 times per day. PT consulted. Patient complaining of loose stools. Will send for C. difficile. 4 01/30 C. difficile negative. We will start the patient on Imodium as needed. Out of bed, NG tube discontinued. Advance diet as per SENIOR FORMULATION SCIENTIST oncology. 3. Hypokalemia 01/29 status post replacement with IV potassium chloride. Potassium within normal range at 3.5 however will give oral potassium to prevent recurrence of hypokalemia. 01/30 we will check BMP and replace potassium as needed. 4. Recurrent asymptomatic ventricular tachycardia No further episodes of ventricular tachycardia after starting Lopressor Patient is currently still n.p.o. and unable to take her amiodarone Lopressor added 1.25 mg every 6 hours 01/29 will keep potassium more than 4.0 and will also check magnesium. 4 01/30 BMP pending. Magnesium ordered on 01/29 1.2. We will replace with IV magnesium sulfate. 5. Low urine output Bladder scan ordered, will treat accordingly based on findings Consider losses involvement and NG tube 01/29 no urinary retention on bladder scan and creatinine within normal range. DC IV Fluids and encourage oral intake. Hold Lasix for now. Continue to monitor strict I's and O's. 6. CAD/hyperlipidemia. Continue home beta aga, statin 01/29 patient is chest pain-free. Continue beta-aga, statin, Xarelto. 7. Hypertension Continue home Losartan, lasix 01/29 BP stable. Continue metoprolol, losartan. Hold Lasix. 8. Atrial fibrillation Continue dronedarone, Xarelto, beta aga Rate controlled 01/29 continue to monitor on telemetry. 9. Insomnia 01/29 insomnia resolved. Continue home Ativan as needed, continue Zoloft. 10. GERD Continue ppi 11. Hypothyroidism Continue synthroid 12. Diarrhea Check stool for C diff. 13. JOSI Creatinine elevated on admission, likely secondary to dehydration. Creatinine 1.13 which trended up to 1.32. Patient has a history of normal renal function. Likely secondary to prerenal azotemia and resolved after IV fluid administration. Encourage oral intake. Continue to monitor BUN and creatinine, strict I's and O's and avoid nephrotoxins. 14. DVT prophylaxis SCDs, Xarelto Discharge Planning Continue to monitor in the oncology floor. Pending patient tolerating diet and SENIOR FORMULATION SCIENTIST/onc clearance. Problem Qualifiers (1) Nausea & vomiting: (2) A-fib: Qualified Codes: I48.2 - Chronic atrial fibrillation Neftali Hollis MD Jan 30, 2018 15:20
[2018-01-30] MEDS: MAGNESIUM SULFATE 1 GM PREMIX 100 ML IV SCH ×2 (16:31→18:59)
[2018-01-30] MEDS: METOPROLOL SUCCINATE 50 MG EXTENDED RELEASE TAB PO SCH (16:32)
--- NOTE | 2018-01-30 16:45 | PD.CARD.PN ---
Subjective Subjective Remarks No CP, mild SOB, c/o bilat LE edema Objective Medications Current Medications Medications (Trade) Dose Ordered Sig/Eveline Route Start Time Stop Time Status Last Admin (Lipitor) 20 mg HS PO 01/22/18 21:00 01/29/18 21:00 (Colace) 100 mg BID PO 01/22/18 21:00 01/28/18 20:39 (Lasix) 20 mg DAILY PO 01/23/18 09:00 Future Hold 01/29/18 08:56 (Synthroid) 50 mcg DAILY@0600 PO 01/23/18 06:00 01/30/18 07:09 (Ativan) 0.5 mg HS PRN PO 01/22/18 09:30 01/28/18 21:59 (Cozaar) 25 mg HS PO 01/22/18 21:00 01/29/18 20:59 (Reglan) 10 mg QID PO 01/22/18 13:00 01/30/18 12:30 (Toprol Xl) 50 mg AC DINNER PO 01/23/18 16:00 01/29/18 17:49 (Phazyme Chew) 250 mg BID PRN PO 01/22/18 12:45 01/29/18 19:42 (NS Flush) 2 ml UNSCH PRN IV FLUSH 01/22/18 09:45 (NS Flush) 2 ml BID IV FLUSH 01/22/18 21:00 01/30/18 08:48 (Percocet 5-325 Mg) 1 tab Q4H PRN PO 01/22/18 09:45 (Percocet 5-325 Mg) 2 tab Q4H PRN PO 01/22/18 09:45 (Zofran Inj) 4 mg Q6H PRN IVP 01/22/18 09:45 Future Hold 01/25/18 11:49 (Pill Splitter) 1 ea UNSCH PRN OTHER 01/22/18 12:30 (Zoloft) 25 mg HS PO 01/22/18 21:00 01/29/18 20:59 (Multaq) 400 mg BIDPC PO 01/23/18 18:00 01/30/18 08:46 (Duragesic 25 Mcg Patch.72 Hr) 1 patch Q3D T-DERMAL 01/24/18 10:00 01/30/18 10:03 Miscellaneous Information 1 Q3D T-DERMAL 01/27/18 10:00 01/30/18 10:00 (Xarelto) 15 mg DAILY PO 01/25/18 09:00 01/30/18 08:46 (Reglan Inj) 10 mg Q8HR PRN IV PUSH 01/25/18 13:00 01/26/18 13:51 (Milk Of Magnesia Liq) 30 ml BID PRN PO 01/25/18 13:00 (Compazine Inj) 5 mg Q4H PRN IV PUSH 01/25/18 17:00 01/29/18 17:49 (Protonix Inj) 20 mg Q24H IV PUSH 01/25/18 22:00 01/29/18 20:58 (Ativan Inj) 0.5 mg Q6H PRN IV PUSH 01/26/18 09:30 01/30/18 14:47 (Lopressor Inj) 1.25 mg Q6H IV PUSH 01/27/18 10:00 01/30/18 10:03 (Morphine Inj) 2 mg Q3H PRN IV 01/27/18 13:00 01/29/18 21:13 Magnesium Sulfate/ Dextrose 100 ml @ 100 mls/hr Q1H IV 01/30/18 15:30 01/30/18 17:29 Vital Signs / I&O Vital Signs Date Time Temp Pulse Resp B/P (MAP) Pulse Ox O2 Delivery O2 Flow Rate FiO2 01/30/18 11:47 98.2 73 20 156/73 (100) 95 01/30/18 08:42 97.7 65 20 121/62 (81) 95 01/30/18 04:11 63 01/30/18 04:01 98.0 64 18 145/65 (91) 95 01/30/18 03:00 60 01/30/18 02:00 64 01/30/18 01:00 60 01/30/18 00:14 98.3 96 18 113/55 (74) 95 01/30/18 00:04 66 01/29/18 23:00 64 01/29/18 22:00 66 01/29/18 21:18 18 01/29/18 21:00 Room Air 01/29/18 21:00 68 01/29/18 20:15 66 01/29/18 20:00 97.8 75 19 174/79 (110) 95 01/29/18 19:00 74 01/29/18 17:43 99.1 70 18 176/75 (108) 97 I/O 01/29/18 01/29/18 01/29/18 01/30/18 01/30/18 01/30/18 07:00 15:00 23:00 07:00 15:00 23:00 Intake Total 1040 ml 480 ml 240 ml 250 ml Output Total 100 ml 200 ml 500 ml 400 ml Balance 940 ml 280 ml -260 ml -150 ml Intake Oral 50 ml 480 ml 240 ml 250 ml IV Total 990 ml Output Urine Total 100 ml 200 ml 500 ml 400 ml # Bowel Movements 2 4 3 1 Physical Exam GENERAL: In NAD SKIN: Warm and dry. HEAD: Normocephalic. EYES: No scleral icterus. No injection or drainage. NECK: Supple, trachea midline. No JVD or lymphadenopathy. CARDIOVASCULAR: Regular rate and rhythm without murmurs, gallops, or rubs. RESPIRATORY: Breath sounds equal bilaterally. No accessory muscle use. GASTROINTESTINAL: Abdomen soft, non-tender, nondistended. MUSCULOSKELETAL: No cyanosis, 1-2+ ankle edema. Assessment and Plan Problem List: (1) A-fib ICD Codes: I48.91 - Unspecified atrial fibrillation Status: Chronic (2) Ovarian ca ICD Codes: C56.9 - Malignant neoplasm of unspecified ovary Status: Acute (3) Ileus ICD Codes: K56.7 - Ileus, unspecified Status: Acute (4) Hypertension ICD Codes: I10 - Hypertension Status: Chronic (5) Edema ICD Codes: R60.9 - Edema, unspecified Assessment and Plan Tele with SR w occ PACs. No recurrent a fib. Continue antiarrhythmic tx w Multaq. LE US to eval for DVT. Stable from cardiac standpoint. D/w pt and family. Problem Qualifiers (1) A-fib: Qualified Codes: I48.2 - Chronic atrial fibrillation Blaise Styles MD Jan 30, 2018 16:45
[2018-01-30 18:55] LABS: CALCIUM 7.4 MG/DL (8.5-10.1); CREATININE 0.84 MG/DL (0.50-1.00)
[2018-01-30 19:10] LABS: CALCIUM-PROTEIN CORRECTED 8.5 MG/DL (8.5-10.1); TOTAL PROTEIN 5.2 GM/DL (6.4-8.2)
[2018-01-30] MEDS: LOSARTAN 25 MG TAB PO SCH (20:35)
[2018-01-30] MEDS: PANTOPRAZOLE SODIUM 40 MG VIAL IV PUSH SCH (20:35)
[2018-01-30] MEDS: ATORVASTATIN 20 MG TAB PO SCH (20:36)
[2018-01-30] MEDS: SERTRALINE HCL 50 MG TAB PO SCH (20:36)
[2018-01-30] MEDS: MORPHINE SULFATE 2 MG/ML SYRINGE IV PRN (22:35)
--- NOTE | 2018-01-30 23:23 | RADRPT ---
EXAM DATE/TIME: 01/30/2018 21:51 [facility] COMPARISON: No previous studies available for comparison. INDICATIONS : Bilateral lower extremity edema. MEDICAL HISTORY : Hypertension. Hypothyroidism. Carcinoma, ovarian. Breast Cancer. Hypercholesterolemia. Afib. Arthr itis SURGICAL HISTORY : Appendectomy.Cholecystectomy. Umbilical hernia repair.Cardiac Catheterization. AAA repair. Pacemake r. Infusaport to right chest. Right Breast Lumpectomy. Mastectomy. Right total knee replacement. Chemotherapy and Radiation. ENCOUNTER: Initial ACUITY: 3 days PAIN SCORE: 2/10 LOCATION: Bilateral legs. TECHNIQUE: Venous ultrasound of the left and right leg was performed from the inguinal ligament to the proximal calf. Real-time, color Doppler and spectral tracing, compression and augmentation techniques were us ed. FINDINGS: RIGHT LEG: There is normal compressibility of the deep venous system from the inguinal region to the proximal ca lf. No echogenic clot is seen in the lumen of the common femoral, femoral, popliteal, and posterior tibial veins. There is a normal response of the venous system to proximal and distal augmentation an d respiration. LEFT LEG: Positive for nonocclusive deep venous thrombosis in the left iliac vein and common femoral vein. Also positive nonocclusive thrombus in left greater saphenous vein. Left popliteal, peroneal and posterio r tibial veins are patent. CONCLUSION: 1. Positive for nonocclusive deep venous thrombosis in the left iliac vein and common femoral vein. A lso nonocclusive thrombus in left greater saphenous vein. Right lower extremity negative for thrombus . Trever El MD on January 30, 2018 at 23:21 Board Certified Radiologist. This report was verified electronically.
[2018-01-31] VITALS (12 sets, daily range): BP systolic 117–152; BP diastolic 45–76; PULSE 58–70; RESP 16–22; TEMP 97.5–98.7; O2SAT 94–96
[2018-01-31] MEDS: LEVOTHYROXINE SODIUM 50 MCG TAB PO SCH (05:20)
[2018-01-31] MEDS: METOPROLOL TARTRATE 5 MG/5 ML VIAL IV PUSH SCH (05:20)
[2018-01-31 06:08] LABS: HEMATOCRIT 25.8 % (35.0-46.0); HEMOGLOBIN 8.8 GM/DL (11.6-15.3); MEAN CELL VOLUME 91.8 FL (80.0-100.0); MEAN CORPUSCULAR HEMOGLOBIN 31.5 PG (27.0-34.0); MEAN CORPUSCULAR HGB CONC 34.3 % (32.0-36.0); PLATELET COUNT 290 TH/MM3 (150-450); RED BLOOD COUNT 2.81 MIL/MM3 (4.00-5.30); RED CELL DISTRIBUTION WIDTH 16.6 % (11.6-17.2); WHITE BLOOD COUNT 8.1 TH/MM3 (4.0-11.0)
[2018-01-31 06:39] LABS: CALCIUM 7.8 MG/DL (8.5-10.1); CREATININE 0.91 MG/DL (0.50-1.00); MAGNESIUM 1.6 MG/DL (1.5-2.5); PHOSPHORUS 2.9 MG/DL (2.5-4.9)
[2018-01-31] MEDS: RIVAROXABAN 15 MG TAB PO SCH (08:36)
[2018-01-31] MEDS: METOCLOPRAMIDE HCL 10 MG TAB PO SCH ×3 (08:36→17:22)
[2018-01-31] MEDS: DRONEDARONE 400 MG TAB PO SCH ×2 (08:36→17:22)
[2018-01-31] MEDS: DOCUSATE SODIUM 100 MG CAP PO SCH (08:36)
[2018-01-31] MEDS: SODIUM CHLORIDE 0.9% FLUSH 10 ML FLUSH IV FLUSH SCH (08:37)
[2018-01-31] MEDS ORDERED: POTASSIUM CHLORIDE 10 MEQ CONTROLLED RELEASE TAB PO ONE (09:00)
--- NOTE | 2018-01-31 09:00 | PD.ONC.PN ---
Subjective Subjective Remarks POD # 9 patient sitting up in bed eating breakfast states still having some loose stool but seems to have improved overnight has been up ambulating with PT and RN she states she has talked to [facility] for rehab and she wishes to go there. states pain is controlled denies any nausea or vomiting Objective Data Date Time Temp Pulse Resp B/P (MAP) Pulse Ox O2 Delivery O2 Flow Rate FiO2 01/31/18 07:56 98.3 70 18 152/76 (101) 94 01/31/18 07:31 62 01/31/18 05:29 97.8 65 22 148/68 (94) 95 01/31/18 05:00 60 01/31/18 04:07 59 01/31/18 03:00 58 01/31/18 02:00 58 01/31/18 01:00 60 01/31/18 00:04 97.7 59 18 118/56 (76) 94 01/31/18 00:04 59 01/30/18 23:00 60 01/30/18 22:40 18 01/30/18 22:00 60 01/30/18 21:00 62 01/30/18 20:22 65 01/30/18 20:00 Room Air 01/30/18 20:00 98.4 65 18 152/65 (94) 95 01/30/18 16:44 97.8 63 18 139/60 (86) 96 01/30/18 11:47 98.2 73 20 156/73 (100) 95 01/31/18 01/31/18 01/31/18 07:00 15:00 23:00 Intake Total 240 ml Balance 240 ml Result Diagram: 01/31/18 0540 01/31/18 0540 Laboratory Results Laboratory Tests Test 01/30/18 18:30 01/31/18 05:40 Blood Urea Nitrogen 9 MG/DL 8 MG/DL Creatinine 0.84 MG/DL 0.91 MG/DL Random Glucose 114 MG/DL 89 MG/DL Total Protein 5.2 GM/DL Calcium Level 7.4 MG/DL 7.8 MG/DL Sodium Level 141 MEQ/L 141 MEQ/L Potassium Level 3.0 MEQ/L 3.0 MEQ/L Chloride Level 108 MEQ/L 107 MEQ/L Carbon Dioxide Level 24.0 MEQ/L 25.0 MEQ/L Anion Gap 9 MEQ/L 9 MEQ/L Estimat Glomerular Filtration Rate 65 ML/MIN 60 ML/MIN Protein Corrected Calcium 8.5 MG/DL White Blood Count 8.1 TH/MM3 Red Blood Count 2.81 MIL/MM3 Hemoglobin 8.8 GM/DL Hematocrit 25.8 % Mean Corpuscular Volume 91.8 FL Mean Corpuscular Hemoglobin 31.5 PG Mean Corpuscular Hemoglobin Concent 34.3 % Red Cell Distribution Width 16.6 % Platelet Count 290 TH/MM3 Mean Platelet Volume 8.0 FL Phosphorus Level 2.9 MG/DL Magnesium Level 1.6 MG/DL Imaging Studies Last Impressions Lower Extremity Ultrasound 01/30/18 0000 Signed Impressions: Service Date/Time: Tuesday, January 30, 2018 21:51 - CONCLUSION: 1. Positive for nonocclusive deep venous thrombosis in the left iliac vein and common femoral vein. Also nonocclusive thrombus in left greater saphenous vein. Right lower extremity negative for thrombus. Trever El MD Administered Medications Medications (Trade) Dose Ordered Sig/Eveline Route PRN Reason Start Time Stop Time Status Last Admin Dose Admin Atorvastatin Calcium (Lipitor) 20 mg HS PO 01/22/18 21:00 01/30/18 20:36 Docusate Sodium (Colace) 100 mg BID PO 01/22/18 21:00 01/28/18 20:39 Furosemide (Lasix) 20 mg DAILY PO 01/23/18 09:00 Future Hold 01/29/18 08:56 Levothyroxine Sodium (Synthroid) 50 mcg DAILY@0600 PO 01/23/18 06:00 01/31/18 05:20 Lorazepam (Ativan) 0.5 mg HS PRN PO ANXIETY AND/OR INSOMNIA 01/22/18 09:30 01/28/18 21:59 Losartan Potassium (Cozaar) 25 mg HS PO 01/22/18 21:00 01/30/18 20:35 Metoclopramide HCl (Reglan) 10 mg QID PO 01/22/18 13:00 01/31/18 08:36 Metoprolol Succinate (Toprol Xl) 50 mg AC DINNER PO 01/23/18 16:00 01/30/18 16:32 Simethicone (Phazyme Chew) 250 mg BID PRN PO GAS RETENTION 01/22/18 12:45 01/29/18 19:42 Sodium Chloride (NS Flush) 2 ml BID IV FLUSH 01/22/18 21:00 01/31/18 08:37 Ondansetron HCl (Zofran Inj) 4 mg Q6H PRN IVP NAUSEA OR VOMITING 01/22/18 09:45 Future Hold 01/25/18 11:49 Sertraline HCl (Zoloft) 25 mg HS PO 01/22/18 21:00 01/30/18 20:36 Dronedarone (Multaq) 400 mg BIDPC PO 01/23/18 18:00 01/31/18 08:36 Fentanyl (Duragesic 25 Mcg Patch.72 Hr) 1 patch Q3D T-DERMAL 01/24/18 10:00 01/30/18 10:03 Miscellaneous Information 1 Q3D T-DERMAL 01/27/18 10:00 01/30/18 10:00 Rivaroxaban (Xarelto) 15 mg DAILY PO 01/25/18 09:00 01/31/18 08:36 Metoclopramide HCl (Reglan Inj) 10 mg Q8HR PRN IV PUSH NAUSEA 01/25/18 13:00 01/26/18 13:51 Prochlorperazine Edisylate (Compazine Inj) 5 mg Q4H PRN IV PUSH nausea 01/25/18 17:00 01/29/18 17:49 Pantoprazole Sodium (Protonix Inj) 20 mg Q24H IV PUSH 01/25/18 22:00 01/30/18 20:35 Lorazepam (Ativan Inj) 0.5 mg Q6H PRN IV PUSH anxiety, nausea, insomnia 01/26/18 09:30 01/30/18 22:35 Metoprolol Tartrate (Lopressor Inj) 1.25 mg Q6H IV PUSH 01/27/18 10:00 01/31/18 05:20 Morphine Sulfate (Morphine Inj) 2 mg Q3H PRN IV SEE LABEL COMMENTS 01/27/18 13:00 01/30/18 22:35 Objective Remarks GENERAL: frail, well-developed patient. SKIN: Warm and dry. HEAD: Normocephalic. EYES: No scleral icterus. No injection or drainage. CARDIOVASCULAR: Regular rate and rhythm without murmurs. RESPIRATORY: Breath sounds equal bilaterally. No accessory muscle use. GASTROINTESTINAL: Abdomen dressing C/D/I MUSCULOSKELETAL: LLE swelling pt with TEDs NEUROLOGICAL: No obvious focal deficit. Awake, alert, and oriented x3. PSYCHIATRIC: Appropriate mood and affect; insight and judgment normal. Assessment/Plan Problem List: (1) Ovarian ca ICD Codes: C56.9 - Malignant neoplasm of unspecified ovary Status: Acute Plan: post op orders in EMR CASTING MOLDER for pain full liquid diet OOB to chair PRN D/C [facility] on POD #2 anticipate discharge in the next 48 hours 01/24/18 POD #2 patient to transfer to floor today, hospitalist consulted will continue CASTING MOLDER for another day orders to D/C [facility] today OOB to chair continue heart healthy diet continue IS Protonix 01/25/18 POD #3 +vomiting last night consult case management for rehab placement D/C [facility] and CASTING MOLDER today OOB to chair TID antiemetics for nausea/vomiting Pt's Xarelto has been restarted started Duragesic patch 25mcg (01/24/18) to help with pain control 01/29/18 POD #7 NG clamped since yesterday, denies vomiting only one episode of nausea will advance diet to clear liquids OOB to ambulate 2-3 times a day PT consulted pain controlled loose stool X 3 will send for c diff Medicine team following and we appreciate the assistance 01/31/18 POD #9 U/S ordered by cardiology: nonocclusive DVTs. I spoke with Dr. Styles and he recommends that her Xarelto increased from 15mg to 20mg daily to follow DVT protocol. He also stated that he feels she is ok for discharge from Cardiology standpoint. I spoke with Dr. Fletcher and he is Ok for discharge, will place orders for discharge to [facility] per pt's wishes. C diff stool negative patient will follow up in our clinic in 2 weeks for further discussion of treatment options. Attending Statement I talked with both Dr. Styles and Dr. Fletcher and they are OK with discharge to rehab. Lino Miller Jan 31, 2018 09:00
[2018-01-31] MEDS: POTASSIUM CHLOR 20 MEQ PREMIX 100 ML IV SCH ×2 (09:10→15:44)
--- NOTE | 2018-01-31 09:14 | PD.CARD.PN ---
Subjective Subjective Remarks No CP or SOB, c/o bilat LE edema, fatigue Objective Medications Current Medications Medications (Trade) Dose Ordered Sig/Eveline Route Start Time Stop Time Status Last Admin (Lipitor) 20 mg HS PO 01/22/18 21:00 01/30/18 20:36 (Colace) 100 mg BID PO 01/22/18 21:00 01/28/18 20:39 (Lasix) 20 mg DAILY PO 01/23/18 09:00 Future Hold 01/29/18 08:56 (Synthroid) 50 mcg DAILY@0600 PO 01/23/18 06:00 01/31/18 05:20 (Ativan) 0.5 mg HS PRN PO 01/22/18 09:30 01/28/18 21:59 (Cozaar) 25 mg HS PO 01/22/18 21:00 01/30/18 20:35 (Reglan) 10 mg QID PO 01/22/18 13:00 01/31/18 08:36 (Toprol Xl) 50 mg AC DINNER PO 01/23/18 16:00 01/30/18 16:32 (Phazyme Chew) 250 mg BID PRN PO 01/22/18 12:45 01/29/18 19:42 (NS Flush) 2 ml UNSCH PRN IV FLUSH 01/22/18 09:45 (NS Flush) 2 ml BID IV FLUSH 01/22/18 21:00 01/31/18 08:37 (Percocet 5-325 Mg) 1 tab Q4H PRN PO 01/22/18 09:45 (Percocet 5-325 Mg) 2 tab Q4H PRN PO 01/22/18 09:45 (Zofran Inj) 4 mg Q6H PRN IVP 01/22/18 09:45 Future Hold 01/25/18 11:49 (Pill Splitter) 1 ea UNSCH PRN OTHER 01/22/18 12:30 (Zoloft) 25 mg HS PO 01/22/18 21:00 01/30/18 20:36 (Multaq) 400 mg BIDPC PO 01/23/18 18:00 01/31/18 08:36 (Duragesic 25 Mcg Patch.72 Hr) 1 patch Q3D T-DERMAL 01/24/18 10:00 01/30/18 10:03 Miscellaneous Information 1 Q3D T-DERMAL 01/27/18 10:00 01/30/18 10:00 (Xarelto) 15 mg DAILY PO 01/25/18 09:00 01/31/18 08:36 (Reglan Inj) 10 mg Q8HR PRN IV PUSH 01/25/18 13:00 01/26/18 13:51 (Milk Of Magnesia Liq) 30 ml BID PRN PO 01/25/18 13:00 (Compazine Inj) 5 mg Q4H PRN IV PUSH 01/25/18 17:00 01/29/18 17:49 (Protonix Inj) 20 mg Q24H IV PUSH 01/25/18 22:00 01/30/18 20:35 (Ativan Inj) 0.5 mg Q6H PRN IV PUSH 01/26/18 09:30 01/30/18 22:35 (Lopressor Inj) 1.25 mg Q6H IV PUSH 01/27/18 10:00 01/31/18 05:20 (Morphine Inj) 2 mg Q3H PRN IV 01/27/18 13:00 01/30/18 22:35 Potassium Chloride 100 ml @ 50 mls/hr Q2H IV 01/31/18 09:00 01/31/18 12:59 Magnesium Sulfate/ Dextrose 100 ml @ 100 mls/hr Q1H IV 01/31/18 09:15 01/31/18 11:14 UNV Vital Signs / I&O Vital Signs Date Time Temp Pulse Resp B/P (MAP) Pulse Ox O2 Delivery O2 Flow Rate FiO2 01/31/18 07:56 98.3 70 18 152/76 (101) 94 01/31/18 07:31 62 01/31/18 05:29 97.8 65 22 148/68 (94) 95 01/31/18 05:00 60 01/31/18 04:07 59 01/31/18 03:00 58 01/31/18 02:00 58 01/31/18 01:00 60 01/31/18 00:04 97.7 59 18 118/56 (76) 94 01/31/18 00:04 59 01/30/18 23:00 60 01/30/18 22:40 18 01/30/18 22:00 60 01/30/18 21:00 62 01/30/18 20:22 65 01/30/18 20:00 Room Air 01/30/18 20:00 98.4 65 18 152/65 (94) 95 01/30/18 16:44 97.8 63 18 139/60 (86) 96 01/30/18 11:47 98.2 73 20 156/73 (100) 95 I/O 01/30/18 01/30/18 01/30/18 01/31/18 01/31/18 01/31/18 07:00 15:00 23:00 07:00 15:00 23:00 Intake Total 250 ml 100 ml 240 ml Output Total 400 ml Balance -150 ml 100 ml 240 ml Intake Oral 250 ml 240 ml IV Total 100 ml Output Urine Total 400 ml # Voids 4 1 # Bowel Movements 1 Physical Exam GENERAL: In NAD SKIN: Warm and dry. HEAD: Normocephalic. EYES: No scleral icterus. No injection or drainage. NECK: Supple, trachea midline. No JVD or lymphadenopathy. CARDIOVASCULAR: Regular rate and rhythm without murmurs, gallops, or rubs. RESPIRATORY: Breath sounds equal bilaterally. No accessory muscle use. GASTROINTESTINAL: Abdomen soft, non-tender, nondistended. MUSCULOSKELETAL: No cyanosis, 1-2+ ankle edema. Laboratory Laboratory Tests Test 01/30/18 18:30 01/31/18 05:40 Blood Urea Nitrogen 9 MG/DL 8 MG/DL Creatinine 0.84 MG/DL 0.91 MG/DL Random Glucose 114 MG/DL 89 MG/DL Total Protein 5.2 GM/DL Calcium Level 7.4 MG/DL 7.8 MG/DL Sodium Level 141 MEQ/L 141 MEQ/L Potassium Level 3.0 MEQ/L 3.0 MEQ/L Chloride Level 108 MEQ/L 107 MEQ/L Carbon Dioxide Level 24.0 MEQ/L 25.0 MEQ/L Anion Gap 9 MEQ/L 9 MEQ/L Estimat Glomerular Filtration Rate 65 ML/MIN 60 ML/MIN Protein Corrected Calcium 8.5 MG/DL White Blood Count 8.1 TH/MM3 Red Blood Count 2.81 MIL/MM3 Hemoglobin 8.8 GM/DL Hematocrit 25.8 % Mean Corpuscular Volume 91.8 FL Mean Corpuscular Hemoglobin 31.5 PG Mean Corpuscular Hemoglobin Concent 34.3 % Red Cell Distribution Width 16.6 % Platelet Count 290 TH/MM3 Mean Platelet Volume 8.0 FL Phosphorus Level 2.9 MG/DL Magnesium Level 1.6 MG/DL Assessment and Plan Problem List: (1) A-fib ICD Codes: I48.91 - Unspecified atrial fibrillation Status: Chronic (2) Ovarian ca ICD Codes: C56.9 - Malignant neoplasm of unspecified ovary Status: Acute (3) Ileus ICD Codes: K56.7 - Ileus, unspecified Status: Acute (4) Hypertension ICD Codes: I10 - Hypertension Status: Chronic (5) Edema ICD Codes: R60.9 - Edema, unspecified Assessment and Plan LE US with nonocclusive deep venous thrombus of LLE in multiple areas. Start DVT tx with Xarelto. Tele with SR w occ PACs. No recurrent a fib. Continue antiarrhythmic tx w Multaq. Switch IV metoprolol to higher dose PO. OK to discharge from cardiac standpoint. Problem Qualifiers (1) A-fib: Qualified Codes: I48.2 - Chronic atrial fibrillation Blaise Styles MD Jan 31, 2018 09:14
--- NOTE | 2018-01-31 09:18 | HHI.DS ---
Discharge Summary Admission Date Jan 22, 2018 at 05:43 Discharge Date: Jan 31, 2018 Admitting Diagnosis recurrent ovarian cancer (1) Ovarian ca Diagnosis: Principal ICD Codes: C56.9 - Malignant neoplasm of unspecified ovary Status: Acute (2) JOSI (acute kidney injury) ICD Codes: N17.9 - Acute kidney failure, unspecified Status: Resolved (3) Ileus ICD Codes: K56.7 - Ileus, unspecified Status: Resolved (4) Nausea & vomiting ICD Codes: R11.2 - Nausea with vomiting, unspecified Status: Resolved (5) A-fib ICD Codes: I48.91 - Unspecified atrial fibrillation Status: Chronic Procedures Exploratory Laparotomy lysis of adhesions biopsies Brief History This is a 77 year old female with recurrent ovarian cancer stage 3C. Currently she is on Gemzar 800mg/m2 and was symptomatic with nausea, constipation, gas pains and abdominal distention. She was taken for debulking surgery in hopes to relieve some of her symptoms, with the understanding that she would still need chemotherapy once she has recovered from surgery. CBC/BMP: 01/31/18 0540 01/31/18 0540 Significant Findings Laboratory Tests Test 01/29/18 04:10 01/29/18 07:30 01/30/18 18:30 01/31/18 05:40 Red Blood Count 2.86 MIL/MM3 (4.00-5.30) 2.81 MIL/MM3 (4.00-5.30) Hemoglobin 8.9 GM/DL (11.6-15.3) 8.8 GM/DL (11.6-15.3) Hematocrit 26.6 % (35.0-46.0) 25.8 % (35.0-46.0) Calcium Level 7.8 MG/DL (8.5-10.1) 7.4 MG/DL (8.5-10.1) 7.8 MG/DL (8.5-10.1) Estimat Glomerular Filtration Rate 71 ML/MIN (>89) 65 ML/MIN (>89) 60 ML/MIN (>89) Magnesium Level 1.2 MG/DL (1.5-2.5) Random Glucose 114 MG/DL (74-106) Total Protein 5.2 GM/DL (6.4-8.2) Potassium Level 3.0 MEQ/L (3.5-5.1) 3.0 MEQ/L (3.5-5.1) Chloride Level 108 MEQ/L (98-107) Imaging Last Impressions Lower Extremity Ultrasound 01/30/18 0000 Signed Impressions: Service Date/Time: Tuesday, January 30, 2018 21:51 - CONCLUSION: 1. Positive for nonocclusive deep venous thrombosis in the left iliac vein and common femoral vein. Also nonocclusive thrombus in left greater saphenous vein. Right lower extremity negative for thrombus. Trever El MD PE at Discharge general: A and O X 3 in NAD heart RRR lungs CTA abd: dressing is c/d/i ext: edema to LLE Hospital Course Patient initially was admitted to ICU for close monitoring because of her extensive cardiac history. She did well and was transferred to the floor. On POD #3-4 she started complaining of nausea and vomiting was diagnosed with post op ileus and NG tube was placed she symptoms improved and on POD 7-8 the NG tube was removed and she started on regular diet. She has loose stool with c diff negative. She has been tolerating solid food and feels she wants to be discharged to rehab for a few day before going home. She has met with Naheed Carlisle. Both Dr. Styles and Dr. Fletcher feels she is ready for discharge. Pt Condition on Discharge: Fair Discharge Disposition: Discharge to SNF Discharge Instructions DIET: Follow Instructions for: As Tolerated, No Restrictions Activities you can perform: See Additionl Instruction Activities to avoid: Lifting/Bending, Strenuous Activity, Sexual Activity Additional Activity Instructio: no heavy lifting > 5 pounds Follow up Referrals: Appointment for Follow Up @ [facility] Continued Medications: Acetaminophen/Diphenhydramine (Acetaminophen Pm Caplet) 500 Mg-25 Mg Tablet 2 TAB PO HS Atorvastatin (Lipitor) 20 Mg Tab 20 MG PO HS for Cholesterol Management, #30 TAB 0 Refills Cholecalciferol (D 5000) 5,000 Unit Cap 5000 UNITS PO DAILY Docusate Sodium (Colace) 100 Mg Capsule 100 MG PO BID for Prevent Constipation, #60 CAP 0 Refills Dronedarone (Multaq) 400 Mg Tab 400 MG PO BID for Regulate Heart Beat, TAB 0 Refills Furosemide (Furosemide) 20 Mg Tab 20 MG PO DAILY, #30 TAB 0 Refills Lactobacillus Acidophilus (Probiotic) Unknown Strength Cap Unknown Dose PO DAILY for Nutritional Supplement, #90 CAP 0 Refills Levothyroxine (Levothyroxine) 50 Mcg Tab 50 MCG PO DAILY for Thyroid, #30 TAB 0 Refills Lorazepam (Lorazepam) 0.5 Mg Tab 0.5 MG PO HS PRN for ANXIETY AND/OR INSOMNIA, TAB 0 Refills Losartan (Losartan) 25 Mg Tab 25 MG PO HS for Blood Pressure Management, #30 TAB 0 Refills Magnesium (Magnesium) 400 Mg Tab 400 MG PO AC DINNER for Nutritional Supplement, TAB 0 Refills Metoclopramide (Reglan) 10 Mg Tab 10 MG PO QID for Pain Management for 10 Days, #120 TAB 0 Refills Metoprolol Succinate ER 24 HR (Toprol XL) 50 Mg Tab 50 MG PO AC DINNER, #30 TAB 0 Refills Omeprazole (Omeprazole) 40 Mg Cap 40 MG PO DAILY, #30 CAP 0 Refills Potassium Chloride ER (Potassium Chloride ER) 20 Meq Tab 20 MEQ PO DAILY for Electrolyte Replacement, #30 TAB 0 Refills Rivaroxaban (Xarelto) 15 Mg Tab 15 MG PO DAILY for Blood Clot Prevention, TAB 0 Refills Sertraline (Zoloft) 25 Mg Tab Unknown Dose PO DAILY, #30 TAB 0 Refills Simethicone (Phazyme Maximum Strength) 250 Mg Cap 250 MG PO BID PRN for GAS RETENTION, CAP 0 Refills Tramadol (Tramadol) 50 Mg Tab 100 MG PO TID for Pain Management, TAB 0 Refills Discontinued Medications: Magnesium Citrate Liq (Magnesium Citrate Liq) 300 Ml Liq 300 ML PO DIRECTED for 1 Day, #1 BOTTLE 0 Refills Lino MillerP Jan 31, 2018 09:18
[2018-01-31] MEDS ORDERED: RIVAROXABAN 15 MG TAB PO SCH (09:30)
[2018-01-31] MEDS ORDERED: METOPROLOL SUCCINATE 50 MG EXTENDED RELEASE TAB PO SCH (09:30)
[2018-01-31] MEDS: MAGNESIUM SULFATE 1 GM PREMIX 100 ML IV SCH ×2 (11:54→13:15)
[2018-01-31] MEDS ORDERED: hydrALAZINE HCL 20 MG/ML VIAL IV PUSH ONE (12:15)
--- NOTE | 2018-01-31 12:40 | HHI.PR ---
Subjective Remarks Complains of bilateral extremity edema, denies chest pain shortness of breath, tired and weak. Patient had breakfast and tolerated it. Patient had some loose stools which have seemed to improve overnight. Patient tolerating PT and ambulating with PT and RN. Pain controlled Objective Vitals Vital Signs Date Time Temp Pulse Resp B/P (MAP) Pulse Ox O2 Delivery O2 Flow Rate FiO2 01/31/18 12:00 98.7 70 16 138/74 (95) 95 01/31/18 11:29 Room Air 01/31/18 07:56 98.3 70 18 152/76 (101) 94 01/31/18 07:31 62 01/31/18 05:29 97.8 65 22 148/68 (94) 95 01/31/18 05:00 60 01/31/18 04:07 59 01/31/18 03:00 58 01/31/18 02:00 58 01/31/18 01:00 60 01/31/18 00:04 97.7 59 18 118/56 (76) 94 01/31/18 00:04 59 01/30/18 23:00 60 01/30/18 22:40 18 01/30/18 22:00 60 01/30/18 21:00 62 01/30/18 20:22 65 01/30/18 20:00 Room Air 01/30/18 20:00 98.4 65 18 152/65 (94) 95 01/30/18 16:44 97.8 63 18 139/60 (86) 96 I/O 01/30/18 01/30/18 01/30/18 01/31/18 01/31/18 01/31/18 07:00 15:00 23:00 07:00 15:00 23:00 Intake Total 250 ml 100 ml 240 ml Output Total 400 ml Balance -150 ml 100 ml 240 ml Intake Oral 250 ml 240 ml IV Total 100 ml Output Urine Total 400 ml # Voids 4 1 # Bowel Movements 1 Result Diagram: 01/31/18 0540 01/31/18 0540 Objective Remarks GENERAL: NAD SKIN: Warm and dry. HEAD: Normocephalic. EYES: No scleral icterus. No injection or drainage. NECK: Supple, trachea midline. No JVD or lymphadenopathy. CARDIOVASCULAR: Regular rate and rhythm without murmurs, gallops, or rubs. RESPIRATORY: Breath sounds equal bilaterally. No accessory muscle use. GASTROINTESTINAL: Abdomen with mild distension, hypoactive bowel sounds, post- op tenderness, nondistended. EXTREMITIES: No cyanosis, nonpitting edema in the left lower extremity. NEUROLOGICAL: Awake, alert, and oriented x 3. Non-focal. Procedures 1. Exploratory laparotomy. 2. Lysis of adhesions. 3. Biopsies. Medications and IVs Current Medications Medications (Trade) Dose Ordered Sig/Eveline Route Start Time Stop Time Status Last Admin (Lipitor) 20 mg HS PO 01/22/18 21:00 01/30/18 20:36 (Colace) 100 mg BID PO 01/22/18 21:00 01/28/18 20:39 (Lasix) 20 mg DAILY PO 01/23/18 09:00 Future Hold 01/29/18 08:56 (Synthroid) 50 mcg DAILY@0600 PO 01/23/18 06:00 01/31/18 05:20 (Ativan) 0.5 mg HS PRN PO 01/22/18 09:30 01/28/18 21:59 (Cozaar) 25 mg HS PO 01/22/18 21:00 01/30/18 20:35 (Reglan) 10 mg QID PO 01/22/18 13:00 01/31/18 08:36 (Phazyme Chew) 250 mg BID PRN PO 01/22/18 12:45 01/29/18 19:42 (NS Flush) 2 ml UNSCH PRN IV FLUSH 01/22/18 09:45 (NS Flush) 2 ml BID IV FLUSH 01/22/18 21:00 01/31/18 08:37 (Percocet 5-325 Mg) 1 tab Q4H PRN PO 01/22/18 09:45 (Percocet 5-325 Mg) 2 tab Q4H PRN PO 01/22/18 09:45 (Zofran Inj) 4 mg Q6H PRN IVP 01/22/18 09:45 Future Hold 01/25/18 11:49 (Pill Splitter) 1 ea UNSCH PRN OTHER 01/22/18 12:30 (Zoloft) 25 mg HS PO 01/22/18 21:00 01/30/18 20:36 (Multaq) 400 mg BIDPC PO 01/23/18 18:00 4/25/18 08:36 (Duragesic 25 Mcg Patch.72 Hr) 1 patch Q3D T-DERMAL 01/24/18 10:00 01/30/18 10:03 Miscellaneous Information 1 Q3D T-DERMAL 01/27/18 10:00 01/30/18 10:00 (Reglan Inj) 10 mg Q8HR PRN IV PUSH 01/25/18 13:00 01/26/18 13:51 (Milk Of Magnesia Liq) 30 ml BID PRN PO 01/25/18 13:00 (Compazine Inj) 5 mg Q4H PRN IV PUSH 01/25/18 17:00 01/29/18 17:49 (Protonix Inj) 20 mg Q24H IV PUSH 01/25/18 22:00 01/30/18 20:35 (Ativan Inj) 0.5 mg Q6H PRN IV PUSH 01/26/18 09:30 01/30/18 22:35 (Morphine Inj) 2 mg Q3H PRN IV 01/27/18 13:00 01/30/18 22:35 Potassium Chloride 100 ml @ 50 mls/hr Q2H IV 01/31/18 09:00 01/31/18 12:59 01/31/18 09:10 (Toprol Xl) 50 mg BID PO 01/31/18 09:30 (Xarelto) 15 mg BID PO 01/31/18 09:30 (Apresoline Inj) 20 mg ONCE ONCE IV PUSH 01/31/18 12:15 01/31/18 12:16 UNV A/P Problem List: (1) Ovarian ca ICD Code: C56.9 - Malignant neoplasm of unspecified ovary Status: Acute (2) JOSI (acute kidney injury) ICD Code: N17.9 - Acute kidney failure, unspecified Status: Resolved (3) Ileus ICD Code: K56.7 - Ileus, unspecified Status: Resolved (4) Nausea & vomiting ICD Code: R11.2 - Nausea with vomiting, unspecified Status: Resolved (5) A-fib ICD Code: I48.91 - Unspecified atrial fibrillation Status: Chronic Assessment and Plan 1. Metastatic Ovarian Cancer s/p Omentectomy Extensive metastasis of cancer found on bowel clarke Continue pain control with oral Percocet and IV morphine for breakthrough pain. Follow-up CL[facility]ICAL LABORATORY MEDICAL DIRECTOR oncology recommendations 4/23 the patient status post expiratory laparotomy, lysis of adhesions and biopsies on 01/22/18. Management as above. 01/31 the patient is tolerating diet, had a bowel movement. 2. Ileus/nausea and vomiting. Improving hypoactive bowel sounds, postop tenderness Abdomen remains soft, still slightly bloated, small bowel movement this morning Continue IV Compazine as needed Continue IV fluid hydration 01/29 and she clamped, patient nauseous but no vomiting. Diet advanced to clear liquids. OB to ambulate 2-3 times per day. PT consulted. Patient complaining of loose stools. Will send for C. difficile. 01/30 C. difficile negative. We will start the patient on Imodium as needed. Out of bed, NG tube discontinued. Advance diet as per CLINICAL LABORATORY MEDICAL DIRECTOR oncology. 01/31 Kal[place] improving. Continue Imodium as needed. 3. Hypokalemia 01/29 status post replacement with IV potassium chloride. Potassium within normal range at 3.5 however will give oral potassium to prevent recurrence of hypokalemia. 01/30 we will check BMP and replace potassium as needed. 01/31 potassium 3.0, with oral and IV potassium chloride. 4. Recurrent asymptomatic ventricular tachycardia No further episodes of ventricular tachycardia after starting Lopressor Patient is currently still n.p.o. and unable to take her amiodarone Lopressor added 1.25 mg every 6 hours 01/29 will keep potassium more than 4.0 and will also check magnesium. 01/30 BMP pending. Magnesium ordered on 01/29 1.2. We will replace with IV magnesium sulfate. 01/31 magnesium level improved at 1.6. Will give another 2 g of magnesium IV sulfate to keep magnesium above 2 as the patient has been having some asymptomatic ventricular tachycardia. 5. Low urine output Bladder scan ordered, will treat accordingly based on findings Consider losses involvement and NG tube 01/29 no urinary retention on bladder scan and creatinine within normal range. DC IV Fluids and encourage oral intake. Hold Lasix for now. Continue to monitor strict I's and O's. 01/31 urine output has improved. Patient had a total of 1100 mL's of urine in the last 24 hour period. 6. CAD/hyperlipidemia. Continue home beta aga, statin 01/29 patient is chest pain-free. Continue beta-aga, statin, Xarelto. 7. Hypertension Continue home Losartan, lasix 01/29 BP stable. Continue metoprolol, losartan. Hold Lasix. 8. Atrial fibrillation Continue dronedarone, Xarelto, beta aga Rate controlled 01/29 continue to monitor on telemetry. 9. Insomnia 01/29 insomnia resolved. Continue home Ativan as needed, continue Zoloft. 10. GERD Continue ppi 11. Hypothyroidism Continue synthroid 12. Diarrhea Check stool for C diff. 13. JOSI Creatinine elevated on admission, likely secondary to dehydration. Creatinine 1.13 which trended up to 1.32. Patient has a history of normal renal function. Likely secondary to prerenal azotemia and resolved after IV fluid administration. Encourage oral intake. Continue to monitor BUN and creatinine, strict I's and O's and avoid nephrotoxins. 14. DVT left lower extremity. The patient has been complaining of bilateral extremity edema. Venous Dopplers positive for a DVT in the left lower extremity. My recommendation would be either to switch the patient to Lovenox therapeutic dose, could also continue Xarelto at a higher dose of 20 mg daily and repeat Doppler ultrasound in a couple weeks to see if there is any extension of the clot. 14. DVT prophylaxis SCDs, Xarelto Problem Qualifiers (1) Nausea & vomiting: (2) A-fib: Qualified Codes: I48.2 - Chronic atrial fibrillation Neftali Hollis MD Jan 31, 2018 12:40
[2018-01-31] MEDS: LORazepam 0.5 MG TAB PO PRN (13:19)
[2018-01-31] MEDS ORDERED: METO1TAB9 PO (13:50)
[2018-01-31] MEDS ORDERED: XARE20TA PO (13:50)
[2018-01-31] MEDS ORDERED: XARE15TA PO (13:50)
== END 2018-01-31 18:00 | DRG 749 ==
LOC: HSDI 05:43 → N03A 13:43 → HCIN 01-24 17:36
PROVIDERS: ADMIT Obstetrics & Gynecology Gynecologic Oncology; ATTEND Obstetrics & Gynecology Gynecologic Oncology
PROC: 0WJG0ZZ Inspection of Peritoneal Cavity, Open Approach (ICD-10-PCS; 2018-01-22)
PROC: 0WJJ0ZZ Inspection of Pelvic Cavity, Open Approach (ICD-10-PCS; 2018-01-22)
PROC: 0DBU0ZX Excision of Omentum, Open Approach, Diagnostic (ICD-10-PCS; 2018-01-22)
PROC: 0WBH0ZX Excision of Retroperitoneum, Open Approach, Diagnostic (ICD-10-PCS; 2018-01-22)
PROC: 0WJP0ZZ Inspection of Gastrointestinal Tract, Open Approach (ICD-10-PCS; principal; 2018-01-22 07:22)
DX: C56.9 Malignant neoplasm of unspecified ovary (principal); C78.6 Secondary malignant neoplasm of retroperitoneum and peritoneum; N17.9 Acute kidney failure, unspecified; I47.2 Ventricular tachycardia; C78.5 Secondary malignant neoplasm of large intestine and rectum; R18.8 Other ascites; I42.9 Cardiomyopathy, unspecified; I82.402 Acute embolism and thrombosis of unspecified deep veins of left lower extremity; K56.7 Ileus, unspecified; K91.89 Other postprocedural complications and disorders of digestive system; I49.5 Sick sinus syndrome; I48.0 Paroxysmal atrial fibrillation; C55 Malignant neoplasm of uterus, part unspecified; M19.90 Unspecified osteoarthritis, unspecified site; Z86.718 Personal history of other venous thrombosis and embolism; K64.9 Unspecified hemorrhoids; I10 Essential (primary) hypertension; M81.0 Age-related osteoporosis without current pathological fracture; Z95.0 Presence of cardiac pacemaker; Z96.651 Presence of right artificial knee joint; E03.9 Hypothyroidism, unspecified; E78.5 Hyperlipidemia, unspecified; G47.00 Insomnia, unspecified; K21.9 Gastro-esophageal reflux disease without esophagitis; I25.10 Atherosclerotic heart disease of native coronary artery without angina pectoris; Z85.3 Personal history of malignant neoplasm of breast; E87.6 Hypokalemia; I73.9 Peripheral vascular disease, unspecified; I08.1 Rheumatic disorders of both mitral and tricuspid valves; E86.0 Dehydration
CPT/HCPCS: 36415; 80048; 80053; 83735; 84100; 84155; 85025; 85027; 86850; 86900; 86901; 86920; 87493; 88305; 88331; 93970; 94150; C9113; J0780; J1100; J1644; J1650; J1885; J2060; J2270; J2405; J2550; J2710; J2765; J3010; J3475; J3480; J7040; J7120